=== PATIENT | female | born 1975 | race Caucasian/White ===

== ENCOUNTER 2022-02-06 15:40 | Outpatient (REF) | payer MEDICARE, MEDICAID, SELFPAY ==
[2022-02-06 16:33] LABS: C Reactive Protein 0.17 mg/dL (< or = 0.50)
[2022-02-06 16:57] LABS: TSH reflex Free T4 0.77 uIU/mL (0.32-4.0)
[2022-02-09 14:32] LABS: Immunoglobulin A 212 mg/dL (47-310)
[2022-02-10 13:46] LABS: Vitamin D 25-OH, D2 <4 ng/mL; Vitamin D 25-OH, D3 27 ng/mL; Vitamin D 25-OH, Total 27 ng/mL (30-100)
[2022-02-11 11:16] LABS: Transglutaminase Ab IgG <1.0 U/mL; Transglutaminase IgA <1.0 U/mL
== END 2022-02-06 15:41 | disposition home or self-care (01) ==
LOC: HO.LAB 15:40
PROVIDERS: PCP Internal Medicine; Visit Provider Nurse Practitioner Family
DX: R10.9 Unspecified abdominal pain (principal); E55.9 Vitamin D deficiency, unspecified; K58.9 Irritable bowel syndrome, unspecified; K59.00 Constipation, unspecified
CPT/HCPCS: 36415; 82306; 82784; 84443; 86140; 86364; 99202

== ENCOUNTER 2022-04-22 11:42 | Outpatient (REF) | payer MEDICARE, MEDICAID, SELFPAY ==
[2022-04-22 13:16] LABS: Alanine Aminotransferase 10 U/L (0-31); Albumin Level 4.5 g/dL (3.5-5.0); Alkaline Phosphatase 100 U/L (39-117); Aspartate Amino Transferase 16 U/L (5-31); Bilirubin Direct < 0.2 mg/dL (0.0-0.5); Bilirubin Total 0.4 mg/dL (0.0-1.0); Blood Urea Nitrogen 10 mg/dL (9-16); Estimated Glomerular Filt Rate > 60; Lipase 10 U/L (8-78); Total Protein 7.4 g/dL (6.5-8.0)
== END 2022-04-22 11:43 | disposition home or self-care (01) ==
LOC: HO.LAB 11:42
PROVIDERS: Visit Provider Nurse Practitioner Family
DX: R10.11 Right upper quadrant pain (principal)
CPT/HCPCS: 36415; 80076; 82565; 83690; 84520; 99212

== ENCOUNTER 2022-05-07 07:25 | Outpatient (REF) | payer MEDICARE, MEDICAID, SELFPAY ==
--- NOTE | ~2022-05-07 | CT_ITS ---
EXAMINATION: CT ABDOMEN AND PELVIS WITH CONTRAST CLINICAL INFORMATION: Abdominal pain. COMPARISON: 03/17/2021 TECHNIQUE: Multidetector volumetric images were obtained from the superior aspect of the liver through the pubic symphysis following administration 85 mL of Omnipaque 350 intravenous contrast. Sagittal and coronal reformatted images were obtained on the technologist's workstation. Oral contrast: No This CT examination was performed using dose optimization techniques as appropriate, variously including the following: *Automated exposure control *Adjustment of mA and/or kV according to patient size (this includes techniques or standardized protocols for targeted exams where dose is matched to indication/reason for exam; i.e. extremities or head) *Use of iterative reconstruction technique DLP: 317 mGy-cm FINDINGS: LUNG BASES: The visualized lung bases are unremarkable. LIVER, GALLBLADDER, AND BILIARY TREE: The liver is normal in size, shape, and attenuation. No focal hepatic lesion or biliary ductal dilatation is present. Cholecystectomy. PANCREAS: Unremarkable. SPLEEN: Unremarkable. ADRENAL GLANDS: Normal right adrenal gland. 0.9 cm left adrenal gland nodule is unchanged from prior, an indeterminant by Hounsfield unit measurement. KIDNEYS AND URETERS: The kidneys are normal in size, shape, and attenuation. No hydronephrosis, hydroureter, or calculi seen. No perinephric stranding. BLADDER: Decompressed with no gross abnormality. GASTROINTESTINAL TRACT: The stomach is unremarkable. Normal caliber small bowel. No obstruction. No colonic wall thickening or inflammatory change. The appendix is not seen. No inflammation the region of the cecum. ABDOMINAL WALL: No significant hernia is appreciated. LYMPH NODES: Normal. VASCULAR: Unremarkable. PELVIC VISCERA: Uterus not seen. No adnexal mass. Right ovarian small follicle noted. OSSEOUS STRUCTURES: No acute or suspicious osseous abnormality. Disc spacers at L4-L5 and L5-S1. CT/CT abdomen pelvis w IV con IMPRESSION: 1. No acute findings in the abdomen or pelvis. No inflammatory changes. 2. Unchanged indeterminate left adrenal gland nodule. This can be further evaluated with nonemergent adrenal protocol CT . Fleischner guidelines were followed.
[2022-05-07] MEDS: iohexoL 350 MG/ML 100 ML INFUS..BTL IV (09:45)
[2022-05-07] MEDS: Barium Sulfate Oral (Mocha) 450 ML ORAL.SUSP 900 ML PO (09:45)
== END 2022-05-07 07:26 | disposition home or self-care (01) ==
LOC: HO.CT 07:25
PROVIDERS: Visit Provider Nurse Practitioner Family
DX: R10.9 Unspecified abdominal pain (principal); R19.00 Intra-abdominal and pelvic swelling, mass and lump, unspecified site
CPT/HCPCS: 74177; Q9967

== ENCOUNTER 2022-05-17 16:09 | Emergency (ER) | payer MEDICARE, MEDICAID, SELFPAY ==
--- NOTE | ~2022-05-17 | CT_ITS ---
EXAMINATION: CT ABDOMEN AND PELVIS WITH CONTRAST CLINICAL INFORMATION: Abdominal pain. Diarrhea. COMPARISON: Multiple priors, most recent CT of the abdomen/pelvis dated 05/07/2022. TECHNIQUE: Multidetector volumetric images were obtained from the superior aspect of the liver through the pubic symphysis following administration 85 mL of Omnipaque 350 intravenous contrast. Sagittal and coronal reformatted images were obtained on the technologist's workstation. Oral contrast: No This CT examination was performed using dose optimization techniques as appropriate, variously including the following: *Automated exposure control *Adjustment of mA and/or kV according to patient size (this includes techniques or standardized protocols for targeted exams where dose is matched to indication/reason for exam; i.e. extremities or head) *Use of iterative reconstruction technique DLP: 445 mGy-cm FINDINGS: LUNG BASES: The visualized lung bases are unremarkable. LIVER, GALLBLADDER, AND BILIARY TREE: The liver is normal in size, shape, and attenuation. No focal hepatic lesion or biliary ductal dilatation is present. Status post cholecystectomy. PANCREAS: Unremarkable. SPLEEN: Unremarkable. ADRENAL GLANDS: Redemonstration of a left adrenal nodule, unchanged dating back to 2014. Given stability, findings likely represent an adrenal adenoma and no dedicated interval follow up is recommended. KIDNEYS AND URETERS: The kidneys are normal in size, shape, and attenuation. No hydronephrosis, hydroureter, or calculi seen. No perinephric stranding. BLADDER: Partially distended and unremarkable. GASTROINTESTINAL TRACT: No bowel wall thickening or inflammatory change. No small or large bowel obstruction. Appendix not identified, however, no right lower quadrant inflammatory change to suggest acute appendicitis. PERITONEAL CAVITY: No intra-abdominal free air or free fluid. No intra-abdominal mass or organized fluid collection/abscess formation. ABDOMINAL WALL: No significant hernia is appreciated. LYMPH NODES: No significant lymphadenopathy. VASCULAR: Unremarkable. PELVIC VISCERA: Status post hysterectomy. OSSEOUS STRUCTURES: Intervertebral disc hardware redemonstrated within the lumbar spine. No evidence of hardware complication. No acute osseous abnormality. CT/CT abdomen pelvis w IV con IMPRESSION: 1. No bowel wall thickening or inflammatory change. No small or large bowel obstruction. Appendix not identified, however, no right lower quadrant contour change to suggest acute appendicitis. 2. No intra-abdominal mass, lymphadenopathy, or ascites. 3. Additional chronic findings are unchanged. Fleischner guidelines were followed.
[2022-05-17 16:26] VITALS: BP 154/89; PULSE 77; RESP 18; TEMP 36.9; O2SAT 98; BMI 24.4
[2022-05-17] MEDS: Ondansetron ODT 4 MG TAB.RAPDIS TRANSLINGU (16:32)
[2022-05-17 17:04] LABS: Hematocrit 39.7 % (37.0-47.0); Hemoglobin 13.3 g/dl (12.0-16.0); Mean Corpuscular HGB Conc 33.5 g/dl (31.0-35.0); Mean Corpuscular Hemoglobin 29.9 pg (27.0-33.0); Mean Corpuscular Volume 89.2 fL (80.0-98.0); Platelet Count 302 X10*3/uL (160-400); Red Blood Count 4.45 X10*6/uL (4.20-5.50); Red Cell Distribution Width 12.1 % (11.0-16.0); White Blood Count 7.7 X10*3/uL (4.8-10.8)
[2022-05-17 17:23] LABS: COVID-19 Test Negative (Negative)
[2022-05-17 17:27] LABS: Alanine Aminotransferase 12 U/L (0-31); Albumin Level 4.5 g/dL (3.5-5.0); Alkaline Phosphatase 96 U/L (39-117); Anion Gap 15 (12-20); Aspartate Amino Transferase 14 U/L (5-31); Bilirubin Direct 0.2 mg/dL (0.0-0.5); Bilirubin Total 0.6 mg/dL (0.0-1.0); Blood Urea Nitrogen 13 mg/dL (9-16); Calcium 9.5 mg/dL (8.4-10.2); Carbon Dioxide 24 mmol/L (22-29); Chloride 104 mmol/L (96-108); Creatinine Clr Calc Pharmacy 77.9; Estimated Glomerular Filt Rate > 60; Glucose Random 92 mg/dL (60-115); Lipase 15 U/L (8-78); Potassium 3.9 mmol/L (3.3-5.1); Sodium 139 mmol/L (135-145); Total Protein 7.3 g/dL (6.5-8.0)
[2022-05-17 20:46] VITALS: BP 140/85; PULSE 77; RESP 16; TEMP 36.6; O2SAT 99
--- NOTE | 2022-05-17 21:23 | ED.ABDPAIN ---
HPI - Abdominal Pain General Chief Complaint: Abdominal Pain Stated Complaint: abd pain Time Seen by Provider: 05/17/22 21:23 Source: patient Mode of arrival: ambulatory Limitations: no limitations History of Present Illness HPI narrative: 46-year-old female history of GERD, irritable bowel syndrome, bipolar do, fibromyalgia presenting to the emergency department complaints of left upper quadrant pain with radiation to the left flank area times a few days worsening. Patient tells me she has a constant pain described as a stabbing pain, she tells me GI has seen her and has done a CT scan however she is unsure of results. She tells me that this pain has been going on for a long time however worsening over the past few days. She tells me they were concerned it may be her pancreas. She tells me she has not been eating or drinking well over the past few days. Also reports associated nausea. Reports she has been having loose stools. Denies trauma to the abdomen. Tells me she still has her appendix and gallbladder. Denies fevers, vomiting, chest pain, shortness of breath, urinary frequency, urgency, dysuria, changes in bowel habits, , numbness, tingling, saddle paresthesias. Related Data Home Medications Medication Instructions Recorded Confirmed adalimumab 40 mg/0.4 mL mg subcut 02/06/22 subcutaneous syringe kit (Gabbie(CF)) albuterol sulfate 2.5 mg/3 mL mg inhalation Q4H PRN wheezing 02/06/22 (0.083 %) solution for nebulization albuterol sulfate 90 mcg/actuation 0 mcg inhalation 02/06/22 aerosol inhaler aripiprazole 15 mg tablet 15 mg PO DAILY 02/06/22 atenolol 25 mg tablet 25 mg PO BID 02/06/22 cetirizine 10 mg tablet 10 mg PO DAILY 02/06/22 diclofenac sodium 75 mg 75 mg PO BID 02/06/22 tablet,delayed release dicyclomine 10 mg capsule 10 mg PO TID PRN abdominal pain 02/06/22 fluticasone propionate 220 1 puff inhalation BID 02/06/22 mcg/actuation HFA aerosol inhaler fluticasone propionate 50 2 spray intranasal DAILY 02/06/22 mcg/actuation nasal spray,suspension lamotrigine 150 mg tablet 75 mg PO BID 02/06/22 pantoprazole 40 mg tablet,delayed 40 mg PO DAILY 02/06/22 release pregabalin 50 mg capsule 50 mg PO TID 02/06/22 quetiapine 100 mg tablet 100 mg PO BEDTIME 02/06/22 sertraline 100 mg tablet 100 mg PO BID 02/06/22 tramadol 50 mg tablet 50 mg PO BID PRN 02/06/22 trazodone 150 mg tablet 150 - 300 mg PO BEDTIME PRN 02/06/22 Previous Rx's Medication Instructions Recorded docusate sodium 100 mg capsule 100 mg PO BEDTIME #90 caps 02/06/22 methylcellulose (laxative) 500 mg 500 mg PO DAILY #90 tabs 02/06/22 tablet (Citrucel) sennosides 8.6 mg tablet (Natural 8.6 mg PO BEDTIME constipation #90 02/06/22 Senna Laxative) tabs simethicone 125 mg capsule (Gas 125 mg PO TID-QID PRN abdominal 02/06/22 Relief (simethicone)) distention #120 caps cholecalciferol (vitamin D3) 50 50 mcg PO DAILY #90 caps 04/22/22 mcg (2,000 unit) capsule [id number]-jvjhlovf-nyoksts 1 cap PO .qid ac #120 caps 04/22/22 6,000-19,000-30,000 unit capsule,delayed rel (Creon) ondansetron 4 mg disintegrating 4 mg PO Q6H PRN nausea and 05/17/22 tablet vomiting #14 tabs Allergies Allergy/AdvReac Type Severity Reaction Status Date / Time oxycodone Allergy Mild Hives Verified 04/22/22 10:49 morphine Allergy Unknown Unknown Verified 04/22/22 10:49 cortisone acetate Allergy Unknown Unknown Uncoded 02/03/22 16:20 compazine Allergy Unknown Uncoded 02/03/22 16:20 Review of Systems Review of Systems Constitutional : No Weight loss, No Fever, No Chills, No Fatigue, No Malaise ENT/Mouth : No sore throat, No Rhinorrhea Eyes: No Eye Pain, No Swelling, No Redness Cardiovascular : No Chest Pain, No SOB, No Dyspnea on Exertion, No Orthopnea, No Edema, No Palpitations Respiratory : No Cough, No Sputum, No Wheezing Gastrointestinal : No Nausea, No Vomiting, No Diarrhea, No Constipation, + abdominal Pain, No Hematochezia, No Melena Genitourinary : No Dysuria, No Urinary Frequency, No Hematuria, Musculoskeletal : No joint pain, No Myalgias, No Joint Swelling Skin : No Skin Lesions, No rash Neuro : No Weakness, No Numbness, No Dizziness, No Headache Psych : No Anxiety/Panic, No Depression Heme/Lymph: No Bruising, No Bleeding,No Lymphadenopathy Endocrine : No Polyuria, No Polydipsia All other systems reviewed and are negative Yes all other systems are reviewed and are negative [facility] Past Medical History Attestation statement: The following information was validated with the patient. Source: old records reviewed and nursing notes reviewed Medical History Bipolar affective disorder Fibromyalgia GERD (gastroesophageal reflux disease) Irritable bowel syndrome Psoriatic arthritis Right bundle branch block (RBBB) Tubular adenoma Surgical History History of appendectomy History of bladder suspension procedure History of cholecystectomy History of colonoscopy History of esophagogastroduodenoscopy (EGD) Previous back surgery Family History Family History Maternal Grandmother Breast cancer Maternal Aunt Breast cancer Father FH: prostate cancer Paternal Grandmother Uterine cancer Paternal Grandfather Heart attack Sister Von Willebrand disease Paternal Aunt Ovarian cancer Colon cancer Stomach cancer Uterine cancer Paternal Uncle Colon cancer Social History Social History Alcohol intake: never Patient Tobacco Use Status: Former Tobacco user Cigarette Packs Per Day: 0.50 Advance Directives: No Advance Directives Information Provided: No Physical Exam ED Vital Signs: Vital Signs - 24 hr 05/17/22 16:26 05/17/22 20:46 05/17/22 21:35 Temperature 98.4 F 97.8 F 97.9 F Pulse Rate 77 77 68 Respiratory Rate 18 16 14 Blood Pressure 154/89 H 140/85 H 146/77 H Pulse Oximetry 98 99 98 Oxygen Delivery Method Room Air Room Air Room Air 05/17/22 23:45 05/18/22 00:08 05/18/22 02:00 Temperature 98.0 F 97.9 F 97.9 F Pulse Rate 64 65 61 Respiratory Rate 16 16 15 Blood Pressure 137/78 124/75 110/63 Pulse Oximetry 98 97 99 Oxygen Delivery Method Room Air Room Air Room Air BMI result Body Mass Index 24.4 vss Appearance: Alert.? Oriented X3.? No acute distress.? Head: Normocephalic, atraumatic, no step-offs or deformities Eyes: Pupils equal, round and reactive to light.? ENT: Pharynx normal.? Neck: Normal inspection.? Neck supple.? CVS: Normal heart rate and rhythm.? Pulses normal.? Respiratory: No respiratory distress.? Breath sounds normal.? Abdomen: Soft and pain with palpation to left upper quadrant..? Skin: Skin warm and dry.? Normal skin color.? Normal skin turgor.? Extremities: No lower extremity edema.? No calf ttp. 5/5 strength to bilateral upper and lower extremities Neuro: Oriented X 3.? No motor deficit.? No sensory deficit. CN 2-12 intact Course Reevaluation(s) Reevaluation #1: CBC appears to be within normal limits. No evidence of anemia or leukocytosis. Chemistry with no acute electrolyte abnormalities requiring intervention. Transaminases normal. Lipase within normal limits. COVID negative. CT of the abdomen and pelvis pending as well as urine. Time: 21:25 Reevaluation #2: Urine clean without infection. CT of the abdomen pelvis with no acute findings. Patient COVID negative. Patient is followed by GI, I will have her follow up with them outpatient. No need for hospital admission. This time patient will be discharged home advised to return with new or worsening symptoms. Educated on worrisome signs and symptoms and when to return. Time: 23:21 Reevaluation #3: EKG with normal sinus rhythm and right bundle-branch block, patient has a history of right bundle-branch block, no acute findings, no signs of ischemia. Will repeat troponin troponin is negative patient will be discharged home. She tells me she is feeling better after Dilaudid. Time: 01:14 Additional Reevaluation(s): Troponin not meeting delta criteria, patient without chest pain, shortness of breath. Reports feeling better tolerating p.o.. Will have her follow-up with GI. Unlikely that this is ACS. Educated on worrisome signs and symptoms and when to return. Comfortable discharge home Medications Administered Discontinued Medications Generic Name Dose Route Start Last Admin Trade Name Freq PRN Reason Stop Dose Admin Al Hydroxide/Mg Hydroxide 30 ml 05/17/22:24 05/17/22 23:36 Magnesium Hydrox/Alum Hydrox 30 Ml Oral.Susp PO 05/17/22 23:25 30 ml ONCE ONE Administration Belladonna Alkaloids/Phenobarbital 10 ml 05/17/22 23:24 05/17/22 23:37 Phenobarb/Hyoscy/Atropine/Scop 10 Ml Elixir PO 05/17/22 23:25 10 ml ONCE ONE Administration Hydromorphone HCl 0.25 mg 05/17/22 23:24 05/17/22 23:37 Hydromorphone Hcl 0.5 Mg/0.5 Ml Syringe IVPUSH 05/17/22 23:25 0.25 mg ONCE ONE Administration Protocol Sodium Chloride 1,000 mls @ 999 mls/hr 05/17/22 23:30 05/18/22 01:23 Ns IV 05/18/22 00:30 Infused .Q1H1M AKBAR Infusion Iohexol 100 ml 05/17/22 22:33 05/17/22 22:33 Iohexol 350 Mg/Ml 100 Ml Infus..Btl IV 05/17/22 22:34 85 ml ONCE ONE Administration Ondansetron HCl 4 mg 05/17/22 16:30 05/17/22 16:32 Ondansetron Odt 4 Mg Tab.Rapdis TRANSLINGU 05/17/22 16:31 4 mg ONCE ONE Administration MDM - Abdominal Pain MDM Narrative Medical decision making narrative: 2124 46-year-old female presents with left upper quadrant pain that radiates to the left flank with some associated nausea times a few days worsening. Reports poor p.o. intake. Exam pain to palpation of left upper quadrant. No peritoneal signs. Regular rate and rhythm. Lungs clear. Abdomen soft, normoactive bowel sounds. Unlikely that this is cholecystitis, appendicitis, diverticulitis, dissection. Will rule out pancreatitis. No signs of acute abdomen on my exam, Likely IBS. Plan at this time is labs, urine, imaging Medical Records Attestation: I reviewed the patient's medical records. Lab Data Attestation: I reviewed the patient's lab results. Result diagrams: 05/17/22 16:56 05/17/22 16:56 Labs: Lab Results 05/17/22 05/17/22 05/17/22 Range/Units 16:56 16:56 16:56 WBC 7.7 (4.8-10.8) X10*3/uL RBC 4.45 (4.20-5.50) X10*6/uL Hgb 13.3 (12.0-16.0) g/dl Hct 39.7 (37.0-47.0) % MCV 89.2 (80.0-98.0) fL MCH 29.9 (27.0-33.0) pg MCHC 33.5 (31.0-35.0) g/dl RDW 12.1 (11.0-16.0) % Plt Count 302 (160-400) X10*3/uL MPV 9.0 L (9.4-12.3) fL Absolute Nucleated RBC 0.000 (0.0-0.012) X10*3/uL Nucleated RBC % (auto) 0.0 (0.0-0.2) /100WBC Sodium 139 (135-145) mmol/L Potassium 3.9 (3.3-5.1) mmol/L Chloride 104 (96-108) mmol/L Carbon Dioxide 24 (22-29) mmol/L Anion Gap 15 (12-20) BUN 13 (9-16) mg/dL Creatinine 0.73 (0.5-1.4) mg/dL Estim Creat Clear Calc 77.9 Estimated GFR > 60 Random Glucose 92 (60-115) mg/dL Calcium 9.5 (8.4-10.2) mg/dL Total Bilirubin 0.6 (0.0-1.0) mg/dL Direct Bilirubin 0.2 (0.0-0.5) mg/dL AST 14 (5-31) U/L ALT 12 (0-31) U/L Alkaline Phosphatase 96 (39-117) U/L Troponin I High Sens 7.1 (<3.5-17.0) ng/L Total Protein 7.3 (6.5-8.0) g/dL Albumin 4.5 (3.5-5.0) g/dL Lipase 15 (8-78) U/L Urine Color Urine Appearance Urine pH (5.0-9.0) Ur Specific [place] (1.005-1.025) Urine Protein (Neg-Trace) mg/dL Urine Glucose (UA) (Negative) mg/dL Urine Ketones (Negative) mg/dL Urine Blood (Negative) Urine Nitrite (Negative) Ur Leukocyte Esterase (Negative) Urine Test (NEGATIVE) COVID-19 (ANAIS) (Negative) COVID-19 Clin Com 05/17/22 05/17/22 05/17/22 Range/Units 16:57 21:38 21:38 WBC (4.8-10.8) X10*3/uL RBC (4.20-5.50) X10*6/uL Hgb (12.0-16.0) g/dl Hct (37.0-47.0) % MCV (80.0-98.0) fL MCH (27.0-33.0) pg MCHC (31.0-35.0) g/dl RDW (11.0-16.0) % Plt Count (160-400) X10*3/uL MPV (9.4-12.3) fL Absolute Nucleated RBC (0.0-0.012) X10*3/uL Nucleated RBC % (auto) (0.0-0.2) /100WBC Sodium (135-145) mmol/L Potassium (3.3-5.1) mmol/L Chloride (96-108) mmol/L Carbon Dioxide (22-29) mmol/L Anion Gap (12-20) BUN (9-16) mg/dL Creatinine (0.5-1.4) mg/dL Estim Creat Clear Calc Estimated GFR Random Glucose (60-115) mg/dL Calcium (8.4-10.2) mg/dL Total Bilirubin (0.0-1.0) mg/dL Direct Bilirubin (0.0-0.5) mg/dL AST (5-31) U/L ALT (0-31) U/L Alkaline Phosphatase (39-117) U/L Troponin I High Sens (<3.5-17.0) ng/L Total Protein (6.5-8.0) g/dL Albumin (3.5-5.0) g/dL Lipase (8-78) U/L Urine Color Yellow Urine Appearance Cloudy Urine pH 5.0 (5.0-9.0) Ur Specific [place] 1.025 (1.005-1.025) Urine Protein Negative (Neg-Trace) mg/dL Urine Glucose (UA) Negative (Negative) mg/dL Urine Ketones Trace (Negative) mg/dL Urine Blood Negative (Negative) Urine Nitrite Negative (Negative) Ur Leukocyte Esterase Negative (Negative) Urine Test NEGATIVE (NEGATIVE) COVID-19 (ANAIS) Negative (Negative) COVID-19 Clin Com See Note 05/18/22 Range/Units 02:01 WBC (4.8-10.8) X10*3/uL RBC (4.20-5.50) X10*6/uL Hgb (12.0-16.0) g/dl Hct (37.0-47.0) % MCV (80.0-98.0) fL MCH (27.0-33.0) pg MCHC (31.0-35.0) g/dl RDW (11.0-16.0) % Plt Count (160-400) X10*3/uL MPV (9.4-12.3) fL Absolute Nucleated RBC (0.0-0.012) X10*3/uL Nucleated RBC % (auto) (0.0-0.2) /100WBC Sodium (135-145) mmol/L Potassium (3.3-5.1) mmol/L Chloride (96-108) mmol/L Carbon Dioxide (22-29) mmol/L Anion Gap (12-20) BUN (9-16) mg/dL Creatinine (0.5-1.4) mg/dL Estim Creat Clear Calc Estimated GFR Random Glucose (60-115) mg/dL Calcium (8.4-10.2) mg/dL Total Bilirubin (0.0-1.0) mg/dL Direct Bilirubin (0.0-0.5) mg/dL AST (5-31) U/L ALT (0-31) U/L Alkaline Phosphatase (39-117) U/L Troponin I High Sens 7.7 (<3.5-17.0) ng/L Total Protein (6.5-8.0) g/dL Albumin (3.5-5.0) g/dL Lipase (8-78) U/L Urine Color Urine Appearance Urine pH (5.0-9.0) Ur Specific [place] (1.005-1.025) Urine Protein (Neg-Trace) mg/dL Urine Glucose (UA) (Negative) mg/dL Urine Ketones (Negative) mg/dL Urine Blood (Negative) Urine Nitrite (Negative) Ur Leukocyte Esterase (Negative) Urine Test (NEGATIVE) COVID-19 (ANAIS) (Negative) COVID-19 Clin Com ECG Data Attestation: I personally reviewed and interpreted this ECG as follows: ECG interpretation date: 05/18/22 ECG interpretation time: 01:12 Prior ECG tracings: available for review Interpretation: Ventricular rate of 60 QRS normal QT/QTC normal. EKG with normal sinus rhythm and a right bundle-branch, no ST elevations or inversions concerning for ischemia, no previous EKGs to compare with however patient does have history of right bundle-branch block Critical Care Time Critical Care Time Critical Care Time: No Discharge Plan Discharge Clinical Impression: Abdominal pain, Nausea Patient Disposition: Home, Self-Care Instructions: Acute Nausea and Vomiting (ED), Abdominal Pain (ED) Additional Instructions: Take your medications as prescribed. If you were prescribed antibiotics today, it is important that you take your medication to their entirety, do not skip any doses, do not finish them early. Follow-up with your primary care provider this week. Return to the emergency department with new or worsening symptoms. Such as fevers, chills, chest pain, shortness of breath, nausea, vomiting, dizziness, headache, vision changes, lethargy In case of emergency call 911 Prescriptions: New ondansetron 4 mg tablet,disintegrating 4 mg PO Q6H PRN (Reason: nausea and vomiting) Qty: 14 0RF No Action trazodone 150 mg tablet 150 - 300 mg PO BEDTIME PRN albuterol sulfate 90 mcg/actuation HFA aerosol inhaler 0 mcg inhalation fluticasone propionate 50 mcg/actuation spray,suspension 2 spray intranasal DAILY albuterol sulfate 2.5 mg /3 mL (0.083 %) solution for nebulization inhalation Q4H PRN (Reason: wheezing) cetirizine 10 mg tablet 10 mg PO DAILY lamotrigine 150 mg tablet 75 mg PO BID sertraline 100 mg tablet 100 mg PO BID dicyclomine 10 mg capsule 10 mg PO TID PRN (Reason: abdominal pain) pantoprazole 40 mg tablet,delayed release (DR/EC) 40 mg PO DAILY tramadol 50 mg tablet 50 mg PO BID PRN atenolol 25 mg tablet 25 mg PO BID pregabalin 50 mg capsule 50 mg PO TID aripiprazole 15 mg tablet 15 mg PO DAILY fluticasone propionate 220 mcg/actuation HFA aerosol inhaler 1 puff inhalation BID diclofenac sodium 75 mg tablet,delayed release (DR/EC) 75 mg PO BID quetiapine 100 mg tablet 100 mg PO BEDTIME Humira(CF) 40 mg/0.4 mL syringe kit subcut Citrucel 500 mg tablet 500 mg PO DAILY Qty: 90 2RF Rx Instructions: take it with full glass of water docusate sodium 100 mg capsule 100 mg PO BEDTIME Qty: 90 3RF sennosides [Natural Senna Laxative] 8.6 mg tablet 8.6 mg PO BEDTIME Qty: 90 3RF simethicone [Gas Relief (simethicone)] 125 mg capsule 125 mg PO TID-QID PRN (Reason: abdominal distention) Qty: 120 2RF Creon 6,000-19,000 -30,000 unit capsule,delayed release(DR/EC) 1 cap PO .qid ac Qty: 120 2RF Rx Instructions: do not exceed 10,000 unit/kg lipase per 24 hrs cholecalciferol (vitamin D3) 50 mcg (2,000 unit) capsule 50 mcg PO DAILY Qty: 90 3RF Referrals: [facility] [place] [facility] [Provider Group] - 1 day Radu Christensen MD [Primary Care Provider] - 2 days Najma Perez FNP-SIMIN [Nurse Practitioner] - 1 day Stand Alone Forms: Work/School Release
[2022-05-17 21:35] VITALS: BP 146/77; PULSE 68; RESP 14; TEMP 36.6; O2SAT 98
[2022-05-17 21:47] LABS: Appearance Urine Cloudy; Color Urine Yellow; Glucose Urine UA Negative (Negative); Leukocyte Esterase Urine Negative (Negative); Nitrite Urine Negative (Negative); Specific Gravity - Urine 1.025 (1.005-1.025); Urine Blood Negative (Negative); Urine Ketones Trace mg/dL (Negative); Urine Protein Negative (Neg-Trace)
[2022-05-17 21:54] LABS: UPreg QC Valid YES; Urine Pregnancy NEGATIVE (NEGATIVE)
[2022-05-17] MEDS: iohexoL 350 MG/ML 100 ML INFUS..BTL IV (22:33)
--- NOTE | 2022-05-17 23:23 | ECG_ITS ---
Test Reason : ABD PAIN Blood Pressure : / mmHG Vent. Rate : 065 BPM Atrial Rate : 065 BPM P-R Int : 208 ms QRS Dur : 130 ms QT Int : 460 ms P-R-T Axes : 047 -10 021 degrees QTc Int : 478 ms Normal sinus rhythm Right bundle branch block Abnormal ECG No previous ECGs available Referred By: Bev Caro Electronically Signed By:MAXIMUS GUTIERREZ MD
[2022-05-17] MEDS: Magnesium Hydrox/Alum Hydrox 30 ML ORAL.SUSP PO (23:36)
[2022-05-17] MEDS: 0.9 % Sodium Chloride 1,000 ML 999 ML IV (23:36)
[2022-05-17] MEDS: PHENobarb/Hyoscy/Atropine/Scop 10 ML ELIXIR PO (23:37)
[2022-05-17] MEDS: HYDROmorphone HCl 0.5 MG/0.5 ML SYRINGE 0.25 MG IVPUSH (23:37)
--- NOTE | 2022-05-17 23:43 | PC.NURSE ---
Pt. resting in bed. Able to ambulate to bathroom with slow and steady gait. C/O pain in the abdomen at 03/14. Medicated per SEP. IVF NS running. Pt. spouse at bedside.
[2022-05-17 23:45] VITALS: BP 137/78; PULSE 64; RESP 16; TEMP 36.7; O2SAT 98
[2022-05-17 23:51] LABS: Troponin-I High Sensitivity 7.1 ng/L (<3.5-17.0)
[2022-05-18 00:08] VITALS: BP 124/75; PULSE 65; RESP 16; TEMP 36.6; O2SAT 97
[2022-05-18 02:00] VITALS: BP 110/63; PULSE 61; RESP 15; TEMP 36.6; O2SAT 99
[2022-05-18 02:25] LABS: Troponin-I High Sensitivity 7.7 ng/L (<3.5-17.0)
[2022-05-18] MEDS: HYDROmorphone HCl 0.5 MG/0.5 ML SYRINGE 0.25 MG IVPUSH (02:38)
== END 2022-05-18 02:51 | disposition home or self-care (01) ==
PROVIDERS: Physician Assistant; Emergency Provider Student in an Organized Health Care Education/Training Program; PCP Internal Medicine
DX: R10.12 Left upper quadrant pain (principal); R11.2 Nausea with vomiting, unspecified; Z20.822 Contact with and (suspected) exposure to COVID-19; Z79.899 Other long term (current) drug therapy
CPT/HCPCS: 36415; 74177; 80048; 80076; 81003; 81025; 83690; 84484; 85027; 87635; 93005; 96361; 96374; 96376; 99285; J1170; Q9967

== ENCOUNTER 2022-05-21 10:06 | Outpatient (REF) | payer MEDICARE, MEDICAID, SELFPAY ==
[2022-05-31 14:32] LABS: Calprotectin, Fecal 57 mcg/g
[2022-06-01 16:41] LABS: Pancreatic Elastase-1 >500 mcg/g
== END 2022-05-21 10:07 | disposition home or self-care (01) ==
LOC: HO.LNP 10:06
PROVIDERS: Visit Provider Nurse Practitioner Family
DX: K21.9 Gastro-esophageal reflux disease without esophagitis (principal); K58.2 Mixed irritable bowel syndrome; R10.9 Unspecified abdominal pain
CPT/HCPCS: 82656; 83993; 87338; 99212

== ENCOUNTER 2022-05-21 10:57 | Outpatient (REF) | payer MEDICARE, MEDICAID, SELFPAY ==
[2022-05-21 16:38] LABS: Folate 11.7 ng/mL (> or = 4.0); Vitamin B12 423 pg/mL (200-900)
[2022-05-26 09:26] LABS: Rast Allergen SEE COMMENTS
== END 2022-05-21 10:58 | disposition home or self-care (01) ==
LOC: HO.LAB 10:57
PROVIDERS: PCP Internal Medicine; Visit Provider Nurse Practitioner Family
DX: Z01.82 Encounter for allergy testing (principal); R19.7 Diarrhea, unspecified; K21.9 Gastro-esophageal reflux disease without esophagitis; K29.70 Gastritis, unspecified, without bleeding
CPT/HCPCS: 36415; 82607; 82746; 86003

== ENCOUNTER 2022-06-02 10:02 | Day surgery (SDC) | payer MEDICARE, MEDICAID, SELFPAY ==
--- NOTE | 2022-06-02 10:27 | P.HPSUR_ITS ---
Pre-Procedural Eval Section A Date of Service: 06/02/22 Section B Chief Complaint: abdominal pain,reflux disease Relevant Family History (Specify if Yes): No Relevant Social History: None Present Medications: see Short Stay Collaborative assessment Medical History: Significant History (Bipolar affective disorder Fibromyalgia GERD (gastroesophageal reflux disease) Irritable bowel syndrome Psoriatic arth ritis Right bundle branch block (RBBB) Tubular adenoma) History of Previous Operations: Relevant previous surgery/procedure and date(s) (History of appendectomy History of bladder suspension procedure History of cholecystectomy History of colonoscopy History of esophagogastroduodenoscopy (EGD) Previous back surgery) Allergies: Allergies Allergy/AdvReac Type Severity Reaction Status Date / Time oxycodone Allergy Mild Hives Verified 05/21/22 09:56 morphine Allergy Unknown Unknown Verified 05/21/22 09:56 cortisone acetate Allergy Unknown Unknown Uncoded 02/03/22 16:20 compazine Allergy Unknown Uncoded 02/03/22 16:20 Review of Systems Sugical H&P ROS: Negative: Constitution, Cardiovascular, Respiratory, Neurological, Psychiatric, Hem-Onc, Allergic/Immunologic, Gastrointestinal, Genitourinary, Musculoskeletal, Integumentary, Endocrine and Eye s/Ears/Nose/Throat Exam Surgical H&P Exam: Normal: HEENT, Normal: Heart, Normal: Lungs, Normal: Extremities, Normal: Abdomen, Normal: Skin and Normal: Neurological Plan Diagnosis/Plan: Unchanged I have reviewed the history and physical and performed a pertinent physical examination on my patient. No changes have occurred unless specified.
[2022-06-02 11:00] VITALS: BP 129/85; PULSE 69; RESP 15; TEMP 36.5; O2SAT 97; BMI 24.4
[2022-06-02] MEDS: Lactated Ringers 1,000 ML 100 ML IVCONT (11:19)
--- NOTE | 2022-06-02 11:52 | W.PM.OPN ---
Operative Note Operative Note Date of Service: 06/02/22 Narrative: Procedure Description: EGD Indication: epigastric pain Anesthesia: MAC FLEXIBLE TRANSORAL UPPER GASTROINTESTINAL ENDOSCOPY UPPER ENDOSCOPY Consent: Indications for the procedure and potential complications of bleeding, perforation, reaction to medications and missed diagnosis were discussed with the patient and informed consent was obtained. Instrument: Olympus GIF H 190 J mid size upper endoscope Monitoring: Vital signs and clinical assessment, continuous EKG monitoring, Pulse oximetry, Carbon Dioxide monitoring and blood pressure monitoring were done throughout the procedure. Procedure: The patient was placed in the left lateral decubitis position and pre-procedure medications were administered and a bite block was placed. The endoscope was inserted into the mouth and advanced under direct vision to the third part of duodenum. A careful inspection was made as the upper endoscope was withdrawn including a retroflexed examination of the proximal stomach; Findings and interventions are described below. Findings: Larynx:normal Esophagus: GE junction at 37 cm, diaphragm hiatus at 37 cm, irregular z line with suspected short segment Barretts including one small island of salmon pink tissue, biopsies and brushings taken including from proximal and distal esophagus Stomach: Patchy gastric erythema. Biopsies were obtained. Grade 2 flap valve on retroflexed examination of the cardia. Few fundic gland appearing polyps noted, bx taken Duodenum: Normal bulb and descending duodenum, bx taken Intervention: Biopsies as noted above, WATS 3D brushings Impression/Findings: possible barretts gastritis fundic gland polyps PLAN: await bx results if h pylori pos then treat
--- NOTE | 2022-06-02 12:10 | P.CONAN_ITS ---
FORMERLY [facility], [facility] Active Problems Active Problems: All Active Problems (Updated 06/02/22 @ 11:10 by Sherie Walker, JUSTIN) GERD (gastroesophageal reflux disease) (Acute) Irritable bowel syndrome (Acute) Past Medical History Medical History (Updated 06/02/22 @ 11:10 by Sherie Walker RN) Bipolar affective disorder Fibromyalgia GERD (gastroesophageal reflux disease) History of uterine cancer Irritable bowel syndrome Psoriatic arthritis PTSD (post-traumatic stress disorder) Right bundle branch block (RBBB) TIA (transient ischemic attack) Tubular adenoma Family History Family History Maternal Grandmother Breast cancer Maternal Aunt Breast cancer Father FH: prostate cancer Paternal Grandmother Uterine cancer Paternal Grandfather Heart attack Sister Von Willebrand disease Paternal Aunt Ovarian cancer Colon cancer Stomach cancer Uterine cancer Paternal Uncle Colon cancer Family history of problems with anesthesia: No Surgical History Surgical History (Updated 06/02/22 @ 11:08 by Sherie Walker RN) History of appendectomy History of bladder suspension procedure History of cholecystectomy History of colonoscopy History of esophagogastroduodenoscopy (EGD) History of partial hysterectomy Hx of abdominal surgery Hx of section Hx of eye surgery Hx of hernia repair Previous back surgery History of Problems with Anesthesia: No Social History Social History Alcohol intake: never Patient Tobacco Use Status: Former Tobacco user Quit Date: 03/2022 Cigarette Packs Per Day: 0.50 Use of substances other than those prescribed or required for medical reasons: No Are you DNR?: No Advance Directives: No Advance Directives Information Provided: Yes Meds Allergies Allergy/AdvReac Type Severity Reaction Status Date / Time oxycodone Allergy Mild Hives Verified 05/21/22 09:56 morphine Allergy Unknown Unknown Verified 05/21/22 09:56 cortisone acetate Allergy Unknown Unknown Uncoded 02/03/22 16:20 compazine Allergy Unknown Uncoded 02/03/22 16:20 Active Medications: Current Medications Lactated Ringer's (Lr) 1,000 mls @ 100 mls/hr IVCONT .Q10H AKBAR Last Admin: 06/02/22 11:19 Dose: 100 mls/hr Ondansetron HCl (Ondansetron Hcl 4 Mg/2 Ml Vial) 4 mg IVPUSH ONCE PRN PRN Reason: Nausea and Vomiting Home Medications Medication Instructions Recorded Confirmed Last Taken Type adalimumab 40 mg/0.4 mL mg subcut 02/06/22 Unknown History subcutaneous syringe kit (Humira(CF)) albuterol sulfate 2.5 mg/3 mL mg inhalation Q4H PRN wheezing 02/06/22 Unknown History (0.083 %) solution for nebulization albuterol sulfate 90 mcg/actuation 0 mcg inhalation 02/06/22 Unknown History aerosol inhaler aripiprazole 15 mg tablet 15 mg PO DAILY 02/06/22 Unknown History cetirizine 10 mg tablet 10 mg PO DAILY 02/06/22 06/02/22 08:00 History fluticasone propionate 220 1 puff inhalation BID 02/06/22 Unknown History mcg/actuation HFA aerosol inhaler fluticasone propionate 50 2 spray intranasal DAILY 02/06/22 Unknown History mcg/actuation nasal spray,suspension tramadol 50 mg tablet 50 mg PO BID PRN Pain 02/06/22 06/02/22 08:00 History Exam Exam Date and Time: June 02, 2022 1210 Height,Weight and Vital Signs: Height 5 ft 3 in Weight 62.596 kg Last Vital Signs Temp 97.7 F 06/02/22 11:00 Pulse 69 06/02/22 11:00 Resp 15 06/02/22 11:00 BP 129/85 06/02/22 11:00 Pulse Ox 97 06/02/22 11:00 O2 Del Method 06/02/22 11:00 Airway Mallampati Class: I TM Dist: >3cm Neck ROM: Full Loose/Missing/Broken Teeth: No Heart: rrr Lungs: clear Assessment and Plan Final Anesthetic Review Family History of Problems with Anesthesia: No History of Problems with Anesthesia: No NPO: Yes ASA Class: II Final Preanesthetic Review: No Changes in Pt Med Stat, Meds/Allgs Chart Reviewed, Consent Obtained/Reviewed and Anes Risks/Benef Reviewed Patient Risk: Low Procedure Risk: Low Anesthetic Plan Anesthetic Plan: MAC: Disposition: Standard PACU
--- NOTE | 2022-06-02 12:18 | P.CONAN_ITS ---
[facility] Active Problems Active Problems: aAll Active Problems (Updated 06/02/22 @ 11:10 by Sherie Walker, RN) GERD (gastroesophageal reflux disease) (Acute) Irritable bowel syndrome (Acute) Past Medical History Medical History (Updated 06/02/22 @ 11:10 by Sherie Walker RN) Bipolar affective disorder Fibromyalgia GERD (gastroesophageal reflux disease) History of uterine cancer Irritable bowel syndrome Psoriatic arthritis PTSD (post-traumatic stress disorder) Right bundle branch block (RBBB) TIA (transient ischemic attack) Tubular adenoma Family History Family History Maternal Grandmother Breast cancer Maternal Aunt Breast cancer Father FH: prostate cancer Paternal Grandmother Uterine cancer Paternal Grandfather Heart attack Sister Von Willebrand disease Paternal Aunt Ovarian cancer Colon cancer Stomach cancer Uterine cancer Paternal Uncle Colon cancer Family history of problems with anesthesia: No Surgical History Surgical History (Updated 06/02/22 @ 11:08 by Sherie Walker RN) History of appendectomy History of bladder suspension procedure History of cholecystectomy History of colonoscopy History of esophagogastroduodenoscopy (EGD) History of partial hysterectomy Hx of abdominal surgery Hx of section Hx of eye surgery Hx of hernia repair Previous back surgery History of Problems with Anesthesia: No Social History Social History Alcohol intake: never Patient Tobacco Use Status: Former Tobacco user Quit Date: 03/2022 Cigarette Packs Per Day: 0.50 Use of substances other than those prescribed or required for medical reasons: No Are you DNR?: No Advance Directives: No Advance Directives Information Provided: Yes Meds Allergies Allergy/AdvReac Type Severity Reaction Status Date / Time oxycodone Allergy Mild Hives Verified 05/21/22 09:56 morphine Allergy Unknown Unknown Verified 05/21/22 09:56 cortisone acetate Allergy Unknown Unknown Uncoded 02/03/22 16:20 compazine Allergy Unknown Uncoded 02/03/22 16:20 Active Medications: Current Medications Lactated Ringer's (Lr) 1,000 mls @ 100 mls/hr IVCONT .Q10H AKBAR Last Admin: 06/02/22 11:19 Dose: 100 mls/hr Ondansetron HCl (Ondansetron Hcl 4 Mg/2 Ml Vial) 4 mg IVPUSH ONCE PRN PRN Reason: Nausea and Vomiting Home Medications Medication Instructions Recorded Confirmed Last Taken Type adalimumab 40 mg/0.4 mL mg subcut 02/06/22 Unknown History subcutaneous syringe kit (Humira(CF)) albuterol sulfate 2.5 mg/3 mL mg inhalation Q4H PRN wheezing 02/06/22 Unknown History (0.083 %) solution for nebulization albuterol sulfate 90 mcg/actuation 0 mcg inhalation 02/06/22 Unknown History aerosol inhaler aripiprazole 15 mg tablet 15 mg PO DAILY 02/06/22 Unknown History cetirizine 10 mg tablet 10 mg PO DAILY 02/06/22 06/02/22 08:00 History fluticasone propionate 220 1 puff inhalation BID 02/06/22 Unknown History mcg/actuation HFA aerosol inhaler fluticasone propionate 50 2 spray intranasal DAILY 02/06/22 Unknown History mcg/actuation nasal spray,suspension tramadol 50 mg tablet 50 mg PO BID PRN Pain 02/06/22 06/02/22 08:00 History Exam Exam Date and Time: June 02, 2022 1218 Height,Weight and Vital Signs: Height 5 ft 3 in Weight 62.596 kg Last Vital Signs Temp 97.7 F 06/02/22 11:00 Pulse 69 06/02/22 11:00 Resp 15 06/02/22 11:00 BP 129/85 06/02/22 11:00 Pulse Ox 97 06/02/22 11:00 O2 Del Method 06/02/22 11:00 Assessment and Plan Final Anesthetic Review Family History of Problems with Anesthesia: No History of Problems with Anesthesia: No
[2022-06-02 12:52] VITALS: BP 126/73; PULSE 66; RESP 17; TEMP 36.8; O2SAT 99
[2022-06-02 13:07] VITALS: BP 129/79; PULSE 70; RESP 16; O2SAT 98
[2022-06-02 13:22] VITALS: BP 132/73; PULSE 63; RESP 16; O2SAT 98
[2022-06-02 13:36] VITALS: BP 128/75; PULSE 72; RESP 16; TEMP 37.1; O2SAT 100
[2022-06-02 13:38] VITALS: PULSE 74; RESP 16; O2SAT 100
== END 2022-06-02 14:13 | disposition home or self-care (01) ==
PROVIDERS: PCP Internal Medicine; Visit Provider Internal Medicine Gastroenterology
PROC: 0DJ08ZZ Inspection of Upper Intestinal Tract, Via Natural or Artificial Opening Endoscopic (ICD-10-PCS; CPT 43235; principal; 2022-06-02 12:30)
DX: K21.00 Gastro-esophageal reflux disease with esophagitis, without bleeding (principal); R10.9 Unspecified abdominal pain; K29.70 Gastritis, unspecified, without bleeding; K31.7 Polyp of stomach and duodenum; K58.2 Mixed irritable bowel syndrome; Z88.5 Allergy status to narcotic agent
CPT/HCPCS: 43239; 88305; 88342

== ENCOUNTER → 2022-06-09 15:59 | Outpatient (BNVA) | payer MEDICARE, MEDICAID, SELFPAY | PROVIDERS: PCP Internal Medicine; Visit Provider Nurse Practitioner Family | DX: K21.00 Gastro-esophageal reflux disease with esophagitis, without bleeding (principal); K58.2 Mixed irritable bowel syndrome; K59.00 Constipation, unspecified | CPT/HCPCS: 99212 ==

== ENCOUNTER → 2022-09-30 15:02 | Outpatient (BNVA) | payer MEDICARE, MEDICAID, SELFPAY | PROVIDERS: PCP Internal Medicine; Visit Provider Nurse Practitioner Family | DX: K21.00 Gastro-esophageal reflux disease with esophagitis, without bleeding (principal); K58.9 Irritable bowel syndrome, unspecified; K64.9 Unspecified hemorrhoids; R14.0 Abdominal distension (gaseous) | CPT/HCPCS: 99212 ==

== ENCOUNTER 2023-03-05 11:46 | Outpatient (REF) | payer MEDICARE, MEDICAID, SELFPAY ==
[2023-03-05 14:37] LABS: Alanine Aminotransferase 14 U/L (0-31); Albumin Level 4.5 g/dL (3.5-5.0); Alkaline Phosphatase 111 U/L (39-117); Aspartate Amino Transferase 14 U/L (5-31); Bilirubin Direct 0.1 mg/dL (0.0-0.5); Bilirubin Total 0.3 mg/dL (0.0-1.0); Lipase 20 U/L (8-78); Total Protein 7.5 g/dL (6.5-8.0)
[2023-03-05 14:57] LABS: TSH reflex Free T4 1.61 uIU/mL (0.32-4.0)
[2023-03-05 15:06] LABS: Folate 11.9 ng/mL (> or = 4.0); Vitamin B12 361 pg/mL (200-900)
[2023-03-10 11:53] LABS: Vitamin D 25-OH, D2 <4 ng/mL; Vitamin D 25-OH, D3 30 ng/mL; Vitamin D 25-OH, Total 30 ng/mL (30-100)
[2023-03-11 03:08] LABS: Vitamin A 44 mcg/dL (38-98)
[2023-03-12 01:38] LABS: Nicotinamide 22 ng/mL; Vit B3 - Nicotinic Acid <20 ng/mL
== END 2023-03-05 11:47 | disposition home or self-care (01) ==
LOC: HO.LAB 11:46
PROVIDERS: PCP Internal Medicine; Visit Provider Nurse Practitioner Family
DX: R10.9 Unspecified abdominal pain (principal); E55.9 Vitamin D deficiency, unspecified; K86.89 Other specified diseases of pancreas; K59.00 Constipation, unspecified; R19.7 Diarrhea, unspecified; K64.9 Unspecified hemorrhoids; K21.00 Gastro-esophageal reflux disease with esophagitis, without bleeding; K58.9 Irritable bowel syndrome, unspecified
CPT/HCPCS: 36415; 80076; 82306; 82607; 82746; 83690; 84443; 84590; 84591; 99212

== ENCOUNTER 2023-03-05 11:46 | Outpatient (AMB) | payer MEDICARE, MEDICAID, SELFPAY ==
[2023-03-05 11:59] VITALS: BP 141/84; PULSE 89; BMI 25.8
--- NOTE | 2023-03-05 11:59 | A.OFFVIS_ITS ---
Intake Vital Signs 03/05/23 11:59 Height 5 ft 3 in Weight 145 lb 8.081 oz BMI 25.8 BP 141/84 H Blood Pressure Location Lt brachial Position Sitting Pulse 89 Intake Visit Reasons: Follow up Intake Note: Rubia presents in office as a est.patient for a f/u for GERD. PT CC: pt reports having abdominal pain , bloating , constipation/diarrhea GERD, pt is having incomplete bowel movements, pt denies any other GI Issues Contact Finger Assembler Required: No Accompanied by: Self / Same As Patient Allergies oxycodone Allergy (Mild, Verified 03/05/23 11:59) Hives morphine Allergy (Unknown, Verified 03/05/23 11:59) Unknown cortisone acetate Allergy (Unknown, Uncoded 03/05/23 11:59) Unknown compazine Allergy (Uncoded 03/05/23 11:59) Unknown HPI Follow up HPI Details LAST VISIT GERD (gastroesophageal reflux disease) Continue current dose of omeprazole. Continue sucralfate. Patient was encouraged to avoid dietary triggers and late night snacking. Staying upright for minimum 3 hours after meals discussed with patient. Irritable bowel syndrome Patient reports that she has been feeling little better after taking Creon. Low does Creon to treat her symptoms and not pancreatic insufficiency. Patient had normal pancreatic elastase. Patient states that she continues to have occasional postprandial abdominal bloating and cramping occasionally. Patient does not have a gallbladder and her symptoms depending on what she eats might exacerbate her symptoms. I will start her on low-dose Linzess. Patient reports that she does not empty her bowels completely and she reports gas and cramping specially in the left upper quadrant. Negative tenderness. Postprandial abdominal bloating Postprandial abdominal bloating. Discussed with patient low FODMAP diet again. Patient will start Linzess hopefully that will help her eliminate her bowels completely. Most likely gas trapping due to not truly emptying her bowels completely. Hemorrhoid Patient reports that she feels like her hemorrhoid is coming back. When she moves her bowels she can feel the hemorrhoid right after a bowel movement. Patient states that she is using preparation H without much affect. I will have her start using Anusol. Patient will try for a month and if she continues to have discomfort we can refer her to General surgery. Patient is agreeable to plan and verbalizes understanding of instructions. She was given the opportunity to ask questions and all questions answered. ? Thank you for allowing me to participate in her care Plan Medications New hydrocortisone 2.5% (Anusol-HC) 1 appl OK QID PRN 30 grams 2RF hemorrhoids K64.9 linaclotide (Linzess) 72 mcg PO DAILY 30 caps 2RF TODAY'S VISIT: Patient is here today for follow-up. Patient reports that she is feeling better, however she continues to have occasional postprandial abdominal bloating. States that she takes Linzess and is not always feeling like she does not empties her bowels completely. Patient is taking sucralfate and omeprazole and her symptoms or acid reflux are suppressed for the most part. Occasional dyspepsia without dysphagia or odynophagia. Patient denies any nausea or vomiting. Patient reports that she is trying to eat better. Tries to follow low FODMAP diet as much as possible. Patient reports that her hemorrhoids are bothering her and she would like to get a referral to General surgery [facility] Medical History Bipolar affective disorder Fibromyalgia GERD (gastroesophageal reflux disease) History of uterine cancer Irritable bowel syndrome Psoriatic arthritis PTSD (post-traumatic stress disorder) Right bundle branch block (RBBB) TIA (transient ischemic attack) Tubular adenoma Surgical History History of appendectomy History of bladder suspension procedure History of cholecystectomy History of colonoscopy History of esophagogastroduodenoscopy (EGD) History of partial hysterectomy Hx of abdominal surgery Hx of section Hx of eye surgery Hx of hernia repair Previous back surgery Family History Maternal Grandmother Breast cancer Maternal Aunt Breast cancer Father FH: prostate cancer Paternal Grandmother Uterine cancer Paternal Grandfather Heart attack Sister Von Willebrand disease Paternal Aunt Ovarian cancer Colon cancer Stomach cancer Uterine cancer Paternal Uncle Colon cancer Social History Alcohol intake: never Patient Tobacco Use Status: Former Tobacco user Quit Date: 03/2022 Cigarette Packs Per Day: 0.50 Review of Systems Const Denies weight gain and Denies weight loss ENT Reports no additional complaints, Denies dysphagia and Denies odynophagia Card Reports no additional complaints Resp Reports no additional complaints GI Denies abdominal pain, Denies belching, Denies melena, Denies bloating, Reports constipation, Denies dysphagia, Denies excessive flatus, Denies dyspepsia, Denies heartburn, Denies diarrhea, Reports loose stools, Denies nausea, Denies odynophagia and Denies vomiting Reports no additional complaints Musc Reports no additional complaints Neuro Reports no additional complaints Psych Reports no additional complaints Endo Reports no additional complaints Physical Exam Vital Signs: Last Vital Signs Pulse 89 03/05/23 11:59 BP 141/84 H 03/05/23 11:59 BMI result Body Mass Index 25.8 Const General: healthy appearing, no acute distress and well developed Nutritional Appearance: well nourished Orientation/consciousness: patient oriented x3 HEENT Head: Yes normal to inspection, Yes normocephalic and Yes atraumatic Face and sinus: Yes normal facial exam Mouth: Normal oral and palatal mucosa present Throat: Yes posterior oropharynx normal, Yes tonsils normal and Yes uvula midline Eyes General: appearance normal, both eyes and all related structures Neck Neck: Yes normal visual inspection, Yes full ROM and Yes trachea midline Thyroid: Thyroid normal Resp Effort & Inspection: normal respiratory effort, able to speak in complete sentences, no tracheal deviation and symmetric chest movement Auscultation: clear to auscultation bilaterally Cardio Rate: regular rate Heart sounds: S1 normal heart sound present and S2 normal heart sound present GI Inspection: Yes normal to inspection and No distended Palpation (GI): Soft to palpation, not firm, nontender and No hepatosplenomegaly present Auscultation: normal bowel sounds General: Yes no CVA tenderness Back/Spine/Pelvis Back: no CVA tenderness Skin General skin exam: elasticity normal, turgor normal and dry skin Neuro General: patient oriented x3 Psych Appearance: grossly normal Mental Status: mental status grossly normal Assessment & Plan Assessment & Plan (1) Hemorrhoid: Code(s): K64.9 - Unspecified hemorrhoids Qualifiers: Hemorrhoid type: unspecified Qualified Code(s): K64.9 - Unspecified hemorrhoids Plan: Referral to General surgery (2) GERD (gastroesophageal reflux disease): Code(s): K21.9 - Gastro-esophageal reflux disease without esophagitis Qualifiers: Esophagitis presence: with esophagitis Esophagitis bleeding: without hemorrhage Qualified Code(s): K21.00 - Gastro-esophageal reflux disease with esophagitis, without bleeding Plan: Continue omeprazole in the morning and sucralfate at bedtime. Continue avoiding dietary triggers and late night snacking. Staying upright for minimum 3 hours after meals discussed with patient. (3) Irritable bowel syndrome: Code(s): K58.9 - Irritable bowel syndrome without diarrhea Qualifiers: Irritable bowel syndrome type: without diarrhea Qualified Code(s): K58.9 - Irritable bowel syndrome without diarrhea Plan: Occasional postprandial loose stools then constipation. Discussed with patient again low FODMAP diet. Will check lipase, liver panel, vitamin-D level B12, vitamin-A, folate, B3. Will check patient's thyroid. Patient can increase Linzess to 145 mcg daily. I will see patient in 6 weeks, sooner on as needed basis. Patient is agreeable to this plan and verbalizes understanding of instructions. She was given the opportunity to ask questions and all questions answered. Thank you for allowing me to participate in her care Orders: Orders Lipase 03/05/23 R10.9 - Unspecified abdominal pain Liver Panel 03/05/23 R10.9 - Unspecified abdominal pain Vitamin D 25-OH (D2 and D3) 03/05/23 E55.9 - Vitamin D deficiency, unspecified Vitamin A 03/05/23 K86.89 - Other specified diseases of pancreas TSH reflex Free T4 03/05/23 K59.00 - Constipation, unspecified Vitamin B12 and Folate 03/05/23 R19.7 - Diarrhea, unspecified Vitamin B3 (Niacin) 03/05/23 K86.89 - Other specified diseases of pancreas Referrals General Surgery Referral K64.9 - Unspecified hemorrhoids Medications: New linaclotide (Linzess) 145 mcg PO DAILY 30 caps 2RF Refilled sucralfate 1 g PO BEDTIME 90 tabs 3RF K21.9 - Gastro-esophageal reflux disease without esophagitis omeprazole 40 mg PO DAILY 90 caps 3RF K21.9 - Gastro-esophageal reflux disease without esophagitis Discontinued [id number] 6,000-19,000 -30,000 unit do not exceed 10,000 unit/kg lipase per 24 hrs Discontinued Reason: Doctor's Order 1 cap PO .qid ac 120 caps 2RF sennosides Discontinued Reason: Doctor's Order 8.6 mg PO BEDTIME 90 tabs 3RF constipation K59.00 - Constipation, unspecified linaclotide Discontinued Reason: Doctor's Order 72 mcg PO DAILY 30 caps 2RF Coding Level of Care Code Est Pt Level 4 (81794) Diagnoses Hemorrhoids, unspecified hemorrhoid type K64.9 Hemorrhoid type: unspecified Gastroesophageal reflux disease with esophagitis without hemorrhage K21.00 Esophagitis presence: with esophagitis Esophagitis bleeding: without hemorrhage Irritable bowel syndrome without diarrhea K58.9 Irritable bowel syndrome type: without diarrhea Time Spent (min) 35 Comment 20 minutes spent with patient and additional 15 minutes spent reviewing her records
== END 2023-03-05 12:31 | disposition home or self-care (01) ==
PROVIDERS: PCP Internal Medicine; Visit Provider Nurse Practitioner Family
DX: K64.9 Unspecified hemorrhoids (principal); K21.00 Gastro-esophageal reflux disease with esophagitis, without bleeding; K58.9 Irritable bowel syndrome, unspecified
CPT/HCPCS: 99214

== ENCOUNTER 2023-03-22 10:24 | Outpatient (AMB) | payer MEDICARE, MEDICAID, SELFPAY ==
[2023-03-22 10:25] VITALS: BP 141/65; PULSE 76; BMI 26.2
--- NOTE | 2023-03-22 10:25 | MHC.OFFVIS ---
Intake Vital Signs 03/22/23 10:25 Height 5 ft 3 in Weight 148 lb BMI 26.2 BP 141/65 H Blood Pressure Location Rt brachial Position Sitting Pulse 76 Intake Visit Reasons: hemorrhoids Intake Note: This patient presents for an assessment for hemorrhoids. Patient c/o; reports rectal discomfort, reports occasional rectal bleeding, Hx IBS. Kennel Technician Required: No Injection Molding Operator: Injection Molding Operator Present (Kari-RMLiam) Accompanied by: Other Relationship Allergies oxycodone Allergy (Mild, Verified 03/22/23 10:31) Hives morphine Allergy (Unknown, Verified 03/22/23 10:31) Unknown cortisone acetate Allergy (Unknown, Uncoded 03/22/23 10:31) Unknown compazine Allergy (Uncoded 03/22/23 10:31) Unknown Medication List - Last Reconciled 03/22/23 by Kings Car MD adalimumab (Humira(CF)) mg subcut albuterol sulfate 90 mcg/actuation 0 mcg inhalation albuterol sulfate mg inhalation Q4H PRN aripiprazole 15 mg PO DAILY cetirizine 10 mg PO DAILY cholecalciferol (vitamin D3) 50 mcg PO DAILY docusate sodium 100 mg PO BEDTIME fluticasone propionate 220 mcg/actuation 1 puff inhalation BID fluticasone propionate 50 mcg/actuation 2 sprays intranasal DAILY hydrocortisone 2.5% (Anusol-HC) 1 appl VT QID PRN linaclotide (Linzess) 145 mcg PO DAILY methylcellulose (laxative) (Citrucel) 500 mg PO DAILY omeprazole 40 mg PO DAILY ondansetron 4 mg PO Q6H PRN simethicone (Gas Relief (simethicone)) 125 mg PO TID-QID PRN sucralfate 1 g PO BEDTIME tramadol 50 mg PO BID PRN HPI hemorrhoids HPI Details [age] year old female referred for hemorrhoid issues. She says that she had hemorrhoidectomy about 15-20 years ago. She says she had been doing well since then. However, for the past few years, she says that she notes her hemorrhoids to be getting periodically swollen and painful. She also says that she has had problems with hygiene as well as she feels that the stools trapped by the hemorrhoids when they are swollen She denies any significant bleeding. She admits to chronic constipation with IBS. [facility] Medical History (Updated 03/22/23 @ 10:53 by Kings Car MD) Family history of breast cancer Hemorrhoids with complication History of uterine cancer TIA (transient ischemic attack) PTSD (post-traumatic stress disorder) Fibromyalgia Right bundle branch block (RBBB) Bipolar affective disorder GERD (gastroesophageal reflux disease) Psoriatic arthritis Irritable bowel syndrome Tubular adenoma Surgical History Hx of abdominal surgery Hx of eye surgery Hx of hernia repair Hx of section History of partial hysterectomy History of colonoscopy History of cholecystectomy History of bladder suspension procedure Previous back surgery History of appendectomy History of esophagogastroduodenoscopy (EGD) Family History Maternal Grandmother Breast cancer Maternal Aunt Breast cancer Father FH: prostate cancer Paternal Grandmother Uterine cancer Paternal Grandfather Heart attack Sister Von Willebrand disease Paternal Aunt Ovarian cancer Colon cancer Stomach cancer Uterine cancer Paternal Uncle Colon cancer Social History Alcohol intake: never Patient Tobacco Use Status: Former Tobacco user Quit Date: 03/2022 Cigarette Packs Per Day: 0.50 Review of Systems Const Denies chills and Denies fever(s) Card Denies chest pain, Denies dyspnea and Denies dyspnea on exertion Resp Denies cough, Denies dyspnea and Denies dyspnea on exertion GI Denies hematochezia, Denies change in bowel habits and Reports constipation Denies hematuria Musc Denies back pain and Denies limited range of motion Neuro Denies focal weakness and Denies convulsions Psych Denies depression and Denies mood swings Physical Exam Vital Signs: Last Vital Signs Pulse 76 03/22/23 10:25 BP 141/65 H 03/22/23 10:25 BMI result Body Mass Index 26.2 Const General: comfortable and no acute distress Orientation/consciousness: patient oriented x3 Neck Neck: Yes no lymphadenopathy Resp Auscultation: clear to auscultation bilaterally Cardio Rhythm: regular rhythm GI Other: Rectal exam shows external hemorrhoids on both the left and the right side although non bulky , no perianal lesions Palpation (GI): Soft to palpation, nontender and no guarding Neuro General: patient oriented x3 Office Procedures Anoscopy She was in brayan-knife position. The anoscope was gently inserted. A full examination of the entire anal canal was done. There were no lesions seen. There was note of an internal external hemorrhoidal columns seen on the left and the right side. This is moderate the size There were no fissures or any ulceration. There was no induration on digital exam [id number] Assessment & Plan Assessment & Plan (1) Hemorrhoids with complication: Code(s): K64.8 - Other hemorrhoids Plan: She describes internal and external hemorrhoids with frequent swelling and pain. She also says that this has been causing her problems with hygiene after bowel movements. She wants to proceed with hemorrhoidectomy. I explained to her the option of proceeding with hemorrhoidectomy. I discussed the technique of this procedure. I reviewed the risks including but not limited to bleeding, infections, postop pain, well as the benefits and alternatives. She understands what to expect postoperatively. She wants to proceed. (2) Family history of breast cancer: Code(s): Z80.3 - Family history of malignant neoplasm of breast Plan: She describes a maternal aunt and a paternal aunt who were both diagnosed to have breast cancer in their 40s. I therefore explained to her that she may be a candidate for genetic testing. I discussed were the implications of this test to herself and her family. She says she is interested. We will schedule her for genetic counseling and genetic testing in the office. Coding Level of Care Code New Pt Level 4 (47042) Diagnoses Hemorrhoids with complication K64.8 Family history of breast cancer Z80.3 CPT Codes Details - CPT: 64677-[id number] ([id number])
== END 2023-03-22 10:50 | disposition home or self-care (01) ==
PROVIDERS: PCP Internal Medicine; Visit Provider Surgery
DX: K64.8 Other hemorrhoids (principal); Z80.3 Family history of malignant neoplasm of breast
CPT/HCPCS: 46600; 99204

== ENCOUNTER → 2023-03-22 10:24 | Outpatient (BNVA) | payer MEDICARE, MEDICAID, SELFPAY | PROVIDERS: PCP Internal Medicine; Visit Provider Surgery | DX: K64.8 Other hemorrhoids (principal); Z80.3 Family history of malignant neoplasm of breast | CPT/HCPCS: 46600 ==

== ENCOUNTER 2023-04-02 07:58 | Day surgery (SDC) | payer MEDICARE, MEDICAID, SELFPAY ==
[2023-03-31 11:04] VITALS: BMI 26.2
[2023-03-31 11:40] VITALS: BMI 26.0
[2023-04-02] VITALS (12 sets, daily range): BP systolic 96–128; BP diastolic 54–75; PULSE 63–82; RESP 9–18; TEMP 36.7–37.2; O2SAT 93–100
[2023-04-02] MEDS: Lactated Ringers 1,000 ML 80 ML IVCONT (08:33)
--- NOTE | 2023-04-02 09:18 | P.CONAN_ITS ---
HPI - Anesthesia Eval Consult details Narrative: for hemmorhoidectomy PMFSH Active Problems Active Problems: All Active Problems (Updated 03/22/23 @ 10:53 by Kings Car MD) Family history of breast cancer (Acute) Hemorrhoids with complication (Acute) GERD (gastroesophageal reflux disease) (Acute) Irritable bowel syndrome (Acute) Past Medical History Medical History (Updated 03/22/23 @ 10:53 by Kings Car MD) Family history of breast cancer Hemorrhoids with complication History of uterine cancer TIA (transient ischemic attack) PTSD (post-traumatic stress disorder) Fibromyalgia Right bundle branch block (RBBB) Bipolar affective disorder GERD (gastroesophageal reflux disease) Psoriatic arthritis Irritable bowel syndrome Tubular adenoma Patient : No Family History Family History Maternal Grandmother Breast cancer Maternal Aunt Breast cancer Father FH: prostate cancer Paternal Grandmother Uterine cancer Paternal Grandfather Heart attack Sister Von Willebrand disease Paternal Aunt Ovarian cancer Colon cancer Stomach cancer Uterine cancer Paternal Uncle Colon cancer Family history of problems with anesthesia: No Surgical History Surgical History Hx of abdominal surgery Hx of eye surgery Hx of hernia repair Hx of section History of partial hysterectomy History of colonoscopy History of cholecystectomy History of bladder suspension procedure Previous back surgery History of appendectomy History of esophagogastroduodenoscopy (EGD) History of Problems with Anesthesia: No Social History Social History Are you a primary intensive care ambulance paramedic to a significant other at home: No Do you presently have visiting nurse or other home services: No Alcohol intake: never Patient Tobacco Use Status: Former Tobacco user Quit Date: 02/2023 Tobacco use type: Cigarette Cigarette Packs Per Day: 0.50 Use of substances other than those prescribed or required for medical reasons: No Have you been hit, kicked, punched, or otherwise hurt by someone within the past year? If so, by whom?: No Are you DNR?: No Advance Directives: No Advance Directives Information Provided: Yes Advance Directives on File: No Recently lost weight without trying: No Nutrition Risks: No Nutritional Risk Patient : No Meds Allergies Allergy/AdvReac Type Severity Reaction Status Date / Time oxycodone Allergy Mild Hives Verified 03/22/23 10:31 morphine Allergy Unknown Unknown Verified 03/22/23 10:31 cortisone acetate Allergy Unknown took away Uncoded 03/31/23 11:17 pigmentation in hands compazine Allergy Unknown Uncoded 03/22/23 10:31 Active Medications: Current Medications Lactated Ringer's (Lr) 1,000 mls @ 80 mls/hr IVCONT .[id number] Last Admin: 04/02/23 08:33 Dose: 80 mls/hr Home Medications Medication Instructions Recorded Confirmed Last Taken Type adalimumab 40 mg/0.4 mL 40 mg subcut QWEEK 02/06/22 03/31/23 Unknown History subcutaneous syringe kit (Humira(CF)) albuterol sulfate 2.5 mg/3 mL 2.5 mg inhalation Q4H PRN wheezing 02/06/22 04/02/23 Unknown History (0.083 %) solution for nebulization albuterol sulfate 90 mcg/actuation 90 mcg inhalation DAILY 02/06/22 04/02/23 04/02/23 History aerosol inhaler aripiprazole 15 mg tablet 15 mg PO DAILY 02/06/22 03/31/23 Unknown History cetirizine 10 mg tablet 10 mg PO DAILY 02/06/22 03/31/23 06/02/22 08:00 History fluticasone propionate 220 1 puff inhalation BID 02/06/22 03/31/23 Unknown History mcg/actuation HFA aerosol inhaler fluticasone propionate 50 2 spray intranasal DAILY 02/06/22 03/31/23 Unknown History mcg/actuation nasal spray,suspension tramadol 50 mg tablet 50 mg PO BID PRN Pain 02/06/22 03/31/23 06/02/22 08:00 History amlodipine 2.5 mg tablet 2.5 mg PO DAILY 03/31/23 03/31/23 Unknown History diclofenac sodium 75 mg 75 mg PO BID 03/31/23 03/31/23 Unknown History tablet,delayed release lamotrigine 150 mg tablet 75 mg PO BID 03/31/23 03/31/23 04/02/23 History pregabalin 50 mg capsule 50 mg PO TID 03/31/23 03/31/23 Unknown History quetiapine 100 mg tablet 100 mg PO BEDTIME 03/31/23 03/31/23 Unknown History sertraline 100 mg tablet 200 mg PO DAILY 03/31/23 03/31/23 Unknown History trazodone 150 mg tablet 150 - 300 mg PO BEDTIME PRN 03/31/23 03/31/23 Unknown History insomnia Exam Exam Date and Time: April 02, 202318 Height,Weight and Vital Signs: Height 5 ft 3 in Weight 66.678 kg Last Vital Signs Temp 98.9 F 04/02/23 08:23 Pulse 80 04/02/23 08:23 Resp 16 04/02/23 08:23 BP 128/75 04/02/23 08:23 Pulse Ox 98 04/02/23 08:23 O2 Del Method Room Air 04/02/23 08:23 Airway Mallampati Class: I TM Dist: <=3cm Neck ROM: Full Loose/Missing/Broken Teeth: No Heart: ok Lungs: ok Assessment and Plan Assessment Anesthesia Assessment: Anesthesia Plan Discussed and Chart Reviewed Final Anesthetic Review Family History of Problems with Anesthesia: No History of Problems with Anesthesia: No NPO: Yes ASA Class: II Final Preanesthetic Review: No Changes in Pt Med Stat, Meds/Allgs Chart Reviewed, Consent Obtained/Reviewed and Anes Risks/Benef Reviewed Patient Risk: Low Procedure Risk: Intermediate Anesthetic Plan Anesthetic Plan: GA and Agree w/ Assess. and Plan Disposition: Standard PACU
--- NOTE | 2023-04-02 10:13 | W.PM.OPN ---
Operative Note Operative Note Date of Service: 04/02/23 Narrative: Preop diagnosis: Hemorrhoids, with chronic discomfort Postop diagnosis: The same Procedure: Hemorrhoidectomy x3 columns Surgeon: Kings Car MD The patient is a 47 year female who has had chronic problems with hemorrhoids. She describes significant discomfort and difficulty with hygiene because of her hemorrhoids trapping stools. Examination in the office showed mostly external hemorrhoids which were non bulky. However because of her symptoms, she had wanted to proceed with hemorrhoidectomy. She understood the technique of the planned procedure as well as the risks, benefits, and alternatives She was brought to the operating room placed in prone brayan-knife position under anesthesia via laryngeal mask airway. The buttocks were retracted with wide tape laterally. The perianal area prepped draped usual sterile fashion. A surgical time-out was done. The patient received Cefotan 2 g IV preoperatively . I inflated the perianal area with lidocaine 1%. There was note of external hemorrhoids on the left side, right lateral as well as right posterior. This were non bulky. I inserted the Luz Guevara retractor and examined the anal canal circumferentially. Again his hemorrhoids were noted to be mostly external. There were no significant lesions, or induration in the anal canal. I applied a Leblanc grasper on the hemorrhoidal column on the left. I made a figure-eight stitch proximal to this using chromic 3-0 and made an incision around this to the perianal skin using a blade 15. I excised this hemorrhoidal column above the plane of sphincters using scissors along this incision and closed this with a running chromic 3-0 stitch. The same procedure was done on the model column on the right side. Again this was retracted with a Leblanc grasper. I made a [id number] stitch proximal to this and made an incision around this column with a blade 15 to the perianal skin. I excised this hemorrhoidal column above the plane of sphincters using scissors and closed this incision with a running chromic 3-0 stitch. There was a much smaller external hemorrhoid on the right posterior which was excised in the same fashion as well. I observed for hemostasis. Once he was status was confirmed, Iproceeded to then infiltrate the perianal area with Marcaine 0.5% for postop SARY. The procedure was completed. She tolerated procedure well. There were no immediate complications Estimated blood loss about 20 cc. She was extubated without difficulty and transferred to the recovery room with stable vital signs.
[2023-04-02] MEDS: fentaNYL citrate/PF 100 MCG/2 ML VIAL 50 MCG IVPUSH (10:35)
[2023-04-02] MEDS: HYDROcodone Bit/Acetam 5/325 TABLET 2 TAB PO (10:46)
== END 2023-04-02 13:02 | disposition home or self-care (01) ==
PROVIDERS: PCP Internal Medicine; Visit Provider Surgery
PROC: (CPT 46250; principal; 2023-04-02 09:40)
DX: K64.8 Other hemorrhoids (principal); K58.1 Irritable bowel syndrome with constipation; M79.7 Fibromyalgia; Z86.73 Personal history of transient ischemic attack (TIA), and cerebral infarction without residual deficits; Z85.42 Personal history of malignant neoplasm of other parts of uterus; Z80.3 Family history of malignant neoplasm of breast; Z79.620 Long term (current) use of immunosuppressive biologic; Z79.51 Long term (current) use of inhaled steroids; Z79.899 Other long term (current) drug therapy; Z88.8 Allergy status to other drugs, medicaments and biological substances; Z87.891 Personal history of nicotine dependence
CPT/HCPCS: 46250; 88304; J1885; J2405; J2795; J3010

== ENCOUNTER → 2023-04-02 07:58 | Outpatient (BNV) | payer MEDICARE, MEDICAID, SELFPAY | PROVIDERS: PCP Internal Medicine; Visit Provider Surgery | DX: K64.8 Other hemorrhoids (principal) | CPT/HCPCS: 46250 ==

== ENCOUNTER 2023-04-19 14:25 | Outpatient (AMB) | payer MEDICARE, MEDICAID, SELFPAY ==
--- NOTE | 2023-04-19 14:36 | A.OFFVIS_ITS ---
Intake Vital Signs 04/19/23 14:43 BP 133/63 Blood Pressure Location Rt brachial Position Sitting Pulse 80 Intake Visit Reasons: S/P EUA, hemorrhoidectomy Intake Note: This patient presents for a post-op assessment status post EUA, hemorrhoidectomy. Patient c/o; reports rectal pressure, reports no constipation, reports spotting. Admissions Assistant Required: No Accompanied by: Spouse Allergies oxycodone Allergy (Mild, Verified 04/19/23 14:44) Hives morphine Allergy (Unknown, Verified 04/19/23 14:44) Unknown cortisone acetate Allergy (Unknown, Uncoded 04/19/23 14:44) took away pigmentation in hands compazine Allergy (Uncoded 04/19/23 14:44) Unknown HPI S/P EUA, hemorrhoidectomy HPI Details She underwent hemorrhoidectomy x3 columns last 04/02/2023. She tolerated procedure well. He does complain of pain on the operative sites although this has been improving. [facility] Medical History Family history of breast cancer Hemorrhoids with complication History of uterine cancer TIA (transient ischemic attack) PTSD (post-traumatic stress disorder) Fibromyalgia Right bundle branch block (RBBB) Bipolar affective disorder GERD (gastroesophageal reflux disease) Psoriatic arthritis Irritable bowel syndrome Tubular adenoma Surgical History Hx of abdominal surgery Hx of eye surgery Hx of hernia repair Hx of section History of partial hysterectomy History of colonoscopy History of cholecystectomy History of bladder suspension procedure Previous back surgery History of appendectomy History of esophagogastroduodenoscopy (EGD) Family History Maternal Grandmother Breast cancer Maternal Aunt Breast cancer Father FH: prostate cancer Paternal Grandmother Uterine cancer Paternal Grandfather Heart attack Sister Von Willebrand disease Paternal Aunt Ovarian cancer Colon cancer Stomach cancer Uterine cancer Paternal Uncle Colon cancer Social History Are you a primary daycare assistant to a significant other at home: No Do you presently have visiting nurse or other home services: No Alcohol intake: never Patient Tobacco Use Status: Former Tobacco user Quit Date: 02/2023 Tobacco use type: Cigarette Cigarette Packs Per Day: 0.50 Review of Systems Const Denies chills and Denies fever(s) Card Denies chest pain, Denies dyspnea and Denies dyspnea on exertion Resp Denies cough, Denies dyspnea and Denies dyspnea on exertion GI Denies hematochezia and Denies change in bowel habits Denies hematuria Musc Denies back pain and Denies limited range of motion Neuro Denies focal weakness and Denies convulsions Psych Denies depression and Denies mood swings Physical Exam Vital Signs: Last Vital Signs Pulse 80 04/19/23 14:43 BP 133/63 04/19/23 14:43 Const General: comfortable and no acute distress Resp Effort & Inspection: normal respiratory effort GI Other: Rectal exam shows the hemorrhoidectomy sites to be well healed, not infected Assessment & Plan Assessment & Plan (1) Hemorrhoids with complication: Code(s): K64.8 - Other hemorrhoids Plan: Status post hemorrhoidectomy x3 columns. All incisions are well healed. I advised her to avoid any straining constipation. I also instructed her to continue warm soaks to the area. She can otherwise follow up on a p.r.n. basis. Her path report shows hemorrhoids. Coding Level of Care Code Global (63038) Diagnoses Hemorrhoids with complication K64.8
[2023-04-19 14:43] VITALS: BP 133/63; PULSE 80
== END 2023-04-19 14:50 | disposition home or self-care (01) ==
PROVIDERS: PCP Internal Medicine; Visit Provider Surgery
DX: K64.8 Other hemorrhoids (principal)
CPT/HCPCS: 99024

== ENCOUNTER → 2023-04-19 14:25 | Outpatient (BNVA) | payer MEDICARE, MEDICAID, SELFPAY | PROVIDERS: PCP Internal Medicine; Visit Provider Surgery ==

== ENCOUNTER 2023-05-03 14:29 | Outpatient (AMB) | payer MEDICARE, MEDICAID, SELFPAY ==
--- NOTE | 2023-05-03 14:30 | MHC.OFFVIS ---
Intake Intake Visit Reasons: Genetic test results *HERE* Intake Note: This patient presents for a follow-up assessment for genetic test results. Patient c/o; reports no changes. Export Freight Clerk Required: No Accompanied by: Spouse Allergies oxycodone Allergy (Mild, Verified 05/03/23 14:48) Hives morphine Allergy (Unknown, Verified 05/03/23 14:48) Unknown cortisone acetate Allergy (Unknown, Uncoded 05/03/23 14:48) took away pigmentation in hands compazine Allergy (Uncoded 05/03/23 14:48) Unknown HPI Genetic test results *HERE* HPI Details She had undergone genetic testing because of family history of breast cancer. She is here to discuss the results She denies any new complaints. [facility] Medical History Family history of breast cancer Hemorrhoids with complication History of uterine cancer TIA (transient ischemic attack) PTSD (post-traumatic stress disorder) Fibromyalgia Right bundle branch block (RBBB) Bipolar affective disorder GERD (gastroesophageal reflux disease) Psoriatic arthritis Irritable bowel syndrome Tubular adenoma Surgical History Hx of abdominal surgery Hx of eye surgery Hx of hernia repair Hx of section History of partial hysterectomy History of colonoscopy History of cholecystectomy History of bladder suspension procedure Previous back surgery History of appendectomy History of esophagogastroduodenoscopy (EGD) Family History Maternal Grandmother Breast cancer Maternal Aunt Breast cancer Father FH: prostate cancer Paternal Grandmother Uterine cancer Paternal Grandfather Heart attack Sister Von Willebrand disease Paternal Aunt Ovarian cancer Colon cancer Stomach cancer Uterine cancer Paternal Uncle Colon cancer Social History Are you a primary managed care provider to a significant other at home: No Do you presently have visiting nurse or other home services: No Alcohol intake: never Patient Tobacco Use Status: Former Tobacco user Quit Date: 02/2023 Tobacco use type: Cigarette Cigarette Packs Per Day: 0.50 Review of Systems Const Denies chills and Denies fever(s) Card Denies chest pain, Denies dyspnea and Denies dyspnea on exertion Resp Denies cough, Denies dyspnea and Denies dyspnea on exertion GI Denies hematochezia and Denies change in bowel habits Denies hematuria Musc Denies back pain and Denies limited range of motion Neuro Denies focal weakness and Denies convulsions Psych Denies depression and Denies mood swings Physical Exam Const General: comfortable and no acute distress Resp Effort & Inspection: normal respiratory effort Cardio Rate: regular rate GI Palpation (GI): Soft to palpation and not firm Assessment & Plan Assessment & Plan (1) Family history of breast cancer: Code(s): Z80.3 - Family history of malignant neoplasm of breast Plan: She had undergone genetic counseling and genetic testing. 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 I did explain to her that her offsprings may have the clinically significant mutation if with recessive genes are inherited from both sides. She seems to understand the above. I have reminded her to continue with regular screening mammograms yearly as well as with colonoscopy every 10 years. Coding Level of Care Code Est Pt Level 2 (88057) Diagnoses Family history of breast cancer Z80.3
== END 2023-05-03 15:22 | disposition home or self-care (01) ==
PROVIDERS: PCP Internal Medicine; Visit Provider Surgery
DX: Z80.3 Family history of malignant neoplasm of breast (principal)
CPT/HCPCS: 99213

== ENCOUNTER → 2023-05-03 14:29 | Outpatient (BNVA) | payer MEDICARE, MEDICAID, SELFPAY | PROVIDERS: PCP Internal Medicine; Visit Provider Surgery | DX: Z71.2 Person consulting for explanation of examination or test findings (principal); Z15.09 Genetic susceptibility to other malignant neoplasm; Z80.3 Family history of malignant neoplasm of breast | CPT/HCPCS: 99212 ==

== ENCOUNTER 2023-06-04 14:23 | Outpatient (AMB) | payer MEDICARE, MEDICAID, SELFPAY ==
--- NOTE | 2023-06-04 14:27 | MHC.OFFVIS ---
Intake Vital Signs 06/04/23 14:36 Height 5 ft 3 in Weight 144 lb 2.917 oz BMI 25.5 BP 117/74 Blood Pressure Location Rt brachial Position Sitting Pulse 7 L Intake Visit Reasons: 6 week follow up GERD, IBS Intake Note: Patient presents to in office visit today in 6 weeks follow up of labs and IBS. CC: Patient reports feeling burning form abdomen sometimes when laying down. She continues to have abd bloating, and occasional nausea. She states she is unsure is some of the symptoms she is experiencing are related to her anxiety as she recently lost a cousin. She states she has been taking stool softeners and that has helped with BMs. Allergies oxycodone Allergy (Mild, Verified 06/04/23 14:39) Hives morphine Allergy (Unknown, Verified 06/04/23 14:39) Unknown cortisone acetate Allergy (Unknown, Uncoded 05/03/23 14:48) took away pigmentation in hands compazine Allergy (Uncoded 05/03/23 14:48) Unknown HPI 6 week follow up GERD, IBS HPI Details LAST VISIT: Hemorrhoid Referral to General surgery GERD (gastroesophageal reflux disease) Continue omeprazole in the morning and sucralfate at bedtime. Continue avoiding dietary triggers and late night snacking. Staying upright for minimum 3 hours after meals discussed with patient. Irritable bowel syndrome Occasional postprandial loose stools then constipation. Discussed with patient again low FODMAP diet. Will check lipase, liver panel, vitamin-D level B12, vitamin-A, folate, B3. Will check patient's thyroid. Patient can increase Linzess to 145 mcg daily. I will see patient in 6 weeks, sooner on as needed basis. Patient is agreeable to this plan and verbalizes understanding of instructions. She was given the opportunity to ask questions and all questions answered. ? Thank you for allowing me to participate in her care Plan Orders Orders Lipase 03/05/23 R10.9 Liver Panel 03/05/23 R10.9 Vitamin D 25-OH (D2 and D3) 03/05/23 E55.9 Vitamin A 03/05/23 K86.89 TSH reflex Free T4 03/05/23 K59.00 Vitamin B12 and Folate 03/05/23 R19.7 Vitamin B3 (Niacin) 03/05/23 K86.89 Referrals General Surgery Referral K64.9 Medications New linaclotide (Linzess) 145 mcg PO DAILY 30 caps 2RF Refilled sucralfate 1 g PO BEDTIME 90 tabs 3RF K21.9 omeprazole 40 mg PO DAILY 90 caps 3RF K21.9 Discontinued [id number] 6,000-19,000 -30,000 unit do not exceed 10,000 unit/kg lipase per 24 hrs Discontinued Reason: Doctor's Order 1 cap PO .qid ac 120 caps 2RF sennosides Discontinued Reason: Doctor's Order 8.6 mg PO BEDTIME 90 tabs 3RF constipation K59.00 linaclotide Discontinued Reason: Doctor's Order 72 mcg PO DAILY 30 caps 2RF TODAY'S VISIT: Patient is here today for follow-up. Patient reports that she has been doing better, however she noticed that she will still have symptoms of postprandial abdominal bloating. Patient is trying to avoid dietary triggers. Tries to follow FODMAP diet as much as possible. She however patient reports that she has been under stress in the last few weeks. Patient reports that she last 1 of her family members and admits that this could be contributing to her symptoms as well. Patient had hemorrhoidectomy in March for and had follow-up appointment with surgeon in April. Patient is taking stool softeners and states that her bowel movements are better. Patient denies any melena, hematochezia, unintentional weight loss or ribbon like stools. Patient denies any dyspepsia, dysphagia or odynophagia. Patient reports significantly improved abdominal bloating postprandially. [facility] Medical History Family history of breast cancer Hemorrhoids with complication History of uterine cancer TIA (transient ischemic attack) PTSD (post-traumatic stress disorder) Fibromyalgia Right bundle branch block (RBBB) Bipolar affective disorder GERD (gastroesophageal reflux disease) Psoriatic arthritis Irritable bowel syndrome Tubular adenoma Surgical History (Updated 06/04/23 @ 14:42 by JOE Birch) H/O hemorrhoidectomy Hx of abdominal surgery Hx of eye surgery Hx of hernia repair Hx of section History of partial hysterectomy History of colonoscopy History of cholecystectomy History of bladder suspension procedure Previous back surgery History of appendectomy History of esophagogastroduodenoscopy (EGD) Family History Maternal Grandmother Breast cancer Maternal Aunt Breast cancer Father FH: prostate cancer Paternal Grandmother Uterine cancer Paternal Grandfather Heart attack Sister Von Willebrand disease Paternal Aunt Ovarian cancer Colon cancer Stomach cancer Uterine cancer Paternal Uncle Colon cancer Social History Are you a primary special needs child caregiver to a significant other at home: No Do you presently have visiting nurse or other home services: No Alcohol intake: never Patient Tobacco Use Status: Former Tobacco user Quit Date: 02/2023 Tobacco use type: Cigarette Cigarette Packs Per Day: 0.50 Review of Systems Const Denies weight gain and Denies weight loss ENT Reports no additional complaints, Denies dysphagia and Denies odynophagia Card Reports no additional complaints Resp Reports no additional complaints GI Reports abdominal pain (Epigastric), Denies belching, Denies melena, Reports bloating, Denies change in bowel habits, Reports constipation, Denies dysphagia, Denies excessive flatus, Denies dyspepsia, Reports heartburn, Denies diarrhea, Denies loose stools, Denies nausea, Denies odynophagia and Denies vomiting Reports no additional complaints Musc Reports no additional complaints Neuro Reports no additional complaints Psych Reports no additional complaints Endo Reports no additional complaints Physical Exam Vital Signs: Last Vital Signs Pulse 7 L 06/04/23 14:36 BP 117/74 06/04/23 14:36 BMI result Body Mass Index 25.5 Const General: healthy appearing, no acute distress and well developed Nutritional Appearance: well nourished Orientation/consciousness: patient oriented x3 HEENT Head: Yes normal to inspection, Yes normocephalic and Yes atraumatic Face and sinus: Yes normal facial exam Mouth: Normal oral and palatal mucosa present Throat: Yes posterior oropharynx normal, Yes tonsils normal and Yes uvula midline Eyes General: appearance normal, both eyes and all related structures Neck Neck: Yes normal visual inspection, Yes full ROM and Yes trachea midline Thyroid: Thyroid normal Resp Effort & Inspection: normal respiratory effort, able to speak in complete sentences, no tracheal deviation and symmetric chest movement Auscultation: clear to auscultation bilaterally Cardio Rate: regular rate GI Inspection: Yes normal to inspection and No distended Palpation (GI): Soft to palpation, not firm, nontender and No hepatosplenomegaly present Auscultation: normal bowel sounds General: Yes no CVA tenderness Back/Spine/Pelvis Back: no CVA tenderness Skin General skin exam: elasticity normal, turgor normal and dry skin Neuro General: patient oriented x3 Psych Appearance: grossly normal Mental Status: mental status grossly normal Assessment & Plan Assessment & Plan (1) GERD (gastroesophageal reflux disease): Code(s): K21.9 - Gastro-esophageal reflux disease without esophagitis Qualifiers: Esophagitis presence: with esophagitis Esophagitis bleeding: without hemorrhage Qualified Code(s): K21.00 - Gastro-esophageal reflux disease with esophagitis, without bleeding (2) Irritable bowel syndrome: Code(s): K58.9 - Irritable bowel syndrome without diarrhea Qualifiers: Irritable bowel syndrome type: without diarrhea Qualified Code(s): K58.9 - Irritable bowel syndrome without diarrhea (3) Hemorrhoid: Code(s): K64.9 - Unspecified hemorrhoids Qualifiers: Hemorrhoid type: unspecified Qualified Code(s): K64.9 - Unspecified hemorrhoids Plan Patient will continue low FODMAP diet. List of food recommended as well as list of food to avoid given to patient and discussed with her. Patient was encouraged to increase fluid intake and activity to promote better bowel motility. Continue Sitz baths with Epsom salts. Continue omeprazole in the morning. Discussed with patient avoiding dietary triggers and late night snacking. Staying upright for minimal 3 hours after meals discussed with patient. I will see patient in 6 months, sooner on as needed basis. Patient is agreeable to this plan and verbalizes understanding of instructions. She was given the opportunity to ask questions and all questions answered. Thank you for allowing me to participate in her care Coding Level of Care Code Est Pt Level 3 (87976) Diagnoses Gastroesophageal reflux disease with esophagitis without hemorrhage K21.00 Esophagitis presence: with esophagitis Esophagitis bleeding: without hemorrhage Irritable bowel syndrome without diarrhea K58.9 Irritable bowel syndrome type: without diarrhea Hemorrhoids, unspecified hemorrhoid type K64.9 Hemorrhoid type: unspecified Time Spent (min) 30 Comment 20 minutes spent with patient and additional 10 minutes spent reviewing her records
[2023-06-04 14:36] VITALS: BP 117/74; PULSE 7; BMI 25.5
== END 2023-06-04 15:16 | disposition home or self-care (01) ==
PROVIDERS: PCP Internal Medicine; Visit Provider Nurse Practitioner Family
DX: K21.00 Gastro-esophageal reflux disease with esophagitis, without bleeding (principal); K58.9 Irritable bowel syndrome, unspecified; K64.9 Unspecified hemorrhoids
CPT/HCPCS: 99213

== ENCOUNTER → 2023-06-04 14:23 | Outpatient (BNVA) | payer MEDICARE, MEDICAID, SELFPAY | PROVIDERS: PCP Internal Medicine; Visit Provider Nurse Practitioner Family | DX: K21.00 Gastro-esophageal reflux disease with esophagitis, without bleeding (principal); K58.9 Irritable bowel syndrome, unspecified; K64.9 Unspecified hemorrhoids | CPT/HCPCS: 99212 ==

== ENCOUNTER 2023-10-27 11:42 | Emergency (ER) | payer MEDICARE, MEDICAID, SELFPAY ==
[2023-10-27 11:52] VITALS: BP 166/76; PULSE 92; RESP 18; TEMP 36.1; O2SAT 97; BMI 25.7
--- NOTE | 2023-10-27 11:53 | ED_ITS ---
HPI - General Adult General Chief complaint: Abdominal Pain Stated complaint: Stomach Pain Burning ? Ulcer Related Data Home Medications ?Medication ?Instructions ?Recorded ?Confirmed adalimumab 40 mg/0.4 mL 40 mg subcut QWEEK 02/06/22 03/31/23 subcutaneous syringe kit (Gabbie(CF)) albuterol sulfate 2.5 mg/3 mL 2.5 mg inhalation Q4H PRN wheezing 02/06/22 04/02/23 (0.083 %) solution for nebulization albuterol sulfate 90 mcg/actuation 90 mcg inhalation DAILY 02/06/22 04/02/23 aerosol inhaler aripiprazole 15 mg tablet 15 mg PO DAILY 02/06/22 03/31/23 cetirizine 10 mg tablet 10 mg PO DAILY 02/06/22 03/31/23 fluticasone propionate 220 1 puff inhalation BID 02/06/22 03/31/23 mcg/actuation HFA aerosol inhaler fluticasone propionate 50 2 spray intranasal DAILY 02/06/22 03/31/23 mcg/actuation nasal spray,suspension tramadol 50 mg tablet 50 mg PO BID PRN Pain 02/06/22 03/31/23 amlodipine 2.5 mg tablet 2.5 mg PO DAILY 03/31/23 03/31/23 diclofenac sodium 75 mg 75 mg PO BID 03/31/23 03/31/23 tablet,delayed release lamotrigine 150 mg tablet 75 mg PO BID 03/31/23 03/31/23 pregabalin 50 mg capsule 50 mg PO TID 03/31/23 03/31/23 quetiapine 100 mg tablet 100 mg PO BEDTIME 03/31/23 03/31/23 sertraline 100 mg tablet 200 mg PO DAILY 03/31/23 03/31/23 trazodone 150 mg tablet 150 - 300 mg PO BEDTIME PRN 03/31/23 03/31/23 insomnia docusate sodium 100 mg capsule 100 mg PO BID 06/04/23 (Colace) azelastine 137 mcg (0.1 %) nasal 2 spray intranasal BID 12/06/23 spray cyclobenzaprine 5 mg tablet 5 mg PO TID PRN 12/06/23 diclofenac sodium 1 % topical gel 1 g topical BID 12/06/23 dicyclomine 10 mg capsule 10 mg PO TID PRN abdominal pain 12/06/23 ergocalciferol (vitamin D2) 1,250 1,250 mcg PO QWEEK 12/06/23 mcg (50,000 unit) capsule ibuprofen 600 mg tablet 600 mg PO Q6H PRN pain 12/06/23 meclizine 25 mg tablet 25 mg PO TID PRN 12/06/23 neomycin 3.5 mg/g-polymyxin B ophthalmic (eye) BID 12/06/23 10,000 unit/g-dexameth 0.1 % eye oint (Maxitrol) Previous Rx's ?Medication ?Instructions ?Recorded methylcellulose (laxative) 500 mg 500 mg PO DAILY #90 tabs 02/06/22 tablet (Citrucel) cholecalciferol (vitamin D3) 50 50 mcg PO DAILY #90 caps 04/22/22 mcg (2,000 unit) capsule linaclotide 145 mcg capsule 145 mcg PO DAILY #30 caps 03/05/23 (Linzess) sucralfate 1 gram tablet 1 g PO BEDTIME #90 tabs 03/05/23 hydrocodone 5 mg-acetaminophen 300 1 tab PO Q4-6H PRN pain #25 tabs 04/02/23 mg tablet ondansetron 4 mg disintegrating 4 mg PO Q6H PRN nausea and 11/01/23 tablet vomiting #14 tabs sennosides 8.6 mg tablet (Natural 17.2 mg (2 x 8.6 mg) PO BEDTIME 11/01/23 Senna Laxative) constipation #60 tabs famotidine 20 mg tablet 20 mg PO DAILY heartburn #30 tabs 12/06/23 lansoprazole 30 mg capsule,delayed 30 mg PO DAILY #30 caps 12/06/23 release simethicone 125 mg capsule (Gas 125 mg PO TID-QID PRN abdominal 12/06/23 Relief (simethicone)) distention #120 caps Allergies Allergy/AdvReac Type Severity Reaction Status Date / Time oxycodone Allergy Mild Hives Verified 12/06/23 15:02 morphine Allergy Unknown Unknown Verified 12/06/23 15:02 cortisone acetate Allergy Unknown took away Uncoded 11/01/23 09:58 pigmentation in hands compazine Allergy Unknown Uncoded 11/01/23 09:58 [facility] Past Medical History Medical History Family history of breast cancer Hemorrhoids with complication History of uterine cancer TIA (transient ischemic attack) PTSD (post-traumatic stress disorder) Fibromyalgia Right bundle branch block (RBBB) Bipolar affective disorder GERD (gastroesophageal reflux disease) Psoriatic arthritis Irritable bowel syndrome Tubular adenoma Surgical History H/O hemorrhoidectomy Hx of abdominal surgery Hx of eye surgery Hx of hernia repair Hx of section History of partial hysterectomy History of colonoscopy History of cholecystectomy History of bladder suspension procedure Previous back surgery History of appendectomy History of esophagogastroduodenoscopy (EGD) Family History Family History Maternal Grandmother Breast cancer Maternal Aunt Breast cancer Father FH: prostate cancer Paternal Grandmother Uterine cancer Paternal Grandfather Heart attack Sister Von Willebrand disease Paternal Aunt Ovarian cancer Colon cancer Stomach cancer Uterine cancer Paternal Uncle Colon cancer Social History Social History Are you a primary hemodialysis patient care specialist to a significant other at home: No Do you presently have visiting nurse or other home services: No Alcohol intake: never Patient Tobacco Use Status: Former Tobacco user Tobacco use type: Cigarette Cigarette Packs Per Day: 0.50 Physical Exam ED Vital Signs: Vital Signs - 24 hr 10/27/23 11:52 Temperature 97.0 F Pulse Rate 92 Respiratory Rate 18 Blood Pressure 166/76 H Pulse Oximetry 97 Oxygen Delivery Method Room Air BMI result Body Mass Index 25.7 Course Course Course Narrative: This is an RME: Additional HPI, ROS, PE not included below will be deferred to primary provider. 48 yo f with pmhx of IBS, GERD presents with left sided lower abdominal pain for past few day. Last colonoscopy a year ago. Reports diarrhea, constipation, nausea. Denies cp, shortness of breath, fever, chills. Plan- labs 1928- reports pain is worsening patient will give a UA urine cup given to patient Medical Decision Making Lab Data 10/27/23 12:16 10/27/23 12:16 Labs: Lab Results 10/27/23 10/27/23 Range/Units 12:16 19:46 WBC 6.0 (4.8-10.8) X10*3/uL RBC 4.62 (4.20-5.50) X10*6/uL Hgb 13.8 (12.0-16.0) g/dl Hct 40.0 (37.0-47.0) % MCV 86.6 (80.0-98.0) fL MCH 29.9 (27.0-33.0) pg MCHC 34.5 (31.0-35.0) g/dl RDW 12.6 (11.0-16.0) % Plt Count 317 (160-400) X10*3/uL MPV 9.1 L (9.4-12.3) fL Immature Gran % (Auto) 0.2 (0.0-0.4) % Neut % (Auto) 57.1 (45-73) % Lymph % (Auto) 33.6 (20-40) % [place]itchie % (Auto) 7.2 (2-11) % Eos % (Auto) 1.2 (0-4) % Baso % (Auto) 0.7 (0-2) % Lymph # (Auto) 2.0 (1.2-4.9) X10*3/uL [place]ie # (Auto) 0.4 (0.1-1.2) X10*3/uL Eos # (Auto) 0.1 (0.0-0.4) X10*3/uL Baso # (Auto) 0.0 (0.0-0.2) X10*3/uL Abs Immat Gran (auto) 0.01 (0.00-0.03) X10*3/uL Absolute Neuts (auto) 3.4 (2.0-8.3) x10*3/uL Absolute Nucleated RBC 0.000 (0.0-0.012) X10*3/uL Nucleated RBC % (auto) 0.0 (0.0-0.2) /100WBC Sodium 137 (135-145) mmol/L Potassium 3.4 (3.3-5.1) mmol/L Chloride 105 (96-108) mmol/L Carbon Dioxide 25 (22-29) mmol/L Anion Gap 10 L (12-20) BUN 11 (9-16) mg/dL Creatinine 0.76 (0.5-1.4) mg/dL Estim Creat Clear Calc 80.7 Estimated GFR > 60 Random Glucose 101 (60-115) mg/dL Calcium 9.5 (8.4-10.2) mg/dL Magnesium 2.0 (1.6-2.6) mg/dL Total Bilirubin 0.4 (0.0-1.0) mg/dL AST 12 (5-31) U/L ALT 13 (0-31) U/L Alkaline Phosphatase 108 (39-117) U/L Total Protein 7.1 (6.5-8.0) g/dL Albumin 4.1 (3.5-5.0) g/dL Lipase 13 (8-78) U/L Urine Color Yellow Urine Appearance Clear Urine pH 7.0 (5.0-9.0) Ur Specific [place] 1.015 (1.005-1.025) Urine Protein Negative (Neg-Trace) mg/dL Urine Glucose (UA) Negative (Negative) mg/dL Urine Ketones Negative (Negative) mg/dL Urine Blood Negative (Negative) Urine Nitrite Negative (Negative) Ur Leukocyte Esterase Negative (Negative) Discharge Plan Discharge Clinical Impression: Eloped from emergency department Patient Disposition: Left W/O Completing Treatment Prescriptions: No Action lamotrigine 150 mg tablet 75 mg PO BID sertraline 100 mg tablet 200 mg PO DAILY amlodipine 2.5 mg tablet 2.5 mg PO DAILY quetiapine 100 mg tablet 100 mg PO BEDTIME trazodone 150 mg tablet 150 - 300 mg PO BEDTIME PRN (Reason: insomnia) diclofenac sodium 75 mg tablet,delayed release (DR/EC) 75 mg PO BID pregabalin 50 mg capsule 50 mg PO TID hydrocodone-acetaminophen 5-300 mg tablet 1 tab PO Q4-6H PRN (Reason: pain) Qty: 25 0RF Rx Instructions: Partial Fill upon patient request. albuterol sulfate 90 mcg/actuation HFA aerosol inhaler 90 mcg inhalation DAILY fluticasone propionate 50 mcg/actuation spray,suspension 2 spray intranasal DAILY albuterol sulfate 2.5 mg /3 mL (0.083 %) solution for nebulization 2.5 mg inhalation Q4H PRN (Reason: wheezing) cetirizine 10 mg tablet 10 mg PO DAILY tramadol 50 mg tablet 50 mg PO BID PRN (Reason: Pain) aripiprazole 15 mg tablet 15 mg PO DAILY fluticasone propionate 220 mcg/actuation HFA aerosol inhaler 1 puff inhalation BID Humira(CF) 40 mg/0.4 mL syringe kit 40 mg subcut QWEEK Citrucel 500 mg tablet 500 mg PO DAILY Qty: 90 2RF Rx Instructions: take it with full glass of water cholecalciferol (vitamin D3) 50 mcg (2,000 unit) capsule 50 mcg PO DAILY Qty: 90 3RF cyclobenzaprine 5 mg tablet 5 mg PO TID PRN ergocalciferol (vitamin D2) 1,250 mcg (50,000 unit) capsule 1,250 mcg PO QWEEK meclizine 25 mg tablet 25 mg PO TID PRN dicyclomine 10 mg capsule 10 mg PO TID PRN (Reason: abdominal pain) azelastine 137 mcg (0.1 %) aerosol,spray 2 spray intranasal BID neomycin-polymyxin B-dexameth [Maxitrol] 3.5 mg/g-10,000 unit/g-0.1 % ointment ophthalmic (eye) BID ibuprofen 600 mg tablet 600 mg PO Q6H PRN (Reason: pain) diclofenac sodium 1 % gel 1 g topical BID lansoprazole 30 mg capsule,delayed release(DR/EC) 30 mg PO DAILY Qty: 30 3RF famotidine 20 mg tablet 20 mg PO DAILY Qty: 30 2RF simethicone [Gas Relief (simethicone)] 125 mg capsule 125 mg PO TID-QID PRN (Reason: abdominal distention) Qty: 120 2RF sucralfate 1 gram tablet 1 g PO BEDTIME Qty: 90 3RF Linzess 145 mcg capsule 145 mcg PO DAILY Qty: 30 2RF docusate sodium [Colace] 100 mg capsule 100 mg PO BID ondansetron 4 mg tablet,disintegrating 4 mg PO Q6H PRN (Reason: nausea and vomiting) Qty: 14 0RF sennosides [Natural Senna Laxative] 8.6 mg tablet 17.2 mg PO BEDTIME Qty: 60 3RF Discharge Date/Time: 10/27/23 22:51
[2023-10-27 12:20] LABS: MANUAL DIFF FLAG NO
[2023-10-27 12:22] LABS: Basophils Percent Auto 0.7 % (0-2); Eosinophils Absolute Auto 0.1 X10*3/uL (0.0-0.4); Eosinophils Percent Auto 1.2 % (0-4); Hemoglobin 13.8 g/dl (12.0-16.0); Imm Gran Abs Auto 0.01 X10*3/uL (0.00-0.03); Imm Gran Pct Auto 0.2 % (0.0-0.4); Lymphocytes Percent Auto 33.6 % (20-40); Mean Corpuscular HGB Conc 34.5 g/dl (31.0-35.0); Mean Corpuscular Hemoglobin 29.9 pg (27.0-33.0); Mean Corpuscular Volume 86.6 fL (80.0-98.0); Mean Platelet Volume 9.1 fL (9.4-12.3); Monocytes Absolute Auto 0.4 X10*3/uL (0.1-1.2); Monocytes Percent Auto 7.2 % (2-11); Neutrophils Absolute Auto 3.4 x10*3/uL (2.0-8.3); Neutrophils Percent Auto 57.1 % (45-73); Platelet Count 317 X10*3/uL (160-400); Red Blood Count 4.62 X10*6/uL (4.20-5.50); Red Cell Distribution Width 12.6 % (11.0-16.0)
[2023-10-27 12:35] LABS: Alanine Aminotransferase 13 U/L (0-31); Albumin Level 4.1 g/dL (3.5-5.0); Alkaline Phosphatase 108 U/L (39-117); Anion Gap 10 (12-20); Aspartate Amino Transferase 12 U/L (5-31); Bilirubin Total 0.4 mg/dL (0.0-1.0); Blood Urea Nitrogen 11 mg/dL (9-16); Calcium 9.5 mg/dL (8.4-10.2); Carbon Dioxide 25 mmol/L (22-29); Chloride 105 mmol/L (96-108); Creatinine Clr Calc Pharmacy 80.7; Estimated Glomerular Filt Rate > 60; Glucose Random 101 mg/dL (60-115); Lipase 13 U/L (8-78); Potassium 3.4 mmol/L (3.3-5.1); Sodium 137 mmol/L (135-145); Total Protein 7.1 g/dL (6.5-8.0)
[2023-10-27 19:30] VITALS: BP 139/82; PULSE 78; RESP 16; TEMP 36.8; O2SAT 98
[2023-10-27 19:55] LABS: Appearance Urine Clear; Color Urine Yellow; Glucose Urine UA Negative (Negative); Leukocyte Esterase Urine Negative (Negative); Nitrite Urine Negative (Negative); Specific Gravity - Urine 1.015 (1.005-1.025); Urine Blood Negative (Negative); Urine Ketones Negative (Negative); Urine Protein Negative (Neg-Trace)
== END 2023-10-27 22:51 | disposition left against medical advice (07) ==
PROVIDERS: Physician Assistant; Emergency Provider Emergency Medicine; PCP Internal Medicine
DX: R10.9 Unspecified abdominal pain (principal)
CPT/HCPCS: 36415; 80053; 81003; 83690; 83735; 85025; 99282; 99283

== ENCOUNTER 2023-11-01 09:47 | Outpatient (AMB) | payer MEDICARE, MEDICAID, SELFPAY ==
--- NOTE | 2023-11-01 09:50 | MHC.OFFVIS ---
Vital Signs 11/01/23 09:59 Height 5 ft 3 in Weight 144 lb 4 oz BMI 25.5 BP 137/78 Blood Pressure Location Rt brachial Position Sitting Pulse 87 Intake Visit Reasons: abdominal pain /ER follow up 10/26 Intake Note: Patient is seen in office for ER follow up visit, following abdominal pain. Pt c/o: admits past 2 wks experiencing constant upper abdominal pain, nausea, vomit, diarrhea, bleeding with bm, reflux, went to ED and had to leave after a 6 hrs waiting, no imaging Unclaimed Property Officer Required: No Accompanied by: Family/Other Allergies oxycodone Allergy (Mild, Verified 11/01/23 09:58) Hives morphine Allergy (Unknown, Verified 11/01/23 09:58) Unknown cortisone acetate Allergy (Unknown, Uncoded 11/01/23 09:58) took away pigmentation in hands compazine Allergy (Uncoded 11/01/23 09:58) Unknown HPI HPI abdominal pain /ER follow up 10/26: Details: LAST VISIT GERD (gastroesophageal reflux disease) Irritable bowel syndrome Hemorrhoid Plan Patient will continue low FODMAP diet. List of food recommended as well as list of food to avoid given to patient and discussed with her. Patient was encouraged to increase fluid intake and activity to promote better bowel motility. Continue Sitz baths with Epsom salts. Continue omeprazole in the morning. Discussed with patient avoiding dietary triggers and late night snacking. Staying upright for minimal 3 hours after meals discussed with patient. I will see patient in 6 months, sooner on as needed basis. Patient is agreeable to this plan and verbalizes understanding of instructions. She was given the opportunity to ask questions and all questions answered. ? Thank you for allowing me to participate in her care TODAY'S VISIT: Patient is here today for follow-up ED visit on October 26. Patient reports that she came to ER for severe epigastric pain with dyspepsia. Patient was nauseous, vomiting. Diarrhea with some rectal bleed. Patient states that she was not seen and left after few hours of waiting. Patient had blood work done while waiting in the waiting room. No leukocytosis, normal H&H, normal lipase, normal liver profile. Patient is taking omeprazole every morning and sucralfate at bedtime reports that she continues to epigastric pain postprandially. Patient reports that she is avoiding certain food. No longer drinking soda. Has 1 cup of coffee a day. Patient no longer is frying her need for vegetables. Patient states that she mainly bakes them in the often or boils. Patient did notice that certain food makes her feel bloated. [facility] Medical History Family history of breast cancer Hemorrhoids with complication History of uterine cancer TIA (transient ischemic attack) PTSD (post-traumatic stress disorder) Fibromyalgia Right bundle branch block (RBBB) Bipolar affective disorder GERD (gastroesophageal reflux disease) Psoriatic arthritis Irritable bowel syndrome Tubular adenoma Surgical History H/O hemorrhoidectomy Hx of abdominal surgery Hx of eye surgery Hx of hernia repair Hx of section History of partial hysterectomy History of colonoscopy History of cholecystectomy History of bladder suspension procedure Previous back surgery History of appendectomy History of esophagogastroduodenoscopy (EGD) Family History Maternal Grandmother Breast cancer Maternal Aunt Breast cancer Father FH: prostate cancer Paternal Grandmother Uterine cancer Paternal Grandfather Heart attack Sister Von Willebrand disease Paternal Aunt Ovarian cancer Colon cancer Stomach cancer Uterine cancer Paternal Uncle Colon cancer Social History Are you a primary intensive care nurse to a significant other at home: No Do you presently have visiting nurse or other home services: No Alcohol intake: never Patient Tobacco Use Status: Former Tobacco user Quit Date: 02/2023 Tobacco use type: Cigarette Cigarette Packs Per Day: 0.50 Review of Systems Const Denies weight gain and Denies weight loss ENT Reports no additional complaints, Denies dysphagia and Denies odynophagia Card Reports rapid heart rate Resp Reports no additional complaints GI Reports abdominal pain, Denies belching, Denies melena, Reports bloating, Reports constipation, Denies dysphagia, Denies excessive flatus, Denies dyspepsia, Reports heartburn, Denies diarrhea, Reports loose stools, Reports nausea, Denies odynophagia and Denies vomiting Reports no additional complaints Musc Reports no additional complaints Neuro Reports no additional complaints Psych Reports no additional complaints Endo Reports no additional complaints Physical Exam Vital Signs: Last Vital Signs Pulse 87 11/01/23 09:59 BP 137/78 11/01/23 09:59 BMI result Body Mass Index 25.5 Const General: healthy appearing, no acute distress and well developed Nutritional Appearance: well nourished Orientation/consciousness: patient oriented x3 Resp Effort & Inspection: normal respiratory effort, able to speak in complete sentences, no tracheal deviation and symmetric chest movement Auscultation: clear to auscultation bilaterally Cardio Rate: regular rate GI Inspection: Yes normal to inspection and No distended Palpation (GI): Soft to palpation, not firm, nontender and No hepatosplenomegaly present Auscultation: normal bowel sounds General: Yes no CVA tenderness Back/Spine/Pelvis Back: no CVA tenderness Skin General skin exam: elasticity normal, turgor normal and dry skin Neuro General: patient oriented x3 Psych Appearance: grossly normal Mental Status: mental status grossly normal Affect: Anxious affect present Assessment & Plan Assessment & Plan (1) GERD (gastroesophageal reflux disease): Code(s): K21.9 - Gastro-esophageal reflux disease without esophagitis Category: Medical Qualifiers: Esophagitis presence: with esophagitis Esophagitis bleeding: without hemorrhage Qualified Code(s): K21.00 - Gastro-esophageal reflux disease with esophagitis, without bleeding (2) Irritable bowel syndrome: Code(s): K58.9 - Irritable bowel syndrome without diarrhea Category: Medical Qualifiers: Irritable bowel syndrome type: without diarrhea Qualified Code(s): K58.9 - Irritable bowel syndrome without diarrhea (3) Hemorrhoid: Code(s): K64.9 - Unspecified hemorrhoids Qualifiers: Hemorrhoid type: unspecified Qualified Code(s): K64.9 - Unspecified hemorrhoids (4) Postprandial epigastric pain: Code(s): R10.13 - Epigastric pain (5) Nausea: Code(s): R11.0 - Nausea (6) Postprandial abdominal bloating: Code(s): R14.0 - Abdominal distension (gaseous) Plan Will change PPI to Nexium daily. Patient can continue sucralfate at bedtime. Avoid dietary triggers. Simethicone for bloating. Low FODMAP diet. Patient continues with diarrhea, not emptying her bowels completely will continue to take Citrucel in the morning and senna 2 tablets in the evening. Will send Zofran for nausea. Patient will be sent for upper endoscopy to re-evaluate or esophagitis, gastritis, gastric or peptic ulcer, H pylori, Li's. Patient can return in December to re-evaluate the treatment. Patient reports palpitation and feeling of dizziness. Patient is asking to be referred to Cardiology, refills send. Patient denies any shortness of breath with or without exertion. Denied any chest pain. No issues with anesthesia in the past. Patient admits to be feeling very anxious and is going under a lot of stress lately Orders: Referrals Cardiology Referral R00.2 - Palpitations Medications: New esomeprazole magnesium (Nexium) 40 mg PO DAILY 30 caps 5RF K21.9 - Gastro-esophageal reflux disease without esophagitis sennosides (Natural Senna Laxative) 17.2 mg (2 x 8.6 mg) PO BEDTIME 60 tabs 3RF constipation K59.00 - Constipation, unspecified Refilled ondansetron 4 mg PO Q6H PRN 14 tabs 0RF nausea and vomiting simethicone (Gas Relief (simethicone)) 125 mg PO TID-QID PRN 120 caps 2RF abdominal distention Discontinued omeprazole Discontinued Reason: Doctor's Order 40 mg PO DAILY 90 caps 3RF K21.9 - Gastro-esophageal reflux disease without esophagitis Coding Level of Care Code Est Pt Level 4 (79556) Diagnoses Gastroesophageal reflux disease with esophagitis without hemorrhage K21.00 Esophagitis presence: with esophagitis Esophagitis bleeding: without hemorrhage Irritable bowel syndrome without diarrhea K58.9 Irritable bowel syndrome type: without diarrhea Hemorrhoids, unspecified hemorrhoid type K64.9 Hemorrhoid type: unspecified Postprandial epigastric pain R10.13 Nausea R11.0 Postprandial abdominal bloating R14.0 Time Spent (min) 40 Comment 25 minutes spent with patient and additional 15 minutes spent her records
[2023-11-01 09:59] VITALS: BP 137/78; PULSE 87; BMI 25.5
== END 2023-11-01 11:04 | disposition home or self-care (01) ==
PROVIDERS: PCP Internal Medicine; Visit Provider Nurse Practitioner Family
DX: K21.00 Gastro-esophageal reflux disease with esophagitis, without bleeding (principal); K58.9 Irritable bowel syndrome, unspecified; K64.9 Unspecified hemorrhoids; R10.13 Epigastric pain; R11.0 Nausea; R14.0 Abdominal distension (gaseous)
CPT/HCPCS: 99214

== ENCOUNTER → 2023-11-01 09:47 | Outpatient (BNVA) | payer MEDICARE, MEDICAID, SELFPAY | PROVIDERS: PCP Internal Medicine; Visit Provider Nurse Practitioner Family | DX: K21.00 Gastro-esophageal reflux disease with esophagitis, without bleeding (principal); K58.9 Irritable bowel syndrome, unspecified; K64.9 Unspecified hemorrhoids; R10.13 Epigastric pain; R11.0 Nausea; R14.0 Abdominal distension (gaseous); Z79.899 Other long term (current) drug therapy | CPT/HCPCS: 99212 ==

== ENCOUNTER 2023-12-06 14:44 | Outpatient (AMB) | payer MEDICARE, MEDICAID, SELFPAY ==
--- NOTE | 2023-12-06 15:00 | MHC.OFFVIS ---
Vital Signs 12/06/23 15:06 Height 5 ft 3 in Weight 144 lb 9.972 oz BMI 25.6 BP 130/80 Blood Pressure Location Rt brachial Position Sitting Pulse 78 Pulse Source Pulse Oximeter Pulse Oximetry (%) 98 Oxygen Delivery Method Room Air Intake Visit Reasons: 6 month follow up Intake Note: Rubia presents in office today for FUV regarding new Rx; CC; Pt reports that her sx have improved but have come with some new side effects of the medication. Pt reports that their side effects include joint pain which are outside of their normal sx. Pt also reports having difficulty ambulating due to the amount of joint pain and stiffness they are having. Pt reports that they do not feel as if the benefits are outweighing the costs in this scenario. Deputy Commonwealth'S Attorney Required: No Allergies oxycodone Allergy (Mild, Verified 12/06/23 15:02) Hives morphine Allergy (Unknown, Verified 12/06/23 15:02) Unknown cortisone acetate Allergy (Unknown, Uncoded 11/01/23 09:58) took away pigmentation in hands compazine Allergy (Uncoded 11/01/23 09:58) Unknown HPI HPI 6 month follow up: Details: LAST VISIT: GERD (gastroesophageal reflux disease) Irritable bowel syndrome Hemorrhoid Postprandial epigastric pain Nausea Postprandial abdominal bloating Plan Will change PPI to Nexium daily. Patient can continue sucralfate at bedtime. Avoid dietary triggers. Simethicone for bloating. Low FODMAP diet. Patient continues with diarrhea, not emptying her bowels completely will continue to take Citrucel in the morning and senna 2 tablets in the evening. Will send Zofran for nausea. Patient will be sent for upper endoscopy to re-evaluate or esophagitis, gastritis, gastric or peptic ulcer, H pylori, Li's. Patient can return in December to re-evaluate the treatment. Patient reports palpitation and feeling of dizziness. Patient is asking to be referred to Cardiology, refills send. Patient denies any shortness of breath with or without exertion. Denied any chest pain. No issues with anesthesia in the past. Patient admits to be feeling very anxious and is going under a lot of stress lately Orders Referrals Cardiology Referral R00.2 Medications New esomeprazole magnesium (Nexium) 40 mg PO DAILY 30 caps 5RF K21.9 sennosides (Natural Senna Laxative) 17.2 mg (2 x 8.6 mg) PO BEDTIME 60 tabs 3RF constipation K59.00 Refilled ondansetron 4 mg PO Q6H PRN 14 tabs 0RF nausea and vomiting simethicone (Gas Relief (simethicone)) 125 mg PO TID-QID PRN 120 caps 2RF abdominal distention Discontinued omeprazole Discontinued Reason: Doctor's Order 40 mg PO DAILY 90 caps 3RF K21.9 TODAY'S VISIT: Patient is here today for follow-up. Patient reports that her symptoms of acid reflux was getting improved with Nexium, however she started experiencing increased joint pain that was bothering her more than usual. Patient has been seen a counter server and has an appointment with him in the next few weeks. Patient still reports abdominal no bloating not necessarily after meals. Patient feels bloated almost all the time. Patient believes that she is moving her bowels well. Reports abdominal cramping mostly associated with bloating. Patient denies melena, hematochezia. Denies dyspepsia, dysphagia or odynophagia. Occasional acid reflux and now that she stopped taking Nexium her symptoms are getting worse. Patient denies nausea or vomiting. [facility] Medical History Family history of breast cancer Hemorrhoids with complication History of uterine cancer TIA (transient ischemic attack) PTSD (post-traumatic stress disorder) Fibromyalgia Right bundle branch block (RBBB) Bipolar affective disorder GERD (gastroesophageal reflux disease) Psoriatic arthritis Irritable bowel syndrome Tubular adenoma Surgical History H/O hemorrhoidectomy Hx of abdominal surgery Hx of eye surgery Hx of hernia repair Hx of section History of partial hysterectomy History of colonoscopy History of cholecystectomy History of bladder suspension procedure Previous back surgery History of appendectomy History of esophagogastroduodenoscopy (EGD) Family History Maternal Grandmother Breast cancer Maternal Aunt Breast cancer Father FH: prostate cancer Paternal Grandmother Uterine cancer Paternal Grandfather Heart attack Sister Von Willebrand disease Paternal Aunt Ovarian cancer Colon cancer Stomach cancer Uterine cancer Paternal Uncle Colon cancer Social History (Reviewed 12/06/23 @ 15:06 by Ascencion Escamilla [facility]) Are you a primary physician locums urgent care to a significant other at home: No Do you presently have visiting nurse or other home services: No Alcohol intake: never Patient Tobacco Use Status: Former Tobacco user Tobacco use type: Cigarette Cigarette Packs Per Day: 0.50 Review of Systems Const Denies weight gain and Denies weight loss ENT Reports no additional complaints, Denies dysphagia and Denies odynophagia Card Reports no additional complaints Resp Reports no additional complaints GI Reports abdominal pain, Denies belching, Denies melena, Reports bloating, Denies change in bowel habits, Reports GI cramping, Denies dysphagia, Denies excessive flatus, Denies dyspepsia, Reports heartburn, Denies diarrhea, Denies loose stools, Denies nausea, Denies odynophagia and Denies vomiting Reports no additional complaints Musc Reports no additional complaints Neuro Reports no additional complaints Psych Reports no additional complaints Endo Reports no additional complaints Physical Exam Vital Signs: Last Vital Signs Pulse 78 12/06/23 15:06 BP 130/80 12/06/23 15:06 Pulse Ox 98 12/06/23 15:06 Oxygen Delivery Method Room Air 12/06/23 15:06 BMI result Body Mass Index 25.6 Const General: healthy appearing, no acute distress and well developed Nutritional Appearance: well nourished Orientation/consciousness: patient oriented x3 Resp Effort & Inspection: normal respiratory effort, able to speak in complete sentences, no tracheal deviation and symmetric chest movement Auscultation: clear to auscultation bilaterally Cardio Rate: regular rate GI Inspection: Yes normal to inspection and No distended Palpation (GI): Soft to palpation, not firm, nontender and No hepatosplenomegaly present Auscultation: normal bowel sounds General: Yes no CVA tenderness Back/Spine/Pelvis Back: no CVA tenderness Skin General skin exam: elasticity normal, turgor normal and dry skin Neuro General: patient oriented x3 Psych Appearance: grossly normal Mental Status: mental status grossly normal Affect: Anxious affect present Assessment & Plan Assessment & Plan (1) GERD (gastroesophageal reflux disease): Code(s): K21.9 - Gastro-esophageal reflux disease without esophagitis Category: Medical Qualifiers: Esophagitis bleeding: without hemorrhage Esophagitis presence: with esophagitis Qualified Code(s): K21.00 - Gastro-esophageal reflux disease with esophagitis, without bleeding (2) Irritable bowel syndrome: Code(s): K58.9 - Irritable bowel syndrome without diarrhea Category: Medical Qualifiers: Irritable bowel syndrome type: without diarrhea Qualified Code(s): K58.9 - Irritable bowel syndrome without diarrhea (3) Hemorrhoid: Code(s): K64.9 - Unspecified hemorrhoids Qualifiers: Hemorrhoid type: unspecified Qualified Code(s): K64.9 - Unspecified hemorrhoids (4) Postprandial epigastric pain: Code(s): R10.13 - Epigastric pain (5) Nausea: Code(s): R11.0 - Nausea (6) Postprandial abdominal bloating: Code(s): R14.0 - Abdominal distension (gaseous) Plan Patient will start taking famotidine at bedtime and lansoprazole in the morning. Avoid dietary triggers and late night snacking. Patient does report bloating throughout the day not necessary related to meals. Patient admits that she empties her bowels well. Continue taking Linzess on a daily basis. Increase fluid intake and activity to promote better bowel motility. Discussed with patient the importance of avoiding food that could make her feel bloated. Low FODMAP diet recommended. Went over the list of food to avoid and food that it is recommended. Patient will return in 3 months, sooner on as needed basis. She is agreeable to this plan and verbalizes understanding of instructions. She was given the opportunity to ask questions and all questions answered. Patient will be scheduled for upper endoscopy to rule out gastritis, esophagitis, gastric or peptic ulcers, Li's. Thank you for allowing me to participate in her care Medications: New famotidine 20 mg PO DAILY 30 tabs 2RF heartburn lansoprazole 30 mg PO DAILY 30 caps 3RF K21.9 - Gastro-esophageal reflux disease without esophagitis Refilled simethicone (Gas Relief (simethicone)) 125 mg PO TID-QID PRN 120 caps 2RF abdominal distention Discontinued esomeprazole magnesium Discontinued Reason: Doctor's Order 40 mg PO DAILY 30 caps 5RF K21.9 - Gastro-esophageal reflux disease without esophagitis Coding Level of Care Code Est Pt Level 4 (73876) Diagnoses Gastroesophageal reflux disease with esophagitis without hemorrhage K21.00 Esophagitis bleeding: without hemorrhage Esophagitis presence: with esophagitis Irritable bowel syndrome without diarrhea K58.9 Irritable bowel syndrome type: without diarrhea Hemorrhoids, unspecified hemorrhoid type K64.9 Hemorrhoid type: unspecified Postprandial epigastric pain R10.13 Nausea R11.0 Postprandial abdominal bloating R14.0 Time Spent (min) 35 Comment 20 minutes spent with patient and additional 15 minutes spent reviewing her records
[2023-12-06 15:06] VITALS: BP 130/80; PULSE 78; O2SAT 98; BMI 25.6
== END 2023-12-06 15:27 | disposition home or self-care (01) ==
PROVIDERS: PCP Internal Medicine; Visit Provider Nurse Practitioner Family
DX: K21.00 Gastro-esophageal reflux disease with esophagitis, without bleeding (principal); K58.9 Irritable bowel syndrome, unspecified; K64.9 Unspecified hemorrhoids; R10.13 Epigastric pain; R11.0 Nausea; R14.0 Abdominal distension (gaseous)
CPT/HCPCS: 99214

== ENCOUNTER → 2023-12-06 14:44 | Outpatient (BNVA) | payer MEDICARE, MEDICAID, SELFPAY | PROVIDERS: PCP Internal Medicine; Visit Provider Nurse Practitioner Family | DX: K21.00 Gastro-esophageal reflux disease with esophagitis, without bleeding (principal); K58.9 Irritable bowel syndrome, unspecified; K64.9 Unspecified hemorrhoids; R10.13 Epigastric pain; R14.0 Abdominal distension (gaseous) | CPT/HCPCS: 99212 ==

== ENCOUNTER 2024-02-18 15:33 | Outpatient (AMB) | payer MEDICARE, MEDICAID, SELFPAY ==
--- NOTE | 2024-02-18 15:50 | MHC.OFFVIS ---
Vital Signs 02/18/24 15:51 Height 5 ft 3 in Weight 139 lb 5.314 oz BMI 24.7 BP 118/68 Blood Pressure Location Rt brachial Position Sitting Pulse 76 Pulse Source Pulse Oximeter Pulse Oximetry (%) 98 Oxygen Delivery Method Room Air Intake Visit Reasons: Follow up Intake Note: Rubia presents in office today for a scheduled FUV. CC; Pt reports having B/L UQ over the course of the last week. Pt does not want to share any other information with the MA prior to seeing the provider at this time. 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 Avoid dietary triggers and late night snacking. Patient does report bloating throughout the day not necessary related to meals. Patient admits that she empties her bowels well. Continue taking Linzess on a daily basis. Increase fluid intake and activity to promote better bowel motility. Discussed with patient the importance of avoiding food that could make her feel bloated. Low FODMAP diet recommended. Went over the list of food to avoid and food that it is recommended. Patient will return in 3 months, sooner on as needed basis. She is agreeable to this plan and verbalizes understanding of instructions. She was given the opportunity to ask questions and all questions answered. Patient will be scheduled for upper endoscopy to rule out gastritis, esophagitis, gastric or peptic ulcers, Li's. ? Thank you for allowing me to participate in her care Medications New famotidine 20 mg PO DAILY 30 tabs 2RF heartburn lansoprazole 30 mg PO DAILY 30 caps 3RF K21.9 Refilled simethicone (Gas Relief (simethicone)) 125 mg PO TID-QID PRN 120 caps 2RF abdominal distention Discontinued esomeprazole magnesium Discontinued Reason: Doctor's Order 40 mg PO DAILY 30 caps 5RF K21.9 TODAY'S VISIT Patient is here today for follow-up. Patient reports in the past couple weeks her symptoms of abdominal pain and discomfort got worse. Patient reports that she switched from coffee to hot chocolate, however she reports that she feels like her symptoms are worse. Patient adds small amount of milk to her chocolate. This morning she had toast with egg and cheese. Patient reports that she is very gassy. Patient reports that she usually has bowel movement right after she eats. History of cholecystectomy in the past. Patient denies any nausea or vomiting. Denies any melena, hematochezia. Has endoscopy scheduled for March 01. Had last colonoscopy in 2021 that showed tubular adenoma. Not sure if patient had suboptimal prep or not but she should go for colonoscopy as well due to change in her bowel pattern. No issues with anesthesia in the past. No history of sleep apnea. Not on any anticoagulation medication. [facility] Medical History Family history of breast cancer Hemorrhoids with complication History of uterine cancer TIA (transient ischemic attack) PTSD (post-traumatic stress disorder) Fibromyalgia Right bundle branch block (RBBB) Bipolar affective disorder GERD (gastroesophageal reflux disease) Psoriatic arthritis Irritable bowel syndrome Tubular adenoma Surgical History H/O hemorrhoidectomy Hx of abdominal surgery Hx of eye surgery Hx of hernia repair Hx of section History of partial hysterectomy History of colonoscopy History of cholecystectomy History of bladder suspension procedure Previous back surgery History of appendectomy History of esophagogastroduodenoscopy (EGD) Family History Maternal Grandmother Breast cancer Maternal Aunt Breast cancer Father FH: prostate cancer Paternal Grandmother Uterine cancer Paternal Grandfather Heart attack Sister Von Willebrand disease Paternal Aunt Ovarian cancer Colon cancer Stomach cancer Uterine cancer Paternal Uncle Colon cancer Social History Are you a primary child care leader to a significant other at home: No Do you presently have visiting nurse or other home services: No Alcohol intake: never Patient Tobacco Use Status: Former Tobacco user Tobacco use type: Cigarette Cigarette Packs Per Day: 0.50 Review of Systems Const Denies weight gain and Denies weight loss ENT Reports no additional complaints, Denies dysphagia and Denies odynophagia Card Reports no additional complaints Resp Reports no additional complaints GI Reports abdominal pain (upper and L upper and lower quadrant), Denies belching, Denies melena, Reports bloating, Denies change in bowel habits, Reports GI cramping, Denies dysphagia, Denies excessive flatus, Denies dyspepsia, Reports heartburn, Denies diarrhea, Denies loose stools, Denies nausea, Denies odynophagia and Denies vomiting Reports no additional complaints Musc Reports no additional complaints Neuro Reports no additional complaints Psych Reports no additional complaints Endo Reports no additional complaints Physical Exam Vital Signs: Last Vital Signs Pulse 76 02/18/24 15:51 BP 118/68 02/18/24 15:51 Pulse Ox 98 02/18/24 15:51 Oxygen Delivery Method Room Air 02/18/24 15:51 BMI result Body Mass Index 24.7 Const General: healthy appearing, no acute distress and well developed Nutritional Appearance: well nourished Orientation/consciousness: patient oriented x3 Resp Effort & Inspection: normal respiratory effort, able to speak in complete sentences, no tracheal deviation and symmetric chest movement Auscultation: clear to auscultation bilaterally Cardio Rate: regular rate GI Inspection: Yes normal to inspection and No distended Palpation (GI): Soft to palpation, not firm, nontender and No hepatosplenomegaly present Auscultation: normal bowel sounds General: Yes no CVA tenderness Back/Spine/Pelvis Back: no CVA tenderness Skin General skin exam: elasticity normal, turgor normal and dry skin Neuro General: patient oriented x3 Psych Appearance: grossly normal Mental Status: mental status grossly normal Affect: Anxious affect present Assessment & Plan Assessment & Plan (1) GERD (gastroesophageal reflux disease): Code(s): K21.9 - Gastro-esophageal reflux disease without esophagitis Category: Medical Qualifiers: Esophagitis presence: with esophagitis Esophagitis bleeding: without hemorrhage Qualified Code(s): K21.00 - Gastro-esophageal reflux disease with esophagitis, without bleeding (2) Irritable bowel syndrome: Code(s): K58.9 - Irritable bowel syndrome without diarrhea Category: Medical Qualifiers: Irritable bowel syndrome type: without diarrhea Qualified Code(s): K58.9 - Irritable bowel syndrome without diarrhea (3) Hemorrhoid: Code(s): K64.9 - Unspecified hemorrhoids Qualifiers: Hemorrhoid type: unspecified Qualified Code(s): K64.9 - Unspecified hemorrhoids (4) Postprandial epigastric pain: Code(s): R10.13 - Epigastric pain (5) Nausea: Code(s): R11.0 - Nausea (6) Postprandial abdominal bloating: Code(s): R14.0 - Abdominal distension (gaseous) (7) Postprandial diarrhea: Code(s): K52.9 - Noninfective gastroenteritis and colitis, unspecified Plan Patient has endoscopy scheduled for the of this month. Please add colonoscopy. Patient reports left upper and left lower quadrant pain. Negative exam. However patient does have hyperactive bowel sounds. Patient reports to be bloated we have ruled out pancreatic insufficiency, inflammatory bowel disease. Will send patient for CT scan to rule out diverticulitis. Patient will return to the office after the procedure. She is agreeable to this plan and verbalizes understanding of instructions. She was given the opportunity to ask questions and all questions answered. Thank you for allowing me to participate in her care Orders: Orders Complete Blood Count no Diff Today K21.9 - Gastro-esophageal reflux disease without esophagitis Creatinine Today R10.11 - Right upper quadrant pain CT abdomen pelvis w IV con Today R10.9 - Unspecified abdominal pain Blood Urea Nitrogen Today R10.11 - Right upper quadrant pain Medications: New bisacodyl (Dulcolax (bisacodyl)) take 4 tabs at noon the day before your colonoscopy 20 mg (4 x 5 mg) PO ONCE 1 day PRN 4 tabs 0RF constipation Z12.11 - Encounter for screening for malignant neoplasm of colon polyethylene glycol 3350 (Miralax) As directed by gastroenterology department at [facility] 238 grams PO ONCE 238 grams 0RF Z12.11 - Encounter for screening for malignant neoplasm of colon Coding Level of Care Code Est Pt Level 4 (18018) Diagnoses Gastroesophageal reflux disease with esophagitis without hemorrhage K21.00 Esophagitis presence: with esophagitis Esophagitis bleeding: without hemorrhage Irritable bowel syndrome without diarrhea K58.9 Irritable bowel syndrome type: without diarrhea Hemorrhoids, unspecified hemorrhoid type K64.9 Hemorrhoid type: unspecified Postprandial epigastric pain R10.13 Nausea R11.0 Postprandial abdominal bloating R14.0 Postprandial diarrhea K52.9 Time Spent (min) 40 Comment 25 minutes spent with patient and additional 15 minutes spent reviewing her records
[2024-02-18 15:51] VITALS: BP 118/68; PULSE 76; O2SAT 98; BMI 24.7
== END 2024-02-18 17:10 | disposition home or self-care (01) ==
PROVIDERS: PCP Internal Medicine; Visit Provider Nurse Practitioner Family
DX: K21.00 Gastro-esophageal reflux disease with esophagitis, without bleeding (principal); K58.9 Irritable bowel syndrome, unspecified; K64.9 Unspecified hemorrhoids; R11.0 Nausea
CPT/HCPCS: 99214

== ENCOUNTER → 2024-02-18 15:33 | Outpatient (BNVA) | payer MEDICARE, MEDICAID, SELFPAY | PROVIDERS: PCP Internal Medicine; Visit Provider Nurse Practitioner Family | DX: K21.00 Gastro-esophageal reflux disease with esophagitis, without bleeding (principal); K58.0 Irritable bowel syndrome with diarrhea; K52.9 Noninfective gastroenteritis and colitis, unspecified; K64.9 Unspecified hemorrhoids; R10.13 Epigastric pain; R11.0 Nausea; R14.0 Abdominal distension (gaseous); R10.11 Right upper quadrant pain; Z79.899 Other long term (current) drug therapy | CPT/HCPCS: 99212 ==

== ENCOUNTER 2024-02-29 13:10 | Outpatient (AMB) | payer MEDICARE, MEDICAID, SELFPAY ==
--- NOTE | 2024-02-29 13:16 | MHC.OFFVIS ---
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 She has a history of hypertension, GERD, Right Bundle Branch Block, TIA, and anxiety. She cannot recall the reason of the TIA - it was in her early 30s. She reports she has been having palpitations on and off for many years but after having COVID in 2019 she had an increase. She did see [facility] then but stopped following with them. Will request records. She states she has a sudden increase in heart rate, feel very weak after, and shortness of breath. She has no known CAD and no known family history of cardiac disease. She drinks 1 cup of coffee a day, maybe a soda on occasion, and water throughout the day. She feels these palpitations every few days up to every day. She has not identified a trigger for them. Denies chest pains, swelling, or syncope. [facility] Medical History Palpitations Family history of breast cancer Hemorrhoids with complication History of uterine cancer TIA (transient ischemic attack) PTSD (post-traumatic stress disorder) Fibromyalgia Right bundle branch block (RBBB) Bipolar affective disorder GERD (gastroesophageal reflux disease) Psoriatic arthritis Irritable bowel syndrome Tubular adenoma Surgical History H/O hemorrhoidectomy Hx of abdominal surgery Hx of eye surgery Hx of hernia repair Hx of section History of partial hysterectomy History of colonoscopy History of cholecystectomy History of bladder suspension procedure Previous back surgery History of appendectomy History of esophagogastroduodenoscopy (EGD) Family History Maternal Grandmother Breast cancer Maternal Aunt Breast cancer Father FH: prostate cancer Paternal Grandmother Uterine cancer Paternal Grandfather Heart attack Sister Von Willebrand disease Paternal Aunt Ovarian cancer Colon cancer Stomach cancer Uterine cancer Paternal Uncle Colon cancer Social History Are you a primary intensive care ambulance paramedic to a significant other at home: No Do you presently have visiting nurse or other home services: No Alcohol intake: never Patient Tobacco Use Status: Former Tobacco user Tobacco use type: Cigarette Cigarette Packs Per Day: 0.50 Review of Systems Const Denies weakness ENT Denies dizziness Card Denies chest pain, Denies chest pain with activity, Denies syncope, Denies rapid heart rate, Denies pedal edema, Denies edema, Denies leg edema, Denies lightheadedness, Reports palpitations, Denies dyspnea, Denies dyspnea on exertion and Denies orthopnea Resp Denies cough, Denies dyspnea and Denies dyspnea on exertion GI Denies hematochezia and Denies change in stool character Musc Denies abnormal gait, Denies muscle cramps, Denies muscle weakness, Denies numbness, Denies radiating pain into limb and Denies tingling Neuro Denies abnormal gait, Denies dizziness, Denies syncope, Denies numbness, Denies tingling and Denies weakness Endo Reports palpitations Office Procedures EKG Details: KG today. Normal Sinus Rhythm. Right Bundle Branch Block. Rate 76 bpm. NC Interval 176ms. QRS 136 ms. [id number], Complete Assessment & Plan Assessment & Plan (1) Palpitations: Code(s): R00.2 - Palpitations Category: Medical Plan: History of palpitations with increase after having COVID. Will assess heart for any structural changes, and holter to assess for arrhythmias. She notices them mostly at night when they suddenly wake her up. Will do a sleep study to assess for any apnea. She does get them through the day but she tries to talk herself through them. Discussed common triggers: stress, poor sleep, dehydration, and stimulants. Advised to reduce stimulants such as coffee and hydrate well. Any sustained heart rates or associated symptoms to seek ED care. Will request records from prior coconut jelly roller. (2) Right bundle branch block (RBBB): Code(s): I45.10 - Unspecified right bundle-branch block Category: Medical Plan: Known RBBB, will follow on EKGs. Orders: Orders RT home sleep study Today E22.0 - Acromegaly and pituitary gigantism ECG 7 day holter monitor Today R00.2 - Palpitations CA echo transthoracic complete Today R00.2 - Palpitations Coding Level of Care Code New Pt Level 3 (73358) Diagnoses Palpitations R00.2 Right bundle branch block (RBBB) I45.10 CPT Codes EKG - CPT: 34904-[id number], Complete ([id number])
[2024-02-29 13:19] VITALS: BP 124/60; PULSE 76; BMI 24.6
== END 2024-02-29 13:50 | disposition home or self-care (01) ==
PROVIDERS: PCP Internal Medicine; Visit Provider Nurse Practitioner
DX: R00.2 Palpitations (principal); I45.10 Unspecified right bundle-branch block
CPT/HCPCS: 93010; 99203

== ENCOUNTER → 2024-02-29 13:10 | Outpatient (BNVA) | payer MEDICARE, MEDICAID, SELFPAY | PROVIDERS: PCP Internal Medicine; Visit Provider Nurse Practitioner | DX: I10 Essential (primary) hypertension (principal); I45.10 Unspecified right bundle-branch block; R00.2 Palpitations; E22.0 Acromegaly and pituitary gigantism; Z86.73 Personal history of transient ischemic attack (TIA), and cerebral infarction without residual deficits | CPT/HCPCS: 93005; 99202 ==

== ENCOUNTER 2024-03-01 09:16 | Day surgery (SDC) | payer MEDICARE, MEDICAID, SELFPAY ==
--- NOTE | 2024-02-29 10:45 | P.CONAN_ITS ---
Documented by User: Tatum Scott NP 02/29/24 10:45 HPI - Anesthesia Eval Consult details Narrative: 48yo F for Upper Endoscopy and Colonoscopy PMFSH Active Problems Active Problems: All Active Problems Family history of breast cancer (Acute) Hemorrhoids with complication (Acute) GERD (gastroesophageal reflux disease) (Acute) Irritable bowel syndrome (Acute) Past Medical History Medical History Palpitations Family history of breast cancer Hemorrhoids with complication History of uterine cancer TIA (transient ischemic attack) PTSD (post-traumatic stress disorder) Fibromyalgia Right bundle branch block (RBBB) Bipolar affective disorder GERD (gastroesophageal reflux disease) Psoriatic arthritis Irritable bowel syndrome Tubular adenoma Family History Family History Maternal Grandmother Breast cancer Maternal Aunt Breast cancer Father FH: prostate cancer Paternal Grandmother Uterine cancer Paternal Grandfather Heart attack Sister Von Willebrand disease Paternal Aunt Ovarian cancer Colon cancer Stomach cancer Uterine cancer Paternal Uncle Colon cancer Family history of problems with anesthesia: No Surgical History Surgical History H/O hemorrhoidectomy Hx of abdominal surgery Hx of eye surgery Hx of hernia repair Hx of section History of partial hysterectomy History of colonoscopy History of cholecystectomy History of bladder suspension procedure Previous back surgery History of appendectomy History of esophagogastroduodenoscopy (EGD) History of Problems with Anesthesia: No Social History Social History Are you a primary primary care nurse to a significant other at home: No Do you presently have visiting nurse or other home services: No Alcohol intake: never Patient Tobacco Use Status: Former Tobacco user Tobacco use type: Cigarette Cigarette Packs Per Day: 0.50 Use of substances other than those prescribed or required for medical reasons: No Have you been hit, kicked, punched, or otherwise hurt by someone within the past year? If so, by whom?: No Are you DNR?: No Advance Directives: No Advance Directives Information Provided: Yes Recently lost weight without trying: No Nutrition Risks: No Nutritional Risk Patient : No Meds Allergies Allergy/AdvReac Type Severity Reaction Status Date / Time oxycodone Allergy Mild Hives Verified 02/29/24 13:21 morphine Allergy Unknown Unknown Verified 02/29/24 13:21 cortisone acetate Allergy Unknown took away Uncoded 02/29/24 13:21 pigmentation in hands compazine Allergy Unknown Uncoded 02/29/24 13:21 Home Medications ?Medication ?Instructions ?Recorded ?Confirmed ?Last Taken ?Type adalimumab 40 mg/0.4 mL 40 mg subcut QWEEK 02/06/22 03/31/23 Unknown History subcutaneous syringe kit (Humira(CF)) albuterol sulfate 2.5 mg/3 mL 2.5 mg inhalation Q4H PRN wheezing 02/06/22 04/02/23 Unknown History (0.083 %) solution for nebulization albuterol sulfate 90 mcg/actuation 90 mcg inhalation DAILY 02/06/22 04/02/23 04/02/23 History aerosol inhaler aripiprazole 15 mg tablet 15 mg PO DAILY 02/06/22 03/31/23 Unknown History cetirizine 10 mg tablet 10 mg PO DAILY 02/06/22 03/31/23 06/02/22 08:00 History fluticasone propionate 220 1 puff inhalation BID 02/06/22 03/31/23 Unknown History mcg/actuation HFA aerosol inhaler fluticasone propionate 50 2 spray intranasal DAILY 02/06/22 03/31/23 Unknown History mcg/actuation nasal spray,suspension tramadol 50 mg tablet 50 mg PO BID PRN Pain 02/06/22 03/31/23 06/02/22 08:00 History amlodipine 2.5 mg tablet 2.5 mg PO DAILY 03/31/23 03/31/23 Unknown History diclofenac sodium 75 mg 75 mg PO BID 03/31/23 03/31/23 Unknown History tablet,delayed release lamotrigine 150 mg tablet 75 mg PO BID 03/31/23 03/31/23 04/02/23 History pregabalin 50 mg capsule 50 mg PO TID 03/31/23 03/31/23 Unknown History quetiapine 100 mg tablet 100 mg PO BEDTIME 03/31/23 03/31/23 Unknown History sertraline 100 mg tablet 200 mg PO DAILY 03/31/23 03/31/23 Unknown History trazodone 150 mg tablet 150 - 300 mg PO BEDTIME PRN 09/27/23 09/27/23 Unknown History insomnia docusate sodium 100 mg capsule 100 mg PO BID 06/04/23 Unknown History (Colace) azelastine 137 mcg (0.1 %) nasal 2 spray intranasal BID 12/06/23 Unknown History spray cyclobenzaprine 5 mg tablet 5 mg PO TID PRN 12/06/23 Unknown History diclofenac sodium 1 % topical gel 1 g topical BID 12/06/23 Unknown History dicyclomine 10 mg capsule 10 mg PO TID PRN abdominal pain 12/06/23 Unknown History ergocalciferol (vitamin D2) 1,250 1,250 mcg PO QWEEK 12/06/23 Unknown History mcg (50,000 unit) capsule ibuprofen 600 mg tablet 600 mg PO Q6H PRN pain 12/06/23 Unknown History meclizine 25 mg tablet 25 mg PO TID PRN 12/06/23 Unknown History neomycin 3.5 mg/g-polymyxin B ophthalmic (eye) BID 12/06/23 Unknown History 10,000 unit/g-dexameth 0.1 % eye oint (Maxitrol) folic acid 1 mg tablet 1 mg PO DAILY 02/18/24 Unknown History methotrexate sodium 2.5 mg tablet mg PO 02/18/24 Unknown History Assessment and Plan Assessment Anesthesia Assessment: Chart Reviewed Final Anesthetic Review Family History of Problems with Anesthesia: No History of Problems with Anesthesia: No Documented by User: Omer Bailey MD 03/01/24 12:16 [facility] Past Medical History Medical History Palpitations Family history of breast cancer Hemorrhoids with complication History of uterine cancer TIA (transient ischemic attack) PTSD (post-traumatic stress disorder) Fibromyalgia Right bundle branch block (RBBB) Bipolar affective disorder GERD (gastroesophageal reflux disease) Psoriatic arthritis Irritable bowel syndrome Tubular adenoma Family History Family History Maternal Grandmother Breast cancer Maternal Aunt Breast cancer Father FH: prostate cancer Paternal Grandmother Uterine cancer Paternal Grandfather Heart attack Sister Von Willebrand disease Paternal Aunt Ovarian cancer Colon cancer Stomach cancer Uterine cancer Paternal Uncle Colon cancer Surgical History Surgical History H/O hemorrhoidectomy Hx of abdominal surgery Hx of eye surgery Hx of hernia repair Hx of section History of partial hysterectomy History of colonoscopy History of cholecystectomy History of bladder suspension procedure Previous back surgery History of appendectomy History of esophagogastroduodenoscopy (EGD) Social History Social History Are you a primary primary care nurse to a significant other at home: No Do you presently have visiting nurse or other home services: No Alcohol intake: never Patient Tobacco Use Status: Former Tobacco user Tobacco use type: Cigarette Cigarette Packs Per Day: 0.50 Use of substances other than those prescribed or required for medical reasons: No Have you been hit, kicked, punched, or otherwise hurt by someone within the past year? If so, by whom?: No Are you DNR?: No Advance Directives: No Advance Directives Information Provided: Yes Recently lost weight without trying: No Nutrition Risks: No Nutritional Risk Patient : No Meds Allergies Allergy/AdvReac Type Severity Reaction Status Date / Time oxycodone Allergy Mild Hives Verified 02/29/24 13:21 morphine Allergy Unknown Unknown Verified 02/29/24 13:21 cortisone acetate Allergy Unknown took away Uncoded 02/29/24 13:21 pigmentation in hands compazine Allergy Unknown Uncoded 02/29/24 13:21 Home Medications ?Medication ?Instructions ?Recorded ?Confirmed ?Last Taken ?Type adalimumab 40 mg/0.4 mL 40 mg subcut QWEEK 02/06/22 03/31/23 Unknown History subcutaneous syringe kit (Humira(CF)) albuterol sulfate 2.5 mg/3 mL 2.5 mg inhalation Q4H PRN wheezing 02/06/22 04/02/23 Unknown History (0.083 %) solution for nebulization albuterol sulfate 90 mcg/actuation 90 mcg inhalation DAILY 02/06/22 04/02/23 04/02/23 History aerosol inhaler aripiprazole 15 mg tablet 15 mg PO DAILY 02/06/22 03/31/23 Unknown History cetirizine 10 mg tablet 10 mg PO DAILY 02/06/22 03/31/23 06/02/22 08:00 History fluticasone propionate 220 1 puff inhalation BID 02/06/22 03/31/23 Unknown History mcg/actuation HFA aerosol inhaler fluticasone propionate 50 2 spray intranasal DAILY 02/06/22 03/31/23 Unknown History mcg/actuation nasal spray,suspension tramadol 50 mg tablet 50 mg PO BID PRN Pain 02/06/22 03/31/23 06/02/22 08:00 History amlodipine 2.5 mg tablet 2.5 mg PO DAILY 03/31/23 03/31/23 Unknown History diclofenac sodium 75 mg 75 mg PO BID 03/31/23 03/31/23 Unknown History tablet,delayed release lamotrigine 150 mg tablet 75 mg PO BID 03/31/23 03/31/23 04/02/23 History pregabalin 50 mg capsule 50 mg PO TID 03/31/23 03/31/23 Unknown History quetiapine 100 mg tablet 100 mg PO BEDTIME 03/31/23 03/31/23 Unknown History sertraline 100 mg tablet 200 mg PO DAILY 03/31/23 03/31/23 Unknown History trazodone 150 mg tablet 150 - 300 mg PO BEDTIME PRN 03/31/23 03/31/23 Unknown History insomnia docusate sodium 100 mg capsule 100 mg PO BID 06/04/23 Unknown History (Colace) azelastine 137 mcg (0.1 %) nasal 2 spray intranasal BID 12/06/23 Unknown History spray cyclobenzaprine 5 mg tablet 5 mg PO TID PRN 12/06/23 Unknown History diclofenac sodium 1 % topical gel 1 g topical BID 12/06/23 Unknown History dicyclomine 10 mg capsule 10 mg PO TID PRN abdominal pain 12/06/23 Unknown History ergocalciferol (vitamin D2) 1,250 1,250 mcg PO QWEEK 12/06/23 Unknown History mcg (50,000 unit) capsule ibuprofen 600 mg tablet 600 mg PO Q6H PRN pain 12/06/23 Unknown History meclizine 25 mg tablet 25 mg PO TID PRN 12/06/23 Unknown History neomycin 3.5 mg/g-polymyxin B ophthalmic (eye) BID 12/06/23 Unknown History 10,000 unit/g-dexameth 0.1 % eye oint (Maxitrol) folic acid 1 mg tablet 1 mg PO DAILY 02/18/24 Unknown History methotrexate sodium 2.5 mg tablet mg PO 02/18/24 Unknown History Exam Airway Mallampati Class: II TM Dist: <=3cm Neck ROM: Full Loose/Missing/Broken Teeth: No Heart: ok Lungs: ok Assessment and Plan Assessment Anesthesia Assessment: Anesthesia Plan Discussed Final Anesthetic Review NPO: Yes ASA Class: III Final Preanesthetic Review: No Changes in Pt Med Stat, Meds/Allgs Chart Reviewed, Consent Obtained/Reviewed and Anes Risks/Benef Reviewed Patient Risk: Intermediate Procedure Risk: Intermediate Anesthetic Plan Anesthetic Plan: Agree w/ Assess. and Plan and TIVA Disposition: Standard PACU
[2024-03-01 10:22] VITALS: BMI 24.3
[2024-03-01 10:41] VITALS: BP 149/85; PULSE 74; RESP 16; TEMP 36.2; O2SAT 100
--- NOTE | 2024-03-01 10:44 | P.HPSUR_ITS ---
Pre-Procedural Eval Section A - 24 Hr Update-Section A only Date of Service: 03/01/24 Section B - Complete if H&P > 30 days Chief Complaint: Gastro-esophageal reflux disease without esophagit Relevant Family History (Specify if Yes): No Relevant Social History: None Present Medications: see Short Stay Collaborative assessment Medical History: Significant History ( Family history of breast cancer Hemorr hoids with complication History of uterine cancer TIA (transient ischemic attack) PTSD (post-traumatic stress disorder) Fibromyalgia Right bundle branch block (RBBB) Bipolar affective disorder GERD (gastroesophageal reflux disease) Psoriatic arthritis Irritable) History of Previous Operations: Relevant previous surgery/procedure and date(s) ( H/O hemorrhoidectomy Hx of abdominal surgery Hx of eye surgery Hx of hernia repair Hx of section History of partial hysterectomy History of colonoscopy History of cholecystectomy History of bladder suspension procedure Previous back surgery History of appendectomy History of esophagogastro) Allergies: Allergies Allergy/AdvReac Type Severity Reaction Status Date / Time oxycodone Allergy Mild Hives Verified 02/29/24 13:21 morphine Allergy Unknown Unknown Verified 02/29/24 13:21 cortisone acetate Allergy Unknown took away Uncoded 02/29/24 13:21 pigmentation in hands compazine Allergy Unknown Uncoded 02/29/24 13:21 Review of Systems Sugical H&P ROS: Negative: Constitution, Cardiovascular, Respiratory, Neurological, Psychiatric, Hem-Onc, Allergic/Immunologic, Gastrointestinal, Genitourinary, Musculoskeletal, Integumentary, Endocrine and Eyes/Ears/Nose/Throat Exam Surgical H&P Exam: Normal: HEENT, Normal: Heart, Normal: Lungs, Normal: Extremities, Normal: Abdomen, Normal: Skin and Normal: Neurological Plan Diagnosis/Plan: Unchanged I have reviewed the history and physical and performed a pertinent physical examination on my patient. No changes have occurred unless specified. EGD for dyspepsia and colonoscopy for abdominal pain Time Spent With Patient Time: Total time managing care of this patient today ____ minutes.
[2024-03-01] MEDS: Lactated Ringers 1,000 ML 100 ML IVCONT (11:00)
[2024-03-01] MEDS: Sodium Phosphate,Mono-Dibasic 133 ML ENEMA PR (11:18)
--- NOTE | 2024-03-01 12:31 | HO.OPN-COLON ---
Colonoscopy Operative Note Operative Note Date of Service: 03/01/24 Narrative: Operative Information Procedure Description: EGD, Colonoscopy Indication: GERD, colon screening Anesthesia: MAC FLEXIBLE TRANSORAL UPPER GASTROINTESTINAL ENDOSCOPY AND COLONOSCOPY PROCEDURE NOTE UPPER ENDOSCOPY Consent: Indications for the procedure and potential complications of bleeding, perforation, reaction to medications and missed diagnosis were discussed with the patient and informed consent was obtained. Instrument: Olympus GIF H 190 J mid size upper endoscope Monitoring: Vital signs and clinical assessment, continuous EKG monitoring, Pulse oximetry, Carbon Dioxide monitoring and blood pressure monitoring were done throughout the procedure. Procedure: The patient was placed in the left lateral decubitis position and pre-procedure medications were administered and a bite block was placed. The endoscope was inserted into the mouth and advanced under direct vision to the third part of duodenum. A careful inspection was made as the upper endoscope was withdrawn including a retroflexed examination of the proximal stomach; Findings and interventions are described below. Findings: Larynx:normal Esophagus: GE junction at 37 cm, diaphragm hiatus at 37 cm, irregular z line with suspected short segment Barretts -bx taken, also benign appearing esophageal inlet patch noted Stomach: Patchy gastric erythema. Biopsies were obtained. Grade 2 flap valve on retroflexed examination of the cardia. Duodenum: Normal bulb and descending duodenum, bx taken Intervention: Biopsies as noted above COLONOSCOPY Instrument: Olympus variable stiffness pediatric scope 190L Colonoscopy Monitoring: Vital signs and clinical assessment, continuous EKG monitoring, Pulse oximetry, Carbon Dioxide monitoring and blood pressure monitoring were done throughout the procedure. Colon withdrawal time was 10 minutes. Procedure: The patient was placed in the left lateral decubitis position and pre-procedure medications were administered. After a digital rectal examination of the ano-rectum, the video colonoscope was inserted into the rectum and advanced through the colon to the cecum/TI. The colonoscope was slowly withdrawn in a retrograde panoramic fashion and the colon mucosa was carefully examined including a retroflexed view of the rectum. Findings and interventions are described below. Procedure Difficulty:moderate Findings: Terminal Ileum-normal Cecum:normal Ascending Colon: normal Transverse Colon -normal Descending Colon:normal Sigmoid Colon: moderate diverticulosis, x1 polpy 4-5 mm removed with cold forceps Rectum: Retroflexion with small internal hemorrhoids, grade I Anorectum - normal Colon preparation: [place] Bowel Preparation Scale Right colon; 2 Transverse colon: 2 Left colon; 2 (0 = Unprepared colon segment with mucosa not seen due to solid stool that cannot be cleared. 1 = Portion of mucosa of the colon segment seen, but other areas of the colon segment not well seen due to staining, residual stool and/or opaque liquid. 2 = Minor amount of residual staining, small fragments of stool and/or opaque liquid, but mucosa of colon segment seen well. 3 = Entire mucosa of colon segment seen well with no residual staining, small fragments of stool or opaque liquid) Impression and Post Procedure Diagnosis: Endoscopy Findings: possible barretts gastritis esophageal inlet patch Colonoscopy Findings: diverticulosis colon polyp internal hemorrhoids Plan: Await Pathology results Repeat Colonoscopy in 5 years if adenomatous polyp, 10 yrs if hyperplastic or earlier if clinically indicated High fiber diet leaflet avoid straining at stool, epsom salts and sitz bath, anusol supps or cream if Barretts pos then repeat EGD in 5 yrs Above findings were reviewed with the patient and relevant handouts were provided if indicated.
[2024-03-01 12:36] VITALS: BP 114/73; PULSE 71; RESP 18; TEMP 36.6; O2SAT 99
[2024-03-01 12:51] VITALS: BP 118/72; PULSE 76; RESP 16; O2SAT 99
[2024-03-01 13:06] VITALS: BP 112/69; PULSE 72; RESP 16; TEMP 36.6; O2SAT 99
== END 2024-03-01 13:54 | disposition home or self-care (01) ==
PROVIDERS: PCP Internal Medicine; Visit Provider Internal Medicine Gastroenterology
PROC: (CPT 45380; principal; 2024-03-01 11:40)
DX: Z12.11 Encounter for screening for malignant neoplasm of colon (principal); K63.5 Polyp of colon; K57.30 Diverticulosis of large intestine without perforation or abscess without bleeding; K64.0 First degree hemorrhoids; K58.9 Irritable bowel syndrome, unspecified; K21.9 Gastro-esophageal reflux disease without esophagitis; K29.70 Gastritis, unspecified, without bleeding; K44.9 Diaphragmatic hernia without obstruction or gangrene; K22.89 Other specified disease of esophagus; Q39.8 Other congenital malformations of esophagus; Z85.42 Personal history of malignant neoplasm of other parts of uterus; M79.7 Fibromyalgia; L40.50 Arthropathic psoriasis, unspecified; F31.89 Other bipolar disorder; F43.10 Post-traumatic stress disorder, unspecified; Z86.73 Personal history of transient ischemic attack (TIA), and cerebral infarction without residual deficits; Z79.620 Long term (current) use of immunosuppressive biologic; Z79.51 Long term (current) use of inhaled steroids; Z79.899 Other long term (current) drug therapy; Z79.1 Long term (current) use of non-steroidal anti-inflammatories (NSAID); Z88.5 Allergy status to narcotic agent; Z88.8 Allergy status to other drugs, medicaments and biological substances; Z87.891 Personal history of nicotine dependence
CPT/HCPCS: 45380; 43239; 88305; 88313; 88342; J2704

== ENCOUNTER → 2024-03-01 09:16 | Outpatient (BNV) | payer MEDICARE, MEDICAID, SELFPAY | PROVIDERS: PCP Internal Medicine; Visit Provider Internal Medicine Gastroenterology | DX: Z12.11 Encounter for screening for malignant neoplasm of colon (principal); K63.5 Polyp of colon; K57.90 Diverticulosis of intestine, part unspecified, without perforation or abscess without bleeding; K64.8 Other hemorrhoids; K29.70 Gastritis, unspecified, without bleeding; K22.89 Other specified disease of esophagus | CPT/HCPCS: 43239; 45380 ==

== ENCOUNTER 2024-03-13 15:04 | Outpatient (REF) | payer MEDICARE, MEDICAID, SELFPAY ==
[2024-03-13 17:19] LABS: Hematocrit 40.5 % (37.0-47.0); Hemoglobin 13.5 g/dl (12.0-16.0); Mean Corpuscular HGB Conc 33.3 g/dl (31.0-35.0); Mean Corpuscular Hemoglobin 29.9 pg (27.0-33.0); Mean Corpuscular Volume 89.6 fL (80.0-98.0); Mean Platelet Volume 9.5 fL (9.4-12.3); Platelet Count 311 X10*3/uL (160-400); Red Blood Count 4.52 X10*6/uL (4.20-5.50); Red Cell Distribution Width 13.2 % (11.0-16.0); White Blood Count 6.5 X10*3/uL (4.8-10.8)
[2024-03-13 18:23] LABS: Blood Urea Nitrogen 10 mg/dL (9-16); Estimated Glomerular Filt Rate > 60
[2024-03-14 12:47] LABS: H Pylori Breath Test Negative (Negative)
== END 2024-03-13 15:05 | disposition home or self-care (01) ==
LOC: HO.LAB 15:04
PROVIDERS: PCP Internal Medicine; Visit Provider Nurse Practitioner Family
DX: R10.11 Right upper quadrant pain (principal); K21.9 Gastro-esophageal reflux disease without esophagitis
CPT/HCPCS: 36415; 82565; 83013; 84520; 85027

== ENCOUNTER → 2024-03-21 16:15 | Outpatient (AMB) | payer MEDICARE, MEDICAID, SELFPAY ==
--- NOTE | 2024-03-21 16:15 | MHC.OFFVIS ---
Vital Signs 03/21/24 16:16 Height 5 ft 3 in Weight 141 lb 1.533 oz BMI 25.0 BP 138/68 Blood Pressure Location Rt brachial Position Sitting Pulse 76 Pulse Source Pulse Oximeter Pulse Oximetry (%) 99 Oxygen Delivery Method Room Air Intake Visit Reasons: 4 week FUV. Intake Note: Rubia presents in office today for a scheduled 4 week FUV. CC; Pt reports that she is also here today to discuss her H Pylori results, as well as her recent procedure results and ongoing chronic sx. Pt reports that she has remained stable since her last visit, but has not seen any improvement since prior to last visit Pt would also like to discuss the order for her CT scan. Pt states that she was never contacted by the central scheduling department. Auto Wash Buffer Required: No Accompanied by: Significant Other Allergies oxycodone Allergy (Mild, Verified 03/21/24 16:16) Hives morphine Allergy (Unknown, Verified 03/21/24 16:16) Unknown cortisone acetate Allergy (Unknown, Uncoded 02/29/24 13:21) took away pigmentation in hands compazine Allergy (Uncoded 02/29/24 13:21) Unknown HPI HPI 4 week FUV.: Details: LAST VISIT: GERD (gastroesophageal reflux disease) Irritable bowel syndrome Hemorrhoid Postprandial epigastric pain Nausea Postprandial abdominal bloating Postprandial diarrhea Plan Patient has endoscopy scheduled for the of this month. Please add colonoscopy. Patient reports left upper and left lower quadrant pain. Negative exam. However patient does have hyperactive bowel sounds. Patient reports to be bloated we have ruled out pancreatic insufficiency, inflammatory bowel disease. Will send patient for CT scan to rule out diverticulitis. Patient will return to the office after the procedure. She is agreeable to this plan and verbalizes understanding of instructions. She was given the opportunity to ask questions and all questions answered. ? Thank you for allowing me to participate in her care Orders Orders Complete Blood Count no Diff Today K21.[address] abdomen pelvis w IV con Today R10.9 Blood Urea Nitrogen Today R10.11 Medications New bisacodyl (Dulcolax (bisacodyl)) take 4 tabs at noon the day before your colonoscopy 20 mg (4 x 5 mg) PO ONCE 1 day PRN 4 tabs 0RF constipation Z12.11 polyethylene glycol 3350 (Miralax) As directed by gastro[facility]ology [facility] at [facility] 238 grams PO ONCE 238 grams 0RF Z12.11 UPPER ENDOSCOPY AND COLONOSCOPY: Findings: Larynx:normal Esophagus: GE junction at 37 cm, diaphragm hiatus at 37 cm, irregular z line with suspected short segment Barretts -bx taken, also benign appearing esophageal inlet patch noted Stomach: Patchy gastric erythema. Biopsies were obtained. Grade 2 flap valve on retroflexed examination of the cardia. Duodenum: Normal bulb and descending duodenum, bx taken Intervention: Biopsies as noted above COLONOSCOPY Instrument: Olympus variable stiffness pediatric scope 190L Colonoscopy Monitoring: Vital signs and clinical assessment, continuous EKG monitoring, Pulse oximetry, Carbon Dioxide monitoring and blood pressure monitoring were done throughout the procedure. Colon withdrawal time was 10 minutes. Procedure: The patient was placed in the left lateral decubitis position and pre-procedure medications were administered. After a digital rectal examination of the ano-rectum, the video colonoscope was inserted into the rectum and advanced through the colon to the cecum/TI. The colonoscope was slowly withdrawn in a retrograde panoramic fashion and the colon mucosa was carefully examined including a retroflexed view of the rectum. Findings and interventions are described below. Procedure Difficulty:moderate Findings: Terminal Ileum-normal Cecum:normal Ascending Colon: normal Transverse Colon -normal Descending Colon:normal Sigmoid Colon: moderate diverticulosis, x1 polpy 4-5 mm removed with cold forceps Rectum: Retroflexion with small internal hemorrhoids, grade I Anorectum - normal Colon preparation: [place] Bowel Preparation Scale Right colon; 2 Transverse colon: 2 Left colon; 2 (0 = Unprepared colon segment with mucosa not seen due to solid stool that cannot be cleared. 1 = Portion of mucosa of the colon segment seen, but other areas of the colon segment not well seen due to staining, residual stool and/or opaque liquid. 2 = Minor amount of residual staining, small fragments of stool and/or opaque liquid, but mucosa of colon segment seen well. 3 = Entire mucosa of colon segment seen well with no residual staining, small fragments of stool or opaque liquid) Impression and Post Procedure Diagnosis: Endoscopy Findings: possible barretts gastritis esophageal inlet patch Colonoscopy Findings: diverticulosis colon polyp internal hemorrhoids Plan: Await Pathology results Repeat Colonoscopy in 5 years if adenomatous polyp, 10 yrs if hyperplastic or earlier if clinically indicated High fiber diet leaflet avoid straining at stool, epsom salts and sitz bath, anusol supps or cream if Barretts pos then repeat EGD in 5 yrs PATHOLOGY RESULTS: Diagnosis A. Stomach, biopsy: Antral-type and oxyntic mucosa with mild chronic inactive inflammation; no Helicobacter organisms seen. B. GE junction, biopsy: - Cardiofundic-type mucosa with mild chronic inactive inflammation; no intestinal metaplasia seen. - No squamous epithelium present. C. Colon, sigmoid, polypectomy: Hyperplastic mucosal polyp. TODAY'S VISIT Patient is here today for follow-up and to discuss upper endoscopy and colonoscopy results. Patient continues to have epigastric pain. Takes lansoprazole, however she takes it in the afternoon. Takes famotidine in the morning. Continues to have dyspepsia and abdominal bloating. Upper endoscopy and colonoscopy discussed with patient. No H pylori, no Barretts or esophagitis. Mild chronic inactive inflammation seen in the stomach colonoscopy showed moderate diverticulosis in sigmoid colon and 1 hyperplastic small polyp. Recommendation was made for patient to return for colonoscopy in 10 years. Patient admits to having colonoscopies in the past at [facility] where she was told that she needs more frequent surveillance due to multiple polyps seen in the past. We will review records. Patient denies any nausea or vomiting. Reports that she is moving her bowels well for the most part, however sometimes she is unable to empty her bowels completely. Patient is trying to avoid dietary triggers. Trying to follow low FODMAP diet. Currently taking Dulcolax tablets. No longer taking Linzess or Senokot. Patient denies any melena, hematochezia, unintentional weight loss or ribbon like stools. [facility] Medical History Palpitations Family history of breast cancer Hemorrhoids with complication History of uterine cancer TIA (transient ischemic attack) PTSD (post-traumatic stress disorder) Fibromyalgia Right bundle branch block (RBBB) Bipolar affective disorder GERD (gastroesophageal reflux disease) Psoriatic arthritis Irritable bowel syndrome Tubular adenoma Surgical History H/O hemorrhoidectomy Hx of abdominal surgery Hx of eye surgery Hx of hernia repair Hx of section History of partial hysterectomy History of colonoscopy History of cholecystectomy History of bladder suspension procedure Previous back surgery History of appendectomy History of esophagogastroduodenoscopy (EGD) Family History Maternal Grandmother Breast cancer Maternal Aunt Breast cancer Father FH: prostate cancer Paternal Grandmother Uterine cancer Paternal Grandfather Heart attack Sister Von Willebrand disease Paternal Aunt Ovarian cancer Colon cancer Stomach cancer Uterine cancer Paternal Uncle Colon cancer Social History Are you a primary childcare provider to a significant other at home: No Do you presently have visiting nurse or other home services: No Alcohol intake: never Patient Tobacco Use Status: Former Tobacco user Tobacco use type: Cigarette Cigarette Packs Per Day: 0.50 Review of Systems Const Denies weight gain and Denies weight loss ENT Reports no additional complaints, Denies dysphagia and Denies odynophagia Card Reports no additional complaints Resp Reports no additional complaints GI Denies abdominal pain, Denies belching, Denies melena, Denies bloating, Denies change in bowel habits, Denies dysphagia, Denies excessive flatus, Denies dyspepsia, Denies heartburn, Denies diarrhea, Denies loose stools, Denies nausea, Denies odynophagia and Denies vomiting Musc Reports no additional complaints Neuro Reports no additional complaints Psych Reports no additional complaints Endo Reports no additional complaints Physical Exam Vital Signs: Last Vital Signs Pulse 76 03/21/24 16:16 BP 138/68 03/21/24 16:16 Pulse Ox 99 03/21/24 16:16 Oxygen Delivery Method Room Air 03/21/24 16:16 BMI result Body Mass Index 25.0 Const General: healthy appearing, no acute distress and well developed Nutritional Appearance: well nourished Orientation/consciousness: patient oriented x3 Resp Effort & Inspection: normal respiratory effort, able to speak in complete sentences, no tracheal deviation and symmetric chest movement Auscultation: clear to auscultation bilaterally Cardio Rate: regular rate GI Inspection: Yes normal to inspection and No distended Palpation (GI): Soft to palpation, not firm, nontender and No hepatosplenomegaly present Auscultation: normal bowel sounds General: Yes no CVA tenderness Back/Spine/Pelvis Back: no CVA tenderness Skin General skin exam: elasticity normal, turgor normal and dry skin Neuro General: patient oriented x3 Psych Appearance: grossly normal Mental Status: mental status grossly normal Affect: Anxious affect present Assessment & Plan Assessment & Plan (1) GERD (gastroesophageal reflux disease): Code(s): K21.9 - Gastro-esophageal reflux disease without esophagitis Category: Medical Qualifiers: Esophagitis presence: with esophagitis Esophagitis bleeding: without hemorrhage Qualified Code(s): K21.00 - Gastro-esophageal reflux disease with esophagitis, without bleeding (2) Irritable bowel syndrome: Code(s): K58.9 - Irritable bowel syndrome without diarrhea Category: Medical Qualifiers: Irritable bowel syndrome type: without diarrhea Qualified Code(s): K58.9 - Irritable bowel syndrome without diarrhea (3) Hemorrhoid: Code(s): K64.9 - Unspecified hemorrhoids Qualifiers: Hemorrhoid type: unspecified Qualified Code(s): K64.9 - Unspecified hemorrhoids (4) Postprandial epigastric pain: Code(s): R10.13 - Epigastric pain (5) Nausea: Code(s): R11.0 - Nausea (6) Postprandial abdominal bloating: Code(s): R14.0 - Abdominal distension (gaseous) (7) Postprandial diarrhea: Code(s): K52.9 - Noninfective gastroenteritis and colitis, unspecified Plan Patient will start taking lansoprazole in the morning. Will take famotidine at bedtime. Patient may take sucralfate on as-needed basis in the afternoon when she has epigastric pain and burning. Discussed with patient avoiding dietary triggers and late night snacking. Making sure that she is able to empty her bowels completely. Continue Dulcolax. Increase fluid intake and activity to promote better bowel motility. Patient has CT scan ordered for April 24. She will be seen 2-3 weeks after that in the office to discuss the results. Patient is agreeable to this plan and verbalizes understanding of instructions. She was given the opportunity to ask questions and all questions answered. Thank you for allowing me to participate in her care Medications: Refilled sucralfate 1 g PO BEDTIME 90 tabs 3RF K21.9 - Gastro-esophageal reflux disease without esophagitis lansoprazole 30 mg PO DAILY 90 caps 3RF K21.9 - Gastro-esophageal reflux disease without esophagitis famotidine 20 mg PO DAILY 90 tabs 2RF heartburn Discontinued linaclotide (Linzess) Discontinued Reason: Patient no longer taking 145 mcg PO DAILY 30 caps 2RF sennosides (Natural Senna Laxative) Discontinued Reason: Patient no longer taking 17.2 mg (2 x 8.6 mg) PO BEDTIME 60 tabs 3RF constipation K59.00 - Constipation, unspecified Coding Level of Care Code Est Pt Level 4 (35154) Diagnoses Gastroesophageal reflux disease with esophagitis without hemorrhage K21.00 Esophagitis presence: with esophagitis Esophagitis bleeding: without hemorrhage Irritable bowel syndrome without diarrhea K58.9 Irritable bowel syndrome type: without diarrhea Hemorrhoids, unspecified hemorrhoid type K64.9 Hemorrhoid type: unspecified Postprandial epigastric pain R10.13 Nausea R11.0 Postprandial abdominal bloating R14.0 Postprandial diarrhea K52.9 Time Spent (min) 35 Comment 25 minutes spent with patient and additional 10 minutes spent reviewing her records
[2024-03-21 16:16] VITALS: BP 138/68; PULSE 76; O2SAT 99; BMI 25.0
== END ==
PROVIDERS: PCP Internal Medicine; Visit Provider Nurse Practitioner Family
DX: K21.00 Gastro-esophageal reflux disease with esophagitis, without bleeding (principal); K58.9 Irritable bowel syndrome, unspecified; K64.9 Unspecified hemorrhoids; R11.0 Nausea
CPT/HCPCS: 99214

== ENCOUNTER → 2024-03-21 16:15 | Outpatient (BNVA) | payer MEDICARE, MEDICAID, SELFPAY | PROVIDERS: PCP Internal Medicine; Visit Provider Nurse Practitioner Family | DX: K21.00 Gastro-esophageal reflux disease with esophagitis, without bleeding (principal); K64.9 Unspecified hemorrhoids; K52.9 Noninfective gastroenteritis and colitis, unspecified; R10.13 Epigastric pain; R11.0 Nausea; R14.0 Abdominal distension (gaseous) | CPT/HCPCS: 99212 ==

== ENCOUNTER → 2024-04-21 09:41 | Outpatient (REF) | payer MEDICARE, MEDICAID, SELFPAY ==
--- NOTE | 2024-04-21 09:48 | CA_ITS ---
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 The calculated ejection fraction is 66% by biplane method. - No obvious valvular pathology seen on this study. Findings Left Ventricle Normal left ventricular cavity size. There is normal left ventricular wall thickness. The left ventricular systolic function is normal. The calculated ejection fraction is 66% by biplane method. There is no evidence of regional wall motion abnormalities. Diastolic function is normal for age. Right Ventricle Normal right ventricular cavity size and systolic function. Atria Both atria are normal in size. Aortic Valve There is a normal trileaflet aortic valve. There is no aortic valve stenosis. There is no aortic valve regurgitation. Mitral Valve The mitral valve appears normal. There is trace mitral valve regurgitation. There is no mitral valve stenosis. Pulmonic Valve The pulmonic valve is likely normal. Tricuspid Valve There is trace tricuspid valve regurgitation. There is no evidence of pulmonary hypertension. Great Vessels The asc aorta is normal in size. Venous The inferior vena cava is normal in size and collapses greater than 50% with inspiration. Pericardium/Pleural There is a trivial pericardial effusion. Prior Study Comparison No prior study available for comparison. Recommendations, Care & Conclusions No obvious valvular pathology seen on this study. Measurements 2D Linear Measurements IVSd: 1.00 0.6-0.9/0.6-1.0 cm LVIDd: 4.17 3.9-5.3/4.2-5.9 cm LVIDd Index: 2.54 2.4-3.2/2.2-3.1 cm/m2 LVIDs: 2.54 2.0-3.6 cm LVPWd: 0.72 0.7-1.1 cm LA Diam: 3.10 2.7-3.8/3.0-4.0 cm LAIDs Index: 1.89 1.5-2.3 cm/m2 LV Mass: 137.21 67-162/88-224 g LV Mass Index: 83.66 43-95/49-115 g/m2 LVOT Diam: 2.00 3.0+(-)1.3 cm 2D Volumes LA Vol: 18.50 2D Systolic Function EF 4C: 64.00 >55% EF 2C: 67.90 >55% EF BiP: 66.40 >55% Mitral Valve MV Pk E: 0.61 MV PK A: 0.74 MV Decel Time: 187.00 E/A: 0.80 E'Lateral: 8.49 E'Medial: 4.90 E/E' Med: 12.40 E/E' Lat: 7.20 PHT: 55.00 MVA PHT: 4.00 Decel Stone: 3.24 Aortic Valve AoV Pk Juan Jose: 1.31 AoV Mn Juan Jose: 0.94 AoV VTI: 0.28 AoV Pk Grad: 7.00 Aov Mn Grad: 4.00 GIANCARLO Cont.VTI: 2.46 LVOT LVOT Pk Juan Jose: 1.07 LVOT Mn Juan Jose: 0.70 LVOT VTI: 0.22 LVOT Pk Grad: 5.00 LVOT Mn Grad: 2.00 LVOT Diam: 2.00 LVOT Area: 3.14 Diastolic Function MV Pk E: 0.61 MV Pk A: 0.74 E/A: 0.80 E'Medial: 4.90 E/E' Med: 12.40 E' Laterial: 8.49 E/E' Lat: 7.20 Right Ventricle TAPSE (mm): 20.40 TVS' Juan Jose: 10.40 Tricuspid Valve RA Press: 3.00 Great Vessels Aorta Sinus of Valsalva: 3.14 2.0-3.5 cm Ao Asc: 3.00 2.1-3.4 cm Ao Arch: 3.00 Updated in Other Vendor System with Status of Final Alejandro Martinez MD electronically signed on 04/22/2024 1:42:51 PM with status of Final
--- NOTE | 2024-04-21 09:48 | HM_ITS ---
Conclusion: 1. Patient was monitored for total period of 6 days and 23 hours 2. Baseline was normal sinus rhythm with average heart of 77 beats per minute 3. No significant arrhythmias or pauses noted 4. Patient marked the counter 2 times with no significant abnormalities MTDD
== END ==
LOC: HO.CARD 09:41
PROVIDERS: PCP Internal Medicine; Visit Provider Nurse Practitioner
DX: R00.2 Palpitations (principal)
CPT/HCPCS: 93242; 93306

== ENCOUNTER → 2024-04-21 09:48 | Outpatient (BNV) | payer MEDICARE, MEDICAID, SELFPAY | PROVIDERS: PCP Internal Medicine; Visit Provider Internal Medicine | DX: R00.1 Bradycardia, unspecified (principal) | CPT/HCPCS: 93244; 93306 ==

== ENCOUNTER 2024-04-24 13:12 | Outpatient (REF) | payer MEDICARE, MEDICAID, SELFPAY ==
--- NOTE | ~2024-04-24 | CT_ITS ---
EXAMINATION: CT ABDOMEN AND PELVIS WITH CONTRAST CLINICAL INFORMATION: Unspecified abdominal pain COMPARISON: CT abdomen/pelvis May 17, 2022 TECHNIQUE: Multiple axial images were obtained from the superior aspect of the liver through the pubic symphysis after the administration of 85 mL of intravenous Omnipaque. Images were evaluated on independent dedicated 3-D workstation and 3-D images were reconstructed with concurrent radiologist supervision and subsequently interpreted. Oral contrast was administered. This CT examination was performed using dose optimization techniques as appropriate, variously including the following: *Automated exposure control *Adjustment of mA and/or kV according to patient size (this includes techniques or standardized protocols for targeted exams where dose is matched to indication/reason for exam; i.e. extremities or head) *Use of iterative reconstruction technique DLP: 320 mGy-cm FINDINGS: LUNG BASES: The visualized lung bases are clear. CARDIOMEDIASTINUM: The visualized heart is normal in size without pericardial effusion. No coronary artery calcification. LIVER: Homogeneous in attenuation. Normal in size. GALLBLADDER: Absent. BILIARY SYSTEM: No intrahepatic or extrahepatic biliary dilation. PANCREAS: Homogeneous in attenuation. SPLEEN: Normal in size. GENITOURINARY: Bilateral kidneys demonstrate symmetric enhancement. No perinephric fluid collection. No renal calculi. No hydroureteronephrosis. ADRENAL GLANDS: Stable 1.4 cm left adrenal nodule. REPRODUCTIVE: Uterus absent. Right adnexal cyst measuring 3.5 x 2.9 cm. GASTROINTESTINAL: The visualized alimentary tract is normal in course. No evidence of obstruction. APPENDIX: The appendix is not visualized; however, no pericecal inflammatory changes are seen in the right lower quadrant. PERITONEUM: No pneumoperitoneum. No intra-abdominal fluid collection. VASCULATURE: The abdominal aorta is normal in course and caliber. LYMPH NODES: No pathologically enlarged abdominal or pelvic lymph nodes. SOFT TISSUES/MUSCULOSKELETAL: Postsurgical changes at L4-5 and L5-S1 with intervertebral disc space. No acute fracture or focal osseous lesions. CT/CT abdomen pelvis w IV con IMPRESSION: No acute abdominal or pelvic pathology. Fleischner guidelines were followed. Electronically signed by: Syd Drew DO 05/24/2024 08:13 PM [facility]
[2024-04-24] MEDS: iohexoL 350 MG/ML 100 ML INFUS..BTL 85 ML IV (16:03)
[2024-04-24] MEDS: Barium Sulfate Oral (Vanilla) 450 ML ORAL.SUSP 900 ML PO (16:05)
[2024-04-25 07:03] LABS: Creatinine POC 0.6 mg/dL (0.5-1.4); GFR POC > 60
== END 2024-04-24 13:13 | disposition home or self-care (01) ==
LOC: HO.CT 13:12
PROVIDERS: PCP Internal Medicine; Visit Provider Nurse Practitioner Family
DX: R10.9 Unspecified abdominal pain (principal)
CPT/HCPCS: 74177; 82565; Q9967

== ENCOUNTER → 2024-05-08 13:28 | Outpatient (REF) | payer MEDICARE, MEDICAID, SELFPAY | LOC: HO.SL 13:28 | PROVIDERS: PCP Internal Medicine; Visit Provider Nurse Practitioner Family | DX: G47.10 Hypersomnia, unspecified (principal) | CPT/HCPCS: 95806 ==

== ENCOUNTER → 2024-05-08 13:37 | Outpatient (BNV) | payer MEDICARE, MEDICAID, SELFPAY | PROVIDERS: PCP Internal Medicine; Visit Provider Internal Medicine | DX: R06.83 Snoring (principal); R40.0 Somnolence | CPT/HCPCS: 95806 ==

== ENCOUNTER 2024-05-29 12:49 | Outpatient (AMB) | payer MEDICARE, MEDICAID, SELFPAY ==
--- NOTE | 2024-05-29 13:20 | MHC.OFFVIS ---
Vital Signs 05/29/24 13:21 Height 5 ft 3 in Weight 143 lb 4.807 oz BMI 25.4 BP 122/68 Blood Pressure Location Lt brachial Position Sitting Pulse 76 Pulse Source Pulse Oximeter Intake Visit Reasons: f/up holter/ sleep/ echo/ HS Allergies oxycodone Allergy (Mild, Verified 03/21/24 16:16) Hives morphine Allergy (Unknown, Verified 03/21/24 16:16) Unknown cortisone acetate Allergy (Unknown, Uncoded 02/29/24 13:21) took away pigmentation in hands compazine Allergy (Uncoded 02/29/24 13:21) Unknown Medication List - Last Reconciled 05/29/24 by KEYUR Maya adalimumab (Humira(CF)) 40 mg subcut QWEEK albuterol sulfate 90 mcg/actuation 90 mcg inhalation DAILY albuterol sulfate 2.5 mg inhalation Q4H PRN amlodipine 2.5 mg PO DAILY aripiprazole 15 mg PO DAILY azelastine 2 sprays intranasal BID bisacodyl (Dulcolax (bisacodyl)) 20 mg (4 x 5 mg) PO ONCE PRN 1 day cetirizine 10 mg PO DAILY cholecalciferol (vitamin D3) 50 mcg PO DAILY cyclobenzaprine 5 mg PO TID PRN diclofenac sodium 75 mg PO BID diclofenac sodium 1% 1 g topical BID dicyclomine 10 mg PO TID PRN docusate sodium (Colace) 100 mg PO BID ergocalciferol (vitamin D2) 1,250 mcg PO QWEEK famotidine 20 mg PO DAILY fluticasone propionate 220 mcg/actuation 1 puff inhalation BID fluticasone propionate 50 mcg/actuation 2 sprays intranasal DAILY folic acid 1 mg PO DAILY hydrocodone-acetaminophen 5-300 mg 1 tab PO Q4-6H PRN ibuprofen 600 mg PO Q6H PRN lamotrigine 75 mg PO BID lansoprazole 30 mg PO DAILY meclizine 25 mg PO TID PRN methotrexate sodium mg PO methylcellulose (laxative) (Citrucel) 500 mg PO DAILY neomycin-polymyxin B-dexameth 3.5 mg/g-10,000 unit/g-0.1 % (Maxitrol) ophthalmic (eye) BID ondansetron 4 mg PO Q6H PRN polyethylene glycol 3350 (Miralax) 238 grams PO ONCE pregabalin 50 mg PO TID quetiapine 100 mg PO BEDTIME sertraline 200 mg PO DAILY simethicone (Gas Relief (simethicone)) 125 mg PO TID-QID PRN sucralfate 1 g PO BEDTIME tramadol 50 mg PO BID PRN trazodone 150 - 300 mg PO BEDTIME PRN HPI HPI f/up holter/ sleep/ echo/ HS: Details: Rubia is a 48-year-old female with past medical history of GERD, right bundle branch block who was recently evaluated for heart palpitations. She underwent an echocardiogram, Holter monitor and sleep study and now presents for follow-up. Today she reports that she still feels episodes of fast heartbeat that can occur randomly. She has no known triggers. She says the episodes can last as long as 5-7 minutes. The highest heart rate she recorded on her smart watch was 113. She reports some mild fatigue and lightheadedness when she has the palpitation. No shortness of breath or chest discomfort. No presyncope, syncope, falls. She has been woken from sleep by her heart palpitations. She cut back caffeinated beverages. Mother is present. [facility] Medical History Hypersomnia Palpitations Family history of breast cancer Hemorrhoids with complication History of uterine cancer TIA (transient ischemic attack) PTSD (post-traumatic stress disorder) Fibromyalgia Right bundle branch block (RBBB) Bipolar affective disorder GERD (gastroesophageal reflux disease) Psoriatic arthritis Irritable bowel syndrome Tubular adenoma Surgical History H/O hemorrhoidectomy Hx of abdominal surgery Hx of eye surgery Hx of hernia repair Hx of section History of partial hysterectomy History of colonoscopy History of cholecystectomy History of bladder suspension procedure Previous back surgery History of appendectomy History of esophagogastroduodenoscopy (EGD) Family History Maternal Grandmother Breast cancer Maternal Aunt Breast cancer Father FH: prostate cancer Paternal Grandmother Uterine cancer Paternal Grandfather Heart attack Sister Von Willebrand disease Paternal Aunt Ovarian cancer Colon cancer Stomach cancer Uterine cancer Paternal Uncle Colon cancer Social History Are you a primary direct support professional caregiver to a significant other at home: No Do you presently have visiting nurse or other home services: No Alcohol intake: never Patient Tobacco Use Status: Former Tobacco user Tobacco use type: Cigarette Cigarette Packs Per Day: 0.50 Review of Systems Const All systems reviewed & are unremarkable except as noted in HPI and below Denies weakness ENT Denies dizziness Card Denies chest pain, Denies chest pain with activity, Denies syncope, Reports rapid heart rate, Denies pedal edema, Denies edema, Denies leg edema, Denies lightheadedness, Denies palpitations, Denies dyspnea, Denies dyspnea on exertion and Denies orthopnea Resp Denies cough, Denies dyspnea and Denies dyspnea on exertion GI Denies hematochezia and Denies change in stool character Musc Denies abnormal gait, Denies muscle cramps, Denies muscle weakness, Denies numbness, Denies radiating pain into limb and Denies tingling Neuro Denies abnormal gait, Denies dizziness, Denies syncope, Denies numbness, Denies tingling and Denies weakness Endo Denies palpitations Physical Exam Vital Signs: Last Vital Signs Pulse 76 05/29/24 13:21 BP 122/68 05/29/24 13:21 BMI result Body Mass Index 25.4 Const General: cooperative, healthy appearing, comfortable and no acute distress Orientation/consciousness: patient oriented x3 Neck Neck: Yes normal visual inspection Resp Effort & Inspection: normal respiratory effort Auscultation: clear to auscultation bilaterally, no crackles, no rales, no rhonchi and no wheezes Cardio Rate: regular rate Rhythm: regular rhythm Heart sounds: S1 normal heart sound present, S2 normal heart sound present, no murmurs and no rubs Neuro General: patient oriented x3 Extrem General: Yes normal to inspection, No no pedal edema and No calf tenderness Psych Appearance: grossly normal Mental Status: mental status grossly normal Speech and movement: Normal speech and movement present Assessment & Plan Assessment & Plan (1) Palpitations: Code(s): R00.2 - Palpitations Category: Medical Plan: Reports of heart palpitations that are described as brief to short episodes of rapid heartbeat that can last as long as 5-7 minutes and gradually resolves with relaxation and deep breathing. No sudden start or stop of her palpitation. No presyncope, syncope. No clear triggers. She does not drink caffeinated beverages. She uses albuterol inhaler p.r.n. but she does not feel this contributes. EKG done on last visit showed normal sinus rhythm with right bundle branch block, rate 76. Echocardiogram done 04/21/2024 showed EF 66%, no valve abnormalities and no regional wall motion abnormalities. A Holter monitor was done 04/21/2024 for 7 days showing sinus rhythm with average heart rate 77 with no significant arrhythmias. A sleep study was done on 05/15/2024 which was normal. Test results reviewed with her in detail. Offered reassurance that no significant findings identified. Her symptoms sound most like sinus tachycardia however SVT not entirely ruled out. Instructed on maintaining good hydration, getting adequate rest, controlling anxiety if needed, maintaining good physical activity. She will keep track of palpitations and try to better identify triggers. She would like a follow-up visit. Will arrange for cardiology follow-up in 6 months, sooner if needed. (2) Right bundle branch block (RBBB): Code(s): I45.10 - Unspecified right bundle-branch block Category: Medical Plan: Finding of left bundle branch block on EKG. Seen on prior EKG as well, 05/17/2022. Discuss this finding with her. Plan Time spent on chart review, documentation, interview, assessment Coding Level of Care Code Est Pt Level 3 (72975) Complex EM visit Add On G2211 Diagnoses Palpitations R00.2 Right bundle branch block (RBBB) I45.10 Time Spent (min) 24
[2024-05-29 13:21] VITALS: BP 122/68; PULSE 76; BMI 25.4
== END 2024-05-29 13:55 | disposition home or self-care (01) ==
PROVIDERS: PCP Internal Medicine; Visit Provider Nurse Practitioner Family
DX: R00.2 Palpitations (principal); I45.10 Unspecified right bundle-branch block
CPT/HCPCS: 99213; G2211

== ENCOUNTER → 2024-05-29 12:49 | Outpatient (BNVA) | payer MEDICARE, MEDICAID, SELFPAY | PROVIDERS: PCP Internal Medicine; Visit Provider Nurse Practitioner Family | DX: I45.10 Unspecified right bundle-branch block (principal); R00.2 Palpitations | CPT/HCPCS: 99212 ==

== ENCOUNTER 2024-06-15 14:41 | Outpatient (REF) | payer MEDICARE, MEDICAID, SELFPAY ==
--- NOTE | 2024-06-15 | EMG_ITS ---
Chief complaint: Left hand pain and numbness, history of psoriatic arthritis Reason for referral: Evaluate for Carpal Tunnel Syndrome Referred by: Dr. Barajas Procedure done: Left upper extremity NCS/EMG Precautions and/or limitations: None The limb temperature was monitored continuously and remained between 32-36 degrees C during the performance of the NCS. Nerve Conduction Studies Anti Sensory Summary Table ?Stim Site NR Onset (ms) Norm Onset (ms) Peak (ms) Norm Peak (ms) O-P Amp (?V) Norm O-P Amp Site1 Site2 Delta-0 (ms) Dist (cm) Juan Jose (m/s) Norm Juan Jose (m/s) Left Median Anti Sensory (2nd Digit) Wrist ? 2.6 3.4 <3.6 68.6 >10 Wrist 2nd Digit 2.6 14.0 54 Left Radial Anti Sensory (Thumb) Forearm ? 2.0 2.3 <3.1 22.4 Forearm Thumb 2.0 0.0 Left Ulnar Anti Sensory (5th Digit) Wrist ? 2.0 2.9 <3.7 46.9 >15.0 Wrist 5th Digit 2.0 14.0 70 Motor Summary Table ?Stim Site NR Onset (ms) Norm Onset (ms) O-P Amp (mV) Norm O-P Amp iAmp (mV) Amp (1st) (%) Site1 Site2 Delta-0 (ms) Dist (cm) Juan Jose (m/s) Norm Juan Jose (m/s) Left Median Motor (Abd Poll Brev) Wrist ? 3.4 <3.9 11.7 >4.5 14.1 100.0 Elbow Wrist 2.9 17.0 59 >45 Elbow ? 6.3 14.2 17.1 121.4 Left Ulnar Motor (Abd Dig Minimi) Wrist ? 2.5 <3.0 10.5 >5 13.4 100.0 B Elbow Wrist 2.6 16.5 63 >45 B Elbow ? 5.1 8.8 11.3 83.8 A Elbow B Elbow 1.5 10.0 67 >45 A Elbow ? 6.6 9.5 12.6 90.5 EMG ?Side Muscle Nerve Root Ins Act Fibs Psw Amp Dur Poly Recrt Int Pat Comment Left 1stDorInt Ulnar C8-T1 Nml Nml Nml Nml Nml 0 Nml Complete Left FlexCarRad Median C6-7 Nml Nml Nml Nml Nml 0 Nml Complete Left Biceps Musculocut C5-6 Nml Nml Nml Nml Nml 0 Nml Complete Left Triceps Radial C6-7-8 Nml Nml Nml Nml Nml 0 Nml Complete Left Deltoid Axillary C5-6 Nml Nml Nml Nml Nml 0 Nml Complete FINDINGS: All motor and sensory nerves tested showed normal latencies, amplitudes and conduction velocities. Concentric needle EMG was performed in selected muscles of the left upper extremity. Study did not reveal signs of electric abnormalities as shown in the table above. IMPRESSION: 1. This is a normal study. 2. There is no electrodiagnostic evidence for median neuropathy, ulnar neuropathy, brachial plexopathy, or cervical radiculopathy. Thank you for your kind referral. Julieth Rouse MD, HALIMA Board Certified, [place] [employer] and [employer] (ABPMR) Board Certified, [place] [employer] Electrodiagnostic [employer] (ABEM) CODIN [id number] MTDD
== END 2024-06-15 14:42 | disposition home or self-care (01) ==
LOC: HO.NEURO 14:41
PROVIDERS: PCP Internal Medicine; Visit Provider Internal Medicine
DX: R20.2 Paresthesia of skin (principal)
CPT/HCPCS: 95886; 95909

== ENCOUNTER → 2024-06-15 15:00 | Outpatient (BNV) | payer MEDICARE, MEDICAID, SELFPAY | PROVIDERS: PCP Internal Medicine; Visit Provider Physical Medicine & Rehabilitation | DX: R20.0 Anesthesia of skin (principal); M79.642 Pain in left hand | CPT/HCPCS: 95886; 95909 ==

== ENCOUNTER 2024-10-20 15:31 | Outpatient (REF) | payer MEDICARE, MEDICAID, SELFPAY ==
--- OUTSIDE RECORDS SUMMARY | 2024-10-20 16:21 | XMS_ITS | Clinical Summary ---
Author Organization [address] Address [address] [place] [address] Phone Care Team Providers Care Aerospace Project Engineer Name Role Phone Radu Christensen MD Primary Care Provider [phone] Allergies Active Allergy Reactions Criticality Noted Date [...] of lumbar re gion 08/18/2024 Rheumatoid arteritis ([facility] V24, [facility] V28) 08/18/2024 Overview (08/18/2024): psoriatic Abdominal [...] cellulitis. She will actually be seeing an tile fitter on Wednesday. If her symptoms are worsening [...] both constipation and diarrhea 05/12/2018 Psoriatic arthritis ([facility] V24, [facility] V28) 0 12/09/2017 Overview (04/05/2024): Dr Murphy Abdominal pain, chronic, epigastric 03/27/2013 Bipolar affective disorder ([facility] V24, [facility] V28) 07/15/2012 Vitamin D deficiency 08/13/2011 [...] Description 09/22/2024 Telephone [facility]st[facility]s [facility]cology - [facility] [phone] Ambar Potter, DO Menopause 09/12/2024 10:00 AM EDT Office Visit Adult [address] [phone] Radu Christensen MD Moderate persistent asthma without complication (Primary Dx); Primary hypertension; Psoriatic arthritis (CMS/HCC V24, CMS/HCC V28); B12 deficiency; Vitamin D deficiency; Transaminitis; Bipolar affective disorder, remission status unspecified (CMS/HCC V24, CMS/HCC V28); Mixed hyperlipidemia 09/04/2024 11:15 AM EST [facility] [phone] Kellie Renae CNM Encounter for annual physical examination excluding gynecological examination in a patient older than 17 years (Primary Dx); Menopausal symptoms 08/18/2024 11:15 AM EST Consult Neurosurgery [place] [address] [phone] Sofi Leal MD Chronic left-sided low back pain with left-sided sciatica (Primary Dx); Lumbar radiculopathy 08/10/2024 8:50 AM EST - 08/10/2024 11:59 PM EST Hospital Encounter [address] [phone] Moderate persistent asthma with acute exacerbation Discharge Disposition: Home or Self Care 08/10/2024 8:15 AM EST Office Visit Adult [address] [phone] Radu Christensen MD Moderate persistent asthma with acute exacerbation (Primary Dx); Viral upper respiratory tract infection 08/08/2024 Telephone Adult Medicine [address] [phone] Radu Christensen MD Med Refill 07/25/2024 10:09 AM EST - 07/25/2024 11:59 PM EST Hospital Encounter Radiology Department - [address] [phone] Encounter for screening mammogram for breast cancer [...] History Surgery Date Site/Laterality Comments SECTION PROCEDURE: [place] DELIVERY ONLY HERNIA REPAIR PROCEDURE: HISTORICAL HERNIA [...] in size. UPPER GASTROINTESTINAL ENDOSCOPY 2005 PROCEDURE: [place] UPPER GI ENDOSCOPY PERFORMED; COMMENT: Nia; negative, bx negative for H. pylori. OTHER SURGICAL HISTORY 02/2019 PROCEDURE: HISTORICAL UNSPECIFIED SURGERY; COMMENT: urethral sling BLADDER SUSPENSION PROCEDURE: HISTORICAL BLADDER SUSPENSION COLONOSCOPY 06/06/2020 PROCEDURE: HISTORICAL COLONOSCOPY; COMMENT: 10 mm cecal polyp: Tubular adenoma. ESOPHAGOGASTRODUODENOSCOPY 05/21/2021 PROCEDURE: [place] EGD TRANSORAL BIOPSY SINGLE/MULTIPLE; COMMENT: Dr. Deana [...] [facility] [address] [phone] Maribel Barajas MD [address] [address] 03/26/2025 8:30 AM EDT Office Visit Adult Medicine [address] [phone] Radu Christensen MD [address] [place] [phone] Health Maintenance Due Date Last Done Comments [...] Moderate persistent asthma without complication Psoriatic arthritis ([facility]/HCC V24, [facility] V28) Bipolar affective disorder, remission status unspecified ([facility] V24, [facility] V28) Screening for hyperlipidemia Screening for diabetes mellitus (DM) LIPID PANEL WITH REFLEX TO DIRECT LDL Routine 09/11/2024 9:36 AM EDT Hypokalemia B12 deficiency Vitamin D deficiency Transaminitis Moderate persistent asthma without complication Psoriatic arthritis ([facility]/HCC V24, [facility]/HCC V28) Bipolar affective disorder, remission status unspecified ([facility]/HCC V24, [facility] V28) Screening for hyperlipidemia Screening for diabetes mellitus (DM) COMPREHENSIVE METABOLIC PANEL Routine 09/11/2024 9:36 AM EDT Hypokalemia B12 deficiency Vitamin D deficiency Transaminitis Moderate persistent asthma without complication Psoriatic arthritis (CMS/HCC V24, CMS/HCC V28) Bipolar affective disorder, remission status unspecified ([facility]/HCC V24, CMS/HCC V28) Screening for hyperlipidemia Screening for diabetes mellitus (DM) CBC AND DIFFERENTIAL Routine 09/11/2024 9:36 AM EDT Hypokalemia B12 deficiency Vitamin D deficiency Transaminitis Moderate persistent asthma without complication Psoriatic arthritis ([facility]/HCC V24, [facility]/HCC V28) Bipolar affective disorder, remission status unspecified ([facility]/HCC V24, [facility] V28) Screening for hyperlipidemia Screening for diabetes mellitus (DM) HEMOGLOBIN A1C Routine 09/11/2024 9:36 AM EDT Hypokalemia B12 deficiency Vitamin D deficiency Transaminitis Moderate persistent asthma without complication Psoriatic arthritis ([facility] V24, [facility] V28) Bipolar affective disorder, remission status unspecified ([facility] V24, [facility] V28) Screening for hyperlipidemia Screening for diabetes mellitus (DM) CHLAMYDIA TRACHOMATIS AND NEISSERIA GONORRHOEAE PCR Routine 09/04/2024 11:21 AM EST Encounter for annual physical examination excluding gynecological examination in a patient older than 17 years XR CHEST 2 VIEWS Routine 08/10/2024 8:54 AM EST Moderate persistent asthma with acute exacerbation [id number], RSV, FLU A AND B QUALITATIVE RT-PCR, [...] LAB CHEMISTRY METHOD 09/11/2024 1:13 PM EDT [facility] Triglycerides 152(H) 0 - 150 mg/dL LAB CHEMISTRY METHOD 09/11/2024 1:13 PM EDT [facility] HDL 46 >=40 mg/dL LAB CHEMISTRY METHOD 09/11/2024 1:13 PM EDT [facility] LDL Calculated 151(H) 0 - 100 mg/dL LAB CHEMISTRY METHOD 09/11/2024 1:13 PM EDT [facility] VLDL Cholesterol Silas 30.4 mg/dL LAB CHEMISTRY METHOD 09/11/2024 1:13 PM EDT [facility] Non HDL Chol. (LDL+VLDL) 181(H) <145 mg/dL LAB CHEMISTRY METHOD 09/11/2024 1:13 PM EDT [facility] Chol/HDL Ratio 4.9(H) 0.0 - 4.4 LAB CHEMISTRY METHOD 09/11/2024 1:13 PM EDT [facility] Blood Venous blood specimen / Unknown Venipuncture / Unknown 09/11/2024 9:36 AM EDT 09/11/2024 9:36 AM EDT us Radu Christensen MD LAB BLOOD ORDERABLES Final Result [facility] [address] [place] [address], [place] [phone] * CBC auto differential (09/11/2024 9:36 AM EDT) WBC 5.0 4.8 - 10.8 K/mcL LAB HEMETOLOGY METHOD 09/11/2024 1:10 PM EDT [facility] RBC 4.50 3.80 - 4.80 M/mcL LAB HEMETOLOGY METHOD 09/11/2024 1:10 PM EDT [facility] Hemoglobin 13.6 11.5 - 16.0 g/dL LAB HEMETOLOGY METHOD 09/11/2024 1:10 PM EDT [facility] Hematocrit 41.4 35.0 - 47.0 % LAB HEMETOLOGY METHOD 09/11/2024 1:10 PM EDT [facility] MCV 91.4 79.0 - 98.0 FL LAB HEMETOLOGY METHOD 09/11/2024 1:10 PM EDT [facility] MCH 30.0 27.0 - 32.0 pcg LAB HEMETOLOGY METHOD 09/11/2024 1:10 PM EDT [facility] MCHC 32.9 32.0 - 37.0 g/dL LAB HEMETOLOGY METHOD 09/11/2024 1:10 PM EDT [facility] RDW 13.1 11.0 - 15.0 % LAB HEMETOLOGY METHOD [facility] 335 130 - 400 K/mcL LAB HEMETOLOGY METHOD 09/11/2024 1:10 PM EDT [facility] MPV 10.1 7.0 - 11.0 FL LAB HEMETOLOGY METHOD 09/11/2024 1:10 PM EDT [facility] NRBC 0.0 <1.0 % LAB HEMETOLOGY METHOD 09/11/2024 1:[address] [facility] NRBC Absolute 0.00 <0.10 K/mcL LAB HEMETOLOGY METHOD 09/11/2024 1:[address] [facility] Neutrophils Relative 55.6 % LAB HEMETOLOGY METHOD 09/11/2024 1:10 PM EDT [facility] Lymphocytes Relative 34.9 % LAB HEMETOLOGY METHOD 09/11/2024 1:10 PM EDT [facility] Monocytes Relative 6.7 % LAB HEMETOLOGY METHOD 09/11[facility]2024 [facility] Eosinophils Relative 1.8 % LAB HEMETOLOGY METHOD 09/11/2024 1:[address] [facility] Basophils Relative 0.8 % LAB HEMETOLOGY METHOD 09/11/2024 1:10 PM EDT [facility] Immature Granulocytes Relative 0.2 % LAB HEMETOLOGY METHOD 09/11/2024 1:10 PM EDT [facility] Neutrophils Absolute 2.80 1.50 - 7.00 K/mcL LAB HEMETOLOGY METHOD 09/11/2024 1:10 PM EDT [facility] Lymphocytes Absolute 1.76 1.00 - 5.00 K/mcL LAB HEMETOLOGY METHOD 09/11/2024 1:10 PM EDT [facility] Monocytes Absolute 0.34 0.20 - 1.00 K/mcL LAB HEMETOLOGY METHOD 09/11/2024 1:10 PM EDT [facility] Eosinophils Absolute 0.09 0.00 - 0.50 K/mcL LAB HEMETOLOGY METHOD 09/11/2024 1:10 PM EDT [facility] Basophils Absolute 0.04 0.00 - 0.20 K/mcL LAB HEMETOLOGY METHOD 09/11/2024 1:10 PM EDT [facility] Immature Granulocytes Absolute 0.01 0.00 - 0.03 K/mcL LAB HEMETOLOGY METHOD 09/11/2024 1:10 PM EDT [facility] Blood Venous blood specimen / Unknown Venipuncture / Unknown 09/11/2024 9:36 AM EDT 09/11/2024 9:36 AM EDT us Radu Christensen MD LAB BLOOD ORDERABLES Final Result [facility] [address] [place] [address], * Hemoglobin A1c (09/11/2024 9:36 AM EDT) Hemoglobin A1C 5.3 <6.5 % LAB CHEMISTRY METHOD 09/11/2024 9:38 PM EDT [facility] Mean Bld Glu Estim. 105 mg/dL LAB CHEMISTRY METHOD 09/11/2024 9:[address] [facility] Blood Venous blood specimen / Unknown Venipuncture / Unknown 09/11/2024 9:36 AM EDT 09/11/2024 9:36 AM EDT us Radu Christensen MD LAB BLOOD ORDERABLES Final Result [facility] [address] [place] [address], [place] [phone] * (ABNORMAL) Comprehensive metabolic panel (09/11/2024 9:36 AM EDT) Sodium 138 133 - 145 mmol/L LAB CHEMISTRY METHOD 09/11/2024 1:[address] [facility] Potassium 4.1 3.5 - 5.5 mmol/L LAB CHEMISTRY METHOD 09/11/2024 1:[address] [facility] Chloride 105 96 - 110 mmol/L LAB CHEMISTRY METHOD 09/11/2024 1:[address] [facility] CO2 28 21 - 32 mmol/L LAB CHEMISTRY METHOD 09/11/2024 1:[address] [facility] Anion Gap 5 3 - 11 LAB CHEMISTRY METHOD 09/11/2024 1:[address] [facility] Glucose 95 70 - 100 mg/dL LAB CHEMISTRY METHOD 09/11/2024 1:[address] [facility] BUN 11 5 - 25 mg/dL LAB CHEMISTRY METHOD 09/11/2024 1:[address] [facility] Creatinine 0.74 0.50 - 1.10 mg/dL LAB CHEMISTRY METHOD 09/11/2024 1:[address] [facility] eGFR 98 >=60 mL/min/1. 73m2 LAB CHEMISTRY METHOD 09/11/2024 1:[address] [facility] Comment:Calculation based on the??Chronic Kidney Disease Epidemiology Collaboration (CKD-EPI) equation refit??without adjustment for race. BUN/Creatinine Ratio 14.9 LAB CHEMISTRY METHOD 09/11/2024 1:[address] [facility] Calcium 9.4 8.5 - 10.5 mg/dL LAB CHEMISTRY METHOD 09/11/2024 1:[address] [facility] AST (SGOT) 13 10 - 42 unit/L LAB CHEMISTRY METHOD 09/11/2024 1:[address] [facility] ALT (SGPT) 27 10 - 60 unit/L LAB CHEMISTRY METHOD 09/11/2024 1:[address] [facility] Alkaline Phosphatase 145(H) 42 - 121 unit/L LAB CHEMISTRY METHOD 09/11/2024 1:[address] [facility] Total Protein 7.2 6.0 - 8.0 g/dL LAB CHEMISTRY METHOD 09/11/2024 1:[address] [facility] Albumin 4.0 3.2 - 5.0 g/dL LAB CHEMISTRY METHOD 09/11/2024 1:[address] [facility] Total Bilirubin 0.5 0.0 - 1.4 mg/dL LAB CHEMISTRY METHOD 09/11/2024 1:[address] [facility] Blood Venous blood specimen / Unknown Venipuncture / Unknown 09/11/2024 9:36 AM EDT 09/11/2024 9:36 AM EDT Radu Christensen MD LAB BLOOD ORDERABLES Final Result [facility] [address] [place] [address], * Chlamydia trachomatis and Neisseria gonorrhoeae molecular study (09/04/2024 11:21 AM EST) Neisseria gonorrhoeae PCR Negative Negative LAB MOLECULAR DIAGNOSTICS METHOD 09/05/2024 9:00 AM EST [facility] Chlamydia trachomatis PCR Negative Negative LAB MOLECULAR DIAGNOSTICS METHOD 09/05/2024 9:00 AM EST [facility] Swab Vaginal structure / Unknown Non-blood Collection / Unknown 09/04/2024 11:21 AM EST 09/04/2024 11:21 AM EST us Kellie Renae CNM LAB MICROBIOLOGY - GENERAL O RDERABLES Final Result [facility] [address] [place] [address], * XR Chest 2 Views (08/10/2024 8:54 AM EST) Anatomical Region Laterality Modality Body Radiographic Belinda ging 08/10/2024 9:57 AM EST Impressions 08/10/2024 9:58 AM EST No acute pulmonary pathology. -------- FINAL REPORT -------- Dictated By: Jazmin Wilcox Dictated Date: 08/10/2024 09:57 ET Assigned Physician: Jazmin Wilcox Reviewed and Electronically Signed By: Jazmin Wilcox Signed Date: 08/10/2024 09:58 ET Workstation ID: [id number] Transcribed By: Self Edit Transcribed Date: 08/10/2024 [...] Signed Date: 08/10/2024 09:58 ET Workstation ID: [id number] Transcribed By: Self Edit Transcribed Date: 08/10/2024 09:57 ET us Radu Christensen MD IMG XR PROCEDURES Final Res ult * [id number], RSV, Influenza A and B qualitative RT-PCR (08/10/2024 8:50 AM EST) SARS COV-2 Not Detected Not Detected LAB MOLECULAR DIAGNOSTICS METHOD 08/10/2024 11:34 PM EST [facility] Comment: Disclaimer: The manner in which this information is used to guide patient care is the responsibility of the healthcare provider. Testing was performed using the [employer] Alinity m SARS-CoV-2 test. This test has [...] for Healthcare Providers can be found at: https://www.fda.gov/media/468951/download Fact sheet for Patients can be found at: https://www.fda.gov/media/533037/download Influenza A PCR Not Detected Not Detected LAB MOLECULAR DIAGNOSTICS METHOD 08/10/2024 11:34 PM EST [facility] Influenza B PCR Not Detected Not Detected LAB MOLECULAR DIAGNOSTICS METHOD 08/10/2024 11:34 PM EST [facility] RSV PCR Not Detected Not Detected LAB MOLECULAR DIAGNOSTICS METHOD 08/10/2024 11:34 PM EST [facility] Swab Nasopharyngeal structure / Unknown Non-blood Collection / Unknown 08/10/2024 8:50 AM EST 08/10/2024 8:50 AM EST us Radu Christensen MD LAB MICROBIOLOGY - GENERAL ORDERABLES Final Result [facility] [address] [place] [address], [place] [phone] * MG Mammo Digital Screening w Drew bilat (07/25/2024 10:36 AM EST) Anatomical Region Laterality Modality Breast Bilateral Mammography 07/25/2024 5:44 PM EST Impressions 07/25/2024 5:48 PM EST 1. No mammographic evidence of malignancy 2. Heterogeneous breast parenchyma BI-RADS CATEGORY: 2 - BENIGN RECOMMENDATION: Screening bilateral mammogram is recommended in 1 year. Mammo Location: [facility], [address] [place] [address], [id number], . -------- FINAL REPORT -------- Dictated By: Marin Andino Dictated Date: 07/25/2024 17:44 ET Assigned Physician: Marin Andino Reviewed and Electronically Signed By: Marin Andino Signed Date: 07/25/2024 17:48 ET Workstation ID: [id number] Transcribed By: Self Edit Transcribed Date: 07/25/2024 [...] is recommended in 1 year. Mammo Location: [facility], [address] [place] [address], [id number], . -------- FINAL REPORT -------- Dictated By: Marin Andino Dictated Date: 07/25/2024 17:44 ET Assigned Physician: Marin Andino Reviewed and Electronically Signed By: Marin Andino Signed Date: 07/25/2024 17:48 ET Workstation ID: [id number] Transcribed By: Self Edit Transcribed Date: 07/25/2024 [...] RESULTING AGENCY - 04/17/2020 6:00 PM EDT [id number] THINPREP PAP AND CELL BLOCK: NEGATIVE FOR [...] RESULTING AGENCY * HIV Screening (03/02/2014) Pathologist [facility] HIV Screening Abstracted Historical Provider HEALTH MAINTENANCE Final Result from Last 3 Months or Most Recently Relevant to Health Maintenance Insurance [employer] MEDICARE MEDICAID - [place] Care Teams Aerospace Project Engineer Relationship Specialty Start Date End Date Radu Christensen MD [address] [place] [address] PCP - General Internal Medicine 12/05/21
--- OUTSIDE RECORDS SUMMARY | 2024-10-20 16:21 | XMS_ITS | Encounter Summary ---
Author Organization [employer] Address [address] [place] [address] Care Team Providers Care Computer Technical Specialist Name Role Phone Rdau Christensen MD Primary Care Provider [phone] Reason for Visit * Reason Onset Date Comments Fatigue 06/05/2024 Dizziness 06/05/2024 Encounter Details Date Type Department Care Team (Late st Contact Info) Description 06/05/2024 Nurse Triage Adult Medicine [address] [phone] Radu Christensen MD [address] [place] [id number] Fatigue; Dizziness Social History Tobacco Use Types [...] [2] has been evaluated by doctor (or TARIFF INSPECTOR/PA) for this Answer Assessment - Initial Assessment [...] menstrual period? N/A Protocols used: Dizziness - [id number] * Milagro Castro - 06/05/2024 10:26 AM [...] traveled recently to another state outside of [place], [place], [place], [place], [place], [place], [place]? no o If yes, did you quarantine [...] of accident/Injury: No If yes, gather 3rd constitution party insurance information Third Libertarian Information: not applicable PCP: Radu Christensen MD Payor: [employer] MEDICARE / Plan: AARP MEDICARE COMPLETE / Product Type: *No Product type* / documented in this encounter Plan of Treatment Upcoming Encounters Date Type Department Care Team (Late st Contact Info) Description 11/21/2024 9:15 AM EDT Office Visit Orthopedic Surgery - [place] [address] [phone] Maribel Barajas MD [address] [address] 03/26/2025 8:30 AM EDT Office Visit [address] [place] [phone] Radu Christensen MD [address] [place] [phone] documented as of this encounter Visit Diagnoses Not on filedocumented in this encounter Additional Health Concerns Infection Onset Date Last Indicated Resolved Time Respiratory Rule-Out 08/10/2024 08/10/2024 025 11:34 PM EST COVID-19 Rule-Out 08/10/2024 08/10/2024 08/10/2024 11:34 PM EST documented as of this encounter Care Teams Computer Technical Specialist Relationship Specialty Start Date End Date Radu Christensen MD [address] [place] [address] PCP - General Internal Medicine 12/05/21 documented as of this encounter
[2024-10-20 17:26] LABS: Blood Urea Nitrogen 17 mg/dL (9-16); Estimated Glomerular Filt Rate > 60
[2024-10-25 21:13] LABS: Alk.Phos Iso. Macrohepatic 0 % (<=0); Alk.Phos Isoenzymes Bone 38 % (28-66); Alk.Phos Isoenzymes Intest 20 % (1-24); Alk.Phos Isoenzymes Liver 42 % (25-69); Alk.Phos Isoenzymes Placental 0 % (<=0); Alk.Phos Isoenzymes Total 130 U/L (37-153)
== END 2024-10-20 15:32 | disposition home or self-care (01) ==
LOC: HO.LAB 15:31
PROVIDERS: PCP Internal Medicine; Visit Provider Nurse Practitioner Family
DX: K21.00 Gastro-esophageal reflux disease with esophagitis, without bleeding (principal); K64.9 Unspecified hemorrhoids; R10.13 Epigastric pain; R11.0 Nausea; R14.0 Abdominal distension (gaseous); K52.9 Noninfective gastroenteritis and colitis, unspecified; R10.11 Right upper quadrant pain
CPT/HCPCS: 36415; 82565; 84080; 84520; 99212

== ENCOUNTER 2024-10-20 15:31 | Outpatient (AMB) | payer MEDICARE, MEDICAID, SELFPAY ==
[2024-10-20 15:33] VITALS: BP 152/76; PULSE 80; O2SAT 97; BMI 27.3
--- NOTE | 2024-10-20 15:33 | A.OFFVIS_ITS ---
Vital Signs 10/20/24 15:33 Height 5 ft 3 in Weight 154 lb BMI 27.3 BP 152/76 H Blood Pressure Location Rt brachial Position Sitting Pulse 80 Pulse Source Pulse Oximeter Pulse Oximetry (%) 97 Oxygen Delivery Method Room Air Intake Visit Reasons: gerd review ct Intake Note: ESTABLISHED PATIENT for mgmt of GERD. Review CT results from April 2024. KAY March 2024. Chief Complaint; C/O bloating despite medication interventions, mild GI upset, elevated LFTs (recent development per pt). Pt reports that her potassium levels have returned to WNL and she has stopped taking the Rx per PCP. 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 Will take famotidine at bedtime. Patient may take sucralfate on as-needed basis in the afternoon when she has epigastric pain and burning. Discussed with patient avoiding dietary triggers and late night snacking. Making sure that she is able to empty her bowels completely. Continue Dulcolax. Increase fluid intake and activity to pr omote better bowel motility. Patient has CT scan ordered for April 24. She will be seen 2-3 weeks after that in the office to discuss the results. Patient is agreeable to this plan and verbalizes understanding of instructions. She was given the opportunity to ask questions and all questions answered. ? Thank you for allowing me to participate in her care Medications Refilled sucralfate 1 g PO BEDTIME 90 tabs 3RF K21.9 lansoprazole 30 mg PO DAILY 90 caps 3RF K21.9 famotidine 20 mg PO DAILY 90 tabs 2RF heartburn Discontinued linaclotide (Linzess) Discontinued Reason: Patient no longer taking 145 mcg PO DAILY 30 caps 2RF sennosides (Natural Senna Laxative) Discontinued Reason: Patient no longer taking 17.2 mg (2 x 8.6 mg) PO BEDTIME 60 tabs 3RF constipation K59.00 TODAY'S VISIT Patient is here today for follow-up. Patient reports that she has been feeling little better, however she continues to have abdominal bloating. Patient reports that if she does not take simethicone she is very bloated. Patient is trying to avoid dietary triggers. Tries to follow as best as she can low FODMAP diet. Patient reports right upper quadrant pain postprandially. Recently labs done by her PCP and her alk phos fade was elevated. We will order ultrasound. If increased echogenicity we will rule out autoimmune disorders. Patient denies any melena, hematochezia, unintentional weight loss or ribbon like stools. Patient denies any dyspepsia, dysphagia or odynophagia. Patient denies any nausea or vomiting. Patient reports that she is not emptying her bowels well. COUNTS INCLUDE 234 BEDS AT THE [facility] Medical History Hypersomnia Palpitations Family history of breast cancer Hemorrhoids with complication History of uterine cancer TIA (transient ischemic attack) PTSD (post-traumatic stress disorder) Fibromyalgia Right bundle branch block (RBBB) Bipolar affective disorder GERD (gastroesophageal reflux disease) Psoriatic arthritis Irritable bowel syndrome Tubular adenoma Surgical History H/O hemorrhoidectomy Hx of abdominal surgery Hx of eye surgery Hx of hernia repair Hx of section History of partial hysterectomy History of colonoscopy History of cholecystectomy History of bladder suspension procedure Previous back surgery History of appendectomy History of esophagogastroduodenoscopy (EGD) Family History Maternal Grandmother Breast cancer Maternal Aunt Breast cancer Father FH: prostate cancer Paternal Grandmother Uterine cancer Paternal Grandfather Heart attack Sister Von Willebrand disease Paternal Aunt Ovarian cancer Colon cancer Stomach cancer Uterine cancer Paternal Uncle Colon cancer Social History Are you a primary long term care administrator to a significant other at home: No Do you presently have visiting nurse or other home services: No Alcohol intake: never Patient Tobacco Use Status: Former Tobacco user Tobacco use type: Cigarette Cigarette Packs Per Day: 0.50 Review of Systems Const Denies weight gain and Denies weight loss ENT Reports no additional complaints, Denies dysphagia and Denies odynophagia Card Reports no additional complaints Resp Reports no additional complaints GI Reports abdominal pain (RUQ), Denies belching, Denies melena, Reports bloating, Denies change in bowel habits, Reports constipation, Denies dysphagia, Denies excessive flatus, Denies dyspepsia, Denies heartburn, Denies diarrhea, Denies loose stools, Denies nausea, Denies odynophagia and Denies vomiting Reports no additional complaints Musc Reports no additional complaints Neuro Reports no additional complaints Psych Reports no additional complaints Endo Reports no additional complaints Physical Exam Vital Signs: Last Vital Signs Pulse 80 10/20/24 15:33 BP 152/76 H 10/20/24 15:33 Pulse Ox 97 10/20/24 15:33 Oxygen Delivery Method Room Air 10/20/24 15:33 BMI result Body Mass Index 27.3 Const General: healthy appearing, no acute distress and well developed Nutritional Appearance: well nourished Orientation/consciousness: patient oriented x3 Resp Effort & Inspection: normal respiratory effort, able to speak in complete sentences, no tracheal deviation and symmetric chest movement Auscultation: clear to auscultation bilaterally Cardio Rate: regular rate GI Inspection: Yes normal to inspection and No distended Palpation (GI): Soft to palpation, not firm, nontender and No hepatosplenomegaly present Auscultation: normal bowel sounds General: Yes no CVA tenderness Back/Spine/Pelvis Back: no CVA tenderness Skin General skin exam: elasticity normal, turgor normal and dry skin Neuro General: patient oriented x3 Psych Appearance: grossly normal Mental Status: mental status grossly normal Affect: Anxious affect present Assessment & Plan Assessment & Plan (1) GERD (gastroesophageal reflux disease): Code(s): K21.9 - Gastro-esophageal reflux disease without esophagitis Category: Medical Qualifiers: Esophagitis presence: with esophagitis Esophagitis bleeding: without hemorrhage Qualified Code(s): K21.00 - Gastro-esophageal reflux disease with esophagitis, without bleeding (2) Irritable bowel syndrome: Code(s): K58.9 - Irritable bowel syndrome, unspecified Category: Medical Qualifiers: Irritable bowel syndrome type: without diarrhea Qualified Code(s): K58.9 - Irritable bowel syndrome without diarrhea (3) Hemorrhoid: Code(s): K64.9 - Unspecified hemorrhoids Qualifiers: Hemorrhoid type: unspecified Qualified Code(s): K64.9 - Unspecified hemorrhoids (4) Postprandial epigastric pain: Code(s): R10.13 - Epigastric pain (5) Nausea: Code(s): R11.0 - Nausea (6) Postprandial abdominal bloating: Code(s): R14.0 - Abdominal distension (gaseous) (7) Postprandial diarrhea: Code(s): K52.9 - Noninfective gastroenteritis and colitis, unspecified (8) RUQ abdominal pain: Code(s): R10.11 - Right upper quadrant pain Plan Patient will continue dicyclomine for her cramps and simethicone. Patient will start taking Colace and senna. Continue lansoprazole and famotidine. Patient will take sucralfate only when she has epigastric discomfort. Avoid dietary triggers and late night snacking. Staying upright for minimum 3 hours after meals discussed with patient. Patient will be sent for abdominal ultrasound as she reports right upper quadrant pain. There is no tenderness, rebound tenderness on exam. Alk phosphate increased, we will order isoenzyme to see additional testing is necessary. Discussed with patient low FODMAP diet again. Talk to patient also about low-fat low-salt and low carb diet. Increase protein intake. Patient already is avoiding certain dietary triggers. Follow-up in 3 months, sooner on as needed basis. She is agreeable to this plan and verbalizes understanding of instructions. She was given the opportunity to ask questions and all questions answered. Thank you for allowing me to participate in her care Orders: Orders US abdomen complete Today R10.9 - Unspecified abdominal pain Alkaline Phosphatase Isoenzyme Today R74.8 - Abnormal levels of other serum enzymes Medications: New dicyclomine 10 mg PO TID PRN 90 caps 2RF abdominal pain docusate sodium (Colace) 100 mg PO BID 60 caps 4RF sennosides (Natural Senna Laxative) 17.2 mg (2 x 8.6 mg) PO BEDTIME 180 tabs 3RF constipation K59.00 - Constipation, unspecified Refilled lansoprazole 30 mg PO DAILY 90 caps 3RF K21.9 - Gastro-esophageal reflux disease without esophagitis famotidine 20 mg PO DAILY 90 tabs 2RF heartburn simethicone (Gas Relief (simethicone)) 125 mg PO TID-QID PRN 120 caps 2RF abdominal distention sucralfate 1 g PO BEDTIME 90 tabs 3RF K21.9 - Gastro-esophageal reflux disease without esophagitis Coding Level of Care Code Est Pt Level 4 (33526) Complex EM visit Add On G2211 Diagnoses Gastroesophageal reflux disease with esophagitis without hemorrhage K21.00 Esophagitis presence: with esophagitis Esophagitis bleeding: without hemorrhage Irritable bowel syndrome without diarrhea K58.9 Irritable bowel syndrome type: without diarrhea Hemorrhoids, unspecified hemorrhoid type K64.9 Hemorrhoid type: unspecified Postprandial epigastric pain R10.13 Nausea R11.0 Postprandial abdominal bloating R14.0 Postprandial diarrhea K52.9 RUQ abdominal pain R10.11 Time Spent (min) 40 Comment 25 minutes spent with patient and additional 15 minutes spent reviewing her records
--- OUTSIDE RECORDS SUMMARY | 2024-10-20 15:33 | XMS_ITS | Encounter Summary ---
Author Organization [employer] Address [address] [place] [address] Care Team Providers Care Film Editor Name Role Phone Radu Christensen MD Primary Care Provider [phone] Reason for Visit * Reason Onset Date Comments Fatigue 06/05/2024 Dizziness 06/05/2024 Encounter Details Date Type Department Care Team (Late st Contact Info) Description 06/05/2024 Nurse Triage Adult Medicine [address] [phone] Radu Christensen MD [address] [place] [id number] Fatigue; Dizziness Social History Tobacco Use Types Packs/Day Years Used Date Smoking Tobacco: Former Cigarettes Smokeless Tobacco: Never Alcohol Use Standard Drinks/Week Comments No 0 (1 standard drink = 0.6 oz pur e alcohol) Comments No Sex and Gender Information Value Date Recorded Sex Assigned at Not on file Legal Sex Female 5:02 AM EST Gender Identity Not on file Sexual Orientation Not on file documented as of this encounter Progress Notes * Naya Sarmiento RN - 06/05/2024 11:30 AM EST Pt had labs done 05/15 potassium is 3.4 and alp phos is 135 . She feels dizzy at times and is C/O muscle weakness and cramping x 2 weeks Reason for Disposition [1] MILD dizziness (e.g., walking normally) AND [2] has been evaluated by doctor (or FILM SORTER/PA) for this Answer Assessment - Initial Assessment Questions 1. DESCRIPTION: Describe your dizziness. At times feel dizzy when standing 2. LIGHTHEADED: Do you feel lightheaded? (e.g., somewhat faint, woozy, weak upon standing) At times 3. VERTIGO: Do you feel like either you or the room is spinning or tilting? (i.e., vertigo) Yes 4. SEVERITY: How bad is it? Do you feel like you are going to faint? Can you stand and walk? - MILD: Feels slightly dizzy, but walking normally. - MODERATE: Feels unsteady when walking, but not falling; interferes with normal activities (e.g., school, work). - SEVERE: Unable to walk without falling, or requires assistance to walk without falling; feels like passing out now. Mild 5. ONSET: When did the dizziness begin? 2 weeks 6. AGGRAVATING FACTORS: Does anything make it worse? (e.g., standing, change in head position) Walking , standing 7. HEART RATE: Can you tell me your heart rate? How many beats in 15 seconds? (Note: Not all patients can do this.) None 8. CAUSE: What do you think is causing the dizziness? (e.g., decreased fluids or food, diarrhea, emotional distress, heat exposure, new medicine, sudden standing, vomiting; unknown) Low potassium 9. RECURRENT SYMPTOM: Have you had dizziness before? If Yes, ask: When was the last time? Whathappened that time? New onset 10. OTHER SYMPTOMS: Do you have any other symptoms? (e.g., fever, chest pain, vomiting, diarrhea,bleeding) Pt denies any chest pain or SOB, denies any changes in HR, no recent N/V/D or head trauma, pt has no confusion or changes in speech, no weakness or numbness, denies headache or any changes in vision., dizziness is worse when the pt is standing , pt has not changed or stopped medication or caffeine intake 11. : Is there any chance you are ? When was your last menstrual period? N/A Protocols used: Dizziness - [id number] * Milagro Castro - 06/05/2024 10:26 AM EST Patient call requires triage: Symptoms patient is presenting: Pt had some lab results done and states her potasium is high and her Alkaline is high and is very concerned as she has been having a lot of fatigue, dizziness, weakness, and a lot of cramping. Would like to know if theres something she can get prescribed. How long has patient had these symptoms?: 2 weeks For ALL patients calling to schedule any appointment (routine, sick visit, follow up, consult, etc.) in the outpatient setting please ask the following questions: Do you have fever of higher than 101, sore throat with difficulty swallowing or severe shortness ofbreath? no If YES to any of these above symptoms, send a message to triage and do not book. Red dot. If no, an audio or video visit should be booked. Have you had close contact with someone with Coronavirus in the last 14 days? no Have you traveled abroad? no Have you traveled recently to another state outside of [place], [place], [place], [place], [place], [place], [place]? no o If yes, did you quarantine for 14 days or have a negative covid test? no If yes to any of the above, patient is not to be scheduled in office until after 14 day quarantine or negative covid test. If pain or injury related was it due to an accident at work or from a motor vehicle accident? If yes, date of accident/Injury: No If yes, gather 3rd green party insurance information Third Constitution Party Information: not applicable PCP: Radu Christensen MD Payor: [employer] MEDICARE / Plan: AARP MEDICARE COMPLETE / Product Type: *No Product type* / documented in this encounter Plan of Treatment Upcoming Encounters Date Type Department Care Team (Late st Contact Info) Description 11/21/2024 9:15 AM EDT Office Visit Orthopedic Surgery - [place] [facility] [address] [phone] Maribel Barajas MD [address] [address] 03/26/2025 8:30 AM EDT Office Visit [address] [place] [address] Radu Christensen MD [address] [place] [phone] documented as of this encounter Visit Diagnoses Not on filedocumented in this encounter Additional Health Concerns Infection Onset Date Last Indicated Resolved Time Respiratory Rule-Out 08/10/2024 08/10/2024 025 11:34 PM EST COVID-19 Rule-Out 08/10/2024 08/10/2024 08/10/2024 11:34 PM EST documented as of this encounter Care Teams Film Editor Relationship Specialty Start Date End Date Radu Christensen MD [address] [place] [address] PCP - General Internal Medicine 12/05/21 documented as of this encounter
--- OUTSIDE RECORDS SUMMARY | 2024-10-20 15:33 | XMS_ITS | Data Portability ---
Author Organization [place] - [facility], Allergy Address [address] [place] [id number] Assessment Encounter Date Assessment Date Assessment LastModified by Organization Details LastModified Time 07/19/2024 07/19/2024 Patient presents for re-evaluation. Allergies have been acting up since she ran out of cetirizine. Having aural pressure. Physical exam reveals gentle global retraction of bilateral tympanic membranes. Recommend crossed-hand application technique for her fluticasone, and increase to daily use until ears pop freely. Will also renew her cetirizine. Follow up in 6 months for refills. Call sooner with worsening, lack of improvement, or development of new symptoms. For her sensation that she hears poorly, despite normal audiogram, recommend work up for possible auditory processing disorder. [email or web address] Not available 07/19/2024 15:19:06 Plan of Treatment Reminders Order Date Submit Date Provider Last Modified By Organization Details Last Modified Time Details Appointments Establish ed 15 2024 02:00P M JAS GUERRERO PA-C Not available Not available Not available Lab None recorded. Referral audiologi st referral - r/o auditory processin g disorder 2024 025 [email or web address] [facility], [address] [place], [address], 07/25/2024 15:50:39 Procedures None recorded. Surgeries None recorded. Imaging None recorded. Medication Orders cetirizin e 10 mg tablet 2024 025 [id number], [address], [place], [id number], 07/19/2024 15:08:47 fluticaso ne propionat e 50 mcg/actua tion nasal spray,gurdeep pension 2024 025 [facility] #[id number], [address], [place], [id number], 07/19/2024 15:08:48 Patient TargetsNo targets recorded. Patient InstructionsNo instructions recorded. Reason for Referral Enzyme Chemist Referral for Abn ormal auditory perception r/o auditory processing disorder Referring Physician: Harriet Oneill, Otolaryngology, Encounter Date: 07/19/2024 Results Created Date Observation Date Name Description Value Unit Range Abnormal Flag Note LastModifiedBy Organization Detail LastModifiedTime 10/12/1909/27/2024 audio gram No observ ation record ed. [email or web address] Not Available 03/2025 09:08:32 Result Notes None recorded. Problems Name Problem SNOMED Code Status Onset Date Resolution Date Notes Provider Name and Address Organization Details Recorded Time Allergic rhinitis 11920945 Active 2023 Allergic rhinitis: Due to other allergen; Note: Date Diagnosed : 07/23/2023 2:50 PM (477.8) Note: Date Diagnosed : 07/23/2023 2:50 PM (477.8) Allergi c rhinitis: Due to other allergen; Note: Date Diagnosed : 07/12/2023 2:31 PM (477.8) Note: Date Diagnosed : 07/12/2023 2:31 PM (477.8) ; Start Date : 4 Allergi c rhinitis: Due to other allergen; Note: Date Diagnosed : 0 2:22 PM (477.8) Note: Date Diagnosed : 0 2:22 PM (477.8) ; Start Date : 0 Allergi c rhinitis: Due to other allergen; Note: Date Diagnosed : 0 2:50 PM (477.8) Note: Date Diagnosed : 0 2:50 PM (477.8) ; Start Date : 0 Caroli al allergic rhinitis; Note: Date Diagnosed : 11/21/2019 1:15 PM (J30.89) Note: Date Diagnosed : 11/21/2019 1:15 PM (J30.89) ; Start Date : 0 Not Available [facility] 4 00:53:31 Chronic sinusitis 07929775 Active 2019 Other chronic sinusitis ; Note: Date Diagnosed : 11/21/2019 1:15 PM (J32.8) Not Available [facility] 4 02:20:11 Seasonal allergic rhinitis 997929888 Active 2019 Other seasonal allergic rhinitis; Note: Date Diagnosed : 05/13/2020 9:20 AM (J30.2) Not Available [facility] 4 02:19:35 Respirator y finding 923803078 Active 2019 Choking sensation ; Note: Date Diagnosed : 05/13/2020 9:21 AM (R09.89) Not Available [facility] 4 02:19:41 Cardiovasc ular finding 317193464 Active 2019 Choking sensation ; Note: Date Diagnosed : 05/13/2020 9:21 AM (R09.89) Not Available [facility] 4 02:19:41 Abnormal auditory perception 11729962 Active 2023 Other abnormal auditory perceptio ns, bilateral ; Note: Date Diagnosed : 08/11/2023 2:35 PM (H93.293) Not Available [facility] 4 02:20:19 Problem Notes None recorded. Procedures Surgical History None recorded. Imaging Results Imaging Date Name Status LastModified by Organiz ation Details LastModified Time 09/27/2024 audiogram completed [email or web address] Information n ot available 10/11/2024 09:08:32 Procedure Notes None recorded. Medical Equipment None Reported. Allergies Allergen ID Allergen Name Allergen Category Reaction Reaction Severity Criticality Documentation Date Start Date Code Code System Note Provider Name and Address Organization Details Recorded Time 96000 oxycodone medicatio n other Not available Not available 11/16/2023 7804 RxNorm React ion: unkno wn, unspe cifie d;; Not Available [facility] 4 00:54:58 86857 morphine medicatio n other Not available Not available 11/16/2023 7052 RxNorm React ion: unkno wn, unspe cifie d;; Not Available [facility] 00:[facility]:05 Medications Name Sig Start Date Stop Date Status Note LastModified by Organization Details LastModified Time quetiapin e 25 mg tablet 2019 active Medicati on ID: [id number] D uration Value: 90 Brand Name: quetiapi ne Send Method: E-Prescr ibed Sub s Allowed: subs OK Medic ationGen ericName : quetiapi ne Not Available Not Available Not Available lamotrigi ne 150 mg tablet 2019 active Medicati on ID: [id number] B rand Name: lamotrig ine Send Method: E-Prescr ibed Sub s Allowed: subs OK Medic ationGen ericName : lamotrig ine Not Available Not Available Not Available prednison e 10 mg tablet active Not Available Not Available Not Available cetirizin e 10 mg tablet TAKE 1 TABLET EVERY DAY BY ORAL ROUTE IN THE EVENING FOR 30 DAYS active Not Available Not Available No t Available tizanidin e 4 mg tablet TAKE 1 TABLET BY MOUTH AT BEDTIME active Not Available Not Available No t Available sucralfat e 1 gram tablet TAKE 1 TABLET BY MOUTH AT BEDTIME active Not Available Not Available No t Available prednison e 20 mg tablet 1 tablet by mouth 2019 active Medicati on ID: [id number] D uration Value: 5 Prescri bed By Name: Maisha bob MD Brand Name: predniso ne Send Method: E-Prescr ibed Sub s Allowed: subs OK Medic ationGen ericName : predniso ne Not Available Not Available Not Available sertralin e 100 mg tablet 2019 active Medicati on ID: [id number] D uration Value: 90 Brand Name: sertrali ne Send Method: E-Prescr ibed Sub s Allowed: subs OK Speci al Instruct ion: TK 2 TS PO QAM Medi cationGe nericNam e: sertrali ne Not Available Not Available Not Available clonazepa m 1 mg tablet 07/12 completed Medicati on ID: [id number] B rand Name: clonazep am Send Method: E-Prescr ibed Sub s Allowed: subs OK Medic ationGen ericName : clonazep am Not Available Not Available Not Available atenolol 25 mg tablet 05/31 completed Medicati on ID: [id number] B rand Name: atenolol Send Method: E-Prescr ibed Sub s Allowed: subs OK Speci al Instruct ion: TAKE 1 TABLET BY MOUTH TWICE DAILY Me dication GenericN rey: atenolol Not Available Not Available Not Available amlodipin e 2.5 mg tablet TAKE 1 TABLET BY MOUTH DAILY active Not Available Not Available No t Available omeprazol e 40 mg capsule,d elayed release TAKE 1 CAPSULE BY MOUTH DAILY active Not Available Not Available No t Available tramadol 50 mg tablet TAKE 1 TABLET BY MOUTH TWICE DAILY active Not Available Not Available No t Available famotidin e 20 mg tablet TAKE 1 TABLET BY MOUTH DAILY FOR HEARTBUR N active Not Available Not Available No t Available methotrex ate sodium 2.5 mg tablet active Not Available Not Available Not Available meclizine 25 mg tablet TAKE 1 TABLET BY MOUTH THREE TIMES DAILY active Not Available Not Available No t Available trazodone 150 mg tablet 2019 active Medicati on ID: [id number] D uration Value: 90 Brand Name: trazodon e Send Method: E-Prescr ibed Sub s Allowed: subs OK Sarinai al Instruct ion: TK 1 T PO QHS. MAY REPEAT UP TO ONCE PER NIGHT PRF INSOMNIA Medicat ionGener icName: trazodon e Not Available Not Available Not Available esomepraz ole magnesium 40 mg capsule,d elayed release TAKE 1 CAPSULE BY MOUTH DAILY active Not Available Not Available No t Available lansopraz ole 30 mg capsule,d elayed release TAKE 1 CAPSULE BY MOUTH DAILY active Not Available Not Available No t Available Gas Relief Extra Strength 125 mg capsule TAKE 1 CAPSULE BY MOUTH THREE TO FOUR TIMES DAILY NEEDED active Not Available Not Available No t Available oxybutyni n chloride ER 5 mg tablet,ex tended release 24 hr 2019 active Medicati on ID: [id number] D uration Value: 90 Brand Name: oxybutyn in chloride Send Method: E-Prescr ibed Sub s Allowed: subs OK Speci al Instruct ion: TK 1 T PO D Medica tionGene ricName: oxybutyn in chloride Not Available Not Available Not Available diclofena c sodium 75 mg tablet,de layed release active Not Available Not Available Not Available folic acid 1 mg tablet active Not Available Not Available Not Available bisacodyl 5 mg tablet,de layed release active Not Available Not Available Not Available ergocalci ferol (vitamin D2) 1,250 mcg (50,000 unit) capsule TAKE 1 CAPSULE BY MOUTH 1 TIME A WEEK active Not Available Not Available No t Available azelastin e 137 mcg (0.1 %) nasal spray Inhale 2 spray twice a day as directed 2022 active Medicati on ID: [id number] D uration Value: 30 Brand Name: azelasti ne Send Method: E-Prescr ibed Sub s Allowed: subs OK Medic ationGen ericName : azelasti ne Not Available Not Available Not Available epinephri ne 0.3 mg/0.3 mL injection , auto-inje ctor INJECT 1 PEN IN THE MUSCLE ONE TIME DIRECTED active Not Available Not Available No t Available polyethyl vannessa glycol 3350 17 gram/dose oral powder TAKE DIRECTED BY GASTROEN TEROLOGY DEPARTME NT AT [facility] active Not Available Not Available No t Available methylpre dnisolone 4 mg tablets in a dose pack FOLLOW PACKAGE DIRECTIO NS active Not Available Not Available No t Available albuterol sulfate HFA 90 mcg/actua tion aerosol inhaler INHALE 2 PUFFS EVERY 4 HOURS NEEDED FOR WHEEZING active Not Available Not Available No t Available betametha sone dipropion ate 0.05 % topical ointment APPLY TOPICALL Y TO THE AFFECTED AREA TWICE DAILY active Not Available Not Available No t Available ondansetr on 4 mg disintegr ating tablet DISSOLVE 1 TABLET ON THE TONGUE EVERY 6 HOURS NEEDED FOR NAUSEA OR VOMITING active Not Available Not Available No t Available fluticaso ne propionat e 50 mcg/actua tion nasal spray,gurdeep pension SHAKE LIQUID AND USE 2 SPRAYS IN EACH NOSTRIL EVERY DAY IN THE MORNING active Not Available Not Available No t Available lamotrigi ne 100 mg tablet 05/13 completed Medicati on ID: [id number] D uration Value: 90 Brand Name: lamotrig ine Send Method: E-Prescr ibed Sub s Allowed: subs OK Medic ationGen ericName : lamotrig ine Not Available Not Available Not Available aripipraz ole 15 mg tablet 2019 active Medicati on ID: [id number] D uration Value: 45 Brand Name: aripipra zole Sen d Method: E-Prescr ibed Sub s Allowed: subs OK Medic ationGen ericName : aripipra zole Not Available Not Available Not Available potassium chloride ER 10 mEq tablet,ex tended release(p art/cryst ) active Not Available Not Available Not Available Flovent HFA 220 mcg/actua tion aerosol inhaler 2019 active Medicati on ID: [id number] D uration Value: 90 Brand Name: Flovent HFA Send Method: E-Prescr ibed Sub s Allowed: subs OK Medic ationGen ericName : Flovent HFA Not Available Not Available Not Available pregabali n 50 mg capsule active Not Available Not Available Not Available Ranitidin e Hcl 2019 active Medicati on ID: [id number] D uration Value: 90 Brand Name: ranitidi ne hcl Send Method: E-Prescr ibed Sub s Allowed: subs OK Medic ationGen ericName : ranitidi ne hcl Not Available Not Available Not Available quetiapin e 50 mg tablet 05/13 completed Medicati on ID: [id number] B rand Name: quetiapi ne Send Method: E-Prescr ibed Sub s Allowed: subs OK Medic ationGen ericName : quetiapi ne Not Available Not Available Not Available Vitamin D3 50 mcg (2,000 unit) tablet TAKE 1 TABLET BY MOUTH EVERY DAY active Not Available Not Available No t Available Humira(CF ) 40 mg/0.4 mL subcutane ous syringe kit INJECT 0.4 ML UNDER THE SKIN EVERY 7 DAYS active Not Available Not Available No t Available Vitals None Recorded Social History None recorded. Functional Status None recorded. Mental Status None recorded. Family History Nothing Reported. Medical History Condition Response Allergies/Hayfever Y Depression Y Asthma Y Gynecological HistoryNo gynecological history recorded. Obstetrics History GPAL:G 0 P 0 0 0 0 Past Encounters Encounter ID Performer Location Encounter Start Date Encounter Closed Date Diagnosis/Indication Diagnosis SNOMED-CT Code Diagnosis ICD10 Code Diagnosis Note [id number] RUBEN WRIGHT MD [facility] [place] [address] [place] [address] 07/19/2024 14:55:32 07/19/2024 15:19:10 Allergic rhinitis 83437022 J30.89 Abnormal a uditory perception 90806432 H93.293 Health Concerns Section Related Observation LastModified by Organization Detai ls LastModified Time None Recorded Concern Status LastModified by Organization Details LastModified Time None Recorded Advance Directives Directive None Recorded Payers Encounter Date Sequence Insurance Name Policy Number Policy Evans Covered Member ID Evans Member ID Guarantor Name 07/19/2024 1 [facility] (MEDICARE REPLACEMENT/ ADVANTAGE - PPO) [id number] Rubia Sosa [id number] Rubia Sosa 07/19/2024 2 [place] [facility] Rubia Sosa [id number] Rubia Sosa Notes Date Note Type Note Provider Name and Address Organization Details Recorded Time 07/19/2024 text/html 49 year old sisi saeed presents for re-evaluation of the ears and her allergies. Last seen in August 2023 at which time she felt that she was not hearing well but her audiometric testing was normal. We had discussed pursuing testing for auditory processing disorder, but she states she never heard from the scheduling department. Today she reports the left greater than right ear feel itchy and full. Left ear won't pop. She ran out of her cetirizine. Using flonase as needed for congestion. Points the bottle straight up the nose. RUBEN ABARCA MD [address] [place] [address], [place], [phone], [facility] - [facility] 07/19/2024 15:58:35 OBGyn Episode No OBEpisode recorded.
--- OUTSIDE RECORDS SUMMARY | 2024-10-20 15:33 | XMS_ITS | Clinical Summary ---
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 [facility] Potassium 4.1 3.5 - 5.5 mmol/L LAB CHEMISTRY METHOD 09/11/2024 1:13 PM [facility] Chloride 105 96 - 110 mmol/L LAB CHEMISTRY METHOD 09/11/2024 1:13 PM [facility] CO2 28 21 - 32 mmol/L LAB CHEMISTRY METHOD 09/11/2024 1:13 PM [facility] Anion Gap 5 3 - 11 LAB CHEMISTRY METHOD 09/11/2024 1:13 PM [facility] Glucose 95 70 - 100 mg/dL LAB CHEMISTRY METHOD 09/11/2024 1:13 PM [facility] BUN 11 5 - 25 mg/dL LAB CHEMISTRY METHOD 09/11/2024 1:13 PM [facility] Creatinine 0.74 0.50 - 1.10 mg/dL LAB CHEMISTRY METHOD 09/11/2024 1:13 PM [facility] eGFR 98 >=60 mL/min/1. 73m2 LAB CHEMISTRY METHOD 09/11/2024 1:13 PM [facility] Comment:Calculation based on the??Chronic Kidney Disease Epidemiology Collaboration (CKD-EPI) equation refit??without adjustment for race. BUN/Creatinine Ratio 14.9 LAB CHEMISTRY METHOD 09/11/2024 1:13 PM [facility] Calcium 9.4 8.5 - 10.5 mg/dL LAB CHEMISTRY METHOD 09/11/2024 1:13 PM [facility] AST (SGOT) 13 10 - 42 unit/L LAB CHEMISTRY METHOD 09/11/2024 1:13 PM [facility] ALT (SGPT) 27 10 - 60 unit/L LAB CHEMISTRY METHOD 09/11/2024 1:13 PM [facility] Alkaline Phosphatase 145(H) 42 - 121 unit/L LAB CHEMISTRY METHOD 09/11/2024 1:13 PM [facility] Total Protein 7.2 6.0 - 8.0 g/dL LAB CHEMISTRY METHOD 09/11/2024 1:13 PM [facility] Albumin 4.0 3.2 - 5.0 g/dL LAB CHEMISTRY METHOD 09/11/2024 1:13 PM [facility] Total Bilirubin 0.5 0.0 - 1.4 mg/dL LAB CHEMISTRY METHOD 09/11/2024 1:13 PM [facility] Blood Venous blood specimen / Unknown Venipuncture / Unknown 09/11/2024 9:36 AM EDT 09/11/2024 9:36 AM EDT Radu Christensen MD LAB BLOOD ORDERABLES Final Result [facility] [address] [place] [address], * Chlamydia trachomatis and Neisseria gonorrhoeae molecular study (09/04/2024 11:21 AM EST) Neisseria gonorrhoeae PCR Negative Negative LAB MOLECULAR DIAGNOSTICS METHOD 09/05/2024 9:00 AM EST [facility] Chlamydia trachomatis PCR Negative Negative LAB MOLECULAR DIAGNOSTICS METHOD 09/05/2024 9:00 AM EST [facility] Swab Vaginal structure / Unknown Non-blood Collection / Unknown 09/04/2024 11:21 AM EST 09/04/2024 11:21 AM EST us Kellie Renae CNM LAB MICROBIOLOGY - GENERAL O RDERABLES Final Result [facility] [address] [place] [address], * XR Chest 2 Views (08/10/2024 8:54 AM EST) Anatomical Region Laterality Modality Body Radiographic Belinda ging 08/10/2024 9:57 AM EST Impressions 08/10/2024 9:58 AM EST No acute pulmonary pathology. -------- FINAL REPORT -------- Dictated By: Jazmin Wilcox Dictated Date: 08/10/2024 09:57 ET Assigned Physician: Jazmin Wilcox Reviewed and Electronically Signed By: Jazmin Wilcox Signed Date: 08/10/2024 09:58 ET Workstation ID: [id number] Transcribed By: Self Edit Transcribed Date: 08/10/2024 09:57 ET Narrative 08/10/2024 9:58 AM EST CHEST, TWO VIEWS HISTORY: ??Productive cough. Asthma . TECHNIQUE: Frontal and lateral views of the chest. PRIOR: Chest x-ray 07/02/2020. FINDINGS: The lungs are clear. No pleural effusion is seen. No pneumothorax is seen. The cardiac diameter is within normal limits. No acute or aggressive appearing bony abnormalities are seen. ??There is curvature and degenerative change of the spine. There are surgical clips in the right upper quadrant. Procedure Note Jazmin Wilcox MD - 08/10/2024 CHEST, TWO VIEWS HISTORY: Productive cough. Asthma . TECHNIQUE: Frontal and lateral views of the chest. PRIOR: Chest x-ray 07/02/2020. FINDINGS: The lungs are clear. No pleural effusion is seen. No pneumothorax is seen. The cardiac diameter is within normal limits. No acute or aggressive appearing bony abnormalities are seen. There iscurvature and degenerative change of the spine. There are surgical clips in the right upper quadrant. IMPRESSION: No acute pulmonary pathology. -------- FINAL REPORT -------- Dictated By: Jazmin Wilcox Dictated Date: 08/10/2024 09:57 ET Assigned Physician: Jazmin Wilcox Reviewed and Electronically Signed By: Jazmin Wilcox Signed Date: 08/10/2024 09:58 ET Workstation ID: [id number] Transcribed By: Self Edit Transcribed Date: 08/10/2024 09:57 ET us Radu Christensen MD IMG XR PROCEDURES Final Res ult * [id number], RSV, Influenza A and B qualitative RT-PCR (08/10/2024 8:50 AM EST) SARS COV-2 Not Detected Not Detected LAB MOLECULAR DIAGNOSTICS METHOD 08/10/2024 11:34 PM EST [facility] Comment: Disclaimer: The manner in which this information is used to guide patient care is the responsibility of the healthcare provider. Testing was performed using the [employer] m SARS-CoV-2 test. This test has been authorized by FDA under an Emergency Use Authorization (EUA). This test is only authorized for the duration of time the declaration that circumstances exist justifying the authorization of the emergency use of in vitro diagnostic tests for detection of SARS-CoV-2 virus and/or diagnosis of COVID-19 infection under section 564(b)(1) of the Act, 21 U.S.C. 360bbb- 3(b)(1), unless the authorization is terminated or revoked sooner. Fact sheet for Healthcare Providers can be found at: https://www.fda.gov/media/921631/download Fact sheet for Patients can be found at: https://www.fda.gov/media/420033/download Influenza A PCR Not Detected Not Detected LAB MOLECULAR DIAGNOSTICS METHOD 08/10/2024 11:34 PM EST [facility] Influenza B PCR Not Detected Not Detected LAB MOLECULAR DIAGNOSTICS METHOD 08/10/2024 11:34 PM EST [facility] RSV PCR Not Detected Not Detected LAB MOLECULAR DIAGNOSTICS METHOD 08/10/2024 11:34 PM EST [facility] Swab Nasopharyngeal structure / Unknown Non-blood Collection / Unknown 08/10/2024 8:50 AM EST 08/10/2024 8:50 AM EST us Radu Christensen MD LAB MICROBIOLOGY - GENERAL ORDERABLES Final Result [facility] [address] [place] [address], [place] [phone] * MG Mammo Digital Screening w Drew bilat (07/25/2024 10:36 AM EST) Anatomical Region Laterality Modality Breast Bilateral Mammography 07/25/2024 5:44 PM EST Impressions 07/25/2024 5:48 PM EST 1. No mammographic evidence of malignancy 2. Heterogeneous breast parenchyma BI-RADS CATEGORY: 2 - BENIGN RECOMMENDATION: Screening bilateral mammogram is recommended in 1 year. Mammo Location: [facility], [address] [place] [address], [id number], . -------- FINAL REPORT -------- Dictated By: Marin Andino Dictated Date: 07/25/2024 17:44 ET Assigned Physician: Marin Andino Reviewed and Electronically Signed By: Marin Andino Signed Date: 07/25/2024 17:48 ET Workstation ID: [id number] Transcribed By: Self Edit Transcribed Date: 07/25/2024 17:44 ET Narrative 07/25/2024 5:48 PM EST A BILATERAL DIGITAL 3D SCREENING MAMMOGRAPHY HISTORY: Routine screening. ??Family history of breast cancer in grandmother and aunt COMPARISON: Multiple priors dating back to 10/18/2020 Technique: Bilateral full field digital mammography (3D) was performed using standard CC and MLO projections CAD ??was used to evaluate this mammogram. FINDINGS: Right: No suspicious masses, groups of microcalcification or areas of architectural distortion identified. Stable typically benign parenchymal asymmetries. Left: No suspicious masses, groups of microcalcification or areas of architectural distortion identified. Stable typically benign parenchymal asymmetries. BREAST DENSITY: C - The breasts are heterogeneously dense which may obscure small masses. Procedure Note Marin Andino MD - 07/25/2024 A BILATERAL DIGITAL 3D SCREENING MAMMOGRAPHY HISTORY: Routine screening. Family history of breast cancer ingrandmother and aunt COMPARISON: Multiple priors dating back to 10/18/2020 Technique: Bilateral full field digital mammography (3D) was performedusing standard CC and MLO projections CAD was used to evaluate this mammogram. FINDINGS: Right: No suspicious masses, groups of microcalcification or areas ofarchitectural distortion identified. Stable typically benign parenchymalasymmetries. Left: No suspicious masses, groups of microcalcification or areas ofarchitectural distortion identified. Stable typically benign parenchymalasymmetries. BREAST DENSITY: C - The breasts are heterogeneously dense which mayobscure small masses. IMPRESSION: 1. No mammographic evidence of malignancy 2. Heterogeneous breast parenchyma BI-RADS CATEGORY: 2 - BENIGN RECOMMENDATION: Screening bilateral mammogram is recommended in 1 year. Mammo Location: [facility], [address] [place] [address], [id number], . -------- FINAL REPORT -------- Dictated By: Marin Andino Dictated Date: 07/25/2024 17:44 ET Assigned Physician: Marin Andino Reviewed and Electronically Signed By: Marin Andino Signed Date: 07/25/2024 17:48 ET Workstation ID: [id number] Transcribed By: Self Edit Transcribed Date: 07/25/2024 17:44 ET us Radu Christensen MD IMG BI PROCEDURES Final Res ult * Hm Hepatitis C Screening (01/04/2023) Hepatitis C Screening Abstracted Historical Provider HEALTH MAINTENANCE Final Result * Colonoscopy (03/03/2022) Colonoscopy Abstracted, Positive Anatomical Region Laterality Modality Other Historical Provider HEALTH MAINTENANCE Final Result * Depression Screening (07/09/2020) Depression Screening Abstracted Historical Provider MD HEALTH MAINTENANCE Final Result * Pap smear (03/06/2020) 03/06/2020 Narrative HISTORICAL TESTING LAB RESULTING AGENCY - 04/17/2020 6:00 PM EDT [id number] THINPREP PAP AND CELL BLOCK: NEGATIVE FOR SQUAMOUS INTRAEPITHELIAL LESION AND MALIGNANCY . JOSEPHINE IS PRESENT. OLIVIA ESPARZA , CT(ASCP) (CASE SCREENED 03 12 2020) DEWEY ARAYA M.D. , PATHOLOGIST (CASE ELECTRONICALLY SIGNED 03 20 2020) ADEQUACY: SATISFACTORY . 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
== END 2024-10-20 16:14 | disposition home or self-care (01) ==
PROVIDERS: PCP Internal Medicine; Visit Provider Nurse Practitioner Family
DX: K21.00 Gastro-esophageal reflux disease with esophagitis, without bleeding (principal); K58.0 Irritable bowel syndrome with diarrhea; K64.9 Unspecified hemorrhoids; R11.0 Nausea
CPT/HCPCS: 99214; G2211

== ENCOUNTER 2024-11-20 12:46 | Outpatient (AMB) | payer MEDICARE, MEDICAID, SELFPAY ==
[2024-11-20 12:51] VITALS: BP 138/82; PULSE 86; BMI 27.2
--- NOTE | 2024-11-20 12:51 | A.OFFVIS_ITS ---
Vital Signs 11/20/24 12:51 Height 5 ft 3 in Weight 153 lb 7.068 oz BMI 27.2 BP 138/82 Blood Pressure Location Lt brachial Position Sitting Pulse 86 Pulse Source Pulse Oximeter Intake Visit Reasons: 6 mth fu Packing Supervisor Required: No Biometrician: Biometrician Present Allergies oxycodone Allergy (Mild, Verified 11/20/24 12:55) Hives morphine Allergy (Unknown, Verified 11/20/24 12:55) Unknown cortisone acetate Allergy (Unknown, Uncoded 11/20/24 12:55) took away pigmentation in hands compazine Allergy (Uncoded 11/20/24 12:55) Unknown Medication List - Last Reconciled 11/20/24 by KEYUR Maya albuterol sulfate 90 mcg/actuation 90 mcg inhalation DAILY albuterol sulfate 2.5 mg inhalation Q4H PRN amlodipine 2.5 mg PO DAILY aripiprazole 15 mg PO DAILY azelastine 2 sprays intranasal BID cetirizine 10 mg PO DAILY cholecalciferol (vitamin D3) 50 mcg PO DAILY cyclobenzaprine 5 mg PO TID PRN diclofenac sodium 75 mg PO BID diclofenac sodium 1% 1 g topical BID dicyclomine 10 mg PO TID PRN docusate sodium (Colace) 100 mg PO BID estradiol 0.01%(0.1mg/gram) vaginal famotidine 20 mg PO DAILY fezolinetant (Veozah) 45 mg PO DAILY fluticasone furoate-vilanterol 100-25 mcg/dose inhalation fluticasone propionate 50 mcg/actuation 2 sprays intranasal DAILY folic acid 1 mg PO DAILY hydrocodone-acetaminophen 5-300 mg 1 tab PO Q4-6H PRN lamotrigine 75 mg PO BID lansoprazole 30 mg PO DAILY meclizine 25 mg PO TID PRN methylcellulose (laxative) (Citrucel) 500 mg PO DAILY ondansetron 4 mg PO Q6H PRN pregabalin 50 mg PO TID quetiapine 100 mg PO BEDTIME sennosides (Natural Senna Laxative) 17.2 mg (2 x 8.6 mg) PO BEDTIME sertraline 200 mg PO DAILY simethicone (Gas Relief (simethicone)) 125 mg PO TID-QID PRN sucralfate 1 g PO BEDTIME tramadol 50 mg PO BID PRN trazodone 150 - 300 mg PO BEDTIME PRN HPI HPI 6 mth fu: Details: Rubia is a 49-year-old female with past medical history of GERD, right bundle branch block, heart palpitations who presents for follow up. Today she reports that she still if bothered by heart palpitations. The palpitations occur when upset, mostly at night or when stressed, and last 3-4 minutes. Occurrence is twice weekly and relaxation assists improvement.. Absence of lightheadedness, chest pain, dyspnea, or edema. Prior tests showed normal heart function. Menopausal symptoms complicate stress management. Mother is present. [facility] Medical History Hypersomnia Palpitations Family history of breast cancer Hemorrhoids with complication History of uterine cancer TIA (transient ischemic attack) PTSD (post-traumatic stress disorder) Fibromyalgia Right bundle branch block (RBBB) Bipolar affective disorder GERD (gastroesophageal reflux disease) Psoriatic arthritis Irritable bowel syndrome Tubular adenoma Surgical History H/O hemorrhoidectomy Hx of abdominal surgery Hx of eye surgery Hx of hernia repair Hx of section History of partial hysterectomy History of colonoscopy History of cholecystectomy History of bladder suspension procedure Previous back surgery History of appendectomy History of esophagogastroduodenoscopy (EGD) Family History Maternal Grandmother Breast cancer Maternal Aunt Breast cancer Father FH: prostate cancer Paternal Grandmother Uterine cancer Paternal Grandfather Heart attack Sister Von Willebrand disease Paternal Aunt Ovarian cancer Colon cancer Stomach cancer Uterine cancer Paternal Uncle Colon cancer Social History Are you a primary career developer to a significant other at home: No Do you presently have visiting nurse or other home services: No Alcohol intake: never Patient Tobacco Use Status: Former Tobacco user Tobacco use type: Cigarette Cigarette Packs Per Day: 0.50 Review of Systems Const All systems reviewed & are unremarkable except as noted in HPI and below ENT Denies dizziness Card Details: palpitations about 2 times per week Denies chest pain, Denies chest pain at rest, Denies chest pain with activity, Denies rapid heart rate, Denies pedal edema, Denies edema, Denies leg edema, Denies lightheadedness, Denies palpitations, Denies dyspnea, Denies dyspnea on exertion and Denies orthopnea Resp Denies cough, Denies dyspnea and Denies dyspnea on exertion GI Denies hematochezia and Denies change in stool character Musc Denies abnormal gait, Denies limited range of motion, Denies muscle cramps, Denies muscle weakness, Denies numbness, Denies radiating pain into limb, Denies stiffness and Denies tingling Neuro Denies abnormal gait, Denies dizziness, Denies numbness and Denies tingling Endo Denies palpitations Physical Exam Vital Signs: Last Vital Signs Pulse 86 11/20/24 12:51 BP 138/82 11/20/24 12:51 BMI result Body Mass Index 27.2 Const General: cooperative, healthy appearing, comfortable and no acute distress Orientation/consciousness: patient oriented x3 Neck Neck: Yes normal visual inspection Resp Effort & Inspection: normal respiratory effort Auscultation: clear to auscultation bilaterally, no crackles, no rales, no rhonchi and no wheezes Cardio Rate: regular rate Rhythm: regular rhythm Heart sounds: S1 normal heart sound present, S2 normal heart sound present, no murmurs and no rubs Neuro General: patient oriented x3 Extrem General: Yes normal to inspection, No no pedal edema and No calf tenderness Psych Appearance: grossly normal Mental Status: mental status grossly normal Speech and movement: Normal speech and movement present Assessment & Plan Assessment & Plan (1) Palpitations: Code(s): R00.2 - Palpitations Category: Medical Plan: Reports of heart palpitations with normal cardiac testing. Prior EKG does show sinus rhythm with right bundle branch block, rate 76. Echocardiogram done 04/21/2024 showed EF 66%, no valve abnormalities and no regional wall motion abnormalities. A Holter monitor was done 04/21/2024 for 7 days showing sinus rhythm with average heart rate 77 with no significant arrhythmias. A sleep study was done on 05/15/2024 which was normal. It was thought she is having sinus tachycardia in the setting of anxiety, caffeine intake and asthma medications versus SVT episodes. Due to ongoing symptoms will order cardiac event monitor for further evaluation. Cardiology office visit 2 months to go over test results. (2) Right bundle branch block (RBBB): Code(s): I45.10 - Unspecified right bundle-branch block Category: Medical Plan: Finding of left bundle branch block on EKG. Seen on prior EKG as well, 05/17/2022. This finding is asymptomatic. Plan Time spent on chart review, documentation, interview, assessment Patient was informed and verbally consented to the use of an ambient scribe for clinic note documentation during this visit. During the visit, we discussed the possibility of sinus or supraventricular tachycardia due to the nature of the heart palpitations. I explained the need to capture the rhythm on a cardiac event monitor, which would help determine the most appropriate treatment. We discussed the potential use of medications like a beta-destin if SVT is confirmed. I reminded the patient to avoid caffeine, maintain adequate hydration, and manage stress, which might reduce the frequency of episodes. We also discussed the impact of menopausal symptoms on her stress levels. A comprehensive review of results will be conducted in two months, with an earlier review if an event is captured. Orders: Orders ECG 30 day event monitor Today R00.2 - Palpitations Patient Instructions: - Use the cardiac event monitor as directed. - Avoid caffeine and stay hydrated. - Manage stress to reduce palpitations. - Follow up in two months or sooner if instructed. - Use sensitive skin electrodes to avoid irritation. Coding Level of Care Code Est Pt Level 3 (62279) Complex EM visit Add On G2211 Diagnoses Palpitations R00.2 Right bundle branch block (RBBB) I45.10 Time Spent (min) 24
--- OUTSIDE RECORDS SUMMARY | 2024-11-20 12:58 | XMS_ITS | Data Portability ---
Author Organization [place] [facility], Allergy Address [address] [place] [id number] Assessment Encounter Date Assessment Date Assessment LastModified [...] auditory processin g disorder 2024 025 [email or web address] [facility], [address] [place], [id number], 07/25/2024 15:50:39 Procedures None recorded. Surgeries None recorded. Imaging None recorded. Medication Orders cetirizin e 10 mg tablet 2024 025 [id number], [address], [place], [id number], 07/19/2024 15:08:47 fluticaso ne propionat e 50 mcg/actua tion nasal spray,gurdeep pension 2024 025 [id number], [address], [place], [id number], 07/19/2024 15:08:48 Patient TargetsNo targets recorded. Patient InstructionsNo instructions recorded. 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 [email or web address] Not Available 03/2025 09:08:32 Result Notes None recorded. Problems Name Problem SNOMED Code Status Onset Date Resolution Date Notes Provider Name and Address Organization Details Recorded Time Allergic rhinitis 73445298 Active 2023 Allergic rhinitis: Due to other [...] ; Start Date : 0 Not Available [facility] 4 00:53:31 Chronic sinusitis 30499920 Active 2019 Other chronic sinusitis ; Note: Date Diagnosed : 11/21/2019 1:15 PM (J32.8) Not Available [facility] 4 02:20:11 Seasonal allergic rhinitis 962794096 Active 2019 Other seasonal allergic rhinitis; Note: Date Diagnosed : 05/13/2020 9:20 AM (J30.2) Not Available [facility] 4 02:19:35 Respirator y finding 969703012 Active 2019 Choking sensation ; Note: Date Diagnosed : 05/13/2020 9:21 AM (R09.89) Not Available [facility] 4 02:19:41 Cardiovasc ular finding 390020733 Active 2019 Choking sensation ; Note: Date Diagnosed : 05/13/2020 9:21 AM (R09.89) Not Available [facility] 4 02:19:41 Abnormal auditory perception 22541529 Active 2023 Other abnormal auditory perceptio ns, bilateral ; Note: Date Diagnosed : 08/11/2023 2:35 PM (H93.293) Not Available [facility] 4 02:20:19 Problem Notes None recorded. Procedures [...] Name and Address Organization Details Recorded Time 98350 oxycodone medicatio n other Not available Not available 11/16/2023 7804 RxNorm React ion: unkno wn, unspe cifie d;; Not Available [facility] 4 00:54:58 53603 morphine medicatio n other Not available Not available 11/16/2023 7052 RxNorm React ion: unkno wn, unspe cifie d;; Not Available [facility] 00:[facility] Medications Name Sig Start Date Stop Date Status Note LastModified by Organization Details LastModified Time quetiapin e 25 mg tablet 2019 active Medicati on ID: [id number] D uration Value: 90 Brand Name: quetiapi ne Send Method: E-Prescr ibed Sub s Allowed: subs OK Medic ationGen ericName : quetiapi ne Not Available Not Available Not Available lamotrigi ne 150 mg tablet 2019 active Medicati on ID: [id number] B rand Name: lamotrig ine Send Method: [...] by mouth 2019 active Medicati on ID: [id number] D uration Value: 5 Prescri bed By Name: Maisha bob MD Brand Name: predniso ne Send Method: E-Prescr ibed Sub s Allowed: subs OK Medic ationGen ericName : predniso ne Not Available Not Available Not Available sertralin e 100 mg tablet 2019 active Medicati on ID: [id number] D uration Value: 90 Brand Name: sertrali ne Send Method: E-Prescr ibed Sub s Allowed: subs OK Speci al Instruct ion: TK 2 TS PO QAM Medi cationGe nericNam e: sertrali ne Not Available Not Available Not Available clonazepa m 1 mg tablet 07/12 completed Medicati on ID: [id number] B rand Name: clonazep am Send Method: E-Prescr ibed Sub s Allowed: subs OK Medic ationGen ericName : clonazep am Not Available Not Available Not Available atenolol 25 mg tablet 05/31 completed Medicati on ID: [id number] B rand Name: atenolol Send Method: E-Prescr [...] mg tablet 2019 active Medicati on ID: [id number] D uration Value: 90 Brand Name: trazodon [...] 24 hr 2019 active Medicati on ID: [id number] D uration Value: 90 Brand Name: oxybutyn [...] as directed 2022 active Medicati on ID: [id number] D uration Value: 30 Brand Name: azelasti [...] DIRECTED BY GASTROEN TEROLOGY DEPARTME NT AT [facility] active Not Available Not Available No [...] mg tablet 05/13 completed Medicati on ID: [id number] D uration Value: 90 Brand Name: lamotrig ine Send Method: E-Prescr ibed Sub s Allowed: subs OK Medic ationGen ericName : lamotrig ine Not Available Not Available Not Available aripipraz ole 15 mg tablet 2019 active Medicati on ID: 135835 D uration Value: 45 Brand Name: aripipra zole Sen d Method: E-Prescr ibed Sub s Allowed: subs OK Medic ationGen ericName : aripipra zole Not Available Not Available Not Available potassium chloride ER 10 mEq tablet,ex tended release(p art/cryst ) active Not Available Not Available Not Available Flovent HFA 220 mcg/actua tion aerosol inhaler 2019 active Medicati on ID: [id number] D uration Value: 90 Brand Name: Flovent HFA Send Method: E-Prescr ibed Sub s Allowed: subs OK Medic ationGen ericName : Flovent HFA Not Available Not Available Not Available pregabali n 50 mg capsule active Not Available Not Available Not Available Ranitidin e Hcl 2019 active Medicati on ID: [id number] D uration Value: 90 Brand Name: ranitidi ne hcl Send Method: E-Prescr ibed Sub s Allowed: subs OK Medic ationGen ericName : ranitidi ne hcl Not Available Not Available Not Available quetiapin e 50 mg tablet 05/13 completed Medicati on ID: [id number] B rand Name: quetiapi ne Send Method: [...] SNOMED-CT Code Diagnosis ICD10 Code Diagnosis Note [id number] HARRIET ROSS PA-C [facility] [address] [id number] 07/19/2024 14:55:32 07/19/2024 15:19:10 Allergic rhinitis 52391170 J30.89 Abnormal a uditory perception 26378711 H93.293 Health Concerns Section Related Observation LastModified by Organization Detai ls LastModified Time None Recorded Concern Status LastModified by Organization Details LastModified Time None Recorded Advance Directives Directive None Recorded Payers Insurance Date Sequence Insurance Name Policy Number Policy Evans Covered Member ID Evans Member ID Guarantor Name 09/05/2024 1 [facility] (MEDICARE REPLACEMENT/ ADVANTAGE - PPO) [id number] Rubia Sosa [id number] Rubia Sosa 09/05/2024 2 [place] [facility] Rubia Sosa [id number] Rubia Sosa Notes Date Note Type Note [...] straight up the nose. RUBEN ABARCA MD [address] [place] [address], [place], [phone], [facility] 07/19/2024 15:58:35 OBGyn Episode No OBEpisode recorded.
--- OUTSIDE RECORDS SUMMARY | 2024-11-20 12:58 | XMS_ITS | Clinical Summary ---
Author Organization [facility] Address [address] [facility] [address] [place] [address] Care Team Providers Care Gut Dropper Name Role Phone Unavailable Primary Care Provider Unavailabl e Social History Tobacco Use Types Packs/Day Years Used Date Smoking Tobacco: Never Assessed Comments Unknown Sex and Gender Information Value Date Recorded Sex Assigned at Female 09/07/2022 10:47 AM EST Legal Sex Female 3:38 PM EST Gender Identity Female 09/07/2022 10:47 AM EST Sexual Orientation Choose not to disclose 2024 2:18 PM EDT Plan of Treatment Upcoming Encounters Date Type Department Care Team (Late st Contact Info) Description 12/14/2024 3:00 PM EDT Office Visit [facility] [address] [place] [address] Olive Lopez [address] [place] [address] Health Maintenance Due Date Last Done Comments CT Colonography 1973 Colonoscopy 1973 Colorectal Cancer Screening 1973 Dental Oral Exam 1973 Dental Prophylaxis 1973 Dental X-Ray: Bitewings 1973 Dental X-Ray: Full Mouth 1973 Depression Screening 1973 FIT DNA/Cologuard 1973 FIT 1973 FOBT 1973 HIV Screening 1973 SDOH Screening 1973 Sigmoidoscopy 1973 Alcohol/Substance Use Screening 1985 Tobacco Screening 1985 Family Planning (PISQ) 1988 Hepatitis C Screening 1991 Hepatitis B Vaccines (1 of 3 - 19+ 3-dose series) 1992 Pap Smear 1994 Cervical Cancer Screening 2003 HPV/Cotest 2003 Pneumococcal Vaccine: 50+ Years (2 of 2 - PCV) 10/10/2006 10/10/2005 Mammogram 2013 COVID-19 Vaccine ( season) 2024 06/12/2021, 11/30/2020, 11/02/2020 DTaP/Tdap/Td Vaccines (3 - Td or Tdap) 01/04/2033 01/04/2023, 07/15/2012, 11/26/2004 RSV Patients and Patients Aged 60 years or older (1 - 1-dose 75+ series) 2048 Zoster Vaccines Completed 12/31/2023, 10/01/2023 Influenza Vaccine Completed 03/30/2024, , 04/17/2021, Additional history exists HIB Vaccines Aged Out No longer eligi [...] patient's age to complete this topic Meningococcal Vaccine Aged Out No jose angel sandie eligible based on patient's age to complete this topic RSV under 20 months Aged Out No longe r eligible based on patient's age to complete this topic Rotavirus Vaccines Aged Out No longer eligible based on patient's age to complete this topic Insurance [facility]
--- OUTSIDE RECORDS SUMMARY | 2024-11-20 12:58 | XMS_ITS | Clinical Summary ---
Author Organization [address] Address [address] [place] [address] Phone Care Team Providers Care Grades 1 Thru 6 Visiting Teacher Name Role Phone Radu Christensen MD Primary Care Provider [phone] Allergies Active Allergy Reactions Criticality Noted Date [...] of lumbar re gion 08/18/2024 Rheumatoid arteritis ([facility] V24, [facility] V28) 08/18/2024 Overview (08/18/2024): psoriatic Abdominal [...] cellulitis. She will actually be seeing an farm general manager on Wednesday. If her symptoms are worsening [...] both constipation and diarrhea 05/12/2018 Psoriatic arthritis ([facility] V24, [facility] V28) 0 12/09/2017 Overview (04/05/2024): Dr Murphy Abdominal pain, chronic, epigastric 03/27/2013 Bipolar affective disorder ([facility] V24, [facility] V28) 07/15/2012 Vitamin D deficiency 08/13/2011 [...] Description 09/22/2024 Telephone Obstetrics [facility]necology - [facility] [address] [place] [phone] Ambar Potter, Menopause 09/12/2024 10:00 AM EDT Office Visit [address] [phone] Radu Christensen MD Moderate persistent asthma without complication (Primary Dx); Primary hypertension; Psoriatic arthritis (CMS/HCC V24, CMS/[facility] V28); B12 deficiency; Vitamin D deficiency; Transaminitis; Bipolar affective disorder, remission status unspecified (CMS/HCC V24, CMS/[facility] V28); Mixed hyperlipidemia 09/04/2024 11:15 AM EST [facility] [phone] Kellie Renae CNM Encounter for annual physical examination excluding gynecological examination in a patient older than 17 years (Primary Dx); Menopausal symptoms from Last 3 Months Immunizations Name Administration [...] History Surgery Date Site/Laterality Comments SECTION PROCEDURE: DE DELIVERY ONLY HERNIA REPAIR PROCEDURE: HISTORICAL HERNIA [...] in size. UPPER GASTROINTESTINAL ENDOSCOPY 2005 PROCEDURE: DE UPPER GI ENDOSCOPY PERFORMED; COMMENT: Nia; negative, bx negative for H. pylori. OTHER SURGICAL HISTORY 02/2019 PROCEDURE: HISTORICAL UNSPECIFIED SURGERY; COMMENT: urethral sling BLADDER SUSPENSION PROCEDURE: HISTORICAL BLADDER SUSPENSION COLONOSCOPY 06/06/2020 PROCEDURE: HISTORICAL COLONOSCOPY; COMMENT: 10 mm cecal polyp: Tubular adenoma. ESOPHAGOGASTRODUODENOSCOPY 05/21/2021 PROCEDURE: DE EGD TRANSORAL BIOPSY SINGLE/MULTIPLE; COMMENT: Dr. Deana [...] AM EDT Office Visit Orthopedic Surgery - [place] [address] [facility] [address] [place] [address] Maribel Barajas MD 175 [facility] [address] [place] [address] 03/26/2025 8:30 AM EDT Office Visit Adult Medicine [facility] [address] [place] [address] Radu Christensen MD [address] [place] [address] Health Maintenance Due Date Last Done Comments [...] Procedure Name Priority Date/Time Associated Diagnosis Comments EXTERNAL CLINICAL LAB 10/20/2024 EXTERNAL CLINICAL LAB 10/20/2024 CBC WITH AUTO DIFFERENTIAL Routine 09/11/2024 9:36 AM EDT Hypokalemia B12 deficiency Vitamin D deficiency Transaminitis Moderate persistent asthma without complication Psoriatic arthritis (CMS/HCC V24, CMS/HCC V28) Bipolar affective disorder, remission status unspecified (CMS/HCC V24, CMS/HCC V28) Screening for hyperlipidemia Screening for diabetes mellitus (DM) LIPID PANEL WITH REFLEX TO DIRECT LDL Routine 09/11/2024 9:36 AM EDT Hypokalemia B12 deficiency Vitamin D deficiency Transaminitis Moderate persistent asthma without complication Psoriatic arthritis (CMS/HCC V24, CMS/HCC V28) Bipolar affective disorder, remission status unspecified (CMS/HCC V24, [facility] V28) Screening for hyperlipidemia Screening for diabetes mellitus (DM) COMPREHENSIVE METABOLIC PANEL Routine 09/11/2024 9:36 AM EDT Hypokalemia B12 deficiency Vitamin D deficiency Transaminitis Moderate persistent asthma without complication Psoriatic arthritis (CMS/HCC V24, CMS/HCC V28) Bipolar affective disorder, remission status unspecified (CMS/HCC V24, CMS/[facility] V28) Screening for hyperlipidemia Screening for diabetes mellitus (DM) CBC AND DIFFERENTIAL Routine 09/11/2024 9:36 AM EDT Hypokalemia B12 deficiency Vitamin D deficiency Transaminitis Moderate persistent asthma without complication Psoriatic arthritis (CMS/HCC V24, CMS/[facility] V28) Bipolar affective disorder, remission status unspecified (CMS/HCC V24, CMS/HCC V28) Screening for hyperlipidemia Screening for diabetes mellitus (DM) HEMOGLOBIN A1C Routine 09/11/2024 9:36 AM EDT Hypokalemia B12 deficiency Vitamin D deficiency Transaminitis Moderate persistent asthma without complication Psoriatic arthritis (CMS/HCC V24, CMS/[facility] V28) Bipolar affective disorder, remission status unspecified (CMS/[facility] V24, [facility] V28) Screening for hyperlipidemia Screening for diabetes mellitus (DM) CHLAMYDIA TRACHOMATIS AND NEISSERIA GONORRHOEAE PCR Routine 09/04/2024 11:21 AM EST Encounter for annual physical examination excluding gynecological examination in a patient older than 17 years MG MAMMO DIGITAL SCREENING W DREW BILAT Routine 07/25/2024 10:36 AM EST Encounter for screening mammogram for breast cancer HEPATITIS C SCREENING Routine 01/04/2023 COLONOSCOPY Routine 03/03/2022 DEPRESSION SCREENING Routine 07/09/2020 PAP SMEAR Routine 03/06/2020 HIV SCREENING Routine 03/02/2014 from Last 3 Months or Most Recently Relevant to Health Maintenance Results * External clinical lab (10/20/2024) Only the most recent of2 resultswithin the time period is included. us Provider [facility] LAB BLOOD ORDERABLES Fin al Result * (ABNORMAL) Lipid panel with reflex to direct LDL (09/11/2024 9:36 AM EDT) Cholesterol 227(H) 0 - 200 mg/dL LAB CHEMISTRY METHOD 09/11/2024 1:13 PM EDT [facility] Triglycerides 152(H) 0 - 150 mg/dL LAB CHEMISTRY METHOD 09/11/2024 1:13 PM EDT [facility] HDL 46 >=40 mg/dL LAB CHEMISTRY METHOD 09/11/2024 1:13 PM EDT [facility] LDL Calculated 151(H) 0 - 100 mg/dL LAB CHEMISTRY METHOD 09/11/2024 1:13 PM EDT [facility] VLDL Cholesterol Silas 30.4 mg/dL LAB CHEMISTRY METHOD 09/11/2024 1:13 PM EDT [facility] Non HDL Chol. (LDL+VLDL) 181(H) <145 mg/dL LAB CHEMISTRY METHOD 09/11/2024 1:13 PM EDT [facility] Chol/HDL Ratio 4.9(H) 0.0 - 4.4 LAB CHEMISTRY METHOD 09/11/2024 1:13 PM EDT [facility] Blood Venous blood specimen / Unknown Venipuncture / Unknown 09/11/2024 9:36 AM EDT 09/11/2024 9:36 AM EDT Radu Christensen MD LAB BLOOD ORDERABLES Final Result [facility] [address] [place] [address], [place] [phone] * CBC auto differential (09/11/2024 9:36 AM EDT) [facility] WBC 5.0 4.8 - 10.8 K/mcL LAB HEMETOLOGY METHOD 09/11/2024 1:10 PM EDT [facility] RBC 4.50 3.80 - 4.80 M/mcL LAB HEMETOLOGY METHOD 09/11/2024 1:10 PM EDT [facility] Hemoglobin 13.6 11.5 - 16.0 g/dL LAB HEMETOLOGY METHOD 09/11/2024 1:10 PM EDT [facility] Hematocrit 41.4 35.0 - 47.0 % LAB HEMETOLOGY METHOD 09/11/2024 1:10 PM EDT [facility] MCV 91.4 79.0 - 98.0 FL LAB HEMETOLOGY METHOD 09/11/2024 1:[facility] MCH 30.0 27.0 - 32.0 pcg LAB HEMETOLOGY METHOD 09/11/2024 1:10 PM EDT [facility] MCHC 32.9 32.0 - 37.0 g/dL LAB HEMETOLOGY METHOD 09/11/2024 1:10 PM EDT [facility] RDW 13.1 11.0 - 15.0 % LAB HEMETOLOGY METHOD 09/11/2024 1:10 PM EDT [facility] Platelets 335 130 - 400 K/mcL LAB HEMETOLOGY METHOD 09/11/2024 1:10 PM EDT [facility] MPV 10.1 7.0 - 11.0 FL LAB HEMETOLOGY METHOD 09/11/2024 1:10 PM [facility] NRBC 0.0 <1.0 % LAB HEMETOLOGY METHOD 09/11/2024 1:10 PM EDT [facility] NRBC Absolute 0.00 <0.10 K/mcL LAB HEMETOLOGY METHOD 09/11/2024 1:10 PM EDT [facility] Neutrophils Relative 55.6 % LAB HEMETOLOGY METHOD 09/11/2024 1:10 PM EDT [facility] Lymphocytes Relative 34.9 % LAB HEMETOLOGY METHOD 09/11/2024 1:10 PM T [facility] Monocytes Relative 6.7 % LAB HEMETOLOGY METHOD 09/11/2024 1:10 PM [facility] Eosinophils Relative 1.8 % LAB HEMETOLOGY METHOD 09/11/2024 1:10 PM [facility] Basophils Relative 0.8 % LAB HEMETOLOGY METHOD 09/11/2024 1:10 PM [facility] Immature Granulocytes Relative 0.2 % LAB HEMETOLOGY METHOD 09/11/2024 1:10 PM [facility] Neutrophils Absolute 2.80 1.50 - 7.00 K/mcL LAB HEMETOLOGY METHOD 09/11/2024 1:10 PM [facility] Lymphocytes Absolute 1.76 1.00 - 5.00 K/mcL LAB HEMETOLOGY METHOD 09/11/2024 1:10 PM [facility] Monocytes Absolute 0.34 0.20 - 1.00 K/mcL LAB HEMETOLOGY METHOD 09/11/2024 1:10 PM [facility] Eosinophils Absolute 0.09 0.00 - 0.50 K/mcL LAB HEMETOLOGY METHOD 09/11/2024 1:10 PM [facility] Basophils Absolute 0.04 0.00 - 0.20 K/mcL LAB HEMETOLOGY METHOD 09/11/2024 1:10 PM [facility] Immature Granulocytes Absolute 0.01 0.00 - 0.03 K/mcL LAB HEMETOLOGY METHOD 09/11/2024 1:10 PM [facility] Blood Venous blood specimen / Unknown Venipuncture / Unknown 09/11/2024 9:36 AM EDT 09/11/2024 9:36 AM EDT Radu Christensen MD LAB BLOOD ORDERABLES Final Result Performing Organization Address [facility]/ZIP Co de Phone Number [facility] [address] [place] [address], [place] [phone] * Hemoglobin A1c (09/11/2024 9:36 AM EDT) [facility] Hemoglobin A1C 5.3 <6.5 % LAB CHEMISTRY METHOD 09/11/2024 9:38 PM EDT [facility] Mean Bld Glu Estim. 105 mg/dL LAB CHEMISTRY METHOD 09/11/2024 9:38 PM EDT [facility] Blood Venous blood specimen / Unknown Venipuncture / Unknown 09/11/2024 9:36 AM EDT 09/11/2024 9:36 AM EDT Radu Christensen MD LAB BLOOD ORDERABLES Final Result Performing Organization Address [facility]/ZIP Ca de Phone Number [facility] [address] [place] [address], [place] [phone] * (ABNORMAL) Comprehensive metabolic panel (09/11/2024 9:36 AM EDT) [facility] Sodium 138 133 - 145 mmol/L LAB CHEMISTRY METHOD 09/11/2024 1:13 PM EDT [facility] Potassium 4.1 3.5 - 5.5 mmol/L LAB CHEMISTRY METHOD 09/11/2024 1:13 PM EDT [facility] Chloride 105 96 - 110 mmol/L LAB CHEMISTRY METHOD 09/11/2024 1:13 PM EDT [facility] CO2 28 21 - 32 mmol/L LAB CHEMISTRY METHOD 09/11/2024 1:13 PM [facility] Anion Gap 5 3 - 11 LAB CHEMISTRY METHOD 09/11/2024 1:13 PM [facility] Glucose 95 70 - 100 mg/dL LAB CHEMISTRY METHOD 09/11/2024 1:13 PM [facility] BUN 11 5 - 25 mg/dL LAB CHEMISTRY METHOD 09/11/2024 1:13 PM [facility] Creatinine 0.74 0.50 - 1.10 mg/dL LAB CHEMISTRY METHOD 09/11/2024 1:13 PM [facility] eGFR 98 >=60 mL/min/1. 73m2 LAB CHEMISTRY METHOD 09/11/2024 1:13 PM [facility] Comment:Calculation based on the??Chronic Kidney Disease Epidemiology Collaboration (CKD-EPI) equation refit??without adjustment for race. BUN/Creatinine Ratio 14.9 LAB CHEMISTRY METHOD 09/11/2024 1:13 PM [facility] Calcium 9.4 8.5 - 10.5 mg/dL LAB CHEMISTRY METHOD 09/11/2024 1:13 PM [facility] AST (SGOT) 13 10 - 42 unit/L LAB CHEMISTRY METHOD 09/11/2024 1:13 PM [facility] ALT (SGPT) 27 10 - 60 unit/L LAB CHEMISTRY METHOD 09/11/2024 1:13 PM [facility] Alkaline Phosphatase 145(H) 42 - 121 unit/L LAB CHEMISTRY METHOD 09/11/2024 1:13 PM [facility] Total Protein 7.2 6.0 - 8.0 g/dL LAB CHEMISTRY METHOD 09/11/2024 1:13 PM [facility] Albumin 4.0 3.2 - 5.0 g/dL LAB CHEMISTRY METHOD 09/11/2024 1:13 PM [facility] Total Bilirubin 0.5 0.0 - 1.4 mg/dL LAB CHEMISTRY METHOD 09/11/2024 1:13 PM EDT [facility] Blood Venous blood specimen / Unknown Venipuncture / Unknown 09/11/2024 9:36 AM EDT 09/11/2024 9:36 AM EDT Radu Christensen MD LAB BLOOD ORDERABLES Final Result Performing Organization Address [facility]/ZIP Co de Phone Number [facility] [address] [place] [address], [place] [phone] * Chlamydia trachomatis and Neisseria gonorrhoeae molecular study (09/04/2024 11:21 AM EST) Neisseria gonorrhoeae PCR Negative Negative LAB MOLECULAR DIAGNOSTICS METHOD 09/05/2024 9:00 AM EST [facility] Chlamydia trachomatis PCR Negative Negative LAB MOLECULAR DIAGNOSTICS METHOD 09/05/2024 9:00 AM EST [facility] Swab Vaginal structure / Unknown Non-blood Collection / Unknown 09/04/2024 11:21 AM EST 09/04/2024 11:21 AM EST Kellie Renae CNM LAB MICROBIOLOGY - GENERAL O RDERABLES Final Result Performing Organization Address [facility]/ZIP Co de Phone Number [facility] [address] [place] [address], [place] [phone] * MG Mammo Digital Screening w Drew bilat (07/25/2024 10:36 AM EST) Anatomical Region Laterality Modality Breast Bilateral Mammography 07/25/2024 5:44 PM EST Impressions 07/25/2024 5:48 PM EST 1. No mammographic evidence of malignancy 2. Heterogeneous breast parenchyma BI-RADS CATEGORY: 2 - BENIGN RECOMMENDATION: Screening bilateral mammogram is recommended in 1 year. Mammo Location: [facility], [address] [place] [address], [id number], . -------- FINAL REPORT -------- Dictated By: Marin Andino Dictated Date: 07/25/2024 17:44 ET Assigned Physician: Marin Andino Reviewed and Electronically Signed By: Marin Andino Signed Date: 07/25/2024 17:48 ET Workstation ID: [id number] Transcribed By: Self Edit Transcribed Date: 07/25/2024 [...] is recommended in 1 year. Mammo Location: [facility], [address] [place] [address], [phone], . -------- FINAL REPORT -------- Dictated By: Marin Andino Dictated Date: 07/25/2024 17:44 ET Assigned Physician: Marin Andino Reviewed and Electronically Signed By: Marin Andino Signed Date: 07/25/2024 17:48 ET Workstation ID: [id number] Transcribed By: Self Edit Transcribed Date: 07/25/2024 17:44 ET Radu Christensen MD IMG BI PROCEDURES Final Res ult * Hepatitis C Screening (01/04/2023) Hepatitis C Screening Abstracted Result [facility] Provider HEALTH MAINTENANCE Final Result * Colonoscopy (03/03/2022) Colonoscopy Abstracted, Positive Anatomical Region Laterality Modality Other Result [facility] Provider HEALTH MAINTENANCE Final Result * Depression Screening (07/09/2020) Depression Screening Abstracted Result [facility] Provider HEALTH MAINTENANCE Final Result * Pap smear (03/06/2020) 03/06/2020 Narrative HISTORICAL TESTING LAB RESULTING AGENCY - 04/17/2020 6:00 PM EDT [id number] THINPREP PAP AND CELL BLOCK: NEGATIVE FOR SQUAMOUS INTRAEPITHELIAL LESION AND MALIGNANCY . JOSEPHINE IS PRESENT. OLIVIA ESPARZA , CT(ASCP) (CASE SCREENED 03 12 2020) DEWEY ARAYA M.D. , PATHOLOGIST (CASE ELECTRONICALLY SIGNED 03 20 2020) ADEQUACY: SATISFACTORY . SOURCE: THINPREP PAP, VAGINAL, IMAGED CLINICAL INFORMATION: PAP HX NEG, HYSTERECTOMY, LMP 08/03/11, Z12.4 CB ??03/07/20 Result [facility] Kira Whitman CNM LAB CYTOLOGY ORDERABLES Final Result HISTORICAL TESTING LAB RESULTING AGENCY * HIV Screening (03/02/2014) Pathologist [facility] HIV Screening Abstracted Result [facility] Historical Provider HEALTH MAINTENANCE Final Result from Last 3 Months or Most Recently Relevant to Health Maintenance Insurance [employer] MEDICARE MEDICAID - [place] Care Teams Grades 1 Thru 6 Visiting Teacher Relationship Specialty Start Date End Date Radu Christensen MD [address] [place] [address] PCP - General Internal Medicine 12/05/21
--- OUTSIDE RECORDS SUMMARY | 2024-11-20 12:58 | XMS_ITS | Encounter Summary ---
Author Organization [facility] Address [address] [place] [address] Care Team Providers Care Special Education Science Teacher Name Role Phone Radu Christensen MD Primary Care Provider [phone] Reason for Visit * Reason Onset Date Comments Fatigue 06/05/2024 Dizziness 06/05/2024 Encounter Details Date Type Department Care Team (Late st Contact Info) Description 06/05/2024 Nurse Triage Adult Medicine [address] [phone] Radu Christensen MD [address] [place] [phone] Fatigue; Dizziness Social History Tobacco Use Types [...] [2] has been evaluated by doctor (or COMMERCIAL FISHER/PA) for this Answer Assessment - Initial Assessment [...] menstrual period? N/A Protocols used: Dizziness - [id number] * Milagro Castro - 06/05/2024 10:26 AM [...] traveled recently to another state outside of [place], [place], [place], [place], [place], [place], [place]? no o If yes, did you quarantine [...] of accident/Injury: No If yes, gather 3rd democrat insurance information [employer] Party Information: not applicable PCP: Radu Christensen MD Payor: [employer] MEDICARE / Plan: AARP MEDICARE COMPLETE / Product Type: *No Product type* / documented in this encounter Plan of Treatment Upcoming Encounters Date Type Department Care Team (Late st Contact Info) Description 11/21/2024 9:15 AM EDT Office Visit Orthopedic Surgery - [place] [address] [phone] Maribel Barajas MD [address] [address] 03/26/2025 8:30 AM EDT Office Visit [address] [place] [address] Radu Christensen MD [address] [place] [address] documented as of this encounter Visit Diagnoses Not on filedocumented in this encounter Additional Health Concerns Infection Onset Date Last Indicated Resolved Time Respiratory Rule-Out 08/10/2024 08/10/2024 025 11:34 PM EST COVID-19 Rule-Out 08/10/2024 08/10/2024 08/10/2024 11:34 PM EST documented as of this encounter Care Teams Special Education Science Teacher Relationship Specialty Start Date End Date Radu Christensen MD [address] [place] [address] PCP - General Internal Medicine 12/05/21 documented as of this encounter
== END 2024-11-20 13:18 | disposition home or self-care (01) ==
LOC: HO.HCS 12:47
PROVIDERS: PCP Internal Medicine; Visit Provider Nurse Practitioner Family
DX: R00.2 Palpitations (principal); I45.10 Unspecified right bundle-branch block
CPT/HCPCS: 99213; G2211

== ENCOUNTER → 2024-11-20 12:46 | Outpatient (BNVA) | payer MEDICARE, MEDICAID, SELFPAY | PROVIDERS: PCP Internal Medicine; Visit Provider Nurse Practitioner Family | DX: I45.10 Unspecified right bundle-branch block (principal); R00.2 Palpitations | CPT/HCPCS: 99212 ==

== ENCOUNTER 2024-12-05 07:11 | Outpatient (REF) | payer MEDICARE, MEDICAID, SELFPAY ==
--- NOTE | ~2024-12-05 | US_ITS ---
CLINICAL HISTORY: R10.9 - Unspecified abdominal pain US abdomen complete Comparison: None Findings: The visualized pancreas is normal. The aorta and inferior vena cava are normal caliber. The liver is normal in size and mildly increased in echotexture. There is no intrahepatic bile duct dilatation. Question 5 mm hemangioma within the central right lobe. The common duct is 3 mm in diameter. The gallbladder is normal. There is no sonographic Robles sign. The main portal vein is antegrade. The right kidney is 9.9 cm in length. The left kidney is 10.6 cm in length. The spleen is normal. No ascites. IMPRESSION: No acute process. Mild hepatic steatosis. Possible 5 mm benign hemangioma within the right hepatic lobe. This document has been electronically signed by: Herbert Vo MD on 12/05/2024 12:42:54
--- OUTSIDE RECORDS SUMMARY | 2024-12-05 07:13 | XMS_ITS | Encounter Summary ---
Author Organization [facility] Address [address] [place] [address] Care Team Providers Care Bone Puller Name Role Phone Radu Christensen MD Primary Care Provider [phone] Reason for Visit * Reason Onset Date Comments Fatigue 06/05/2024 Dizziness 06/05/2024 Encounter Details Date Type Department Care Team (Late st Contact Info) Description 06/05/2024 Nurse Triage Adult Medicine [address] [phone] Radu Christensen MD [address] [place] [phone] Fatigue; Dizziness Social History Tobacco Use Types [...] [2] has been evaluated by doctor (or [employer]OP[employer]/PA) for this Answer Assessment - Initial Assessment [...] menstrual period? N/A Protocols used: Dizziness - [id number] * Milagro Castro - 06/05/2024 10:26 AM [...] traveled recently to another state outside of [place], [place], [place], [place], [place], [place], [place]? no o If yes, did you quarantine [...] Care Team (Late st Contact Info) Description 12/07/2024 3:30 PM EDT Consult Orthopedic Surgery - [place] [address] [facility] [address] [place] [address] Rosalva Garcia PA [address] [facility] [address] [place] [address] 03/26/2025 8:30 AM EDT Office Visit [place] [address] [place] [address] Radu Christensen MD [address] [place] [address] documented as of this encounter Visit Diagnoses Not on filedocumented in this encounter Additional Health Concerns Infection Onset Date Last Indicated Resolved Time Respiratory Rule-Out 08/10/2024 08/10/2024 025 11:34 PM EST COVID-19 Rule-Out 08/10/2024 08/10/2024 08/10/2024 11:34 PM EST documented as of this encounter Care Teams Bone Puller Relationship Specialty Start Date End Date Radu Christensen MD [address] [place] [address] PCP - General Internal Medicine 12/05/21 documented as of this encounter
== END 2024-12-05 07:12 | disposition home or self-care (01) ==
LOC: HO.US 07:11
PROVIDERS: PCP Internal Medicine; Visit Provider Nurse Practitioner Family
DX: R10.9 Unspecified abdominal pain (principal)
CPT/HCPCS: 76700

== ENCOUNTER → 2024-12-05 07:13 | Outpatient (BNV) | payer MEDICARE, MEDICAID, SELFPAY | PROVIDERS: PCP Internal Medicine; Visit Provider Radiology Vascular & Interventional Radiology | DX: R10.9 Unspecified abdominal pain (principal) | CPT/HCPCS: 76700 ==

== ENCOUNTER 2025-01-17 14:14 | Outpatient (REF) | payer MEDICARE, MEDICAID, SELFPAY ==
[2025-01-17 16:03] LABS: Alanine Aminotransferase 30 U/L (0-31); Albumin Level 4.4 g/dL (3.5-5.0); Alkaline Phosphatase 99 U/L (39-117); Aspartate Amino Transferase 22 U/L (5-31); Total Protein 6.9 g/dL (6.5-8.0)
[2025-01-26 05:38] LABS: FIB-ALT 24 U/L (6-29); FIB-Alpha-2-Macroglobulin 125 mg/dL (106-279); FIB-Apolipoprotein A1 171 mg/dL (101-198); FIB-GGT 18 U/L (3-70); FIB-Haptoglobin 128 mg/dL (43-212); FIB-Total Bilirubin 0.3 mg/dL (0.2-1.2); Liver Fibrosis Score 0.03; Liver Fibrosis Stage F0; Nec Inflam Act Grade A0; Nec Inflam Act Score 0.07
== END 2025-01-17 14:15 | disposition home or self-care (01) ==
LOC: HO.LAB 14:14
PROVIDERS: PCP Internal Medicine; Visit Provider Nurse Practitioner Family
DX: K21.00 Gastro-esophageal reflux disease with esophagitis, without bleeding (principal); K76.0 Fatty (change of) liver, not elsewhere classified; K58.9 Irritable bowel syndrome, unspecified; K64.9 Unspecified hemorrhoids; R10.13 Epigastric pain; R11.0 Nausea; R14.0 Abdominal distension (gaseous); R10.11 Right upper quadrant pain; R74.01 Elevation of levels of liver transaminase levels; Z79.899 Other long term (current) drug therapy
CPT/HCPCS: 36415; 80076; 81596; 99212

== ENCOUNTER 2025-01-17 14:14 | Outpatient (AMB) | payer MEDICARE, MEDICAID, SELFPAY ==
--- NOTE | 2025-01-17 14:21 | MHC.OFFVIS ---
Vital Signs 01/17/25 14:22 Height 5 ft 3 in Weight 149 lb BMI 26.4 BP 135/76 Blood Pressure Location Lt brachial Position Sitting Pulse 84 Pulse Oximetry (%) 96 Oxygen Delivery Method Room Air Intake Visit Reasons: 3 mo f/u Intake Note: Patient 3 month follow up for bloating. Patient cc: abdominal bloating. Denies any other GI issues. Open Source Developer Required: No Accompanied by: Self / Same As Patient Allergies oxycodone Allergy (Mild, Verified 01/25/25 15:20) Hives morphine Allergy (Unknown, Verified 01/25/25 15:20) Unknown cortisone acetate Allergy (Unknown, Uncoded 01/25/25 15:20) took away pigmentation in hands compazine Allergy (Uncoded 01/25/25 15:20) Unknown HPI HPI 3 mo f/u: Details: LAST VISIT: GERD (gastroesophageal reflux disease) Irritable bowel syndrome Hemorrhoid Postprandial epigastric pain Nausea Postprandial abdominal bloating Postprandial diarrhea RUQ abdominal pain Plan Patient will continue dicyclomine for her cramps and simethicone. Patient will start taking Colace and senna. Continue lansoprazole and famotidine. Patient will take sucralfate only when she has epigastric discomfort. Avoid dietary triggers and late night snacking. Staying upright for minimum 3 hours after meals discussed with patient. Patient will be sent for abdominal ultrasound as she reports right upper quadrant pain. There is no tenderness, rebound tenderness on exam. Alk phosphate increased, we will order isoenzyme to see additional testing is necessary. Discussed with patient low FODMAP diet again. Talk to patient also about low-fat low-salt and low carb diet. Increase protein intake. Patient already is avoiding certain dietary triggers. Follow-up in 3 months, sooner on as needed basis. She is agreeable to this plan and verbalizes understanding of instructions. She was given the opportunity to ask questions and all questions answered. ? Thank you for allowing me to participate in her care Orders US abdomen complete Today R10.9 Alkaline Phosphatase Isoenzyme Today R74.8 New dicyclomine 10 mg PO TID PRN 90 caps 2RF abdominal pain docusate sodium (Colace) 100 mg PO BID 60 caps 4RF sennosides (Natural Senna Laxative) 17.2 mg (2 x 8.6 mg) PO BEDTIME 180 tabs 3RF constipation K59.00 Refilled lansoprazole 30 mg PO DAILY 90 caps 3RF K21.9 famotidine 20 mg PO DAILY 90 tabs 2RF heartburn simethicone (Gas Relief (simethicone)) 125 mg PO TID-QID PRN 120 caps 2RF abdominal distention sucralfate 1 g PO BEDTIME 90 tabs 3RF K21.9 TODAY'S VISIT Patient is here today for follow-up and to discuss ultrasound and lab results. Previously elevated alk phosphate last results showed normal alk phosphate. Ultrasound showed increased echogenicity and small 5 mm hemangioma. Patient reports that she has been doing fairly well, however she states that she continues to have occasional bloating. Patient not sure that has anything to do with what she eats. It seems that it happens randomly. Patient is moving her bowels better using senna as needed. However patient reports that sometimes she will have incomplete emptying and will be still having an urge to go to the bathroom. Occasionally patient will have loose stools. Not taking any fiber supplements. Although we did prescribe her Citrucel couple years ago. Patient is taking lansoprazole in the morning and famotidine at bedtime and her symptoms of acid reflux are suppressed for the most part. Patient denies any nausea or vomiting. Denies any dyspepsia, dysphagia or odynophagia. Denies melena, hematochezia. Denies any other GI concerning symptoms. [facility] Medical History (Updated 01/25/25 @ 16:00 by Kings Car MD) Anal discharge Hypersomnia Palpitations Family history of breast cancer Hemorrhoids with complication History of uterine cancer TIA (transient ischemic attack) PTSD (post-traumatic stress disorder) Fibromyalgia Right bundle branch block (RBBB) Bipolar affective disorder GERD (gastroesophageal reflux disease) Psoriatic arthritis Irritable bowel syndrome Tubular adenoma Surgical History H/O hemorrhoidectomy Hx of abdominal surgery Hx of eye surgery Hx of hernia repair Hx of section History of partial hysterectomy History of colonoscopy History of cholecystectomy History of bladder suspension procedure Previous back surgery History of appendectomy History of esophagogastroduodenoscopy (EGD) Family History Maternal Grandmother Breast cancer Maternal Aunt Breast cancer Father FH: prostate cancer Paternal Grandmother Uterine cancer Paternal Grandfather Heart attack Sister Von Willebrand disease Paternal Aunt Ovarian cancer Colon cancer Stomach cancer Uterine cancer Paternal Uncle Colon cancer Social History Are you a primary specialist wound care to a significant other at home: No Do you presently have visiting nurse or other home services: No Alcohol intake: never Patient Tobacco Use Status: Former Tobacco user Tobacco use type: Cigarette Cigarette Packs Per Day: 0.50 Review of Systems Const Denies weight gain and Denies weight loss ENT Reports no additional complaints, Denies dysphagia and Denies odynophagia Card Reports no additional complaints Resp Reports no additional complaints GI Reports abdominal pain (RUQ), Denies belching, Denies melena, Reports bloating, Denies change in bowel habits, Reports constipation, Denies dysphagia, Denies excessive flatus, Denies dyspepsia, Denies heartburn, Denies diarrhea, Denies loose stools, Denies nausea, Denies odynophagia and Denies vomiting Reports no additional complaints Musc Reports no additional complaints Neuro Reports no additional complaints Psych Reports no additional complaints Endo Reports no additional complaints Physical Exam Vital Signs: Last Vital Signs Pulse 84 01/17/25 14:22 BP 135/76 01/17/25 14:22 Pulse Ox 96 01/17/25 14:22 Oxygen Delivery Method Room Air 01/17/25 14:22 BMI result Body Mass Index 26.4 Const General: healthy appearing, no acute distress and well developed Nutritional Appearance: well nourished Orientation/consciousness: patient oriented x3 Resp Effort & Inspection: normal respiratory effort, able to speak in complete sentences, no tracheal deviation and symmetric chest movement Auscultation: clear to auscultation bilaterally Cardio Rate: regular rate GI Inspection: Yes normal to inspection and No distended Palpation (GI): Soft to palpation, not firm, nontender and No hepatosplenomegaly present Auscultation: normal bowel sounds General: Yes no CVA tenderness Back/Spine/Pelvis Back: no CVA tenderness Skin General skin exam: elasticity normal, turgor normal and dry skin Neuro General: patient oriented x3 Psych Appearance: grossly normal Mental Status: mental status grossly normal Affect: Anxious affect present Results Reviewed Results Reviewed: ABDOMINAL ULTRASOUND Findings: The visualized pancreas is normal. The aorta and inferior vena cava are normal caliber. The liver is normal in size and mildly increased in echotexture. There is no intrahepatic bile duct dilatation. Question 5 mm hemangioma within the central right lobe. The common duct is 3 mm in diameter. The gallbladder is normal. There is no sonographic Robles sign. The main portal vein is antegrade. The right kidney is 9.9 cm in length. The left kidney is 10.6 cm in length. The spleen is normal. No ascites. IMPRESSION: No acute process. Mild hepatic steatosis. Possible 5 mm benign hemangioma within the right hepatic lobe. Laboratory Tests 03/05/23 10/20/24 12:50 16:27 Alkaline Phosphatase 130 Alk Phos Iso-Intestine 20 Alk Phos Iso-Bone 38 Alk Phos Iso-Liver 42 Vitamin B12 361 25-OH Vitamin D Total 30 Folate 11.9 TSH 1.61 Assessment & Plan Assessment & Plan (1) GERD (gastroesophageal reflux disease): Code(s): K21.9 - Gastro-esophageal reflux disease without esophagitis Category: Medical Qualifiers: Esophagitis presence: with esophagitis Esophagitis bleeding: without hemorrhage Qualified Code(s): K21.00 - Gastro-esophageal reflux disease with esophagitis, without bleeding (2) Irritable bowel syndrome: Code(s): K58.9 - Irritable bowel syndrome, unspecified Category: Medical Qualifiers: Irritable bowel syndrome type: without diarrhea Qualified Code(s): K58.9 - Irritable bowel syndrome without diarrhea (3) Hemorrhoids: Code(s): K64.9 - Unspecified hemorrhoids Qualifiers: Hemorrhoid type: unspecified Qualified Code(s): K64.9 - Unspecified hemorrhoids (4) Postprandial epigastric pain: Code(s): R10.13 - Epigastric pain (5) Nausea: Code(s): R11.0 - Nausea (6) Postprandial abdominal bloating: Code(s): R14.0 - Abdominal distension (gaseous) (7) Postprandial diarrhea: Code(s): K52.9 - Noninfective gastroenteritis and colitis, unspecified (8) Right upper quadrant abdominal pain: Code(s): R10.11 - Right upper quadrant pain Plan Normal ultrasound except for increased echogenicity of the liver. Normal liver enzymes. We will recheck liver enzymes checked liver fibrosis panel. Patient was encouraged to increase fiber. She can also take [id number] fiber like Benefiber dual action with pre and probiotics. Continue lansoprazole in the morning and famotidine at bedtime. Avoid dietary triggers and late night snacking. Staying upright for minimal 3 hours after meals discussed with patient. Patient will follow-up in 4 months, sooner on as needed basis. Patient is agreeable to this plan and verbalizes understanding of instructions. She was given the opportunity to ask questions and all questions answered. Thank you for allowing me to participate in her care Orders: Orders Liver Fibrosis Pnl 01/17/25 K76.0 - Fatty (change of) liver, not elsewhere classified Liver Panel 01/17/25 R74.01 - Elevation of levels of liver transaminase levels Medications: Refilled ondansetron 4 mg PO Q6H PRN 20 tabs 0RF nausea and vomiting Coding Level of Care Code Est Pt Level 4 (76438) Complex EM visit Add On G2211 Diagnoses Gastroesophageal reflux disease with esophagitis without hemorrhage K21.00 Esophagitis presence: with esophagitis Esophagitis bleeding: without hemorrhage Irritable bowel syndrome without diarrhea K58.9 Irritable bowel syndrome type: without diarrhea Hemorrhoids, unspecified hemorrhoid type K64.9 Hemorrhoid type: unspecified Postprandial epigastric pain R10.13 Nausea R11.0 Postprandial abdominal bloating R14.0 Postprandial diarrhea K52.9 Right upper quadrant abdominal pain R10.11 Time Spent (min) 40 Comment 25 minutes spent with patient and additional 15 minutes spent reviewing her records
[2025-01-17 14:22] VITALS: BP 135/76; PULSE 84; O2SAT 96; BMI 26.4
--- OUTSIDE RECORDS SUMMARY | 2025-01-17 14:55 | XMS_ITS | Continuity of Care Document ---
Author Organization [facility], [facility] Address [address] [place] [address] Assessment Encounter Date Assessment Date Assessment LastModified by Organization Details LastModified Time 01/16/2025 01/16/2025 50yo female with allergic rhinitis s/p SCIT presents for reevaluation. Otologic exam is benign. Anterior rhinoscopy demonstrates 2+ inferior turbinate hypertrophy without mucosal edema or purulence. Oral mucosa is moist and intact. Tonsils without hypertrophy or erythema. Recommend continuing daily fluticasone, azelastine, and cetirizine. Discussed that her occasional dry throat can be a side effect of these medications. Will send refill to use as tolerated. Recommend follow-up in 1 year, sooner with concerns. [email or web address] Not available 01/16/2025 14:41:58 Plan of Treatment Reminders Order Date Submit Date Provider Last Modified By Organization Details Last Modified Time Details Appointments None recorded. Lab None recorded. Referral None recorded. Procedures None recorded. Surgeries None recorded. Imaging None recorded. Medication Orders cetirizine 10 mg tablet 2024 025 [id number], [address], [place], [id number], 13:57:50 Patient TargetsNo targets recorded. Patient InstructionsNo instructions recorded. Reason for Referral None Reported. Problems Name Problem SNOMED Code Status Onset Date Resolution Date Notes Provider Name and Address Organization Details Recorded Time Allergic rhinitis 27722082 Active 2023 Allergic rhinitis: Due to other [...] PM (477.8) ; Start Date : 0 Perenni al allergic rhinitis; Note: Date Diagnosed : 11/21/2019 1:15 PM (J30.89) Note: Date Diagnosed : 11/21/2019 1:15 PM (J30.89) ; Start Date : 0 Not Available [facility] 4 00:53:31 Chronic sinusitis 30817668 Active 2019 Other chronic sinusitis ; Note: Date Diagnosed : 11/21/2019 1:15 PM (J32.8) Not Available [facility] 4 02:20:11 Seasonal allergic rhinitis 573538424 Active 2019 Other seasonal allergic rhinitis; Note: Date Diagnosed : 05/13/2020 9:20 AM (J30.2) Not Available [facility] 4 02:19:35 Respirator y finding 219619067 Active 2019 Choking sensation ; Note: Date Diagnosed : 05/13/2020 9:21 AM (R09.89) Not Available [facility] 4 02:19:41 Cardiovasc ular finding 485925601 Active 2019 Choking sensation ; Note: Date Diagnosed : 05/13/2020 9:21 AM (R09.89) Not Available [facility] 4 02:19:41 Abnormal auditory perception 54771753 Active 2023 Other abnormal auditory perceptio ns, bilateral ; Note: Date Diagnosed : 08/11/2023 2:35 PM (H93.293) Not Available [facility] 4 02:20:19 Problem Notes None recorded. Medical Equipment None Reported. Allergies Allergen ID Allergen Name Allergen Category Reaction Reaction Severity Criticality Documentation Date Start Date Code Code System Note Provider Name and Address Organization Details Recorded Time 56757 oxycodone medicatio n other Not available Not available 11/16/2023 7804 RxNorm React ion: unkno wn, unspe cifie d;; Not Available [facility] 4 00:54:58 21304 morphine medicatio n other Not available Not available 11/16/2023 7052 RxNorm React ion: unkno wn, unspe cifie d;; Not Available [facility] 4 00:55:05 Medications Name Sig Start Date Stop Date Status Note LastModified by Organization Details LastModified Time quetiapin e 25 mg tablet 2019 active Medicati on ID: [id number] D uration Value: 90 Brand Name: quetiapi ne Send Method: E-Prescr ibed Sub s Allowed: subs OK Medic ationGen ericName : quetiapi ne Not Available Not Available Not Available lamotrigi ne 150 mg tablet 2019 active Medicati on ID: [id number] B rand Name: lamotrig ine Send Method: E-Prescr ibed Sub s Allowed: subs OK Medic ationGen ericName : lamotrig ine Not Available Not Available Not Available prednison e 10 mg tablet active Not Available Not Available Not Available albuterol sulfate 2.5 mg/3 mL (0.083 %) solution for nebulizat ion TAKE 3ML BY MOUTH BY NEBULIZA TION 4 TIMES A DAY NEEDED FOR WHEEZING OR SHORTNES S OF BREATH active Not Available Not Available No t Available cetirizin e 10 mg tablet Take 1 tablet every day by oral route in the evening for 30 days. 2024 active Not Available Not Available Not Avai lable tizanidin e 4 mg tablet TAKE 1 TABLET BY MOUTH AT BEDTIME active Not Available Not Available No t Available senna 8.6 mg tablet TAKE 2 TABLETS BY MOUTH DAILY AT BEDTIME FOR CONSTIPA TION active Not Available Not Available No t Available sucralfat e 1 gram tablet TAKE 1 TABLET BY MOUTH AT BEDTIME active Not Available Not Available No t Available prednison e 20 mg tablet TAKE 3 TABLETS BY MOUTH DAILY FOR 2 DAYS THEN TAKE 2 TABLETS BY MOUTH DAILY FOR 2 DAYS THEN TAKE 1 TABLET BY MOUTH DAILY FOR 2 DAYS DIRECTED active Not Available Not Available No t Available sertralin e 100 mg tablet 2019 active Medicati on ID: [id number] D uration Value: 90 Brand Name: sertrali ne Send Method: E-Prescr ibed Sub s Allowed: subs OK Speci al Instruct ion: TK 2 TS PO QAM Medi cationGe nericNam e: sertrali ne Not Available Not Available Not Available clonazepa m 1 mg tablet 07/12 completed Medicati on ID: [id number] B rand Name: clonazep am Send Method: E-Prescr ibed Sub s Allowed: subs OK Medic ationGen ericName : clonazep am Not Available Not Available Not Available atenolol 25 mg tablet 05/31 completed Medicati on ID: [id number] B rand Name: atenolol Send Method: E-Prescr ibed Sub s Allowed: subs OK Speci al Instruct ion: TAKE 1 TABLET BY MOUTH TWICE DAILY Me dication GenericN rey: atenolol Not Available Not Available Not Available Gas-X Extra Strength 125 mg capsule TAKE 1 CAPSULE BY MOUTH 3 TO 4 TIMES A DAY NEEDED FOR ABDOMINA L DISTENTI ON active Not Available Not Available No t Available amlodipin e 2.5 mg tablet TAKE [...] mg tablet 2019 active Medicati on ID: [id number] D uration Value: 90 Brand Name: trazodon [...] 24 hr 2019 active Medicati on ID: [id number] D uration Value: 90 Brand Name: oxybutyn [...] active Not Available Not Available Not Available fluticaso ne propionat e 220 mcg/actua tion HFA aerosol inhaler INHALE 2 PUFFS BY MOUTH TWICE DAILY. RINSE MOUTH WITH WATER AFTER USE FOR AFTERTAS TE AND INCIDENC E OF CANDIDIA SIS. DO NOT SWALLOW active Not Available Not Available No t Available ergocalci ferol (vitamin D2) 1,250 mcg (50,000 unit) capsule TAKE 1 CAPSULE BY MOUTH 1 TIME A WEEK active Not Available Not Available No t Available azelastin e 137 mcg (0.1 %) nasal spray Inhale 2 spray twice a day as directed 2022 active Medicati on ID: [id number] D uration Value: 30 Brand Name: azelasti [...] DIRECTED BY GASTROEN TEROLOGY DEPARTME NT AT [facility] active Not Available Not Available No t [...] Not Available Not Available No t Available dicyclomi ne 10 mg capsule TAKE 1 CAPSULE BY MOUTH THREE TIMES DAILY NEEDED FOR ABDOMINA L PAIN active Not Available Not Available No t Available lamotrigi ne 100 mg tablet 05/13 completed Medicati on ID: [id number] D uration Value: 90 Brand Name: lamotrig ine Send Method: E-Prescr ibed Sub s Allowed: subs OK Medic ationGen ericName : lamotrig ine Not Available Not Available Not Available Ventolin HFA 90 mcg/actua tion aerosol inhaler INHALE 2 PUFFS BY MOUTH EVERY 4 HOURS NEEDED FOR WHEEEZIN G active Not Available Not Available No t Available aripipraz ole 15 mg tablet 2019 active Medicati on ID: [id number] D uration Value: 45 Brand Name: aripipra zole Sen d Method: E-Prescr ibed Sub s Allowed: subs OK Medic ationGen ericName : aripipra zole Not Available Not Available Not Available potassium chloride ER 10 mEq tablet,ex tended release(p art/cryst ) active Not Available Not Available Not Available pregabali n 50 mg capsule active Not Available Not Available Not Available Ranitidin e Hcl 2019 active Medicati on ID: [id number] D uration Value: 90 Brand Name: ranitidi ne hcl Send Method: E-Prescr ibed Sub s Allowed: subs OK Medic ationGen ericName : ranitidi ne hcl Not Available Not Available Not Available quetiapin e 50 mg tablet 05/13 completed Medicati on ID: [id number] B rand Name: remington savage Send Method: E-Prescr ibed Sub s Allowed: subs OK Medic ationGen ericName : remington savage Not Available Not Available Not Available Vitamin D3 50 mcg (2,000 unit) tablet TAKE 1 TABLET BY MOUTH ONE TIME EACH DAY active Not Available Not Available No t Available Breo Ellipta 100 mcg-25 mcg/dose powder for inhalatio n INHALE 1 PUFF BY MOUTH 1 TIME EACH DAY active Not Available Not Available No t Available Humira(CF ) 40 mg/0.4 mL subcutane ous syringe kit INJECT 0.4 ML UNDER THE SKIN EVERY 7 DAYS active Not Available Not Available No t Available Veozah 45 mg tablet TAKE 1 TABLET BY MOUTH 1 TIME EACH DAY active Not Available Not Available No t Available Vitals Date Recorded Body height Body mass index (BMI) Body weight Provider Name and Address Organization Details Last Updated DateTime 01/16/2025 160.02 cm 27.1 kg/m2 62878.63 g Evelyn Tyler [place] - [facility] 01/16/2025 13:49:03 Social History None recorded. Functional Status None recorded. Mental Status None recorded. Family History Nothing Reported. Medical History Condition Response Allergies/Hayfever Y Depression Y Asthma Y Gynecological HistoryNo gynecological history recorded. Obstetrics History GPAL:G 0 P 0 0 0 0 Past Encounters Encounter ID Performer Location Encounter Start Date Encounter Closed Date Diagnosis/Indication Diagnosis SNOMED-CT Code Diagnosis ICD10 Code Diagnosis Note [id number] JAS GUERRERO PA-C [facility] [address] [address] 01/16/2025 13:42:38 01/16/2025 14:46:28 Allergic rhinitis 42642943 J30.89 Health Concerns Section Related Observation LastModified by Organization Detai ls LastModified Time None Recorded Concern Status LastModified by Organization Details LastModified Time None Recorded Payers Encounter Date Sequence Insurance Name Policy Number Policy Evans Covered Member ID Evans Member ID Guarantor Name 01/16/2025 1 [facility] (MEDICARE REPLACEMENT/ ADVANTAGE - PPO) [id number] Rubia Sosa [id number] Rubia Sosa 01/16/2025 2 MEDICAID-[place]: [facility] Rubia Sosa [id number] Rubia Sosa Notes Date Note Type Note Provider Name and Address Organization Details Recorded Time 01/16/2025 text/html 50yo female presents for allergy follow up. She completed 4 years of SCIT 09/2023. She reports allergy symptoms have been acting up. Endorses dry throat and ear itch. She continues to use daily cetirizine and intranasal fluticasone and azelastine. JEET GRAFF MD [address] [place] [address], [place], [address], [place] - [facility] 01/16/2025 17:17:42 OBGyn Episode No OBEpisode recorded.
--- OUTSIDE RECORDS SUMMARY | 2025-01-17 14:55 | XMS_ITS | Encounter Summary ---
Author Organization [facility] Address [address] [place] [address] Care Team Providers Care Carton Liner Name Role Phone Radu Christensen MD Primary Care Provider [phone] Reason for Visit * Reason Onset Date Comments Fatigue 06/05/2024 Dizziness 06/05/2024 Encounter Details Date Type Department Care Team (Late st Contact Info) Description 06/05/2024 Nurse Triage Adult Medicine [address] [address] Radu Christensen MD [address] [place] [phone] Fatigue; Dizziness Social History Tobacco Use Types [...] [2] has been evaluated by doctor (or FILLER LEAF CUTTER LONG/PA) for this Answer Assessment - Initial Assessment [...] menstrual period? N/A Protocols used: Dizziness - [id number]-[id number] * Milagro Castro - 06/05/2024 10:26 AM [...] traveled recently to another state outside of [place], [place], [place], [place], [place], [place], [place]? no o If yes, did you quarantine [...] of accident/Injury: No If yes, gather 3rd republican insurance information Third Green Party Information: not applicable PCP: Radu Christensen MD Payor: [employer] MEDICARE / Plan: AARP MEDICARE COMPLETE / Product Type: *No Product type* / documented in this encounter Plan of Treatment Upcoming Encounters Date Type Department Care Team (Late st Contact Info) Description 01/25/2025 12:15 PM EDT Appointment Radiology Department - [address] [phone] 03/26/2025 8:30 AM EDT Office Visit Adult Medicine [place] - [address] [phone] Radu Christensen MD [address] [place] [phone] documented as of this encounter Visit Diagnoses Not on filedocumented in this encounter Additional Health Concerns Infection Onset Date Last Indicated Resolved Time Respiratory Rule-Out 08/10/2024 08/10/2024 025 11:34 PM EST COVID-19 Rule-Out 08/10/2024 08/10/2024 08/10/2024 11:34 PM EST documented as of this encounter Care Teams Carton Liner Relationship Specialty Start Date End Date Radu Christensen MD [address] [place] [address] PCP - General Internal Medicine 12/05/21 documented as of this encounter
--- OUTSIDE RECORDS SUMMARY | 2025-01-17 14:55 | XMS_ITS | Clinical Summary ---
Author Organization [employer] Address [address] [facility] [address] [place] [address] Care Team Providers Care Shrimp Header Name Role Phone Unavailable Primary Care Provider Unavailabl e Allergies Active Allergy Reactions Criticality Noted Date Comments Morphine Other 10/29/2006 becomes combative morphine Oxycodone Headache,Hives,Itchi ng,N ausea And Vomiting,Other 07/24/2009 Other Reaction(s): C/O - vomiting oxycodone Medications traMADol (Ultram) 50 MG tablet Take 100 mg by mouth. 10/06/2011 Active albuterol (2.5 MG/3ML) 0.083% nebulizer solution Inhale 2.5 mg. 06/09/2019 Active amLODIPine (Norvasc) 2.5 MG tablet Take 2.5 mg by mouth Once per day. 06/14/2023 Active ARIPiprazole (Abilify) 15 MG tablet 07/14/2019 Active cetirizine (ZyrTEC) 10 MG tablet TAKE 1 TABLET EVERY DAY BY ORAL ROUTE IN THE EVENING FOR 30 DAYS 08/28/2023 Active Active Problems Problem Noted Date Diagnosed Date Missing teeth, acquired 01/10/2025 Dental plaque 01/10/2025 Encounters Date Type Department Care Team Description 01/10/2025 11:00 AM EDT Office Visit [facility] ADULT D[facility] [address] [place] [address] Olive Lopez Missing teeth, acquired (Primary Dx); Dental plaque from Last 3 Months Social History Tobacco Use Types Packs/Day Years Used Date Smoking Tobacco: Never Smokeless Tobacco: Never Tobacco Cessation:Counseling Given: Not Answered Comments Unknown Sex and Gender Information Value Date Recorded Sex Assigned at Female 09/07/2022 10:47 AM EST Legal Sex Female 3:38 PM EST Gender Identity Female 09/07/2022 10:47 AM EST Sexual Orientation Choose not to disclose 2024 2:18 PM EDT Last Filed Vital Signs Vital Sign Reading Time Taken Comments Blood Pressure 116/72 01/10/2025 11:05 AM EDT Pulse 72 01/10/2025 11:05 AM EDT Temperature - - Respiratory Rate - - Oxygen Saturation - - Inhaled Oxygen Concentration - - Weight - - Height - - Body Mass Index - - Plan of Treatment Health Maintenance Due Date Last Done Comments CT Colonography 1973 Colonoscopy 1973 Colorectal Cancer Screening 1973 Dental Prophylaxis 1973 Dental X-Ray: Bitewings 1973 Dental X-Ray: Full Mouth 1973 Depression Screening 1973 FIT DNA/Cologuard 1973 FIT 1973 FOBT 1973 HIV Screening 1973 Lipid Panel 1973 SDOH Screening 1973 Sigmoidoscopy 1973 Disability Screening 1973 Alcohol/Substance Use Screening 1985 Family Planning (PISQ) 1988 Hepatitis C Screening 1991 Hepatitis B Vaccines (1 of 3 - 19+ 3-dose series) 1992 Pap Smear 1994 Cervical Cancer Screening 2003 HPV/Cotest 2003 Pneumococcal Vaccine: 50+ Years (3 of 3 - PCV) 12/28/2009 12/28/2008, 10/10/2005 COVID-19 Vaccine ( season) 2024 06/12/2021, 11/30/2020, 11/02/2020 Influenza Vaccine (#1) 2025 , 06/10/2023, 04/17/2021, Additional history exists Dental Oral Exam 07/14/2025 01/10/2025 Tobacco Screening 01/10/2026 01/10/2025 Mammogram 07/25/2026 07/25/2024, 07/25/2024 DTaP/Tdap/Td Vaccines (3 - Td or Tdap) 01/04/2033 01/04/2023, 07/15/2012, 11/26/2004, Additional history exists RSV Patients and Patients Aged 60 years or older (1 - 1-dose 75+ series) 2048 Zoster Vaccines Completed 12/31/2023, 10/01/2023 HIB Vaccines [...] Procedure Name Priority Date/Time Associated Diagnosis Comments COMPREHENSIVE ORAL EVALUATION - NEW OR ESTABLISHED PATIENT Routine 01/10/2025 11:00 AM EDT 8 AK COMPOSITE FILLING Routine 5 12:00 AM EDT 14 DOL AMALGAM FILLING Routine 5 12:00 AM EDT 13 O AMALGAM FILLING Routine 01/10/2025 12:00 AM EDT 31 MO COMPOSITE FILLING Routine 01/11/20 25 12:00 AM EDT 5 O COMPOSITE FILLING Routine 01/10/2025 12:00 AM EDT 4 O COMPOSITE FILLING Routine 01/10/2025 12:00 AM EDT 18 O COMPOSITE FILLING Routine 5 12:00 AM EDT 15 MO COMPOSITE FILLING Routine 01/11/20 25 12:00 AM EDT 9 DI COMPOSITE FILLING Routine 5 12:00 AM EDT 3 DO COMPOSITE FILLING Routine 5 12:00 AM EDT 2 MO COMPOSITE FILLING Routine 5 12:00 AM EDT 30 EXTRACTION Routine 01/10/2025 12:00 AM EDT 19 EXTRACTION Routine 01/10/2025 12:00 AM EDT 32 EXTRACTION Routine 01/10/2025 12:00 AM EDT 1 EXTRACTION Routine 01/10/2025 12:00 AM EDT 17 EXTRACTION Routine 01/10/2025 12:00 AM EDT 16 EXTRACTION Routine 01/10/2025 12:00 AM EDT from Last 3 Months Insurance DENTAL - [facility] [place]
== END 2025-01-17 14:41 | disposition home or self-care (01) ==
LOC: HO.HGI 14:14
PROVIDERS: PCP Internal Medicine; Visit Provider Nurse Practitioner Family
DX: K21.00 Gastro-esophageal reflux disease with esophagitis, without bleeding (principal); K58.9 Irritable bowel syndrome, unspecified; K64.9 Unspecified hemorrhoids; R10.13 Epigastric pain; R11.0 Nausea; R14.0 Abdominal distension (gaseous); K52.9 Noninfective gastroenteritis and colitis, unspecified; R10.11 Right upper quadrant pain
CPT/HCPCS: 99214; G2211

== ENCOUNTER 2025-01-25 14:58 | Outpatient (AMB) | payer MEDICARE, MEDICAID, SELFPAY ==
--- OUTSIDE RECORDS SUMMARY | 2025-01-25 15:05 | XMS_ITS | Encounter Summary ---
Author Organization [facility] Address [address] [place] [address] Phone Care Team Providers Care Spring Up Supervisor Name Role Phone Susy Silva MD Primary Care Provider [phone] Radu Christensen MD Primary Care Provider Encounter Details Date Type Department Care Team (Late st Contact Info) Description 10/02/2020 Procedure Pass ANT LW PERIOP DEPT [address] [place] [address] Social History Tobacco Use Types Packs/Day Years Used Date Smoking Tobacco: Former Cigarettes Q uit: 09/25/2016 Smokeless Tobacco: Former Alcohol Use Standard Drinks/Week Comments Not Currently 0 (1 standard drink = 0.6 oz pur e alcohol) Comments No Sex and Gender Information Value Date Recorded Sex Assigned at Not on file Legal Sex Female 3:58 PM EDT Gender Identity Not on file Sexual Orientation Not on file documented as of this encounter Plan of Treatment Upcoming Encounters Date Type Department Care Team (Late st Contact Info) Description 03/14/2025 11:30 AM EDT Office Visit [facility] Rheumatology [address] [place] [address] Eliana Casillas MD [address] [place] [address] documented as of this encounter Visit Diagnoses Not on filedocumented in this encounter Care Teams Spring Up Supervisor Relationship Specialty Start Date End Date Susy Silva MD [address] [place] [address] PCP - General Internal Medicine 03/05/20 10/17/24 Radu Christensen MD [address] [place] [address] PCP - General Internal Medicine 10/18/24 documented as of this encounter Additional Source Comments The information contained in this document represents components of the legal health record. It is not the complete legal health record.[facility]
--- OUTSIDE RECORDS SUMMARY | 2025-01-25 15:05 | XMS_ITS ---
Author Name [facility] Organization Unknown Care Team Organization Name Specialty Phone Email Start Date End Da te [facility] Ambar Potter [facility] 05/12/2022 02/21/2024
--- OUTSIDE RECORDS SUMMARY | 2025-01-25 15:05 | XMS_ITS | Encounter Summary ---
Author Organization [facility] Address [address] [place] [address] Care Team Providers Care Audit Spec Name Role Phone Radu Christensen MD Primary Care Provider [phone] Reason for Visit * Reason Onset Date Comments Fatigue 06/05/2024 Dizziness 06/05/2024 Encounter Details Date Type Department Care Team (Late st Contact Info) Description 06/05/2024 Nurse Triage Adult Medicine [address] [phone] Radu Christensen MD [address] [place] [address] Fatigue; Dizziness Social History Tobacco Use Types [...] [2] has been evaluated by doctor (or POWER ENGINEER/PA) for this Answer Assessment - Initial Assessment [...] menstrual period? N/A Protocols used: Dizziness - [id number] * Milagro Castro - 06/05/2024 10:26 AM [...] traveled recently to another state outside of [place], [place], [place], [place], [place], [place], [place]? no o If yes, did you quarantine [...] gather 3rd green party insurance information Third Green Party Information: not applicable PCP: Radu Christensen MD Payor: [employer] MEDICARE / Plan: AARP MEDICARE COMPLETE / Product Type: *No Product type* / documented in this encounter Plan of Treatment Upcoming Encounters Date Type Department Care Team (Late st Contact Info) Description 03/26/2025 8:30 AM EDT Office Visit Adult Medicine [address] [address] Radu Christensen MD [address] [place] [phone] documented as of this encounter Visit Diagnoses Not on filedocumented in this encounter Additional Health Concerns Infection Onset Date Last Indicated Resolved Time Respiratory Rule-Out 08/10/2024 08/10/2024 025 11:34 PM EST COVID-19 Rule-Out 08/10/2024 08/10/2024 08/10/2024 11:34 PM EST documented as of this encounter Care Teams Audit Spec Relationship Specialty Start Date End Date Radu Christensen MD [address] [place] [address] PCP - General Internal Medicine 12/05/21 documented as of this encounter
--- OUTSIDE RECORDS SUMMARY | 2025-01-25 15:05 | XMS_ITS | Data Portability ---
Author Organization [place] [facility], Allergy Address [address] [place] [phone] Assessment Encounter Date Assessment Date Assessment LastModified [...] processing disorder. [email or web address] Not available 07/19/2024 15:19:06 01/16/2025 01/16/2025 50yo female with allergic rhinitis [...] follow-up in 1 year, sooner with concerns. [email or web address] Not available 01/16/2025 14:41:58 Plan of Treatment Reminders Order Date Submit Date Provider Last Modified By Organization Details Last Modified Time Details Appointments None recorded. Lab None recorded. Referral dude ranch manager referral - r/o auditory processing disorder 2024 025 [email or web address] [facility], [address] [place], [address], 5 15:50:39 Procedures None recorded. Surgeries None recorded. Imaging None recorded. Medication Orders cetirizine 10 mg tablet 2024 [id number], [address] [place], [place], [phone], 5 13:57:50 cetirizine 10 mg tablet 2024 [facility] #[id number], [address] [place], [place], [phone], 5 15:08:47 fluticasone propionate 50 mcg/actuati on nasal spray,suspe nsion 2024 [facility] #[id number], [address] [place], [place], [phone], 5 15:08:48 Patient TargetsNo targets recorded. Patient InstructionsNo instructions recorded. Reason for Referral Mental Health Assistant Referral for Abn ormal auditory perception r/o auditory processing disorder Referring Physician: Harriet Ross Otolaryngology, Encounter Date: 07/19/2024 Results Created Date Observation Date Name Description Value Unit Range Abnormal Flag Note LastModifiedBy Organization Detail LastModifiedTime 10/12/1909/27/2024 audio gram No observ ation record ed. [email or web address] Not Available 03/2025 09:08:32 Result Notes None recorded. Problems Name Problem SNOMED Code Status Onset Date Resolution Date Notes Provider Name and Address Organization Details Recorded Time Chronic sinusitis 97892218 Active 2019 Other chronic sinusitis ; Note: Date Diagnosed : 11/21/2019 1:15 PM (J32.8) Not Available [facility] 4 02:20:11 Seasonal allergic rhinitis 574113252 Active 2019 Other seasonal allergic rhinitis; Note: Date Diagnosed : 05/13/2020 9:20 AM (J30.2) Not Available [facility] 4 02:19:35 Respirator y finding 974523744 Active 2019 Choking sensation ; Note: Date Diagnosed : 05/13/2020 9:21 AM (R09.89) Not Available [facility] 4 02:19:41 Cardiovasc ular finding 922213958 Active 2019 Choking sensation ; Note: Date Diagnosed : 05/13/2020 9:21 AM (R09.89) Not Available [facility] 4 02:19:41 Allergic rhinitis 23610099 Active 2023 Allergic rhinitis: Due to other [...] ; Start Date : 0 Not Available [facility] 4 00:53:31 Abnormal auditory perception 56551716 Active 2023 Other abnormal auditory perceptio ns, bilateral ; Note: Date Diagnosed : 08/11/2023 2:35 PM (H93.293) Not Available [facility] 4 02:20:19 Problem Notes None recorded. Medical Equipment None Reported. Allergies Allergen ID Allergen Name Allergen Category Reaction Reaction Severity Criticality Documentation Date Start Date Code Code System Note Provider Name and Address Organization Details Recorded Time 32615 oxycodone medicatio n other Not available Not available 11/16/2023 7804 RxNorm React ion: unkno wn, unspe cifie d;; Not Available [facility] 4 00:54:58 12831 morphine medicatio n other Not available Not available 11/16/2023 7052 RxNorm React ion: unkno wn, unspe cifie d;; Not Available [facility] 4 00:55:05 Medications Name Sig Start Date Stop Date Status Note LastModified by Organization Details LastModified Time quetiapin e 25 mg tablet 2019 active Medicati on ID: 141473 D uration Value: 90 Brand Name: quetiapi ne Send Method: E-Prescr ibed Sub s Allowed: subs OK Medic ationGen ericName : quetiapi ne Not Available Not Available Not Available lamotrigi ne 150 mg tablet 2019 active Medicati on ID: [id number] B rand Name: lamotrig ine Send Method: [...] mg tablet 2019 active Medicati on ID: 161671 D uration Value: 90 Brand Name: sertrali ne Send Method: E-Prescr ibed Sub s Allowed: subs OK Speci al Instruct ion: TK 2 TS PO QAM Medi cationGe nericNam e: sertrali ne Not Available Not Available Not Available clonazepa m 1 mg tablet 07/12 completed Medicati on ID: [id number] B rand Name: clonazep am Send Method: E-Prescr ibed Sub s Allowed: subs OK Medic ationGen ericName : clonazep am Not Available Not Available Not Available atenolol 25 mg tablet 05/31 completed Medicati on ID: [id number] B rand Name: atenolol Send Method: E-Prescr [...] mg tablet 2019 active Medicati on ID: 155939 D uration Value: 90 Brand Name: trazodon [...] 24 hr 2019 active Medicati on ID: 397081 D uration Value: 90 Brand Name: oxybutyn [...] as directed 2022 active Medicati on ID: 128473 D uration Value: 30 Brand Name: azelasti [...] DIRECTED BY GASTROEN TEROLOGY DEPARTME NT AT [facility] active Not Available Not Available No [...] mg tablet 05/13 completed Medicati on ID: [id number] D uration Value: 90 Brand Name: lamotrig [...] mg tablet 2019 active Medicati on ID: 904490 D uration Value: 45 Brand Name: aripipra [...] e Hcl 2019 active Medicati on ID: [id number] D uration Value: 90 Brand Name: ranitidi ne hcl Send Method: E-Prescr ibed Sub s Allowed: subs OK Medic ationGen ericName : ranitidi ne hcl Not Available Not Available Not Available quetiapin e 50 mg tablet 05/13 completed Medicati on ID: [id number] B rand Name: quetiapi ne Send Method: [...] Updated DateTime 01/16/2025 160.02 cm 27.1 kg/m2 90921.63 g Evelyn Tyler [facility] 01/16/2025 13:49:03 Social History None recorded. [...] SNOMED-CT Code Diagnosis ICD10 Code Diagnosis Note [id number] HARRIET ROSS PA-C [facility] [address] [address] 07/19/2024 14:55:32 07/19/2024 15:19:10 Allergic rhinitis 21110417 J30.89 Abnormal a uditory perception 04730527 H93.293 [id number] JAS GUERRERO PA-C [facility] of [facility] [address] [place] [address] 01/16/2025 13:42:38 01/16/2025 14:46:28 Allergic rhinitis 46046730 J30.89 Health Concerns Section Related Observation LastModified by Organization Detai ls LastModified Time None Recorded Concern Status LastModified by Organization Details LastModified Time None Recorded Advance Directives Directive None Recorded Payers Insurance Date Sequence Insurance Name Policy Number Policy Evans Covered Member ID Evans Member ID Guarantor Name 01/16/2025 1 [facility] (MEDICARE REPLACEMENT/ ADVANTAGE - PPO) [id number] Rubia Sosa [id number] Rubia Sosa 01/16/2025 2 [place]: [facility] Rubia Sosa [id number] Rubia Sosa Notes Date Note Type Note [...] straight up the nose. RUBEN ABARCA MD [address] [place] [address], [phone], [facility] 07/19/2024 15:58:35 01/16/2025 text/html 50yo female presents for allergy follow up. She completed 4 years of SCIT 09/2023. She reports allergy symptoms have been acting up. Endorses dry throat and ear itch. She continues to use daily cetirizine and intranasal fluticasone and azelastine. JEET GRAFF MD [address] [place] [address],[address], [phone], [facility] 01/16/2025 17:17:42 OBGyn Episode No OBEpisode recorded.
--- OUTSIDE RECORDS SUMMARY | 2025-01-25 15:05 | XMS_ITS | Clinical Summary ---
Author Organization [employer] Address [address] [facility] [address] [place] [address] Care Team Providers Care Car Spotter Name Role Phone Unavailable Primary Care Provider [...] Description 01/10/2025 11:00 AM EDT Office Visit [facility] ADULT DENTAL [address] [place] [address] Olive Lopez Missing teeth, acquired (Primary Dx); [...] PATIENT Routine 01/10/2025 11:00 AM EDT 8 ME COMPOSITE FILLING Routine 5 12:00 AM EDT [...] from Last 3 Months Insurance DENTAL - [facility]
[2025-01-25 15:15] VITALS: BP 134/72; PULSE 86; BMI 26.6
--- NOTE | 2025-01-25 15:15 | MHC.OFFVIS ---
Vital Signs 01/25/25 15:15 Height 5 ft 3 in Weight 150 lb BMI 26.6 BP 134/72 Blood Pressure Location Rt brachial Position Sitting Pulse 86 Intake Visit Reasons: anal leakage Intake Note: Patient scheduled today's appointment concerned with anal leakage. Thinks it may be a fissure. Patient c/o: reports hx of two prior hemorrhoidectomies. Surgery: 04-02-2023~ Hemorrhoidectomy x3 columns Overhead Crane Technician Required: No Accompanied by: Jerrod Allergies oxycodone Allergy (Mild, Verified 01/25/25 15:20) Hives morphine Allergy (Unknown, Verified 01/25/25 15:20) Unknown cortisone acetate Allergy (Unknown, Uncoded 01/25/25 15:20) took away pigmentation in hands compazine Allergy (Uncoded 01/25/25 15:20) Unknown Medication List - Last Reconciled 01/25/25 by Kings Car MD abatacept (Orencia ClickJect) 125 mg subcut QWEEK albuterol sulfate 90 mcg/actuation 90 mcg inhalation DAILY albuterol sulfate 2.5 mg inhalation Q4H PRN amlodipine 2.5 mg PO DAILY aripiprazole 15 mg PO DAILY azelastine 2 sprays intranasal BID cetirizine 10 mg PO DAILY cholecalciferol (vitamin D3) 50 mcg PO DAILY cyclobenzaprine 5 mg PO TID PRN diclofenac sodium 75 mg PO BID diclofenac sodium 1% 1 g topical BID dicyclomine 10 mg PO TID PRN docusate sodium (Colace) 100 mg PO BID estradiol 0.01%(0.1mg/gram) vaginal famotidine 20 mg PO DAILY fezolinetant (Veozah) 45 mg PO DAILY fluticasone furoate-vilanterol 100-25 mcg/dose inhalation fluticasone propionate 50 mcg/actuation 2 sprays intranasal DAILY folic acid 1 mg PO DAILY hydrocodone-acetaminophen 5-300 mg 1 tab PO Q4-6H PRN lamotrigine 75 mg PO BID lansoprazole 30 mg PO DAILY meclizine 25 mg PO TID PRN methylcellulose (laxative) (Citrucel) 500 mg PO DAILY ondansetron 4 mg PO Q6H PRN pregabalin 50 mg PO TID psyllium seed (sugar) (Metamucil (sugar) oral powder) 1 tbsp PO BID quetiapine 100 mg PO BEDTIME sennosides (Natural Senna Laxative) 17.2 mg (2 x 8.6 mg) PO BEDTIME sertraline 200 mg PO DAILY simethicone (Gas Relief (simethicone)) 125 mg PO TID-QID PRN sucralfate 1 g PO BEDTIME tramadol 50 mg PO BID PRN trazodone 150 - 300 mg PO BEDTIME PRN HPI HPI anal leakage: Details: [age] year old female referred for vague complaints with regards to her anus She had hemorrhoidectomy in 2022. She also had a previous hemorrhoidectomy about 20 years ago. She states it is for about a year now, she had been noticing what she describes as incomplete emptying of her stools. She says that as soon as she has a bowel movement, she feels that she has to go back and sit down again and sometimes she says that she would notice residual stool to come out. She says that often times this happens when she has watery stools. She says he does not think she has ?constipated?. She denies any bleeding. She does state that she has this discomfort in her anus. She says that this is mostly on the right side of her anus. She says she has a diagnosis of IBS as well. [facility] Medical History (Updated 01/25/25 @ 16:00 by Kings Car MD) Anal discharge Hypersomnia Palpitations Family history of breast cancer Hemorrhoids with complication History of uterine cancer TIA (transient ischemic attack) PTSD (post-traumatic stress disorder) Fibromyalgia Right bundle branch block (RBBB) Bipolar affective disorder GERD (gastroesophageal reflux disease) Psoriatic arthritis Irritable bowel syndrome Tubular adenoma Surgical History H/O hemorrhoidectomy Hx of abdominal surgery Hx of eye surgery Hx of hernia repair Hx of section History of partial hysterectomy History of colonoscopy History of cholecystectomy History of bladder suspension procedure Previous back surgery History of appendectomy History of esophagogastroduodenoscopy (EGD) Family History Maternal Grandmother Breast cancer Maternal Aunt Breast cancer Father FH: prostate cancer Paternal Grandmother Uterine cancer Paternal Grandfather Heart attack Sister Von Willebrand disease Paternal Aunt Ovarian cancer Colon cancer Stomach cancer Uterine cancer Paternal Uncle Colon cancer Social History Are you a primary caretaker grounds to a significant other at home: No Do you presently have visiting nurse or other home services: No Alcohol intake: never Patient Tobacco Use Status: Former Tobacco user Tobacco use type: Cigarette Cigarette Packs Per Day: 0.50 Review of Systems Const Denies chills and Denies fever(s) Card Denies chest pain, Denies dyspnea and Denies dyspnea on exertion Resp Denies cough, Denies dyspnea and Denies dyspnea on exertion GI Denies hematochezia and Denies change in bowel habits Denies hematuria Musc Denies back pain and Denies limited range of motion Neuro Denies focal weakness and Denies convulsions Psych Denies depression and Denies mood swings Physical Exam Vital Signs: Last Vital Signs Pulse 86 01/25/25 15:15 BP 134/72 01/25/25 15:15 BMI result Body Mass Index 26.6 Const General: comfortable and no acute distress Orientation/consciousness: patient oriented x3 Neck Neck: Yes no lymphadenopathy Resp Auscultation: clear to auscultation bilaterally Cardio Rhythm: regular rhythm GI Other: Rectal exam shows a small residual external hemorrhoid on the right side Palpation (GI): Soft to palpation, nontender and no guarding Neuro General: patient oriented x3 Office Procedures Anoscopy She was in modified brayan-knife position. The anoscope was gently inserted. A full examination of the anal canal was done. Note of a small hemorrhoidal column on the right side, a mix of internal external. There were no lesions seen. There was no fissure ulceration. There was no induration on digital exam. She had good sphincter tone on both squeeze and resting [id number] Assessment & Plan Assessment & Plan (1) Anal discharge: Code(s): R19.8 - Other specified symptoms and signs involving the digestive system and abdomen Category: Medical Plan: She describes vague anal complaints for about a year now. She says that she has this frequent urgency to go to the bathroom. She says that she feels that she has incomplete emptying after bowel movements. She says that often times, she would go back to the bathroom after bowel movement and she would have some leakage of stool. Current exam including anoscopy shows the sphincters to be intact without defect. She has small external internal hemorrhoids on the right but there were no lesions seen. There was no fissure or ulceration. She does have a history of IBS and says she frequently has watery stools I am going to start her on Metamucil to have a better consistency and bulk of her stools. Hopefully, this will allow resolution of her urgency, and sense of incomplete emptying along with leakage At this time I told her that there is no surgical intervention that is necessary. I will see her again in the office in about 2 months to see how she is doing She understands the plan well. Medications: New psyllium seed (sugar) (Metamucil (sugar) oral powder) 1 tbsp PO BID 1,254 grams 2RF Coding Level of Care Code Est Pt Level 3 (09478) Diagnoses Anal discharge R19.8 CPT Codes Details - CPT: 67253-[id number] ([id number])
== END 2025-01-25 15:49 | disposition home or self-care (01) ==
LOC: HO.HGS 14:59
PROVIDERS: PCP Internal Medicine; Visit Provider Surgery
DX: R19.8 Other specified symptoms and signs involving the digestive system and abdomen (principal)
CPT/HCPCS: 46600; 99213

== ENCOUNTER → 2025-01-25 14:58 | Outpatient (BNVA) | payer MEDICARE, MEDICAID, SELFPAY | PROVIDERS: PCP Internal Medicine; Visit Provider Surgery | DX: R19.8 Other specified symptoms and signs involving the digestive system and abdomen (principal); Z87.19 Personal history of other diseases of the digestive system | CPT/HCPCS: 46600; 99212 ==

== ENCOUNTER 2025-05-28 13:16 | Outpatient (AMB) | payer MEDICARE, MEDICAID, SELFPAY ==
--- OUTSIDE RECORDS SUMMARY | 2025-05-28 12:30 | XMS_ITS | Encounter Summary ---
Author Organization [facility] Address [address] [place] [address] Care Team Providers Care Twisting Press Operator Name Role Phone Radu Christensen MD Primary Care Provider [phone] Encounter Details Date Type Department Care Team ([facility] Contact Info) Description 05/28/2025 12:30 PM EST Lab Draw Station [address] [address] Hot flashes due to menopause Social History Tobacco Use Types Packs/Day Years Used Date Smoking Tobacco: Former Cigarettes Smokeless Tobacco: Never Comments:Quit 2020 Alcohol Use Standard Drinks/Week Comments No 0 (1 standard drink = 0.6 oz pur e alcohol) Comments No Sex and Gender Information Value Date Recorded Sex Assigned at Not on file Legal Sex Female 5:02 AM EST Gender Identity Not on file Sexual Orientation Not on file documented as of this encounter Plan of Treatment Upcoming Encounters Date Type Department Care Team ([facility] Contact Info) Description 06/15/2025 10:30 AM EST Office Visit Orthopedic Surgery - [place] [address] [address] Maribel Barajas MD [address] [address] documented as of this encounter Procedures Procedure Name Priority Date/Time Associated Diagnosis Comments HEPATIC FUNCTION PANEL Routine 05/28/2025 12:32 PM EST Hot flashes due to menopause documented in this encounter Results * (ABNORMAL) Hepatic function panel (05/28/2025 12:32 PM EST) Total Protein 7.1 6.0 - 8.0 g/dL 05/28/2025 5:12 PM [facility] Albumin 4.3 3.2 - 5.0 g/dL 05/28/2025 5:12 PM [facility] Total Bilirubin 0.4 0.0 - 1.4 mg/dL 05/28/2025 5:12 PM [facility] Bilirubin, Direct 0.1 0.0 - 0.3 mg/dL 05/28/2025 5:12 PM [facility] Bilirubin, Indirect 0.3 0.0 - 1.1 mg/dL 05/28/2025 5:12 PM [facility] ALT (SGPT) 17 10 - 60 unit/L 05/28/2025 5:12 PM [facility] AST (SGOT) 25 10 - 42 unit/L 05/28/2025 5:12 PM [facility] Alkaline Phosphatase 152(H) 42 - 121 unit/L 05/28/2025 5:12 PM [facility] Blood Venous blood specimen / Unknown Venipuncture / Unknown 05/28/2025 12:32 PM EST 05/28/2025 12:32 PM EST us Kellie MOH[facility] LAB BLOOD ORDERABLES Final R esult [facility] [address] [place] [address], documented in this encounter Visit Diagnoses Diagnosis Hot flashes due to menopause documented in this encounter Additional Health Concerns Assessment Noted Time PHQ-9 Depression Total Score: 15 08/09/ 025 12:18 PM EST documented as of this encounter Care Teams Twisting Press Operator Relationship Specialty Start Date End Date Radu Christensen MD [address] [place] [address] PCP - General Internal Medicine 12/05/21 documented as of this encounter
--- NOTE | 2025-05-28 13:17 | A.OFFVIS_ITS ---
Vital Signs 05/28/25 13:18 Height 5 ft 3 in Weight 146 lb 6 oz BMI 25.9 BP 151/81 H Blood Pressure Location Rt brachial Position Sitting Pulse 75 Intake Visit Reasons: Follow up anal leakage Intake Note: This patient presents for a follow-up assessment for anal leakage. Pt c/o; reports she is feeling well overall and the anal leakage has improved, denies other symptoms at this time. Postal Sorting Officer Required: No Accompanied by: Self / Same As Patient Allergies oxycodone Allergy (Mild, Verified 05/28/25 13:28) Hives compazine Allergy (Uncoded 05/28/25 13:28) Unknown HPI HPI Follow up anal leakage: Details: I had seen her in January, in view of multiple vague anal complaints. She was worried because of some urgency with bowel movements. Also felt that she had some leakage of stools after bowel movement. Examination including anoscopy at that time showed no anal canal lesions. Her sphincter tone appeared to be intact on both squeeze and resting. I had started her Metamucil then because of frequent watery stools. She says that she has has seen significant improvement with Metamucil. She does admit she still has this problem with occasional leaking of watery stools but she also says that she has frequent constipation. She is seeing a center medical director. She denies seeing blood per rectum. [facility] Medical History Anal discharge Hypersomnia Palpitations Family history of breast cancer Hemorrhoids with complication History of uterine cancer TIA (transient ischemic attack) PTSD (post-traumatic stress disorder) Fibromyalgia Right bundle branch block (RBBB) Bipolar affective disorder GERD (gastroesophageal reflux disease) Psoriatic arthritis Irritable bowel syndrome Tubular adenoma Surgical History H/O hemorrhoidectomy Hx of abdominal surgery Hx of eye surgery Hx of hernia repair Hx of section History of partial hysterectomy History of colonoscopy History of cholecystectomy History of bladder suspension procedure Previous back surgery History of appendectomy History of esophagogastroduodenoscopy (EGD) Family History Maternal Grandmother Breast cancer Maternal Aunt Breast cancer Father FH: prostate cancer Paternal Grandmother Uterine cancer Paternal Grandfather Heart attack Sister Von Willebrand disease Paternal Aunt Ovarian cancer Colon cancer Stomach cancer Uterine cancer Paternal Uncle Colon cancer Social History Are you a primary resident care assistant to a significant other at home: No Do you presently have visiting nurse or other home services: No Alcohol intake: never Patient Tobacco Use Status: Former Tobacco user Tobacco use type: Cigarette Cigarette Packs Per Day: 0.50 Review of Systems Const Denies chills and Denies fever(s) Card Denies chest pain, Denies dyspnea and Denies dyspnea on exertion Resp Denies cough, Denies dyspnea and Denies dyspnea on exertion GI Denies hematochezia and Denies change in bowel habits Denies hematuria Musc Denies back pain and Denies limited range of motion Neuro Denies focal weakness and Denies convulsions Psych Denies depression and Denies mood swings Physical Exam Const General: comfortable and no acute distress Resp Effort & Inspection: normal respiratory effort Cardio Rate: regular rate GI Other: Refused digital exam and rectal exam Palpation (GI): Soft to palpation, not firm, nontender and no guarding Assessment & Plan Assessment & Plan (1) Anal discharge: Code(s): R19.8 - Other specified symptoms and signs involving the digestive system and abdomen Category: Medical Plan: She says her symptoms have improved with Metamucil. She does admit to still having this her stools and occasional leakage but says that this is much better. She denies seeing blood per rectum. It appears that she has IBS type symptoms with both constipation and diarrhea. She is seeing a center medical director for this. She does not seem to require any surgical intervention for now. I did tell him to follow up in the office if she has concerns at some point in the future. She did not want any digital exam or rectal exam at this time. Coding Level of Care Code Est Pt Level 3 (85618) Diagnoses Anal discharge R19.8
[2025-05-28 13:18] VITALS: BP 151/81; PULSE 75; BMI 25.9
--- OUTSIDE RECORDS SUMMARY | 2025-05-28 17:55 | XMS_ITS | Clinical Summary ---
Author Organization [address] Address [address] [place] [address] Phone Care Team Providers Care Button Station Worker Name Role Phone Radu Christensen MD Primary Care Provider Allergies Active Allergy Reactions Criticality Noted Date Comments Cortisone Acetate 02/14/2009 Only with shots - has hypopigmentation Other Other 05/14/2022 Dermabond glue Oxycodone Hcl [...] (one) time each day. 08/28/19 24 Active diclofenac (VOLTAREN) 75 mg EC tablet [...] mouth 1 (one) time per week. Active albuterol HFA (PROAIR HFA ; PROVENTIL HFA ; VENTOLIN HFA) 90 mcg/actuation inhaler Inhale 2 puffs by mouth every 4 (four) hours if needed for wheezing. 6.7 g 3 08/10/19 25 Active azelastine (ASTELIN) 137 mcg (0.1 %) nasal spray Inhale 2 spray twice a day as directed 05/31/20 23 Active betamethasone dipropionate (DIPROSONE) 0.05 % ointment Apply 1 Application topically 2 (two) times a day. 11/10/19 24 Active EPINEPHrine (EPIPEN) 0.3 mg/0.3 mL injection INJECT 1 PEN IN THE MUSCLE ONE TIME DIRECTED 05/31/20 23 Active famotidine (PEPCID) 20 mg tablet TAKE 1 TABLET BY MOUTH DAILY FOR HEARTBURN Active lamoTRIgine (LaMICtal) 150 mg tablet 05/13/20 20 Active lansoprazole (PREVACID) [address] capsule [...] (DITROPAN-XL) 5 mg 24 hr tablet 11/21/19 20 Active pregabalin (LYRICA) 50 mg capsule 05/08/20 [...] needed 34 g 3 09/05/19 25 Active cholecalciferol (VITAMIN D-3) 50 mcg (2,000 unit) tablet Take 1 tablet (2,000 Units total) by mouth 1 (one) time each day. 90 tablet 3 01/11/20 25 Active abatacept (ORENCIA) 125 mg/mL injection Inject 1 mL (125 mg total) under the skin 1 (one) time per week. 10/24/19 25 Active clonazePAM (KlonoPIN) 0.5 mg tablet Take 1 tablet (0.5 mg total) by mouth 1 (one) time each day if needed for anxiety. Max Daily Amount: 0.5 mg Active amLODIPine (NORVASC) 2.5 mg tablet Take 1 tablet (2.5 mg total) by mouth 1 (one) time each day. 90 tablet 1 03/26/20 25 Active fluticasone furoate-vilanteroL (Breo Ellipta) 100-25 mcg/dose inhaler Inhale 1 puff by mouth 1 (one) time each day. 1 each 5 03/26/20 25 026 Active albuterol 2.5 mg /3 mL (0.083 %) nebulizer solutionIndication s:Moderate persistent asthma with acute exacerbation Take 3 mL (2.5 mg total) by nebulization 4 (four) times a day if needed for wheezing or shortness of breath. 300 mL 1 03/26/20 25 026 Active fezolinetant 45 mg tabletIndications: Menopausal symptoms Take 45 mg by mouth 1 (one) time each day. 30 tablet 5 05/10/20 25 026 Active diclofenac (VOLTAREN) 1 % topical gel Apply 4 g topically 4 (four) times a day. 480 g 1 05/18/20 25 Active fezolinetant 45 mg tabletIndications: Menopausal symptoms Take 45 mg by mouth 1 (one) time each day. 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 She will actually be seeing an checker and packer on Wednesday. If her symptoms are worsening [...] both constipation and diarrhea 05/12/2018 Psoriatic arthritis ([facility] V24, [facility] V28) 0 12/09/2017 Overview (04/05/2024): Dr Murphy Abdominal pain, chronic, epigastric 03/27/2013 Bipolar affective disorder ([facility] V24, [facility] V28) 07/15/2012 Vitamin D deficiency 08/13/2011 Back [...] Encounters Date Type Department Care Team Description 05/28/2025 12:30 PM EST Lab Draw [address] Hot flashes due to menopause 05/24/2025 Telephone Obstetrics and Gynecology - [address] [phone] Kellie Renae CNM 05/24/2025 Telephone Obstetrics and Gynecology - [address] [phone] Kellie Renae CNM 05/18/2025 10:30 AM EST Office Visit Orthopedic Surgery [facility] [address] [phone] Maribel Barajas MD Left hip pain (Primary Dx); Acute pain of left knee 05/01/2025 2:30 PM EDT Ancillary Procedure Orthopedic Surgery [facility] [address] [phone] 05/01/2025 2:00 PM EDT Procedure visit Orthopedic [facility] [address] [phone] Maribel Barajas MD Left hip pain (Primary Dx) 04/23/2025 Results Follow-Up Adult Medicine [address] [phone] Radu Christensen MD 04/04/2025 Telephone Adult Medicine [address] [phone] Radu Christensen MD 04/03/2025 11:30 AM EDT Office Visit Orthopedic Surgery [facility] [address] [phone] Maribel Barajas MD Left hip pain (Primary Dx) 03/26/2025 8:30 AM EDT Office Visit [address] [phone] Radu Christensen MD Physical exam (Primary Dx); Primary hypertension; Mixed hyperlipidemia; Moderate persistent asthma with acute exacerbation; Gastroesophageal reflux disease without esophagitis; Irritable bowel syndrome with both constipation and diarrhea; Psoriatic arthritis ([facility] V24, [facility] V28); Bipolar affective disorder in remission ([facility] V24) from Last 3 Months Immunizations Immunization Administration Dates Next Due Influenza Quadravalent, MDCK , 0.5ml, preservative free (Flucelvax) 6mo and older 06/10/2023,04/17/2021,05/26/2019 Influenza Quadravalent, MDCK , 0.5ml, with preservative (Flucelvax) 6mo and older 03/11/2017 Influenza trivalent, MDCK, 0 .5mL, preservative free (Flucelvax) 6mo and older 03/26/2025 Influenza trivalent, with pr eservative (Fluzone; Afluria) [...] Sign Reading Time Taken Comments Blood Pressure 132/85 03/26/2025 8:27 AM EDT Pulse 78 03/26/2025 8:27 AM EDT Temperature 35.7 C (96.3 F) 03/26/2025 8:27 AM EDT Respiratory Rate 16 02/14/2025 4:35 PM EDT Oxygen Saturation 98% 02/14/2025 4:35 PM EDT Inhaled Oxygen Concentration - - Weight 66.2 kg (146 lb) 05/18/2025 10:35 AM EST Height 162.6 cm (5' 4.02 ) 05/18/2025 10:[address] Body Mass Index 25.05 05/18/2025 10:35 AM EST Plan of Treatment Upcoming Encounters Date Type Department Care Team (Late st Contact Info) Description 06/15/2025 10:30 AM EST Office Visit Orthopedic Surgery - [place] 160 175 [facility] [address] [place] [phone] Maribel Barajas MD [address] [address] Health Maintenance Due Date Last Done Comments Hepatitis B Vaccines (1 of 3 - 19+ 3-dose series) 1992 Pneumococcal Vaccine: 50+ Years (2 of 2 - PCV) 12/28/2009 12/28/2008, 10/10/2005 Medicare Annual Wellness Visit 06/13/2022 Social Influencers of Health Screening 06/13/2022 Cervical Cancer Screening: Pap Smear 03/06/2023 03/06/2020, 03/06/2020 RSV Immunization Adult Patients (1 - Risk 50-74 years 1-dose series) 2023 COVID-19 Vaccine ( season) 2025 06/12/2021, 11/30/2020, 11/02/2020 Hypertension/CHF/CAD Annual BMP Blood Test 04/25/2026 04/25/2025, 04/23/2025, 11/22/2024, Additional history exists Breast Cancer Screening 07/25/2026 07/25/19, 01/26/2023, 02/11/2022, Additional history exists Cholesterol Screening (Lipid Panel) 04/23/2030 04/23/2025, 09/11/2024, 12/25/2022 Colorectal Cancer Screening: Colonoscopy 03/03/2032 03/03/2022 DTaP,Tdap,and Td Vaccines (5 - Td or Tdap) 01/04/2033 01/04/2023, 07/15/2012, 11/26/2004, Additional history exists HIV Screening Completed 03/02/2014 Hepatitis C Screening Completed 02/24/2023, 023 Zoster Vaccines Completed 12/31/2023, 10/01/2023 Depression Screening Completed 08/09/2024, 07/09/19 21 Influenza Vaccine Completed 03/26/2025, , 04/17/2021, Additional history exists HIB Vaccines [...] Associated Diagnosis Comments HEPATIC FUNCTION PANEL Routine 12:32 PM EST Hot flashes due to menopause US ARTHROCENTESIS ASP INJ JOINT MAJOR RIGHT Routine 05/01/2025 2:25 PM EDT Left hip pain OK ARTHROCENTESIS/ASPIRAT ION/INJECTION MAJOR JOINT/BURSA W/O U/S GUIDANCE Routine 05/01/2025 2:00 PM EDT Left hip pain EXTERNAL CLINICAL LAB 04/25/2025 EXTERNAL CLINICAL LAB 04/25/2025 EXTERNAL CLINICAL LAB 04/25/2025 COMPREHENSIVE METABOLIC PANEL Routine 04/23/2025 10:06 AM EDT Moderate persistent asthma without complication Primary hypertension Psoriatic arthritis (CMS/HCC V24, CMS/HCC V28) B12 deficiency Vitamin D deficiency Transaminitis Bipolar affective disorder, remission status unspecified (CMS/HCC V24, CMS/HCC V28) VITAMIN D 25 HYDROXY Routine 04/23/2025 10:06 AM EDT Moderate persistent asthma without complication Primary hypertension Psoriatic arthritis (CMS/HCC V24, CMS/HCC V28) B12 deficiency Vitamin D deficiency Transaminitis Bipolar affective disorder, remission status unspecified (CMS/HCC V24, CMS/HCC V28) VITAMIN B12 Routine 04/23/2025 10:06 AM EDT Moderate persistent asthma without complication Primary hypertension Psoriatic arthritis (CMS/HCC V24, CMS/HCC V28) B12 deficiency Vitamin D deficiency Transaminitis Bipolar affective disorder, remission status unspecified (CMS/HCC V24, CMS/HCC V28) LIPID PANEL WITH REFLEX TO DIRECT LDL Routine 04/23/2025 10:06 AM EDT Moderate persistent asthma without complication Primary hypertension Psoriatic arthritis (CMS/HCC V24, CMS/HCC V28) B12 deficiency Vitamin D deficiency Transaminitis Bipolar affective disorder, remission status unspecified (CMS/HCC V24, CMS/HCC V28) MG MAMMO DIGITAL SCREENING W DREW BILAT Routine 07/25/2024 10:36 AM EST Encounter for screening mammogram for breast cancer HEPATITIS C SCREENING Routine 01/04/2023 COLONOSCOPY Routine 03/03/2022 DEPRESSION SCREENING Routine 07/09/2020 PAP SMEAR Routine 03/06/2020 HIV SCREENING Routine 03/02/2014 from Last 3 Months or Most Recently Relevant to Health Maintenance Results * (ABNORMAL) Hepatic function panel (05/28/2025 [...] 10 - 42 unit/L 05/28/2025 5:[address] [facility] Alkaline Phosphatase 152(H) 42 - 121 unit/L 05/28/2025 5:12 PM EST [facility] Blood Venous blood specimen / Unknown Venipuncture / Unknown 05/28/2025 12:32 PM EST 05/28/2025 12:32 PM EST us Kellie Renae [facility] BLOOD ORDERABLES Final R esult [facility]) [facility] [address] [place] [address], * US Arthrocentesis Asp Inj Joint Major Right (05/01/2025 2:25 PM EDT) Anatomical Region Laterality Modality Extremity Right Ultrasound Narrative 05/04/2025 3:47 PM EDT PROCEDURE: Left Hip Injection Note. The risks of the injection were discussed including: infection, neurovascular injury, steroid flare, fat atrophy, inflammatory response. The patient understood the risks and gave verbal consent. The patient was positioned supine with the anterior hip exposed. The area was prepped in a sterile fashion with Chloro-Prep. Vascular structures were identified using ultrasound power Doppler. Lidocaine 4ml was injected locally then slowly advanced using a 22g 3.5 spinal needle infiltrating to the femoral head-neck junction under ultrasound guidance. A small amount of anesthetic was injected into the capsule. Kenalog 40 mg and lidocaine 3 cc was injected into the hip joint without difficulty. The hip capsule was observed filling with the injection. Images were recorded and will permanently stored in patients medical record. The patient tolerated the procedure well. There were no complications. Aftercare was thoroughly discussed. Images were taken and are permanently stored and retrievable. us Maribel Barajas MD IMG US PROCEDURES Final Result * OK ARTHROCENTESIS/ASPIRATION/INJECTION MAJOR JOINT/BURSA W/O U/S GUIDANCE (05/01/2025 2:00 PM EDT) Narrative Maribel Barajas MD - 05/01/2025 2:00 PM EDT Maribel Barajas MD 05/04/2025 3:48 PM L Inj/Asp: L hip joint Indications: pain Details: 22 G needle, anterior approach (guidance: US guided ) Medications: 4 mL lidocaine 1 %; 40 mg triamcinolone acetonide 40 mg/mL Outcome: tolerated well, no immediate complications Informed Consent: Laterality: Left Relevant images/test results available and reviewed: yes Health status cleared: Yes Procedure/treatment, purpose, treatment alternatives, risks/potential complications and benefits explained: yes Risk/complications/benefits details: Risks include bleeding, infection, increase in pain Patient questions answered: yes Patient agrees, verbalizes understanding, and wants to proceed: yes Consent given by: Patient Informed consent discussion completed by Physician/SIOMARA with patient: Verbal Pre-procedure timeout performed: yes Maribel Barajas MD IN CLINIC/BEDSIDE ORDERABLES F inal Result * External clinical lab (04/25/2025) Only the most recent of3 resultswithin the time period is included. Provider [facility] LAB BLOOD ORDERABLES Fin al Result * (ABNORMAL) Lipid panel with reflex to direct LDL (04/23/2025 10:06 AM EDT) Cholesterol 229(H) 0 - 200 mg/dL LAB CHEMISTRY METHOD 04/23/2025 3:55 PM EDT [facility] Triglycerides 136 0 - 150 mg/dL LAB CHEMISTRY METHOD 04/23/2025 3:55 PM EDT [facility] HDL 44 >=40 mg/dL LAB CHEMISTRY METHOD 04/23/2025 3:55 PM EDT [facility] LDL Calculated 158(H) 0 - 100 mg/dL LAB CHEMISTRY METHOD 04/23/2025 3:55 PM T [facility] Comment:Estimated LDL Calcul ated using equation: Total cholesterol - HDL cholesterol - (Triglycerides/5) VLDL Cholesterol Silas 27.2 mg/dL LAB CHEMISTRY METHOD 04/23/2025 3:55 PM EDT [facility] Non HDL Chol. (LDL+VLDL) 185(H) <145 mg/dL LAB CHEMISTRY METHOD 04/23/2025 3:55 PM EDT [facility] Chol/HDL Ratio 5.2(H) 0.0 - 4.4 LAB CHEMISTRY METHOD 04/23/2025 3:55 PM EDT [facility] Blood Venous blood specimen / Unknown Venipuncture / Unknown 04/23/2025 10:06 AM EDT 04/23/2025 10:06 AM EDT us Radu Christensen MD LAB BLOOD ORDERABLES Final Result Performing Organization Address City/[facility]/ZIP Co de Phone Number [facility] [address] [place] [address], [place] [phone] * (ABNORMAL) Vitamin D 25 hydroxy (04/23/2025 10:06 AM EDT) Vit D, 25-Hydroxy 28.6(L) 30.0 - 80.0 ng/mL LAB CHEMISTRY METHOD 04/23/2025 4:27 PM EDT [facility] Blood Venous blood specimen / Unknown Venipuncture / Unknown 04/23/2025 10:06 AM EDT 04/23/2025 10:06 AM EDT Radu Christensen MD LAB BLOOD ORDERABLES Final Result [facility] [address] [place] [address], [place] [phone] * Vitamin B12 (04/23/2025 10:06 AM EDT) Vitamin B-12 503 250 - 900 pcg/mL LAB CHEMISTRY METHOD 04/23/2025 3:55 PM EDT [facility] Blood Venous blood specimen / Unknown Venipuncture / Unknown 04/23/2025 10:06 AM EDT 04/23/2025 10:06 AM EDT us Radu Christensen MD LAB BLOOD ORDERABLES Final Result [facility] [address] [place] [address], [place] [phone] * (ABNORMAL) Comprehensive metabolic panel (04/23/2025 10:06 AM EDT) Sodium 140 133 - 145 mmol/L LAB CHEMISTRY METHOD 04/23/2025 3:55 PM EDT [facility] Potassium 3.7 3.5 - 5.5 mmol/L LAB CHEMISTRY METHOD 04/23/2025 3:55 PM [facility] Chloride 106 96 - 110 mmol/L LAB CHEMISTRY METHOD 04/23/2025 3:55 PM [facility] CO2 25 21 - 32 mmol/L LAB CHEMISTRY METHOD 04/23/2025 3:55 PM [facility] Anion Gap 9 3 - 11 LAB CHEMISTRY METHOD 04/23/2025 3:55 PM [facility] Glucose 87 70 - 100 mg/dL LAB CHEMISTRY METHOD 04/23/2025 3:55 PM [facility] BUN 13 5 - 25 mg/dL LAB CHEMISTRY METHOD 04/23/2025 3:55 PM [facility] Creatinine 0.76 0.50 - 1.10 mg/dL LAB CHEMISTRY METHOD 04/23/2025 3:55 PM [facility] eGFR 95 >=60 mL/min/1. 73m2 LAB CHEMISTRY METHOD 04/23/2025 3:55 PM [facility] Comment:Calculation based on the Chronic Kidney Disease Epidemiology Collaboration (CKD-EPI) equation refit without adjustment for race. BUN/Creatinine Ratio 17.1 LAB CHEMISTRY METHOD 04/23/2025 3:55 PM [facility] Calcium 9.2 8.5 - 10.5 mg/dL LAB CHEMISTRY METHOD 04/23/2025 3:55 PM EDT [facility] AST (SGOT) 17 10 - 42 unit/L LAB CHEMISTRY METHOD 04/23/2025 3:55 PM EDT [facility] ALT (SGPT) 29 10 - 60 unit/L LAB CHEMISTRY METHOD 04/23/2025 3:55 PM EDT [facility] Alkaline Phosphatase 140(H) 42 - 121 unit/L LAB CHEMISTRY METHOD 04/23/2025 3:55 PM EDT [facility] Total Protein 7.2 6.0 - 8.0 g/dL LAB CHEMISTRY METHOD 04/23/2025 3:55 PM EDT [facility] Albumin 4.1 3.2 - 5.0 g/dL LAB CHEMISTRY METHOD 04/23/2025 3:55 PM EDT [facility] Total Bilirubin 0.6 0.0 - 1.4 mg/dL LAB CHEMISTRY METHOD 04/23/2025 3:55 PM EDT [facility] Blood Venous blood specimen / Unknown Venipuncture / Unknown 04/23/2025 10:06 AM EDT 04/23/2025 10:06 AM EDT us Radu Christensen MD LAB BLOOD ORDERABLES Final Result [facility] [address] [place] [address], * MG Mammo Digital Screening w Drew bilat (07/25/2024 10:36 AM EST) Anatomical Region Laterality Modality Breast Bilateral Mammography 07/25/2024 5:44 PM EST Impressions 07/25/2024 5:48 PM EST 1. No mammographic evidence of malignancy 2. Heterogeneous breast parenchyma BI-RADS CATEGORY: 2 - BENIGN RECOMMENDATION: Screening bilateral mammogram is recommended in 1 year. Mammo Location: [facility], [address] [place] [address], [id number], . -------- FINAL REPORT -------- Dictated By: Marin Andino Dictated Date: 07/25/2024 17:44 ET Assigned Physician: Marin Andino Reviewed and Electronically Signed By: Marin Andino Signed Date: 07/25/2024 17:48 ET Workstation ID: [id number] Transcribed By: Self Edit Transcribed Date: 07/25/2024 17:44 ET Narrative 07/25/2024 5:48 PM EST A BILATERAL DIGITAL 3D SCREENING MAMMOGRAPHY HISTORY: Routine screening. Family history of breast cancer in grandmother and aunt COMPARISON: Multiple priors dating back to 10/18/2020 Technique: Bilateral full field digital mammography (3D) was performed using standard CC and MLO projections CAD was [...] is recommended in 1 year. Mammo Location: [facility], [address] [place], [place], [address], . -------- FINAL REPORT -------- Dictated By: Marin Andino Dictated Date: 07/25/2024 17:44 ET Assigned Physician: Marin Andino Reviewed and Electronically Signed By: Marin Andino Signed Date: 07/25/2024 17:48 ET Workstation ID: [id number] Transcribed By: Self Edit Transcribed Date: 07/25/2024 17:44 ET Radu Christensen MD IMG BI PROCEDURES Final Res ult * Hepatitis C Screening (01/04/2023) Hepatitis C Screening Abstracted Historical Provider MD HEALTH MAINTENANCE Final Result * Colonoscopy (03/03/2022) Pathologist [facility] Colonoscopy Abstracted, Positive Anatomical Region Laterality Modality Other Historical Provider [place] HEALTH MAINTENANCE Final Result * Depression Screening (07/09/2020) Pathologist [facility] Depression Screening Abstracted [facility] Provider [place] HEALTH MAINTENANCE Final Result * Pap smear (03/06/2020) 03/06/2020 Narrative HISTORICAL TESTING LAB RESULTING AGENCY - 04/17/2020 6:00 PM EDT [id number] THINPREP PAP AND CELL BLOCK: NEGATIVE FOR SQUAMOUS INTRAEPITHELIAL LESION AND MALIGNANCY . JOSEPHINE IS PRESENT. OLIVIA ESPARZA , CT(ASCP) (CASE SCREENED 03 12 2020) DEWEY ARAYA M.D. , PATHOLOGIST (CASE ELECTRONICALLY SIGNED 03 20 2020) ADEQUACY: SATISFACTORY . SOURCE: THINPREP PAP, VAGINAL, IMAGED CLINICAL INFORMATION: PAP HX NEG, HYSTERECTOMY, LMP 08/03/11, Z12.4 CB 03/07/20 Kira Whitman CNM LAB CYTOLOGY ORDERABLES Final Result HISTORICAL TESTING LAB RESULTING AGENCY * HIV Screening (03/02/2014) HIV Screening Abstracted us Historical Provider HEALTH MAINTENANCE Final Result from Last 3 Months or Most Recently Relevant to Health Maintenance Insurance [employer] MEDIC[place] [id number] Care Teams Button Station Worker Relationship Specialty Start Date End Date Radu Christensen MD [address] [place] [address] PCP - General Internal Medicine 12/05/21
--- OUTSIDE RECORDS SUMMARY | 2025-05-28 17:55 | XMS_ITS | Encounter Summary ---
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 N/A Protocols used: Dizziness - [id number] * Milagro Castro - 06/05/2024 10:26 AM [...] traveled recently to another state outside of [place], [place], [place], [place], [place], [place], [place]? no o If yes, did you quarantine [...] yes, gather 3rd democrat insurance information Third Libertarian Information: not applicable PCP: Radu Christensen MD Payor: [facility] MEDICARE / Plan: [employer] MEDICARE COMPLETE / Product Type: *No Product type* / documented in this encounter Plan of Treatment Upcoming Encounters Date Type Department Care Team (Late st Contact Info) Description 06/15/2025 10:30 AM EST Office Visit Orthopedic Surgery - [place] [address] [phone] Maribel Barajas MD [address] [address] documented as of this encounter Visit Diagnoses Not on filedocumented in this encounter Additional Health Concerns Infection Onset Date Last Indicated Resolved Time Respiratory Rule-Out 08/10/2024 08/10/2024 025 11:34 PM EST COVID-19 Rule-Out 08/10/2024 08/10/2024 08/10/2024 11:34 PM EST documented as of this encounter Care Teams Gear Grinder Relationship Specialty Start Date End Date Radu Christensen MD [address] [place] [address] PCP - General Internal Medicine 12/05/21 documented as of this encounter
--- OUTSIDE RECORDS SUMMARY | 2025-05-28 17:55 | XMS_ITS | Encounter Summary ---
Author Organization [facility] Address [address] [place] [address] Phone Care Team Providers Care Rail Car Mechanic Name Role Phone Susy Silva MD Primary Care Provider [phone] Radu Christensen MD Primary Care Provider Encounter Details Date Type Department Care Team (Late st Contact Info) Description 10/02/2020 Procedure Pass ANT LW PERIOP DEPT [address] [place] [address] Social History Tobacco Use Types Packs/Day Years [...] Care Team (Late st Contact Info) Description 07/20/2025 2:00 PM EST Office Visit [facility] Rheumatology [address] [place] [address] Karuna Lugo MD [address] [facility], [address] [place] [address] 09/29/2025 11:15 AM EDT Appointment [facility], Bone Density - [facility] [address] [place] [address] Karuna Lugo MD [address] [facility], [address] [place] [address] [email or web address] documented as of this encounter Visit Diagnoses Not on filedocumented in this encounter Care Teams Rail Car Mechanic Relationship Specialty Start Date End Date Susy Silva MD [address] [place] [address] PCP - General Internal Medicine 03/05/20 10/17/24 Radu Christensen MD [address] [place] [address] PCP - General Internal Medicine 10/18/24 documented as of this encounter Additional Source Comments The information contained in this document represents components of the legal health record. It is not the complete legal health record.[facility]
--- OUTSIDE RECORDS SUMMARY | 2025-05-28 17:55 | XMS_ITS | Encounter Summary ---
Author Organization [facility] Address [address] [facility] [address] [place] [address] Phone Care Team Providers Care Educational Program Assistant Name Role Phone Radu Christensen MD Primary Care Provider Encounter Details Date Type Department Care Team (Late st Contact Info) Description 05/28/2025 Refill [facility] Rheumatology [address] [place], [place] [phone] Brenda Alvarez MA [address] [place] [address] Social History Tobacco Use Types Packs/Day Years Used Date Smoking Tobacco: Former Cigarettes Q uit: 09/25/2016 Smokeless Tobacco: Former Alcohol Use Standard Drinks/Week Comments Not Currently 0 (1 standard drink = 0.6 oz pur e alcohol) Education Answer Date Recorded Are you interested in more education? Not on rey e 10/30/2022 Are you concerned about learning? Not on file 10/30/2022 No 10/30/2022 No 10/30/2022 Digital Access Answer Date Recorded No 11/28/2022 No 11/28/2022 Reliable internet access at home? Not on file 11/28/2022 Device with a working camera? Not on file Comments No Sex and Gender Information Value Date Recorded Sex Assigned at Not on file Legal Sex Female 3:58 PM EDT Gender Identity Not on file Sexual Orientation Not on file documented as of this encounter Progress Notes * Brenda Alvarez MA - 05/28/2025 1:32 PM EST Medication Refill Masspat last fill 04/29/2025 #30 day supply Due 05/29/2025 Last office visit: 04/25/2025 Next office visit: 07/20/2025 Last CBC w/diff Lab Results Component Value Date WBC 5.40 04/25/2025 RBC 4.62 04/25/2025 HGB 13.6 04/25/2025 HCT 41.6 04/25/2025 PLT 324 04/25/2025 MCV 90.0 04/25/2025 MCH 29.4 04/25/2025 MCHC 32.7 04/25/2025 RDW 12.7 04/25/2025 MVP 9.6 04/25/2025 NRBCA 0.00 04/25/2025 DIFMET Auto 04/25/2025 NEUT 49.5 04/25/2025 LYMP 41.7 (H) 04/25/2025 MON 7.4 04/25/2025 EOSP 0.6 04/25/2025 ANEU 2.68 04/25/2025 ALYMP 2.25 04/25/2025 AMONS 0.40 04/25/2025 AEOSN 0.03 04/25/2025 ABASOP 0.03 04/25/2025 IMMGRAN 0.01 04/25/2025 Last CMP Lab Results Component Value Date NA 139 04/25/2025 K 3.7 04/25/2025 CL 103 04/25/2025 CO2 24 04/25/2025 BUN 14 04/25/2025 CRE 0.70 04/25/2025 GLU 85 04/25/2025 ALB 4.5 04/25/2025 TP 7.6 04/25/2025 CA 9.4 04/25/2025 ALKP 136 (H) 04/25/2025 TBILI 0.5 04/25/2025 SGOT 18 04/25/2025 SGPT 15 04/25/2025 GLOB 3.1 04/25/2025 GFR 105 04/25/2025 ANION 16 04/25/2025 Last CRP Lab Results Component Value Date CRPT 4.1 (H) 04/25/2025 Last ESR ESR Date Value Ref Range Status 04/25/2025 6 0 - 30 mm/h Final documented in this encounter Plan of Treatment Upcoming Encounters Date Type Department Care Team (Late st Contact Info) Description 07/20/2025 2:00 PM EST Office Visit [facility] Rheumatology [address] [place] [address] Karuna Lugo MD [address] [place] [address] 09/29/2025 11:15 AM EDT Appointment [facility], Bone Density - [address] [address] Karuna Lugo MD [address] [place] [address] documented as of this encounter Visit Diagnoses Diagnosis Rheumatoid arthritis involving multiple sites with positive rheumatoid factor Fibromyalgia Unspecified myalgia and myositis Primary osteoarthritis involving multiple joints documented in this encounter Care Teams Educational Program Assistant Relationship Specialty Start Date End Date Radu Christensen MD [address] [place] [address] PCP - General Internal Medicine 10/18/24 documented as of this encounter Additional Source Comments The information contained in this document represents components of the legal health record. It is not the complete legal health record.[facility]
--- OUTSIDE RECORDS SUMMARY | 2025-05-28 17:56 | XMS_ITS | Clinical Summary ---
Author Organization [employer] Address [address] [facility] 7[address] [place] [address] Care Team Providers Care Certified Ethical Hacker Name Role Phone Unavailable Primary Care Provider [...] Missing teeth, acquired 01/10/2025 Dental plaque 01/10/2025 Social History Tobacco Use Types Packs/Day Years [...] of 3 - PCV) 12/28/2009 12/28/2008, 10/10/2005 RSV Patients and Patients Aged 60 years or older (1 - Risk 50-74 years 1-dose series) 2023 COVID-19 Vaccine (2024- season) 2025 06/12/2021, 11/30/2020, 11/02/2020 Influenza Vaccine (#1) 2025 , 06/10/2023, 04/17/2021, Additional history exists Dental Oral Exam 07/14/2025 01/10/2025 Tobacco Screening 01/10/2026 01/10/2025 Mammogram 07/25/2026 07/25/2024, 07/25/2024 DTaP/Tdap/Td Vaccines (3 - Td or Tdap) 01/04/2033 01/04/2023, 07/15/2012, 11/26/2004, Additional history exists Zoster Vaccines Completed 12/31/2023, 10/01/2023 HIB Vaccines [...] ESTABLISHED PATIENT Routine 01/10/2025 11:00 AM EDT from Last 3 Months or Most Recently Relevant to Health Maintenance Insurance DENTAL [facility] [place] STAND ADULT
--- OUTSIDE RECORDS SUMMARY | 2025-05-28 17:56 | XMS_ITS | Encounter Summary ---
Author Organization [facility] Address [address] [place] [address] Care Team Providers Care Food Or Baggage Handling Rampman Name Role Phone Radu Christensen MD Primary Care Provider [phone] Encounter Details Date Type Department Care Team (Late Contact Info) Description 04/23/2025 Results Follow-Up Adult Medicine [address] [phone] Radu Christensen MD [address] [place] [address] Social History Tobacco Use Types Packs/Day Years [...] AM EST Office Visit Orthopedic Surgery - [place] [address] [phone] Maribel Barajas MD [address] [address] documented as of this encounter Visit Diagnoses Not on filedocumented in this encounter Additional Health Concerns Assessment Noted Time PHQ-9 Depression Total Score: 15 025 12:18 PM EST documented as of this encounter Care Teams Food Or Baggage Handling Rampman Relationship Specialty Start Date End Date Radu Christensen MD [address] [place] [address] PCP - General Internal Medicine 12/05/21 documented as of this encounter
--- OUTSIDE RECORDS SUMMARY | 2025-05-28 17:56 | XMS_ITS | Data Portability ---
Author Organization [place] [facility], Allergy Address [address] [place] [phone] Assessment Encounter Date Assessment Date Assessment LastModified [...] Appointments None recorded. Lab None recorded. Referral food service lead referral - r/o auditory processing disorder 2024 025 [email or web address] [facility], [address] [place], [address], 5 15:50:39 Procedures None recorded. Surgeries None recorded. Imaging None recorded. Medication Orders cetirizine 10 mg tablet 2024 [id number], [address] [place], [place], [id number], 5 13:57:50 cetirizine 10 mg tablet 2024 [facility]1677, [address] [place], [place], [id number], 5 15:08:47 fluticasone propionate 50 mcg/actuati on nasal spray,suspe nsion 2024 [id number], [address] [place], [place], [phone], 5 15:08:48 Patient TargetsNo targets recorded. Patient InstructionsNo instructions recorded. Reason for Referral Underground Foreman Referral for Abn ormal auditory perception r/o [...] Address Organization Details Recorded Time Chronic sinusitis 05924413 Active 2019 Other chronic sinusitis ; Note: Date Diagnosed : 11/21/2019 1:15 PM (J32.8) Not Available [facility] 4 02:20:11 Seasonal allergic rhinitis 887775775 Active 2019 Other seasonal allergic rhinitis; Note: Date Diagnosed : 05/13/2020 9:20 AM (J30.2) Not Available [facility] 4 02:19:35 Respirator y finding 644999094 Active 2019 Choking sensation ; Note: Date Diagnosed : 05/13/2020 9:21 AM (R09.89) Not Available [facility] 4 02:19:41 Cardiovasc ular finding 772170695 Active 2019 Choking sensation ; Note: Date Diagnosed : 05/13/2020 9:21 AM (R09.89) Not Available [facility] 4 02:19:41 Allergic rhinitis 77712289 Active 2023 Allergic rhinitis: Due to other [...] ; Start Date : 0 Not Available [facility] 4 00:53:31 Abnormal auditory perception 60747359 Active 2023 Other abnormal auditory perceptio ns, bilateral ; Note: Date Diagnosed : 08/11/2023 2:35 PM (H93.293) Not Available [facility] 4 02:20:19 Problem Notes None recorded. Medical Equipment None Reported. Allergies Allergen ID Allergen Name Allergen Category Reaction Reaction Severity Criticality Documentation Date Start Date Code Code System Note Provider Name and Address Organization Details Recorded Time 22404 oxycodone medicatio n other Not available Not available 11/16/2023 7804 RxNorm React ion: unkno wn, unspe cifie d;; Not Available [facility] 4 00:54:58 68276 morphine medicatio n other Not available Not available 11/16/2023 7052 RxNorm React ion: unkno wn, unspe cifie d;; Not Available [facility] 4 00:55:05 Medications Name Sig Start Date Stop Date Status Note LastModified by Organization Details LastModified Time Prescript ion - Renewal active Not Available Not Available Not Available quetiapin e 25 mg tablet 2019 active Medicati on ID: 893278 D uration Value: 90 Brand Name: quetiapi ne Send Method: E-Prescr ibed Sub s Allowed: subs OK Medic ationGen ericName : quetiapi ne Not Available Not Available Not Available lamotrigi ne 150 mg tablet 2019 active Medicati on ID: 278118 B rand Name: lamotrig ine Send Method: [...] t Available cetirizin e 10 mg tablet TAKE 1 TABLET BY MOUTH EVERY DAY IN THE EVENING FOR 90 DAYS active Not Available Not Available No [...] mg tablet 2019 active Medicati on ID: 893088 D uration Value: 90 Brand Name: sertrali ne Send Method: E-Prescr ibed Sub s Allowed: subs OK Speci al Instruct ion: TK 2 TS PO QAM Medi cationGe nericNam e: sertrali ne Not Available Not Available Not Available clonazepa m 1 mg tablet 07/12 completed Medicati on ID: 008543 B rand Name: clonazep am Send Method: E-Prescr ibed Sub s Allowed: subs OK Medic ationGen ericName : clonazep am Not Available Not Available Not Available atenolol 25 mg tablet 05/31 completed Medicati on ID: [id number] B rand Name: atenolol Send Method: E-Prescr [...] mg tablet 2019 active Medicati on ID: 843543 D uration Value: 90 Brand Name: trazodon [...] 24 hr 2019 active Medicati on ID: 822726 D uration Value: 90 Brand Name: oxybutyn [...] as directed 2022 active Medicati on ID: 808288 D uration Value: 30 Brand Name: azelasti [...] DIRECTED BY GASTROEN TEROLOGY DEPARTME NT AT [facility] active Not Available Not Available [...] e 50 mcg/actua tion nasal spray,gurdeep pension Ralls 2 sprays every day by intranas al route in the morning for 42 days, for allergic rhinitis . 2024 active Not Available Not Available Not Avai lable dicyclomi ne 10 mg capsule TAKE 1 CAPSULE BY MOUTH THREE TIMES DAILY NEEDED FOR ABDOMINA L PAIN active Not Available Not Available No t Available lamotrigi ne 100 mg tablet 05/13 completed Medicati on ID: 352828 D uration Value: 90 Brand Name: lamotrig [...] mg tablet 2019 active Medicati on ID: 426933 D uration Value: 45 Brand Name: aripipra [...] e Hcl 2019 active Medicati on ID: 061846 D uration Value: 90 Brand Name: ranitidi ne hcl Send Method: E-Prescr ibed Sub s Allowed: subs OK Medic ationGen ericName : ranitidi ne hcl Not Available Not Available Not Available quetiapin e 50 mg tablet 05/13 completed Medicati on ID: [id number] B rand Name: quetiapi ne Send Method: [...] Updated DateTime 01/16/2025 160.02 cm 27.1 kg/m2 33060.63 g Evelyn Tyler [facility] 01/16/2025 13:49:03 Social History None recorded. Functional Status None recorded. Mental Status None recorded. Family History Nothing Reported. Medical History Condition Response Allergies/Hayfever Y Depression Y Asthma Y Gynecological HistoryNo gynecological history recorded. Obstetrics History GPAL:G 0 P 0 0 0 0 Past Encounters Encounter ID Performer Location Encounter Start Date Encounter Closed Date Diagnosis/Indication Diagnosis SNOMED-CT Code Diagnosis ICD10 Code Diagnosis IMO Codes Diagnosis Note [id number] HARRIET ROSS PA-C [facility] [address] [address] 07/19/2024 14:55:32 07/19/2024 15:19:10 Allergic rhinitis 92455317 J30.89 Abnormal a uditory perception 78372962 H93.293 [id number] JAS GUERRERO PA-C [facility] [address] [place] [address] 01/16/2025 13:42:38 01/16/2025 14:46:28 Allergic rhinitis 12557276 J30.89 Health Concerns Section Related Observation LastModified by Organization Detai ls LastModified Time None Recorded Concern Status LastModified by Organization Details LastModified Time None Recorded Advance Directives Directive None Recorded Payers Insurance Date Sequence Insurance Name Policy Number Policy Evans Covered Member ID Evans Member ID Guarantor Name 03/07/2025 1 [facility] (MEDICARE REPLACEMENT/ ADVANTAGE - PPO) [id number] Rubia Sosa [id number] Rubia Sosa 03/07/2025 2 [place] [facility] Rubia Sosa [id number] Rubia Sosa Notes Date Note Type Note Provider Name and Address Organization Details Recorded Time 07/19/2024 text/html ROS as noted in the HPI 49 year old female presents for re-evaluation of the ears and [...] straight up the nose. RUBEN ABARCA MD [address] [place] [address], [phone], [facility] 07/19/2024 15:58:35 01/16/2025 text/html ROS as noted in the HPI 50yo female presents for allergy follow up. She completed 4 years of SCIT 09/2023. She reports allergy symptoms have been acting up. Endorses dry throat and ear itch. She continues to use daily cetirizine and intranasal fluticasone and azelastine. JEET GRAFF MD [address] [place] [address], [phone], [facility] 01/16/2025 17:17:42 OBGyn Episode No OBEpisode recorded.
--- OUTSIDE RECORDS SUMMARY | 2025-05-28 17:56 | XMS_ITS | Encounter Summary ---
Author Organization [employer] Address [address] [place] [address] Care Team Providers Care Building Mechanic Name Role Phone Radu Christensen MD Primary Care Provider [phone] Encounter Details Date Type Department Care Team (Late st Contact Info) Description 05/24/2025 Telephone Obstetrics [facility] Gynecology - [facility] [address] [place] [address] Kellie Renae, [facility] [address] [place] [address] Social History Tobacco Use Types Packs/Day Years [...] as of this encounter Progress Notes * Olive Starr RN - 05/28/2025 11:44 AM EST Spoke with pt. She was not eligible for coupon. Advised that if her insurance is through the state ([place], medicare) she needs to call them directly. For patients with Medicare/Medicaid If you have Medicare or Medicaid, which are government insurance programs, call [facility] at to find out what assistance options and/or information may be available to you. Also advised pt that per insurance, pt needs to have blood work done first before they would consider covering [place]. Pt will have this done today (labs already ordered by provider). * Laxmi Dean - 05/28/2025 10:47 AM EST Patient called wants Kellie Oc's office to download the coupon since she tried and it said she was not eligible. * Nicole Sweet - 05/24/2025 2:44 PM EST Kellie, please see fax for this patient that is on your desk. She needs blood work done for veozah. documented in this encounter Plan of Treatment Upcoming Encounters Date Type Department Care Team (Late st Contact Info) Description 06/15/2025 10:30 AM EST Office Visit Orthopedic Surgery - [place] [address] [phone] Maribel Barajas MD [address] [address] documented as of this encounter Visit Diagnoses Not on filedocumented in this encounter Additional Health Concerns Assessment Noted Time PHQ-9 Depression Total Score: 15 025 12:18 PM EST documented as of this encounter Care Teams Building Mechanic Relationship Specialty Start Date End Date Radu Christensen MD [address] [place] [address] PCP - General Internal Medicine 12/05/21 documented as of this encounter
--- OUTSIDE RECORDS SUMMARY | 2025-05-28 17:56 | XMS_ITS | Encounter Summary ---
Author Organization [facility] Address [address] [facility] [address] [place] [address] Phone Care Team Providers Care Lining Strap Closer Name Role Phone Radu Christensen MD Primary Care Provider Encounter Details Date Type Department Care Team (Late st Contact Info) Description 05/18/2025 Orders Only [facility] Rheumatology [address] [place] [address] Karuna Lugo MD [address] [facility], [address] [place] [address] [email or web address] Social History Tobacco Use Types Packs/Day Years [...] Description 07/20/2025 2:00 PM EST Office Visit [facility] Rheumatology [address] [place] [address] Karuna Lugo MD [address] [facility], [address] [place] [address] [email or web address] 09/29/2025 11:15 AM EDT Appointment [facility], Bone Density - [facility] [address] [place] [address] Karuna Lugo MD [address] [facility], [address] [place] [address] [email or web address] documented as of this encounter Procedures Procedure Name Priority Date/Time Associated Diagnosis Comments TOXICOLOGY SCREEN, URINE Routine 04/25/2025 8:53 AM EDT documented in this encounter Results * Toxicology Screen, Urine (04/25/2025 8:53 AM EDT) Urine (Urine, Voided) us Karuna Lugo MD LAB URINE ORDERABLES Fin al Result documented in this encounter Visit Diagnoses Not on filedocumented in this encounter Care Teams Lining Strap Closer Relationship Specialty Start Date End Date Radu Christensen MD [address] [place] [address] PCP - General Internal Medicine 10/18/24 documented as of this encounter Additional Source Comments The information contained in this document represents components of the legal health record. It is not the complete legal health record.[facility]
--- OUTSIDE RECORDS SUMMARY | 2025-05-28 17:56 | XMS_ITS | Clinical Summary ---
Author Organization [facility] Address [address] [place], [place] [id number] Phone Care Team Providers Care Jet Handler Name Role Phone Radu Christensen MD Primary Care Provider Allergies Active Allergy Reactions Criticality Noted Date Comments (D)-Limonene Flavor 10/29/2006 becomes combative 2-Octyl Cyanoacrylate Rash Low 04/25/2025 Oxycodone Hcl Headaches,Hives,Itch ing,Nausea And Vomiting 07/24/2009 Prochlorperazine 09/07/2005 WANTS TO RIP SKIN OFF Medications albuterol 2.5 mg /3 mL (0.083 %) nebulizer solution Inhale 2.5 mg into the lungs. 06/09/20 19 Active albuterol 90 mcg/actuation inhaler Inhale 2 puffs into the lungs. 03/13/20 20 Active ARIPiprazole (ABILIFY) 15 MG tablet TK 1 T PO QAM 07/14/19 20 Active famotidine (PEPCID) 20 MG tablet Take 20 mg by mouth. 03/13/20 20 Active fluticasone propionate (FLOVENT HFA) 220 mcg/actuation inhaler Inhale 220 mcg into the lungs. 03/13/20 20 Active fluticasone propionate (FLONASE) 50 mcg/actuation nasal spray 100 mcg by Nasal route. 03/13/20 20 Active oxybutynin (DITROPAN-XL) 5 MG 24 hr tablet Take 5 mg by mouth. 02/23/20 20 Active QUEtiapine (SEROQUEL) 25 MG tablet Take 25 mg by mouth as needed. 07/14/19 Active sertraline (ZOLOFT) 100 MG tablet Take 100 mg by mouth daily. 06/15/20 Active traZODone (DESYREL) 150 MG tablet Take 150 mg by mouth nightly at bedtime. 07/03/20 Active atenolol (TENORMIN) 25 MG tablet Take 25 mg by mouth. 07/19/19 Active dicyclomine (BENTYL) 10 MG capsule Take 10 mg by mouth. 09/10/19 Active tiZANidine (ZANAFLEX) 4 MG tablet Take 4 mg by mouth. 07/19/19 Active amLODIPine (NORVASC) 2.5 MG tablet Take 2.5 mg by mouth daily. 06/14/20 Active EPINEPHrine 0.3 mg/0.3 mL auto-injector Inject 0.3 mg into the muscle once as needed. 05/31/20 Active sucralfate (CARAFATE) 1 gram tablet Take 1 g by mouth nightly at bedtime. at bedtime. 06/10/20 Active betamethasone dipropionate 0.05 % ointmentIndication s:Rheumatoid arthritis involving multiple sites with positive rheumatoid factor Apply topically 2 (two) times a day. 45 g 1 11/10/19 24 Active abatacept (ORENCIA) 125 mg/mL Syrg subcutaneous injection syringeIndications :Rheumatoid arthritis involving multiple sites with positive rheumatoid factor Inject 1 mL (125 mg total) under the skin every 7 days. 4 mL 11 10/24/19 25 Active diclofenac sodium (VOLTAREN) 75 MG EC tabletIndications: Rheumatoid arthritis involving multiple sites with positive rheumatoid factor Take 1 tablet (75 mg total) by mouth 2 (two) times a day. 180 tablet 2 04/25/20 25 Active ergocalciferol (DRISDOL) 50,000 unit capsuleIndications :Rheumatoid arthritis involving multiple sites with positive rheumatoid factor,Vitamin D insufficiency Take 1 capsule (50,000 Units total) by mouth once a week. 13 capsule 1 04/25/20 25 Active traMADoL (ULTRAM) 50 mg tabletIndications: Rheumatoid arthritis involving multiple sites with positive rheumatoid factor,Fibromyalgi a,Primary osteoarthritis involving multiple joints Take 1 tablet (50 mg total) by mouth 2 (two) times a day. 60 tablet 11/24/20 25 Active traMADoL (ULTRAM) 50 mg tabletIndications: Rheumatoid arthritis involving multiple sites with positive rheumatoid factor,Fibromyalgi a,Primary osteoarthritis involving multiple joints Take 1 tablet (50 mg total) by mouth 2 (two) times a day. 60 tablet 04/30/20 25 025 Discontin ued(Reord er) Active Problems Problem Noted Date Diagnosed Date Long-term current use of abatacept 04/25/2025 Assessment & Plan (04/28/2025 12:04 PM EDT): Hold Orencia (abatacept) whenever running fever, feeling sick or taking antibiotics. Complete entire course of antibiotics and wait 48 hours after the last antibiotic dose to make sure that infection does not recur before restarting Orencia on its usual weekly dosing schedule. Monitor for injection site reaction, fevers, chills, unusual weakness, coughing etc. Make sure to inform new MD, PA, COMMISSIONS COORDINATOR about chronic therapy with Orencia particularly in emergency situations. NSAID long-term use 04/25/2025 Assessment & Plan (04/28/2025 12:04 PM EDT): Take the lowest dose, with least frequency, for shortest time. Remember to take it always with food. Favor topical over oral preparations. Gastroesophageal reflux disease without esophagi tis 04/25/2025 Assessment & Plan (04/28/2025 12:04 PM EDT): Avoid late, large, spicy meals. Keep headboard elevated at 45 angle for nighttime. On selective serotonin reuptake inhibitor (SSRI) therapy 04/25/2025 Assessment & Plan (04/28/2025 12:04 PM EDT): Monitor for mood swings, increased muscle rigidity and temperature intolerance. Vitamin D insufficiency 04/25/2025 Assessment & Plan (04/28/2025 12:05 PM EDT): Continue weekly vitamin D 50,000 units to bring it into optimal serum range: 40- 45 ng/ml. History of steroid therapy 04/25/2025 Assessment & Plan (04/28/2025 12:06 PM EDT): Due to reported height loss, difficulty walking and history of steroid therapy with low serum vitamin D level she is at risk for premature osteopenia and osteoporosis. Epicondylitis elbow, medial, right 04/25/2025 Assessment & Plan (04/28/2025 11:53 AM EDT): Avoid prolonged use especially lifting, pulling, pushing on outstretched arms. Use warm pack versus warm shower prior to gentle, regular exercises-examples with pictures and detailed instructions printed for home use today. Use splinting for extended activities. Apply warm pack prior to gentle, regular exercising-examples of exercises with pictures and detailed instructions printed for home use today. Topical cream/gel versus medicated patches may provide additional benefit. If above strategies insufficient consider formal PT and/or local steroid injection. Psoriasis 04/25/2025 Assessment & Plan (04/28/2025 12:07 PM EDT): Currently more active on her scalp. Consider formal dermatology assessment if not better. Primary osteoarthritis involving multiple joints 08/06/2023 Assessment & Plan (04/28/2025 11:51 AM EDT): Joint protection, energy conservation. Gentle, regular exercise routine. Avoid falls, injuries, overuse. Keep body weight in ideal range for her height. She may benefit from topical cream such as Arnica, Biofreeze, Aspercreme versus medicated patches such as salonpas, icy hot patch 2-3 times daily and if necessary at bedtime x 3 weeks. Carefully continue alternating Voltaren 75 mg twice daily with food and tramadol 50 mg up to twice daily as needed. Assessment & Plan (12/03/2023 4:28 PM EDT): Osteoarthritis in multiple joints. Continue with tramadol 2 tablets daily as needed as well as diclofenac. Assessment & Plan (08/06/2023 11:44 AM EST): Osteoarthritis in multiple joints with no active swelling. She can continue with diclofenac 75 mg as needed. She is also on Tramadol 50mg BID which I prescribe. Advised her to try and get daily physical activity. Rheumatoid arthritis involvi ng multiple sites with positive rheumatoid factor 04/11/2023 Assessment & Plan (04/28/2025 11:50 AM EDT): Longstanding seropositive rheumatoid arthritis was managed well on every 7 days subcutaneous Humira for 5 years that stopped working in early 2024. She was switched to weekly subcutaneous Orencia every Wednesday that she finds helpful for few days of each week only. Labs and feet x-rays requested for better assessment today and prior to next visit in 3 months. Continue joint protection, energy conservation techniques. Gentle, regular exercise routine as educated and tolerated. Avoid falls, injuries, overuse, sick contacts. Call if problems or questions. Assessment & Plan (08/06/2023 11:42 AM EST): Seropositive rheumatoid arthritis well-controlled on Humira every week. She has no warm and swollen joints and very minimal scalp psoriasis. Continue with every week Humira dosing. Sent her for some baseline labs today. Assessment & Plan (04/11/2023 6:06 PM EDT): Seropositive rheumatoid arthritis as well as psoriasis fairly well controlled on Humira every week with minimal stiffness and no active synovitis. Continue with weekly Humira. We will get some baseline labs today including hepatitis B, C and QuantiFERON gold. Primary osteoarthritis of both knees 04/11/2023 Assessment & Plan (04/11/2023 6:07 PM EDT): Arthritis in both knees with stiffness but no swelling. She can continue with diclofenac 75 mg twice a day as needed. Instability of left knee joint 04/11/2023 Assessment & Plan (04/11/2023 6:06 PM EDT): Stiffness and gelling in the left knee from known osteoarthritis. She has some instability to both knees and will benefit from quadriceps strengthening exercises to restore knee stability. She does not need an injection today. 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 She has an increase in psoriasis. Add methotrexate 3 tablets weekly as well as daily folic acid. Also uses betamethasone ointment on the skin as needed. Sent her for some labs today. Fibromyalgia Assessment & Plan (04/28/2025 12:02 PM EDT): In the past prescribed Lyrica, 50 mg 3 times daily that caused severe tearing sensation within the elbows and knees. We discussed the diagnosis of fibromyalgia, its natural history, and treatment. Specifically, we discussed that treatment requires many interventions and recognition that we are often unable to get patients completely pain free. Management of fibromyalgia requires patient engagement to address any underlying depression, anxiety, or sleep disorder. Further, patients are encouraged to engage in regular physical activity. Some studies have suggested that Kvng Chi is effective. Other physical activity may including water-based aerobics, yoga, walking, biking, swimming, Pilates etc. In terms of pharmacotherapy, there are many options, including tricyclic antidepressants, duloxetine, gabapentin or pregabalin, and cyclobenzaprine as well as other similar medications to those listed. In this case, the patient might progress on nonpharmacologic measures as above. She may benefit from learning mindfulness technique as described in the book written by Dr Gianni Hodge Full catastrophe living Assessment & Plan (12/03/2023 4:29 PM EDT): Diffuse muscle pain secondary to fibromyalgia stable on Lyrica and trazodone prescribed by psychiatry. Assessment & Plan (08/06/2023 11:43 AM EST): Diffuse muscle pain and sensitivity consistent with fibromyalgia. She is currently on Lyrica and trazodone which also helps her pain. Assessment & Plan (04/11/2023 6:05 PM EDT): Diffuse muscle pain and sensitivity consistent with fibromyalgia fairly well controlled on Lyrica and trazodone which also helps with sleep. I refilled her Lyrica prescription. Encounters Date Type Department Care Team Description 05/28/2025 Refill [facility] Rheumatology [address] [place] [address] Brenda Alvarez MA 05/18/2025 Orders Only [facility] Rheumatology [address] [place] [address] Karuna Lugo MD 04/27/2025 10:49 AM EDT - 04/27/2025 11:59 PM EDT Hospital Encounter [address] [address] Karuna Lugo MD Discharge Disposition: Home or Self Care 04/27/2025 10:48 AM EDT Hospital Encounter [address] [address] Karuna Lugo MD Discharge Disposition: Home or Self Care 04/25/2025 4:09 PM EDT - 04/25/2025 11:59 PM EDT Hospital Encounter [address] [address] Karuna Lugo MD Discharge Disposition: Home or Self Care 04/25/2025 2:30 PM EDT Office Visit [facility] Rheumatology [address] [place] [address] Karuna Lugo MD Rheumatoid arthritis involving multiple sites with positive rheumatoid factor (Primary Dx); Fibromyalgia; Primary osteoarthritis involving multiple joints; Long-term current use of abatacept; NSAID long-term use; Gastroesophageal reflux disease without esophagitis; On selective serotonin reuptake inhibitor (SSRI) therapy; Vitamin D insufficiency; History of steroid therapy; Epicondylitis elbow, medial, right; Psoriasis 04/23/2025 Documentation [facility] [address] [place] [id number] Rosalva Colon RPH 04/10/2025 Refill [facility] Rheumatology [address] [place] [address] Unknown, Unknown, from Last 3 Months Family History Medical History Relation Comments Glaucoma Maternal Grandmother Macular degeneration Maternal Grandmother Blindness Paternal Grandfather [place] Neg Hx Retinal degeneration Neg Hx Relation Status Comments Maternal Grandmother Paternal Grandfather Social History Tobacco Use Types Packs/Day Years Used Date Smoking Tobacco: Former Cigarettes Q uit: 09/25/2016 Smokeless Tobacco: Former Tobacco Cessation:Counseling Given: Not Answered Alcohol Use Standard Drinks/Week Comments Not Currently [...] on file Sexual Orientation Not on file Last Filed Vital Signs Vital Sign Reading Time Taken Comments Blood Pressure 128/80 04/25/2025 2:37 PM EDT Pulse 80 04/25/2025 2:37 PM EDT Temperature 36.8 C (98.2 F) 10/02/2020 11:29 AM EDT Respiratory Rate 18 10/02/2020 11:38 AM EDT Oxygen Saturation 97% 04/25/2025 2:37 PM EDT Inhaled Oxygen Concentration - - Weight 66.4 kg (146 lb 6.4 oz) 04/25/2025 2:37 P M EDT Height 160 cm (5' 3 ) 04/25/2025 2:37 PM EDT Body Mass Index 25.93 04/25/2025 2:37 PM EDT Plan of Treatment Upcoming Encounters Date Type Department Care Team (Late st Contact Info) Description 07/20/2025 2:00 PM EST Office Visit [facility] Rheumatology [address] [place] [address] Karuna Lugo MD [address] [facility], [address] [place] [address] 09/29/2025 11:15 AM EDT Appointment [facility], Bone Density - [facility] [address] [place] [address] Karuna Lugo MD [address] [place] [address], [address] [place] [address] [email or web address] Health Maintenance Due Date Last Done Comments DEPRESSION SCREENING 1985 SMOKING Hx and SMOKELESS TOBACCO SCREENING 1986 HIV ONE-TIME SCREENING (18-65 YEARS) 1991 PNEUMOCOCCAL VACCINES (50+ years) (2 of 2 - PCV) 10/10/2006 10/10/2005 COLOGUARD 2018 COLONOSCOPY 2018 COLORECTAL CANCER SCREENING 2018 FIT TEST 2018 FOBT 2018 SIGMOIDOSCOPY 2018 VIRTUAL COLONOSCOPY 2018 PAP SMEAR 03/06/2023 03/06/2020 RSV VACCINE (1 - Risk 50-74 years 1-dose series) 2023 COVID-19 VACCINE (2024- season) 2025 06/12/2021, 11/30/2020, 11/02/2020 MAMMOGRAM 07/25/2026 07/25/2024, 07/06, 01/26/2023, Additional history exists SCREENING FOR DIABETES 04/25/2028 04/25/2025 LIPID PANEL 04/23/2030 04/23/2025, 09/02, 12/25/2022 Adult Td,Tdap Booster 01/04/2033 01/04/2023 , 07/15/2012, 11/26/2004 HEPATITIS C SCREENING Completed 02/24/2023, 023 ZOSTER VACCINES Completed 12/31/2023, 10/01/2023 INFLUENZA VACCINE Completed 03/26/2025, , 06/10/2023, Additional history exists HEPATITIS A VACCINES Aged Out No long er eligible based on patient's age to complete this topic HIB VACCINES Aged Out No longer eligi ble based on patient's age to complete this topic MENINGOCOCCAL VACCINES (ACWY) Aged Out No longer eligible based on patient's age to complete this topic MENINGOCOCCAL VACCINES (B) Aged Out N o longer eligible based on patient's age to complete this topic Medical Devices Implanted Type Area Vector Control Assistant Device Identifier Shelf Expiration Date Model / Serial / Lot Lumbar Hardware Lens Intraocular Tecnis Smplcty Tecnis 1pc Clr Ashe 28.5d - [id number] Implanted:Qty: 1 on 10/02/2020 by Amos Cook MD at [facility] Left: Eye A M O SALES 08/05/2023 [id number] / [id number] / Procedures Procedure Name Priority Date/Time Associated Diagnosis Comments XR FOOT 3 OR MORE VIEWS (RIGHT) Routine 04/27/2025 11:03 AM EDT Rheumatoid arthritis involving multiple sites with positive rheumatoid factor Psoriasis XR FOOT 3 OR MORE VIEWS (LEFT) Routine 04/27/2025 11:02 AM EDT Rheumatoid arthritis involving multiple sites with positive rheumatoid factor Psoriasis CBC AND DIFFERENTIAL Routine 04/25/2025 4:15 PM EDT Rheumatoid arthritis involving multiple sites with positive rheumatoid factor Long-term current use of abatacept NSAID long-term use SEDIMENTATION RATE (ESR) Routine 04/25/2025 4:15 PM EDT Rheumatoid arthritis involving multiple sites with positive rheumatoid factor Long-term current use of abatacept NSAID long-term use C-REACTIVE PROTEIN (CRP) Routine 04/25/2025 4:15 PM EDT Rheumatoid arthritis involving multiple sites with positive rheumatoid factor Long-term current use of abatacept NSAID long-term use COMPREHENSIVE METABOLIC PANEL (CMP) Routine 04/25/2025 4:15 PM EDT Rheumatoid arthritis involving multiple sites with positive rheumatoid factor Long-term current use of abatacept NSAID long-term use TOXICOLOGY SCREEN, URINE Routine 04/25/2025 8:53 AM EDT HEPATITIS C ANTIBODY, QUALITATIVE Routine 02/24/2023 10:08 AM EDT Rheumatoid arthritis involving multiple sites with positive rheumatoid factor from Last 3 Months or Most Recently Relevant to Health Maintenance Results * XR FOOT 3 OR MORE VIEWS (RIGHT) (04/27/2025 11:03 AM EDT) Anatomical Region Laterality Modality Foot Right Computed Radiogr aphy 04/28/2025 6:04 PM EDT Impressions 04/28/2025 6:08 PM EDT 1. No osseous erosion. 2. Mild osteoarthritis of the first MTP. Narrative 04/28/2025 6:08 PM EDT XR FOOT 3 OR MORE VIEWS (RIGHT) Referring clinician's provided indication for this examination in Epic: Pain; scalp , intergluteal, elbows psoriasis COMPARISON: None. FINDINGS: No fracture. No osseous erosion. Normal alignment. Small marginal osteophyte at the dorsal naviculare. Marginal osteophytes with mild first MTP joint space narrowing. No soft tissue swelling. Procedure Note Torito Banks MD - 04/28/2025 XR FOOT 3 OR MORE VIEWS (RIGHT) Referring clinician's provided indication for this examination in Epic:Pain; scalp , intergluteal, elbows psoriasis COMPARISON: None. FINDINGS: No fracture. No osseous erosion. Normal alignment. Small marginalosteophyte at the dorsal naviculare. Marginal osteophytes with mild firstMTP joint space narrowing. No soft tissue swelling. IMPRESSION: 1. No osseous erosion. 2. Mild osteoarthritis of the first MTP. Karuna Lugo MD IMG XR LOWER EXTREMITY F inal Result * XR FOOT 3 OR MORE VIEWS (LEFT) (04/27/2025 11:02 AM EDT) Anatomical Region Laterality Modality Foot Left Computed Radiogr aphy 04/28/2025 4:41 PM EDT Impressions 04/28/2025 4:42 PM EDT Mild forefoot degenerative change. No findings to suggest inflammatory arthropathy. Narrative 04/28/2025 4:42 PM EDT XR FOOT 3 OR MORE VIEWS (LEFT) Referring clinician's provided indication for this examination in Epic: Pain; scalp , intergluteal, elbows psoriasis COMPARISON: None FINDINGS: No acute fracture or dislocation. Mild interphalangeal joint space narrowing. No periarticular bone loss or erosion. Mild distal Achilles calcific enthesopathy. Procedure Note Lupe Dixon MD - 04/28/2025 XR FOOT 3 OR MORE VIEWS (LEFT) Referring clinician's provided indication for this examination in Epic:Pain; scalp , intergluteal, elbows psoriasis COMPARISON: None FINDINGS: No acute fracture or dislocation. Mild interphalangeal joint spacenarrowing. No periarticular bone loss or erosion. Mild distal Achillescalcific enthesopathy. IMPRESSION: Mild forefoot degenerative change. No findings to suggest inflammatoryarthropathy. Karuna uLgo MD IMG XR LOWER EXTREMITY F inal Result * (ABNORMAL) Comprehensive metabolic panel (04/25/2025 4:15 PM EDT) SODIUM 139 133 - 146 mmol/L [facility] POTASSIUM 3.7 3.3 - 5.1 mmol/L [facility] Comment:Specimen slightly he molyzed, result may be falsely elevated. CHLORIDE 103 96 - 108 mmol/L [facility] CO2 24 21 - 35 mmol/L [facility] BUN 14 6 - 19 mg/dL [facility] CREATININE 0.70 0.5 - 1.5 mg/dL [facility] GLUCOSE 85 70 - 99 mg/dL [facility] ALBUMIN 4.5 3.9 - 4.8 g/dL [facility] TOTAL PROTEIN 7.6 6.5 - 8.0 g/dL [facility] CALCIUM 9.4 8.4 - 10.3 mg/dL [facility] ALKALINE PHOSPHATASE 136(H) 39 - 117 U/L [facility] TOTAL BILIRUBIN 0.5 0.0 - 1.2 mg/dL [facility] AST 18 0 - 37 U/L [facility] ALT 15 0 - 40 U/L [facility] GLOBULIN 3.1 1 - 4.8 g/dL [facility] EGFR 105 >59 mL/min/1.7 3m2 [facility] Comment:Estimated glomerular filtration rate calculated using the CKD-EPI refit equation. ANION GAP 16 10 - 20 mmol/L [facility] Blood 04/25/2025 4:15 PM EDT 04/25/2025 4:17 PM EDT Karuna Lugo MD LAB BLOOD BKR ORDERABLES Final Result Performing Organization Address City/[facility]/ZIP Co de Phone Number [address] [address] * Sedimentation rate (ESR) (04/25/2025 4:15 PM EDT) ESR 6 0 - 30 mm/h [facility] Blood 04/25/2025 4:15 PM EDT 04/25/2025 4:17 PM EDT Karuna Lugo MD LAB BLOOD BKR ORDERABLES Final Result Performing Organization Address [facility]/ZIP Co de Phone Number [address] [address] * (ABNORMAL) CBC and differential (04/25/2025 4:15 PM EDT) WBC 5.40 4.00 - 11.00 K/uL [facility] RBC 4.62 4.00 - 5.20 M/uL [facility] HGB 13.6 12.0 - 16.0 g/dL [facility] HCT 41.6 36.0 - 46.0 % [facility] PLT 324 150 - 450 K/uL [facility] MCV 90.0 80.0 - 100.0 fL [facility] MCH 29.4 27.0 - 31.0 pg [facility] MCHC 32.7 32.0 - 36.0 g/dL [facility] RDW 12.7 11.5 - 14.5 % [facility] MPV 9.6 8.4 - 12.0 fL [facility] NRBC 0.00 0.00 /100 WBCs [facility] ABSOLUTE NRBC 0.00 0.00 K/uL [facility] DIFF METHOD Auto [facility] NEUTS 49.5 48.0 - 76.0 % [facility] LYMPHS 41.7(H) 18.0 - 41.0 % [facility] MONOS 7.4 4.0 - 11.0 % [facility] EOS 0.6 0.0 - 5.0 % [facility] BASOS 0.6 0.0 - 1.5 % [facility] Granulocytes, immature (%) 0.2 0.0 - 0.9 % [facility] ABSOLUTE NEUTS 2.68 1.92 - 7.60 K/uL [facility] ABSOLUTE LYMPHS 2.25 0.72 - 4.10 K/uL [facility] ABSOLUTE MONOS 0.40 0.16 - 1.10 K/uL [facility] ABSOLUTE EOS 0.03 0.00 - 0.50 K/uL [facility] ABSOLUTE BASOS 0.03 0.00 - 0.15 K/uL [facility] Granulocytes, immature 0.01 0.00 - 0.09 K/uL [facility] Blood 04/25/2025 4:15 PM EDT 04/25/2025 4:17 PM EDT us Karuna Lugo MD LAB BLOOD BKR ORDERABLES Final Result Performing Organization Address City/State/[facility] Co de Phone Number [address] [address] * (ABNORMAL) C-Reactive Protein (04/25/2025 4:15 PM EDT) C REACTIVE PROTEIN 4.1(H) 0.0 - 4.0 mg/L [facility] Blood 04/25/2025 4:15 PM EDT 04/25/2025 4:17 PM EDT us Karuna Lugo MD LAB BLOOD BKR ORDERABLES Final Result Performing Organization Address City/[facility]/ZIP Co de Phone Number [address] [address] * Toxicology Screen, Urine (04/25/2025 8:53 AM EDT) Urine (Urine, Voided) us Karuna Lugo MD LAB URINE ORDERABLES Fin al Result * Hepatitis C antibody, qualitative (02/24/2023 10:08 AM EDT) HCV NON-REACTIV E NON-REACTI VE [facility] Blood 02/24/2023 10:0 8 AM EDT 02/24/2023 10:14 AM EDT Jose D Murphy MD LAB BLOOD BKR ORDERABLE S Final Result Performing Organization Address [facility]/ZIP Co de Phone Number [address] [address] from Last 3 Months or Most Recently Relevant to Health Maintenance Insurance MEDICARE PART A & B [facility] MEDIC[facility] REPLACEMENT MEDICARE PART A & B [facility] MEDIC[facility]PLAC[facility] MEDICARE PART A & B [facility] MEDIC[facility] REPLAC[facility] MEDICARE PART A & B [facility] MEDIC[facility] REPLAC[facility] MEDICARE PART A & B [place] [facility] RE[facility]AC[facility] MEDICARE PART A & B [facility] REPLAC[facility] MEDICARE PART A & B [place] [facility] REPL[facility] MEDICARE PART A & B [place] [facility] MED[facility] REPLACEMENT MEDICARE PART A & B [facility] REPLAC[facility] Advance Directives For more information, please contact: [phone] (9AM - 5PM [facility], Wednesday-Wednesday) Documents on File Type Date Recorded 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 It is not the complete legal health record.[facility]
--- OUTSIDE RECORDS SUMMARY | 2025-05-28 17:56 | XMS_ITS | Encounter Summary ---
Author Organization [facility] Address [address] [place] [id number] Phone Care Team Providers Care Oil Pumper Name Role Phone Susy Silva MD Primary Care Provider [phone] Radu Christensen MD Primary Care Provider Encounter Details Date Type Department Care Team (Latest Contact Info) Description 02/24/2023 Ancillary Orders [facility] Rheumatology [address] [place] [address] Jose D Murphy MD Primary osteoarthritis of both knees; Instability of left knee joint Social History Tobacco Use Types Packs/Day Years [...] Description 07/20/2025 2:00 PM EST Office Visit [facility] [place] [address] Karuna Lugo MD [address] [facility], [address] [place] [address] 09/29/2025 11:15 AM EDT Appointment [facility], Bone Density - [address] [address] Karuna Lugo MD [address] [facility], [address] [place] [address] [email or web address] documented as of this encounter Results * XR KNEE 4 OR MORE VIEWS (BILATERAL) (02/24/2023 12:31 PM EDT) Anatomical Region Laterality Modality Knee Bilateral, Knee Right, Knee Left Computed Radiography 02/26/2023 11:0 6 PM EDT Impressions 02/26/2023 11:07 PM EDT No acute osseous abnormality or significant degenerative change. Narrative 02/26/2023 11:07 PM EDT XR KNEE 4 OR MORE VIEWS (BILATERAL) COMPARISON: None FINDINGS: RIGHT KNEE: No acute fracture or dislocation. Osseous alignment within normal limits. Joint spaces preserved. Bones slightly demineralized. LEFT KNEE: No acute fracture or dislocation. Osseous alignment within normal limits. Joint spaces preserved. Bones slightly demineralized. Procedure Note Lupe Dixon MD - 02/26/2023 XR KNEE 4 OR MORE VIEWS (BILATERAL) COMPARISON: None FINDINGS: RIGHT KNEE: No acute fracture or dislocation. Osseous alignment withinnormal limits. Joint spaces preserved. Bones slightly demineralized. LEFT KNEE: No acute fracture or dislocation. Osseous alignment withinnormal limits. Joint spaces preserved. Bones slightly demineralized. IMPRESSION: No acute osseous abnormality or significant degenerative change. Jose D Murphy MD IMG XR LOWER EXTREMITY Final Result documented in this encounter Visit Diagnoses Diagnosis Primary osteoarthritis of both knees Instability of left knee joint Primary osteoarthritis of both knees Instability of left knee joint documented in this encounter Care Teams Oil Pumper Relationship Specialty Start Date End Date Susy Silva MD [address] [place] [address] PCP - General Internal Medicine 03/05/20 10/17/24 Radu Christensen MD [address] [place] [id number] PCP - General Internal Medicine 10/18/24 documented as of this encounter Additional Source Comments The information contained in this document represents components of the legal health record. It is not the complete legal health record.[facility]
--- OUTSIDE RECORDS SUMMARY | 2025-05-28 17:56 | XMS_ITS | Encounter Summary ---
Author Organization [email or web address] Address [address] [place] [address] Care Team Providers Care Sampling Theory Teacher Name Role Phone Radu Christensen MD Primary Care Provider [phone] Reason for Visit * Reason Onset Date Comments Medication Problem 05/24/2025 Encounter Details Date Type Department Care Team ([facility] st Contact Info) Description 05/24/2025 Telephone Obstetrics and Gynecology [facility] [address] [place] [address] Kellie Renae, [address] [id number] Social History Tobacco Use Types Packs/Day Years [...] of this encounter Progress Notes * Olive Starr, JUSTIN - 05/24/2025 9:33 AM EST Spoke with pt. She states that her insurance is requiring her to have lab work? Before they will approve PA. She is unsure exact labs they are requesting. She will contact insurance and have them fax information to office. Info sent to pt on [employer] patient support information in event insurance doesn't cover medication (pt can't do regular HRT due to HTN). * Laxmi Ana Luisa Dean - 05/24/2025 9:20 AM EST Chief Complaint/problem: patient called would like to speak to nurse about needing prior Auth for hrt and what the insurance is requiring How long has the patient had this problem? Pt???s LANGUAGE PATHOLOGIST provider: Kellie Renae CNM Last menstrual period (LMP) or EDC (due date): na documented in this encounter Plan of Treatment Upcoming Encounters Date Type Department Care Team (Late st Contact Info) Description 06/15/2025 10:30 AM EST Office Visit Orthopedic Surgery - [place] [address] [address] Maribel Barajas MD [address] [facility] [address] [place] [address] documented as of this encounter Visit Diagnoses Not on filedocumented in this encounter Additional Health Concerns Assessment Noted Time PHQ-9 Depression Total Score: 15 025 12:18 PM EST documented as of this encounter Care Teams Sampling Theory Teacher Relationship Specialty Start Date End Date Radu Christensen MD [address] [place] [address] PCP - General Internal Medicine 12/05/21 documented as of this encounter
== END 2025-05-28 13:30 | disposition home or self-care (01) ==
LOC: HO.HGS 13:16
PROVIDERS: PCP Internal Medicine; Visit Provider Surgery
DX: R19.8 Other specified symptoms and signs involving the digestive system and abdomen (principal)
CPT/HCPCS: 99213

== ENCOUNTER → 2025-05-28 13:16 | Outpatient (BNVA) | payer MEDICARE, MEDICAID, SELFPAY | PROVIDERS: PCP Internal Medicine; Visit Provider Surgery | DX: R19.8 Other specified symptoms and signs involving the digestive system and abdomen (principal); K59.00 Constipation, unspecified; R19.7 Diarrhea, unspecified; Z87.891 Personal history of nicotine dependence | CPT/HCPCS: 99212 ==